=== PATIENT | male | born 1930 | race Caucasian/White ===

== ENCOUNTER 2019-05-26 21:28 | Emergency (ER) | payer MEDICARE, BC ==
[2019-05-26 21:35] VITALS: BP 161/85; PULSE 96; RESP 20; TEMP 98.6
[2019-05-26] MEDS ORDERED: ONDANSETRON 4 MG/2 ML VIAL IVP STA (21:47)
[2019-05-26] MEDS ORDERED: KETOROLAC 30 MG/ML 1 ML VIAL IVP STA (21:47)
[2019-05-26] MEDS ORDERED: SODIUM CHLORIDE 0.9% 1,000 ML IV STA (21:47)
[2019-05-26] MEDS ORDERED: HYDROmorphone 0.5 MG/0.5 ML SYRINGE IVP STA (21:47)
[2019-05-26 22:48] LABS: Basophils # (A) 0.1 k/uL (0-0.2); Basophils % (A) 1 %; Eosinophils # (A) 0.3 k/uL (0-0.7); Eosinophils % (A) 3 %; HGB 15.9 gm/dL (13.0-17.5); Lymphocytes # (A) 1.9 k/uL (1.0-4.8); Lymphocytes % (A) 21 %; MCH 31.3 pg (25.0-35.0); MCHC 33.1 g/dL (31.0-37.0); MCV 94.6 fL (80.0-100.0); Mean Platelet Volume 6.4; Monocytes # (A) 0.5 k/uL (0-1.0); Monocytes % (A) 5 %; Neutrophils # (A) 6.1 k/uL (1.3-7.7); Neutrophils % (A) 68 %; Platelet Count 236 k/uL (150-450); RBC 5.08 m/uL (4.30-5.90); RDW 13.5 % (11.5-15.5)
--- NOTE | 2019-05-26 22:57 | CT ---
EXAMINATION TYPE: CT abdomen pelvis wo con DATE OF EXAM: 05/26/2019 COMPARISON: 09/23/2013 HISTORY: left flank pain CT DLP: 533.8 mGycm Automated exposure control for dose reduction was used. TECHNIQUE: Helical acquisition of images was performed from the lung bases through the pelvis. FINDINGS: There is some mild patchy atelectasis at the posterior lung bases. Heart is moderately enlarged. There are calcified numerous splenic granulomata. There are multiple calcified small gallstones. Thes e are layering in the dependent gallbladder. Bile ducts are not dilated. Liver shows no focal defect. There is no evidence of pancreatic mass. There is fat stranding around the left kidney. There is 2 mm calculus lower pole left kidney. There i s left-sided hydronephrosis and hydroureter. There is left-sided periureteral edema. There is 4 mm ca lculus at the left ureterovesical junction. This is almost into the urinary bladder. There is minimal wall thickening of the posterior urinary bladder on the left side. Prostate is enlarged. Prostate me asures 6.2 cm. There are prostatic calcifications. There is no sign of thickened appendix. Appendix n ot seen with certainty. There is no mesenteric edema. There is no evidence of bowel obstruction. There is 4.5 cm cortical cyst lower pole right kidney. There is no evidence of renal mass. There is n o retroperitoneal adenopathy. There are spondylotic changes in the lumbar spine. 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 There is no compression fracture. There is moderate spinal dhaval nosis at L4-5. IMPRESSION: THERE IS OBSTRUCTING CALCULUS AT THE LEFT URETEROVESICAL JUNCTION THAT IS A CHANGE COMPARED TO OLD EX AM. TINY CALCULUS LOWER POLE LEFT KIDNEY. HIGH ATTENUATION IN THE DEPENDENT GALLBLADDER CONSISTENT WITH MULTIPLE CALCIFIED GALLSTONES INCREASED COMPARED TO OLD EXAM. SEVERE L4-5 SPINAL STENOSIS APPEARS WORSE THAN OLD EXAM.
[2019-05-26 22:59] LABS: Albumin 4.4 g/dL (3.5-5.0); Calcium 9.9 mg/dL (8.4-10.2); Potassium 4.9 mmol/L (3.5-5.1); Total Bilirubin 0.3 mg/dL (0.2-1.3); Total Protein 7.6 g/dL (6.3-8.2)
[2019-05-27 00:40] LABS: Appearance,Urine Cloudy (Clear); Bacteria,Urine Many /hpf; Bilirubin,Urine Negative (Negative); Blood,Urine Moderate (Negative); Color,Urine Yellow; Glucose,Urine (UA) Negative (Negative); Ketones,Urine Negative (Negative); Leukocyte Esterase,Urine Large (Negative); Mucus,Urine Rare /hpf; Nitrite,Urine Positive (Negative); PH, Urine 6.5 (5.0-8.0); Protein,Urine Trace (Negative); RBC,Urine 35 /hpf (0-5); Specific Gravity,Urine 1.015 (1.001-1.035); Urobilinogen,Urine <2.0 mg/dL (<2.0); WBC,Urine >182 /hpf (0-5)
[2019-05-27] MEDS ORDERED: ACET/COD 300 MG/30 MG STARTER PACK 6 TAB BTL PO STA (00:45)
[2019-05-27] MEDS ORDERED: IBUPROFEN 600 MG STARTER PACK 4 TAB BTL PO STA (00:45)
[2019-05-27] MEDS ORDERED: LEVOFLOXACIN 750 MG TAB PO STA (00:45)
[2019-05-27] MEDS ORDERED: TAMSULOSIN 0.4 MG CAP.ER.24H PO STA (00:45)
--- NOTE | 2019-05-27 00:50 | ED ---
Abdominal Pain HPI - General Chief Complaint: Abdominal Pain Stated Complaint: kidney pain Time Seen by Provider: 05/26/19 21:41 Source: patient Mode of arrival: ambulatory Limitations: no limitations - History of Present Illness Initial Comments: 88-year-old male patient presents to the emergency department today for evaluation of left flank pain radiating to the left lower quadrant abdomen. Patient states pain started this morning and has worsened throughout the day. Patient states that he has had decreased urine output but this is not unusual fo r him as he does have issues with his prostate. Denies any hematuria, dysuria, fever, chills, nausea, or vomiting. Denies any constipation or diarrhea. Denies any history of similar symptoms. States that he has had a hernia repair in the past. Denies any other abdominal surgeries. States he has been told has had a heart murmur but no other heart history. Patient denies any recent rash, shortness breath, chest pain, diarrhea, constipation, back pain, numbness, tingling, dizziness, weakness, headache, visual changes, or any other complaints. - Related Data Previous Rx's Medication Instructions Recorded Ibuprofen [Motrin] 600 mg PO Q8HR PRN #30 tab 05/27/19 Levofloxacin [Levaquin] 750 mg PO DAILY 3 Days #7 tab 05/27/19 Tamsulosin HCl [Flomax] 0.4 mg PO DAILY #7 cap 05/27/19 Allergies Allergy/AdvReac Type Severity Reaction Status Date / Time No Known Allergies Allergy Verified 05/26/19 22:36 Review of Systems ROS Statement: Those systems with pertinent positive or pertinent negative responses have been documented in the HPI. ROS Other: All systems not noted in ROS Statement are negative. Past Medical History Past Medical History: No Reported History History of Any Multi-Drug Resistant Organisms: None Reported Past Surgical History: Appendectomy Past Psychological History: No Psychological Hx Reported Smoking Status: Never smoker Past Alcohol Use History: None Reported Past Drug Use History: None Reported General Exam Limitations: no limitations General appearance: alert, in no apparent distress, other (This is a well- developed, well-nourished elderly male patient in no acute distress. Vital signs upon presentation are temperature 98.6F, pulse 96, respirations 20, blood pressure 161/85, pulse ox 99% on room air.) Eye exam: Present: normal appearance, PERRL, EOMI. Absent: scleral icterus, conjunctival injection, periorbital swelling ENT exam: Present: normal exam, normal oropharynx Respiratory exam: Present: normal lung sounds bilaterally. Absent: respiratory distress, wheezes, rales, rhonchi, stridor Cardiovascular Exam: Present: regular rate, normal rhythm, normal heart sounds. Absent: systolic murmur, diastolic murmur, rubs, gallop, clicks GI/Abdominal exam: Present: soft, normal bowel sounds. Absent: distended, tenderness, guarding, rebound, rigid Back exam: Present: normal inspection. Absent: CVA tenderness (R), CVA tenderness (L) Neurological exam: Present: alert, oriented X3, CN II-XII intact Psychiatric exam: Present: normal affect, normal mood Skin exam: Present: warm, dry, intact, normal color. Absent: rash Course Vital Signs 05/26/19 21:33 Temperature 98.6 F Pulse Rate 96 Respiratory 20 Rate Blood Pressure 161/85 O2 Sat by Pulse 99 Oximetry Medical Decision Making - Medical Decision Making 88 year-old male patient presented to the emergency department today for evaluation of left flank pain with radiation to the left lower quadrant. Physical examination was relatively unremarkable. There is no CVA tenderness no abdominal tenderness. Labs are reviewed and showed evidence for urinary tract infection with microscopic hematuria. CT abdomen and pelvis was obtained and showed evidence for left-sided hydronephrosis and hydroureter with a kidney stone at the left UVJ. There is also some thickening of the bladder wall. EKG showed evidence for atrial fibrillation. Patient denies any history of this. I did discuss findings and results with the patient. It is recommended that he be admitted for further evaluation by cardiology given new onset A. fib. Patient refused to stay. I did explain risks of leaving incluidng, blood clot, stroke, and . He verbalized understanding and would still like to be discharged. He will be started on Levaquin for UTI and given medication for pain control. He is instructed to follow up with urology and his primary care javi cookian for recheck as soon as possible. He verbalizes understanding. - Lab Data Result diagrams: 05/26/19 22:20 05/26/19 22:20 Lab Results 05/26/19 05/26/19 05/26/19 Range/Units 22:20 22:20 22:20 WBC 9.0 (3.8-10.6) k/uL RBC 5.08 (4.30-5.90) m/uL Hgb 15.9 (13.0-17.5) gm/dL Hct 48.0 (39.0-53.0) % MCV 94.6 (80.0-100.0) fL MCH 31.3 (25.0-35.0) pg MCHC 33.1 (31.0-37.0) g/dL RDW 13.5 (11.5-15.5) % Plt Count 236 (150-450) k/uL Neutrophils % 68 % Lymphocytes % 21 % Monocytes % 5 % Eosinophils % 3 % Basophils % 1 % Neutrophils # 6.1 (1.3-7.7) k/uL Lymphocytes # 1.9 (1.0-4.8) k/uL Monocytes # 0.5 (0-1.0) k/uL Eosinophils # 0.3 (0-0.7) k/uL Basophils # 0.1 (0-0.2) k/uL Sodium 143 (137-145) mmol/L Potassium 4.9 (3.5-5.1) mmol/L Chloride 108 H (98-107) mmol/L Carbon Dioxide 24 (22-30) mmol/L Anion Gap 11 mmol/L BUN 25 H (9-20) mg/dL Creatinine 1.14 (0.66-1.25) mg/dL Est GFR (CKD-EPI)AfAm 67 (>60 ml/min/1.73 sqM) Est GFR (CKD-EPI)NonAf 58 (>60 ml/min/1.73 sqM) Glucose 120 H (74-99) mg/dL Plasma Lactic Acid I[place] 1.9 (0.7-2.0) mmol/L Calcium 9.9 (8.4-10.2) mg/dL Total Bilirubin 0.3 (0.2-1.3) mg/dL AST 29 (17-59) U/L ALT 25 (21-72) U/L Alkaline Phosphatase 89 (38-126) U/L Total Protein 7.6 (6.3-8.2) g/dL Albumin 4.4 (3.5-5.0) g/dL Amylase 65 (30-110) U/L Lipase 70 (23-300) U/L Urine Color Urine Appearance (Clear) Urine pH (5.0-8.0) Ur Specific [place] (1.001-1.035) Urine Protein (Negative) Urine Glucose (UA) (Negative) Urine Ketones (Negative) Urine Blood (Negative) Urine Nitrite (Negative) Urine Bilirubin (Negative) Urine Urobilinogen (<2.0) mg/dL Ur Leukocyte Esterase (Negative) Urine RBC (0-5) /hpf Urine WBC (0-5) /hpf Urine WBC Clumps (None) /hpf Urine Bacteria (None) /hpf Urine Mucus (None) /hpf 05/26/19 Range/Units 23:33 WBC (3.8-10.6) k/uL RBC (4.30-5.90) m/uL Hgb (13.0-17.5) gm/dL Hct (39.0-53.0) % MCV (80.0-100.0) fL MCH (25.0-35.0) pg MCHC (31.0-37.0) g/dL RDW (11.5-15.5) % Plt Count (150-450) k/uL Neutrophils % % Lymphocytes % % Monocytes % % Eosinophils % % Basophils % % Neutrophils # (1.3-7.7) k/uL Lymphocytes # (1.0-4.8) k/uL Monocytes # (0-1.0) k/uL Eosinophils # (0-0.7) k/uL Basophils # (0-0.2) k/uL Sodium (137-145) mmol/L Potassium (3.5-5.1) mmol/L Chloride (98-107) mmol/L Carbon Dioxide (22-30) mmol/L Anion Gap mmol/L BUN (9-20) mg/dL Creatinine (0.66-1.25) mg/dL Est GFR (CKD-EPI)AfAm (>60 ml/min/1.73 sqM) Est GFR (CKD-EPI)NonAf (>60 ml/min/1.73 sqM) Glucose (74-99) mg/dL Plasma Lactic Acid [place] (0.7-2.0) mmol/L Calcium (8.4-10.2) mg/dL Total Bilirubin (0.2-1.3) mg/dL AST (17-59) U/L ALT (21-72) U/L Alkaline Phosphatase (38-126) U/L Total Protein (6.3-8.2) g/dL Albumin (3.5-5.0) g/dL Amylase (30-110) U/L Lipase (23-300) U/L Urine Color Yellow Urine Appearance Cloudy (Clear) Urine pH 6.5 (5.0-8.0) Ur Specific [place] 1.015 (1.001-1.035) Urine Protein Trace H (Negative) Urine Glucose (UA) Negative (Negative) Urine Ketones Negative (Negative) Urine Blood Moderate H (Negative) Urine Nitrite Positive (Negative) Urine Bilirubin Negative (Negative) Urine Urobilinogen <2.0 (<2.0) mg/dL Ur Leukocyte Esterase Large H (Negative) Urine RBC 35 H (0-5) /hpf Urine WBC >182 H (0-5) /hpf Urine WBC Clumps Occasional H (None) /hpf Urine Bacteria Many H (None) /hpf Urine Mucus Rare H (None) /hpf - EKG Data -: EKG Interpreted by Me EKG Comments: EKG obtained at 2230 shows atrial fibrillation with a left bundle branch block. Ventricular rate is 89, QRS duration 134, QT 402, QTc 489. No evidence of ST elevation or depression. - Radiology Data Radiology results: report reviewed, image reviewed CT abdomen and pelvis without contrast was obtained. Report was reviewed in its entirety. Impression by Dr. Wahl shows obstructing calculus at the left ureterovesical junction that is a change compared to old exam. Tiny calculus lower pole left kidney. High attenuation in the dependent gallbladder consistent with multiple calcified gallstones increased compared to old exam. Severe L4 to 5 spinal stenosis appears worse in old exam. Disposition Clinical Impression: Kidney stone on left side, Urinary tract infection, Atrial fibrillation Disposition: Left Against Medical Advice Condition: Fair Instructions (If sedation given, give patient instructions): A-fib (Atrial Fibrillation) (ED), Kidney Stones (ED), Urinary Tract Infection in Men (ED) Additional Instructions: Increase fluids. Complete medications as directed. Follow-up with urology and your primary care physician for recheck as soon as possible. Return to the emergency department for any new, worsening, or concerning symptoms. Prescriptions: Tamsulosin HCl [Flomax] 0.4 mg PO DAILY #7 cap Levofloxacin [Levaquin] 750 mg PO DAILY 3 Days #7 tab Ibuprofen [Motrin] 600 mg PO Q8HR PRN #30 tab PRN Reason: Pain Is patient prescribed a controlled substance at d/c from ED?: No Referrals: Vitaliy Hdz MD [Primary Care Provider] - 1-2 days Jah Santos MD [STAFF PHYSICIAN] - 1-2 days Time of Disposition: 00:50
== END 2019-05-27 01:09 | disposition left against medical advice (07) ==
LOC: EC 21:28
DX: N13.6 Pyonephrosis (principal); I48.91 Unspecified atrial fibrillation; Z90.49 Acquired absence of other specified parts of digestive tract; Z53.20 Procedure and treatment not carried out because of patient's decision for unspecified reasons
CPT/HCPCS: 36415; 93005; 80053; 82150; 83605; 83690; 85025; 81001; 74176; 99284; 96374; 96375 ×2; 96361; J2405; J1885; J1170

== ENCOUNTER → 2019-05-29 | Outpatient (CLI) | payer MEDICARE, BC | END | disposition home or self-care (01) | LOC: LABWHC1 10:01 | PROVIDERS: ATTEND Internal Medicine Cardiovascular Disease | DX: I48.0 Paroxysmal atrial fibrillation (principal) | CPT/HCPCS: 36415; 84443 ==

== ENCOUNTER → 2019-09-24 | Outpatient (CLI) | payer MEDICARE, BC ==
--- NOTE | 2019-09-24 12:27 | XR ---
EXAMINATION TYPE: XR lumbosacral spine min 4V DATE OF EXAM: 09/24/2019 CLINICAL HISTORY: Left lower leg pain TECHNIQUE: Frontal, lateral, and oblique images of the lumbar spine are obtained. COMPARISON: None FINDINGS: There is a dextroscoliosis of the lumbar spine, overall mild. There are 5 lumbar type vert ebral bodies identified. The lumbar spine shows satisfactory vertebral body heights. There is multil evel malalignment. There is grade 1 anterolisthesis of L4 on L5 of 5.5 mm and mild retrolisthesis of L2 on L3. Advanced multilevel degenerative disc disease are seen of the lumbar spine. Multilevel face t arthropathy, intervertebral disc space narrowing, and anterior osteophytes are seen. IMPRESSION: 1. No acute fracture or malalignment is seen in the lumbar spine. 2. Advanced multilevel degenerative disc disease. Multilevel malalignment is likely on a degenerative basis. 3. Mild dextroscoliosis of the lumbar spine.
== END | disposition home or self-care (01) ==
LOC: RADXRMAIN 09:20
PROVIDERS: ATTEND Family Medicine
DX: M51.36 Other intervertebral disc degeneration, lumbar region (principal); M41.86 Other forms of scoliosis, lumbar region
CPT/HCPCS: 72110

== ENCOUNTER 2019-10-14 16:12 | Inpatient (IN) | payer MEDICARE, BC ==
[2019-10-14] MEDS ORDERED: NITROGLYCERIN OINT 1 INCH/GM PACKET TOPICAL STA (16:49)
[2019-10-14] MEDS ORDERED: ASPIRIN 81 MG PO STA (16:49)
--- NOTE | 2019-10-14 16:52 | ED ---
General Adult HPI - General Chief complaint: Chest Pain Stated complaint: Chest pain Time Seen by Provider: 10/14/19 16:15 Source: patient, RN notes reviewed, old records reviewed Mode of arrival: wheelchair Limitations: no limitations - History of Present Illness Initial comments: This is an 89-year-old male who presents emergency department stating that he had chest pain starting at 3:30 PM. Patient states the pain radiated to both shoulders. Patient denied any difficulty breathing first breath. Patient denies any diaphoretic. Patient denies any nausea. Patient had abdominal pain patient denies any fever chills or cough. Patient states the pain is subsided to a dull ache at this point. Patient denies any headache patient denies numbness weakness. Patient denies any lightheadedness dizziness. - Related Data Previous Rx's Medication Instructions Recorded Ibuprofen [Motrin] 600 mg PO Q8HR PRN #30 tab 05/27/19 Levofloxacin [Levaquin] 750 mg PO DAILY 3 Days #7 tab 05/27/19 Tamsulosin HCl [Flomax] 0.4 mg PO DAILY #7 cap 05/27/19 Allergies Allergy/AdvReac Type Severity Reaction Status Date / Time No Known Allergies Allergy Verified 10/14/19 16:16 Review of Systems ROS Statement: Those systems with pertinent positive or pertinent negative responses have been documented in the HPI. ROS Other: All systems not noted in ROS Statement are negative. Past Medical History Past Medical History: No Reported History History of Any Multi-Drug Resistant Organisms: None Reported Past Surgical History: Appendectomy Past Psychological History: No Psychological Hx Reported Smoking Status: Never smoker Past Alcohol Use History: None Reported Past Drug Use History: None Reported General Exam - General Exam Comments Initial Comments: GENERAL: Patient is well-developed and well-nourished. Patient is nontoxic and well-hydrated and is in mild distress. ENT: Neck is soft and supple. No significant lymphadenopathy is noted. Oropharynx is clear. Moist mucous membranes. Neck has full range of motion without eliciting any pain. EYES: The sclera were anicteric and conjunctiva were pink and moist. Extraocular movements were intact and pupils were equal round and reactive to light. Eyelids were unremarkable. PULMONARY: Unlabored respirations. Good breath sounds bilaterally. No audible rales rhonchi or wheezing was noted. CARDIOVASCULAR: There is a regular rate and rhythm without any murmurs gallops or rubs. ABDOMEN: Soft and nontender with normal bowel sounds. No palpable organomegaly was noted. There is no palpable pulsatile mass. SKIN: Skin is clear with no lesions or rashes and otherwise unremarkable. NEUROLOGIC: Patient is alert and oriented x3. Cranial nerves II through XII are grossly intact. Motor and sensory are also intact. Normal speech, volume and content. Symmetrical smile. Cerebellar exam grossly intact. MUSCULOSKELETAL: Normal extremities with adequate strength and full range of motion. LYMPHATICS: No significant lymphadenopathy is noted PSYCHIATRIC: Normal psychiatric evaluation. Limitations: no limitations Course Vital Signs 10/14/19 10/14/19 10/14/19 16:13 17:25 18:12 Temperature 97.7 F Pulse Rate 76 71 69 Respiratory 20 18 18 Rate Blood Pressure 156/81 147/67 140/79 O2 Sat by Pulse 99 98 97 Oximetry Medical Decision Making - Medical Decision Making EKG shows sinus rhythm with occasional PAC at 73 bpm [place] interval is 182 QRS is 144 QT interval 448 QTC is 493. Patient's EKG shows no ST segment elevation or depression. Patient has a left bundle branch block. Chest x-ray shows no acute normalities. Patient states that the Nitropaste his pain dissipated. I spoke with Dr. Hdz he agreed to admit the patient admitted the patient wrote admitting orders. - Lab Data Result diagrams: 10/14/19 16:32 10/14/19 16:32 Lab Results 10/14/19 10/14/19 10/14/19 Range/Units 16:32 16:32 16:32 WBC 7.1 (3.8-10.6) k/uL RBC 5.14 (4.30-5.90) m/uL Hgb 16.3 (13.0-17.5) gm/dL Hct 49.4 (39.0-53.0) % MCV 96.2 (80.0-100.0) fL MCH 31.7 (25.0-35.0) pg MCHC 33.0 (31.0-37.0) g/dL RDW 13.6 (11.5-15.5) % Plt Count 215 (150-450) k/uL Neutrophils % 58 % Lymphocytes % 26 % Monocytes % 7 % Eosinophils % 4 % Basophils % 3 % Neutrophils # 4.1 (1.3-7.7) k/uL Lymphocytes # 1.9 (1.0-4.8) k/uL Monocytes # 0.5 (0-1.0) k/uL Eosinophils # 0.3 (0-0.7) k/uL Basophils # 0.2 (0-0.2) k/uL PT 17.0 H (9.0-12.0) sec INR 1.7 H (<1.2) APTT 26.2 (22.0-30.0) sec Sodium 142 (137-145) mmol/L Potassium 4.0 (3.5-5.1) mmol/L Chloride 106 (98-107) mmol/L Carbon Dioxide 27 (22-30) mmol/L Anion Gap 9 mmol/L BUN 21 H (9-20) mg/dL Creatinine 1.03 (0.66-1.25) mg/dL Est GFR (CKD-EPI)AfAm 76 (>60 ml/min/1.73 sqM) Est GFR (CKD-EPI)NonAf 65 (>60 ml/min/1.73 sqM) Glucose 138 H (74-99) mg/dL Calcium 9.2 (8.4-10.2) mg/dL Magnesium 2.2 (1.6-2.3) mg/dL Total Bilirubin 0.5 (0.2-1.3) mg/dL AST 32 (17-59) U/L ALT 19 (4-49) U/L Alkaline Phosphatase 85 (38-126) U/L Troponin I (0.000-0.034) ng/mL Total Protein 7.4 (6.3-8.2) g/dL Albumin 4.3 (3.5-5.0) g/dL 10/14/19 Range/Units 16:32 WBC (3.8-10.6) k/uL RBC (4.30-5.90) m/uL Hgb (13.0-17.5) gm/dL Hct (39.0-53.0) % MCV (80.0-100.0) fL MCH (25.0-35.0) pg MCHC (31.0-37.0) g/dL RDW (11.5-15.5) % Plt Count (150-450) k/uL Neutrophils % % Lymphocytes % % Monocytes % % Eosinophils % % Basophils % % Neutrophils # (1.3-7.7) k/uL Lymphocytes # (1.0-4.8) k/uL Monocytes # (0-1.0) k/uL Eosinophils # (0-0.7) k/uL Basophils # (0-0.2) k/uL PT (9.0-12.0) sec INR (<1.2) APTT (22.0-30.0) sec Sodium (137-145) mmol/L Potassium (3.5-5.1) mmol/L Chloride (98-107) mmol/L Carbon Dioxide (22-30) mmol/L Anion Gap mmol/L BUN (9-20) mg/dL Creatinine (0.66-1.25) mg/dL Est GFR (CKD-EPI)AfAm (>60 ml/min/1.73 sqM) Est GFR (CKD-EPI)NonAf (>60 ml/min/1.73 sqM) Glucose (74-99) mg/dL Calcium (8.4-10.2) mg/dL Magnesium (1.6-2.3) mg/dL Total Bilirubin (0.2-1.3) mg/dL AST (17-59) U/L ALT (4-49) U/L Alkaline Phosphatase (38-126) U/L Troponin I <0.012 (0.000-0.034) ng/mL Total Protein (6.3-8.2) g/dL Albumin (3.5-5.0) g/dL Disposition Clinical Impression: Unstable angina pectoris Disposition: ADMITTED IP TO THIS [facility] Referrals: Vitaliy Hdz MD [Primary Care Provider] - 1-2 days Time of Disposition: 18:21
[2019-10-14 17:18] LABS: Basophils # (A) 0.2 k/uL (0-0.2); Basophils % (A) 3 %; Eosinophils # (A) 0.3 k/uL (0-0.7); Eosinophils % (A) 4 %; HCT 49.4 % (39.0-53.0); HGB 16.3 gm/dL (13.0-17.5); Lymphocytes # (A) 1.9 k/uL (1.0-4.8); Lymphocytes % (A) 26 %; MCH 31.7 pg (25.0-35.0); MCV 96.2 fL (80.0-100.0); Mean Platelet Volume 7.3; Monocytes # (A) 0.5 k/uL (0-1.0); Monocytes % (A) 7 %; Neutrophils # (A) 4.1 k/uL (1.3-7.7); Neutrophils % (A) 58 %; Platelet Count 215 k/uL (150-450); RBC 5.14 m/uL (4.30-5.90); RDW 13.6 % (11.5-15.5); WBC 7.1 k/uL (3.8-10.6)
[2019-10-14 17:29] LABS: INR 1.7 (<1.2); Partial Thromboplastin Time 26.2 sec (22.0-30.0)
[2019-10-14 17:30] LABS: Albumin 4.3 g/dL (3.5-5.0); Calcium 9.2 mg/dL (8.4-10.2); Magnesium 2.2 mg/dL (1.6-2.3); Total Bilirubin 0.5 mg/dL (0.2-1.3); Total Protein 7.4 g/dL (6.3-8.2)
--- NOTE | 2019-10-14 17:39 | XR ---
EXAMINATION TYPE: XR chest 2V DATE OF EXAM: 10/14/2019 COMPARISON: NONE HISTORY: Chest pain TECHNIQUE: FINDINGS: Heart is normal. Lungs are clear of infiltrate. Thoracic aorta is atheromatous. Costophreni c angles are clear. There are no hilar masses. IMPRESSION: No active cardiopulmonary disease. Normal heart.
[2019-10-14] MEDS ORDERED: NITROGLYCERIN SL TABS 0.4 MG TAB SUBLINGUAL PRN (18:21)
[2019-10-14] MEDS ORDERED: ATORVASTATIN 40 MG TAB PO STA (23:55)
[2019-10-14] MEDS ORDERED: ATENOLOL 25 MG TAB PO STA (23:59)
[2019-10-15] MEDS ORDERED: HEPARIN SODIUM,PORCINE 5,000 UNIT/ML 1 ML VIAL IV ONE (00:03)
[2019-10-15] MEDS ORDERED: HEPARIN SODIUM,PORCINE 5,000 UNIT/ML 1 ML VIAL IV PRN (00:03)
[2019-10-15] MEDS: NITROGLYCERIN OINT 1 INCH/GM PACKET TOPICAL SCH ×4 (00:12→19:07)
[2019-10-15] MEDS ORDERED: HEPARIN SOD,PORK IN 0.45% NACL 25,000 UNIT in 0.45% NACL 1 250ML.BAG IV SCH (00:15)
[2019-10-15 00:51] LABS: Basophils # (A) 0.1 k/uL (0-0.2); Basophils % (A) 1 %; Eosinophils # (A) 0.2 k/uL (0-0.7); Eosinophils % (A) 3 %; HCT 45.5 % (39.0-53.0); HGB 14.8 gm/dL (13.0-17.5); Lymphocytes # (A) 1.7 k/uL (1.0-4.8); Lymphocytes % (A) 22 %; MCH 31.4 pg (25.0-35.0); MCHC 32.6 g/dL (31.0-37.0); MCV 96.3 fL (80.0-100.0); Mean Platelet Volume 6.9; Monocytes # (A) 0.5 k/uL (0-1.0); Monocytes % (A) 7 %; Neutrophils # (A) 4.8 k/uL (1.3-7.7); Neutrophils % (A) 65 %; Platelet Count 180 k/uL (150-450); RBC 4.73 m/uL (4.30-5.90); RDW 13.6 % (11.5-15.5); WBC 7.5 k/uL (3.8-10.6)
[2019-10-15 01:12] LABS: INR 2.2 (<1.2); Prothrombin Time 21.6 sec (9.0-12.0)
[2019-10-15 01:15] LABS: Partial Thromboplastin Time 152.7 sec (22.0-30.0)
[2019-10-15 07:15] LABS: Cholesterol 134 mg/dL (<200); HDL Cholesterol 45 mg/dL (40-60); LDL Cholesterol,Calculated 72 mg/dL (0-99); Triglycerides 86 mg/dL (<150)
[2019-10-15] MEDS ORDERED: ALPRAZolam 0.5 MG TAB PO PRN (07:38)
[2019-10-15] MEDS ORDERED: ASPIRIN 325 MG TAB PO STA (07:38)
[2019-10-15] MEDS ORDERED: ALPRAZolam 0.25 MG TAB PO PRN (07:38)
[2019-10-15] MEDS ORDERED: ATORVASTATIN 80 MG TAB PO STA (07:38)
[2019-10-15] MEDS ORDERED: SODIUM CHLORIDE 0.9% 1,000 ML in EMPTY BAG 1 BAG IV ONE (07:38)
[2019-10-15] MEDS ORDERED: NITROGLYCERIN SL TABS 0.4 MG TAB SUBLINGUAL PRN (07:38)
[2019-10-15] MEDS ORDERED: VERAPAMIL 2.5 MG/ML 2 ML AMP ONE (09:00)
[2019-10-15] MEDS ORDERED: ASPIRIN 325 MG TAB PO SCH (09:00)
[2019-10-15] MEDS ORDERED: LIDOCAINE 1% INJ 10MG/ML (20 ML MDV) ONE (09:00)
[2019-10-15] MEDS ORDERED: MIDAZOLAM 2 MG/2 ML VIAL IV ONE (09:18)
[2019-10-15] MEDS: LIDOCAINE 1% INJ 10MG/ML (20 ML MDV) SQ ONE ×2 (09:18→09:30)
[2019-10-15] MEDS ORDERED: HEPARIN SODIUM 1,000 UN/ML (10ML VL) ONE (09:22)
[2019-10-15] MEDS ORDERED: VERAPAMIL SYRINGE (5 MG/10 ML) INTRAARTER ONE (09:23)
[2019-10-15] MEDS ORDERED: IV FLUID CONTINUATION 700 ML IV ONE (09:23)
--- NOTE | 2019-10-15 09:42 | CONS ---
CONSULTATION Mr. Kelsey is an 89-year-old elderly gentleman with a history of hypertension, hypercholesterolemia and paroxysmal atrial fibrillation, who came into the hospital with chest pain suggestive of angina that started about 3 to 4 p.m. yesterday afternoon. When he came into the hospital, the pain was somewhat atypical. His initial troponin was unremarkable, but subsequent troponin went up to 25 and came down to 20. He still has discomfort in the chest but significantly improved compared to yesterday. It appears that he had an underlying left bundle branch block pattern with sinus mechanism and the troponin elevation suggests probable non ST elevation IN. At the time of my evaluation, he is resting comfortably with mild chest discomfort. Hemodynamically stable. PAST MEDICAL HISTORY: 1. Hypertension. 2. Hyperlipidemia. 3. Paroxysmal atrial fibrillation. ALLERGIES: None. MEDICATIONS: Medications at home include Coumadin, amlodipine, Flomax, lovastatin, Zestril, atenolol 25 mg daily, and Zyloprim. EKG revealed sinus mechanism with anterior ST-T changes raising the possibility of ischemia in the LAD distribution. Troponin levels are high at 25.5 and came down to 20. The patient has been on heparin after arrival. He is comfortable. PHYSICAL EXAMINATION: On examination, blood pressure is 124/70, pulse rate is 70 per minute. HEENT: Unremarkable. Fundus was not examined by me. Neck is supple. There is JVD of 1 cm. No carotid bruit. S1-S2 heard normally, short systolic murmur in the left lower sternal border. Lungs are clear. Abdomen is soft, nontender. Lower extremities reveal normal pulses. No edema. Central nervous system is normal. EKG revealed sinus mechanism, PACs, nonspecific ST-T changes, underlying bundle branch block. IMPRESSION: 1. Probable non ST elevation myocardial infarction. Patient is hemodynamically stable. 2. History of paroxysmal atrial fibrillation, on Coumadin. INR is 2.2. 3. Hypertension. 4. Hyperlipidemia. RECOMMENDATION: I am recommending coronary angiography. Rationale, risks, benefits and options explained. Patient understands and wishes to proceed with the procedure. I will perform from right radial approach. MMODL / IJN: [id number] /
[2019-10-15] MEDS ORDERED: IOPAMIDOL-370 100ML BTL INJ ONE (09:49)
[2019-10-15] MEDS ORDERED: RX INFO: IV CONTRAST WAS GIVEN 1 EACH MISC MISCELLANE PRN (09:49)
--- NOTE | 2019-10-15 10:30 | CC ---
CARDIAC CATHETERIZATION REPORT DATE OF SERVICE: 10/15/2019. PROCEDURE: Left heart catheterization and coronary angiography. PERFORMED BY: Dr. Williams Zhang. Moderate conscious sedation time was 30 minutes. CLINICAL INFORMATION: Mr. Kelsey is an 89-year-old gentleman came into the hospital at about 3 p.m. yesterday, had chest pain, subsequent troponin elevation up to 25 with a left bundle branch and precordial ST-T changes. He was advised cardiac catheterization after due discussion regarding the rationale, risks, benefits, and options. PROCEDURE NOTE: Under local anesthesia and strict aseptic precautions, a 6-[place] introducer was placed in the right radial artery. I tried to advance a right Valente catheter. I was able to go up to the ascending aorta, but there was extreme tortuosity both in the brachial and also in the brachiocephalic artery area. Because of extreme tortuosity, I abandoned the procedure and went from the right femoral approach. A Glidewire was used during this effort. Under local anesthesia and strict aseptic precautions, a 6-[place] introducer was placed in the right femoral artery. Using a standard Valente catheters, I performed coronary angiography. The same right catheter was used to check LV pressures. LV gram was not performed. CARDIAC CATHETERIZATION FINDINGS: The left ventricular end-diastolic pressure was 16 mmHg without any gradient across the aortic valve. CORONARY ANGIOGRAPHY FINDINGS: RIGHT CORONARY ARTERY: Small nondominant vessel. Limited amount of myocardium being supplied by it. LEFT MAIN CORONARY ARTERY: This is a short patent disease-free vessel that trifurcates into LAD, circumflex and small ramus intermedius. No significant disease in the left main. LEFT ANTERIOR DESCENDING CORONARY ARTERY: This vessel is of fair caliber, starts off with a decent caliber and in the midportion gives off what seems to be a large diagonal branch and after the diagonal branch, the caliber of the vessel is good, but the distal 1/4 of the vessel is small in caliber, diffusely diseased as it runs towards the apex. There is no focal critical stenosis but there is some haziness in the mid LAD and distal LAD is diffusely diseased which may be a chronic finding. There is no acute focal stenosis in the LAD system. Diagonal is free of significant disease. RAMUS INTERMEDIUS: This is a short vessel free of significant disease has a 40% lesion, runs laterally, small in caliber and distribution. No other significant disease. LEFT POSTERIOR CIRCUMFLEX CORONARY ARTERY: Technically a very dominant vessel, gives off 2 small obtuse marginal then a large PDA and PLV, both of which are free of significant disease. No significant disease in the very dominant circumflex system. LEFT VENTRICULOGRAM: Left ventriculogram was not performed. FINAL IMPRESSION: This patient has a left dominant system, diffusely disease distal 1/4 of the LAD, but no focal stenosis either in the LAD, diagonal or in the dominant circumflex. RCA is small and nondominant. Filling pressures are slightly elevated with no gradient across aortic valve. RECOMMENDATIONS: I believe this patient has either a myopericarditis type picture or a new entity called MINOC, which is myocardial infarction without obstructive coronary disease. An echo will be performed and we will continue further management closely. I discussed my thoughts in detail with the patient, but there was no other family members to speak to. DUANE / CHELN: [id number] /
--- NOTE | 2019-10-15 11:31 | P.HPIM ---
History of Present Illness 89-year-old male presented emergency room with complaints of chest pain denies shortness of breath diaphoresis or nausea. Patient states pain went into his shoulders. Initial troponin negative #2 25 #3 20. Patient was taken to [facility] and found to be clear does have some cardiac disease. Diagnosed with myopericarditis versus myocardial infarction without obstructive disease. Patient also has a history of paroxysmal atrial fibrillation hypertension Review of Systems Cardiovascular: Reports chest pain Past Medical History Past Medical History: Atrial Fibrillation, Hyperlipidemia, Hypertension, Prostate Disorder History of Any Multi-Drug Resistant Organisms: None Reported Past Surgical History: Appendectomy Past Psychological History: No Psychological Hx Reported Smoking Status: Former smoker Past Alcohol Use History: None Reported Past Drug Use History: None Reported Medications and Allergies Home Medications Medication Instructions Recorded Confirmed Type Allopurinol [Zyloprim] 300 mg PO DAILY 10/14/19 10/14/19 History Atenolol [Tenormin] 25 mg PO HS 10/14/19 10/14/19 History Lisinopril [Zestril] 20 mg PO BID 10/14/19 10/14/19 History Lovastatin [Altoprev] 20 mg PO DAILY 10/14/19 10/14/19 History Tamsulosin HCl [Flomax] 0.4 mg PO Q48H 10/14/19 10/14/19 History Warfarin [Coumadin] 5 mg PO DAILY 10/14/19 10/14/19 History amLODIPine [Norvasc] 5 mg PO DAILY 10/14/19 10/14/19 History Allergies Allergy/AdvReac Type Severity Reaction Status Date / Time No Known Allergies Allergy Verified 10/14/19 19:02 Physical Exam Vitals: Vital Signs Temp Pulse Pulse Pulse Resp BP BP 10/15/19 10:05 98.1 F 67 18 133/64 10/15/19 07:36 10/15/19 07:30 98.2 F 73 18 124/59 10/15/19 05:00 97.9 F 64 18 139/74 10/15/19 03:45 18 10/15/19 00:00 98.1 F 60 18 115/58 10/14/19 23:25 60 18 10/14/19 19:20 97.5 F L 69 17 144/79 10/14/19 18:12 69 18 140/79 10/14/19 17:25 71 18 147/67 10/14/19 16:13 97.7 F 76 20 156/81 Pulse Ox 10/15/19 10:05 94 L 10/15/19 07:36 92 L 10/15/19 07:30 93 L 10/15/19 05:00 96 10/15/19 03:45 10/15/19 00:00 97 10/14/19 23:25 10/14/19 19:20 96 10/14/19 18:12 97 10/14/19 17:25 98 10/14/19 16:13 99 Intake and Output 10/14/19 10/15/19 10/15/19 22:59 06:59 14:59 Intake Total 15.73 200 Balance 15.73 200 Intake: IV 200 Intake, IV Titration 15.73 Amount Heparin Sod,Pork in 0.45% 15.73 NaCl 25,000 unit In 0.45 % NaCl 1 250ml.bag @ 12 UNITS/KG/HR 9.253 mls/hr IV .Q24H [facility] Rx#: [id number] Other: # Voids 1 Weight 77.111 kg - Constitutional General appearance: mild distress - EENT Eyes: PERRLA Ears: bilateral: normal - Neck Neck: normal ROM - Respiratory Respiratory: negative: CTA - Cardiovascular Rhythm: regular - Gastrointestinal General gastrointestinal: soft - Integumentary Integumentary: normal - Musculoskeletal Musculoskeletal: gait normal - Psychiatric Psychiatric: A&O x's 3 Results CBC & Chem 7: 10/15/19 00:40 10/14/19 16:32 Labs: Abnormal Lab Results - Last 24 Hours (Table) 10/14/19 10/14/19 10/14/19 Range/Units 16:32 16:32 22:25 PT 17.0 H (9.0-12.0) sec INR 1.7 H (<1.2) APTT (22.0-30.0) sec BUN 21 H (9-20) mg/dL Glucose 138 H (74-99) mg/dL Troponin I 25.500 H* (0.000-0.034) ng/mL 10/15/19 10/15/19 10/15/19 Range/Units 00:40 01:40 05:28 PT 21.6 H (9.0-12.0) sec INR 2.2 H (<1.2) APTT 152.7 H* 84.6 H (22.0-30.0) sec BUN (9-20) mg/dL Glucose (74-99) mg/dL Troponin I 20.000 H* (0.000-0.034) ng/mL 10/15/19 Range/Units 07:47 PT (9.0-12.0) sec INR (<1.2) APTT 45.7 H (22.0-30.0) sec BUN (9-20) mg/dL Glucose (74-99) mg/dL Troponin I (0.000-0.034) ng/mL Chest x-ray: report reviewed Thrombosis Risk Factor Assmnt - Choose All That Apply Any of the Below Risk Factors Present?: No Other Risk Factors: No Other congenital or acquired thrombophilia - If yes, enter type in comment: No Thrombosis Risk Factor Assessment Level: Very Low Risk Assessment and Plan Plan: Assessment Chest pain Myopericarditis versus myocardial infarction without obstructive disease History of BPH Hypertension Gout Paroxysmal atrial fibrillation on Coumadin Post cardiac cath Plan 2-D echo Continue consultation with cardiology
--- NOTE | 2019-10-15 13:01 | ECHOF ---
Referral Reason:LV FUNCTION MEASUREMENTS -------- HEIGHT: 177.8 cm WEIGHT: 77.1 kg BP: 133/64 RVIDd: 3.4 cm (< 3.3) IVSd: 1.5 cm (0.6 - 1.1) LVIDd: 5.2 cm (3.9 - 5.3) LVPWd: 1.4 cm (0.6 - 1.1) IVSs: 1.9 cm LVIDs: 4.2 cm LVPWs: 1.9 cm LAESV Index (A-L): 32.52 ml/m Ao Diam: 3.8 cm (2.0 - 3.7) AV Cusp: 2.0 cm (1.5 - 2.6) LA Diam: 3.9 cm (2.7 - 3.8) MV EXCURSION: 18.486 mm (> 18.000) MV EF SLOPE: 110 mm/s (70 - 150) EPSS: 1.0 cm MV E Jose: 1.00 m/s MV DecT: 170 ms MV A Jose: 0.56 m/s MV E/A Ratio: 1.78 AR PHT: 612 ms RAP: 5.00 mmHg RVSP: 42.76 mmHg FINDINGS -------- Sinus rhythm with extra systolic beats. All tobias not well visulized The left ventricular size is normal. There is moderate concentric left ventricular hypertrophy. O verall left ventricular systolic function is moderately impaired with, an EF between 35 - 40 %. [facility] Doppler inflow pattern suggests diastolic filling abnormality 17.08. Apical anterior LV wall mo tion is hypokinetic. Apical lateral LV wall motion is hypokinetic. Apical inferior LV wall miguel on is hypokinetic. Apical septum is hypokinetic. ?? Takatsubo The right ventricle is mildly enlarged. LA is moderately dilated 34-39 ml/m2 The right atrial size is normal. 5.0mg of Lumason was utilized for enhancement of images There is moderate aortic valve sclerosis. There is mild aortic regurgitation. There is no evidenc e of aortic stenosis. Mild mitral annular calcification present. Moderate mitral regurgitation is present. [id number] tricuspid regurgitation present. There is mild to moderate pulmonary hypertension. The right ventricular systolic pressure, as measured by Doppler, is 42.76mmHg. There is no pulmonic regurgitation present. The aortic root size is normal. IVC Not well visulized. There is no pericardial effusion. CONCLUSIONS -------- 1. Sinus rhythm with extra systolic beats. 2. All tboias not well visulized 3. The left ventricular size is normal. 4. There is moderate concentric left ventricular hypertrophy. 5. Overall left ventricular systolic function is moderately impaired with, an EF between 35 - 40 %. 6. Mitral Doppler inflow pattern suggest diastolic filling abnormality 17.08. 7. Apical anterior LV wall motion is hypokinetic. 8. Apical lateral LV wall motion is hypokinetic. 9. Apical inferior LV wall motion is hypokinetic. 10. Apical septum LV wall motion is hypokinetic. 11. The right ventricle is mildly enlarged. 12. LA is moderately dilated 34-39 ml/m2 13. The right atrial size is normal. 14. 5.0mg of Lumason was utilized for enhancement of images 15. There is moderate aortic valve sclerosis. 16. There is mild aortic regurgitation. 17. There is no evidence of aortic stenosis. 18. Mild mitral annular calcification present. 19. Moderate mitral regurgitation is present. 20. Vmwo-jq-vuyqfbty tricuspid regurgitation present. 21. There is mild to moderate pulmonary hypertension. 22. The right ventricular systolic pressure, as measured by Doppler, is 42.76mmHg. 23. There is no pulmonic regurgitation present. 24. The aortic root size is normal. 25. IVC Not well visulized. 26. There is no pericardial effusion. RISK MGR: Mallory Johnson RDCS
[2019-10-15] MEDS: SODIUM CHLORIDE 0.9% 1,000 ML IV SCH ×2 (19:20→21:03)
[2019-10-15] MEDS ORDERED: METOPROLOL TARTRATE 12.5 MG TAB PO SCH (21:00)
[2019-10-15] MEDS: LISINOPRIL 10 MG TAB PO SCH (21:04)
[2019-10-16] MEDS: NITROGLYCERIN OINT 1 INCH/GM PACKET TOPICAL SCH ×2 (02:02→06:23)
[2019-10-16 06:42] LABS: Basophils % (A) 0 %; Eosinophils # (A) 0.1 k/uL (0-0.7); Eosinophils % (A) 1 %; HCT 49.2 % (39.0-53.0); HGB 16.1 gm/dL (13.0-17.5); Lymphocytes # (A) 1.2 k/uL (1.0-4.8); Lymphocytes % (A) 15 %; MCH 31.5 pg (25.0-35.0); MCHC 32.6 g/dL (31.0-37.0); MCV 96.4 fL (80.0-100.0); Monocytes # (A) 0.6 k/uL (0-1.0); Monocytes % (A) 8 %; Neutrophils # (A) 5.8 k/uL (1.3-7.7); Neutrophils % (A) 73 %; Platelet Count 194 k/uL (150-450); RDW 13.6 % (11.5-15.5); WBC 7.9 k/uL (3.8-10.6)
[2019-10-16 07:01] LABS: Albumin 3.7 g/dL (3.5-5.0); Calcium 8.9 mg/dL (8.4-10.2); Potassium 4.1 mmol/L (3.5-5.1); Total Bilirubin 1.1 mg/dL (0.2-1.3); Total Protein 6.6 g/dL (6.3-8.2)
[2019-10-16] MEDS: ASPIRIN 81 MG PO SCH (09:10)
[2019-10-16] MEDS: ATORVASTATIN 20 MG TAB PO SCH (09:10)
[2019-10-16] MEDS: LISINOPRIL 10 MG TAB PO SCH ×2 (09:10→21:00)
[2019-10-16] MEDS: METOPROLOL TARTRATE 25 MG TAB PO SCH ×2 (09:10→20:59)
--- NOTE | 2019-10-16 11:52 | P.PN ---
Subjective This is a pleasant 89-year-old male past medical history significant for hypertension, dyslipidemia and paroxysmal atrial fibrillation. He underwent cardiac catheterization yesterday revealing no focal stenosis with a mild 40% lesion in the ramus, hazy diffuse disease in the distal 1/4 of the LAD and small non-dominant RCA. Echocardiogram revealed impaired LV systolic function with ejection fraction 35-40%, apical anterior, apical lateral, apical inferior and apical septal wall motion hypokinesia, moderate aortic valve sclerosis, mild aortic regurgitation, moderate mitral regurgitation and mild to moderate tricuspid regurgitation with mild pulmonary hypertension with an RVSP of 42 mmHg. He is seen and examined sitting up in the chair in no acute distress. He has been up and ambulating without difficulty. He would like to go home. He denies chest pain, dizziness, shortness of breath or palpitations. Blood pressure 132/68 heart rate 92 afebrile maintaining oxygen saturation on room air. Laboratory data reviewed, CBC unremarkable, sodium 140, potassium 4.1, creatinine 0.93. Currently maintained on aspirin 81 mg daily, atorvastatin 20 mg daily, lisinopril 10 mg twice a day and Lopressor 25 mg twice a day. Telemetry tracings reveal intermittent episodes of rapid ventricular rates. GENERAL: Well-appearing, well-nourished and in no acute distress. NECK: Supple without JVD or thyromegaly. LUNGS: Breath sounds clear to auscultation bilaterally. Respiration equal and unlabored. No wheezes, rales or rhonchi. HEART: Irregular rate and rhythm with systolic ejection murmur at the left sternal border, no rubs or gallops. S1 and S2 heard. EXTREMITIES: Normal range of motion, no edema. No clubbing or cyanosis. Kaitlyn pheral pulses intact. Right radial access site clean, dry and intact with a strong distal pulse. No evidence of bleeding or hematoma. ASSESSMENT Non-ST elevated myocardial infarction, no significant obstructive disease noted on cardiac catheterization. Tach with tubal-like picture or myocarditis. Paroxysmal atrial fibrillation on long-term anticoagulation with variable ventricular rates Left bundle branch block Non-ischemic cardiomyopathy Hypertension Dyslipidemia Former nicotine dependence PLAN Increase metoprolol to 25 mg twice a day. Resume coumadin tonight. Check PT/INR in the morning. Ongoing monitoring for another 24 hours. Nurse Practitioner note has been reviewed, I agree with a documented findings and plan of care. Patient was seen and examined. Objective - Vital Signs Vital signs: Vital Signs Temp 97.2 F L 10/16/19 11:35 Pulse 92 10/16/19 11:35 Resp 18 10/16/19 11:35 BP 132/68 10/16/19 11:35 Pulse Ox 97 10/16/19 11:35 Intake & Output 10/15/19 10/16/19 10/16/19 18:59 06:59 18:59 Intake Total 800 480 Balance 800 480 Intake: IV 200 Intake, IV Titration 600 Amount Sodium Chloride 0.9% 1, 600 000 ml @ 75 mls/hr IV . [id number] [facility] Rx#:[id number] Oral 480 Other: # Voids 2 1 1 - Labs CBC & Chem 7: 10/16/19 05:59 10/16/19 05:59 Labs: Abnormal Lab Results - Last 24 Hours (Table) 10/15/19 10/16/19 10/16/19 Range/Units 17:42 05:59 05:59 Chloride 109 H (98-107) mmol/L Glucose 104 H (74-99) mg/dL Troponin I 8.640 H* 5.660 H* (0.000-0.034) ng/mL
[2019-10-16 13:03] LABS: INR 1.5 (<1.2); Prothrombin Time 15.2 sec (9.0-12.0)
--- NOTE | 2019-10-16 17:28 | P.PN ---
Subjective Progress Note Date: 10/16/19 89-year-old male past medical history significant for hypertension, dyslipidemia and paroxysmal atrial fibrillation. He underwent cardiac catheterization yesterday revealing no focal stenosis with a mild 40% lesion in the ramus, hazy diffuse disease in the distal 1/4 of the LAD and small non-lisbet nant RCA. Echocardiogram revealed impaired LV systolic function with ejection fraction 35-40%, apical anterior, apical lateral, apical inferior and apical septal wall motion hypokinesia, moderate aortic valve sclerosis, mild aortic regurgitation, moderate mitral regurgitation and mild to moderate tricuspid regurgitation with mild pulmonary hypertension with an RVSP of 42 mmHg. He is seen and examined sitting up in the chair in no acute distress. He has been up and ambulating without difficulty. He would like to go home. Patient underwent cardiac catheterization which did not show any obstructive cardiac disease; concern about possibility of myocarditis; cardiology is following and recommending to increase metoprolol 25 mg twice a day and restart patient on Coumadin therapy and monitor PT/INR closely Recommending continued monitoring for next 24 hours Objective - Vital Signs Vital signs: Vital Signs Temp 97.7 F 10/16/19 07:35 Pulse 76 10/16/19 07:35 Resp 18 10/16/19 07:35 BP 122/68 10/16/19 07:35 Pulse Ox 97 10/16/19 07:35 Intake & Output 10/15/19 10/16/19 10/16/19 18:59 06:59 18:59 Intake Total 800 480 Balance 800 480 Intake: IV 200 Intake, IV Titration 600 Amount Sodium Chloride 0.9% 1, 600 000 ml @ 75 mls/hr IV . [id number] [facility] Rx#:[id number] Oral 480 Other: # Voids 2 1 1 - Exam PHYSICAL EXAMINATION: GENERAL: The patient is alert and oriented x3, not in any acute distress. Well developed, well nourished. HEENT: Pupils are round and equally reacting to light. EOMI. No scleral icterus. No conjunctival pallor. Normocephalic, atraumatic. No pharyngeal erythema. No thyromegaly. CARDIOVASCULAR: S1 and S2 present. No murmurs, rubs, or gallops. PULMONARY: Chest is clear to auscultation, no wheezing or crackles. ABDOMEN: Soft, nontender, nondistended, normoactive bowel sounds. No palpable organomegaly. MUSCULOSKELETAL: No joint swelling or deformity. EXTREMITIES: No cyanosis, clubbing, or pedal edema. NEUROLOGICAL: Gross neurological examination did not reveal any focal deficits. SKIN: No rashes. - Labs CBC & Chem 7: 10/16/19 05:59 10/16/19 05:59 Labs: Abnormal Lab Results - Last 24 Hours (Table) 10/15/19 10/16/19 10/16/19 Range/Units 17:42 05:59 05:59 Chloride 109 H (98-107) mmol/L Glucose 104 H (74-99) mg/dL Troponin I 8.640 H* 5.660 H* (0.000-0.034) ng/mL Assessment and Plan Assessment: 1. Non-ST elevated myocardial infarction; status post cardiac catheterization, no significant obstructive disease noted 2. Paroxysmal atrial fibrillation; patient hasn't been on long-term anticoagulation with variable ventricular rates; recommended to start on Coumadin tonight and monitor PT/INR closely 3. Non-ischemic cardiomyopathy; patient is recommended to continue with aspi rin, atorvastatin, lisinopril and Lopressor 4. Hypertension; currently stable; metoprolol is increased to 25 mg twice a day 5. Dyslipidemia; atorvastatin 20 mg by mouth daily at bedtime 6. DVT prophylaxis; systemic anticoagulation with Coumadin CODE STATUS; full code
[2019-10-16] MEDS ORDERED: WARFARIN 5 MG TAB PO SCH (18:00)
[2019-10-17 07:18] LABS: Basophils % (A) 1 %; Eosinophils # (A) 0.2 k/uL (0-0.7); Eosinophils % (A) 3 %; HCT 48.2 % (39.0-53.0); HGB 15.8 gm/dL (13.0-17.5); Lymphocytes # (A) 1.4 k/uL (1.0-4.8); Lymphocytes % (A) 20 %; MCH 31.5 pg (25.0-35.0); MCHC 32.7 g/dL (31.0-37.0); MCV 96.3 fL (80.0-100.0); Mean Platelet Volume 7.3; Monocytes # (A) 0.5 k/uL (0-1.0); Monocytes % (A) 7 %; Neutrophils # (A) 4.7 k/uL (1.3-7.7); Neutrophils % (A) 66 %; Platelet Count 201 k/uL (150-450); RDW 13.5 % (11.5-15.5)
[2019-10-17 07:19] LABS: INR 1.3 (<1.2); Prothrombin Time 13.4 sec (9.0-12.0)
[2019-10-17 07:30] VITALS: BP 125/71; PULSE 89; RESP 16; TEMP 97.6
[2019-10-17] MEDS: ATORVASTATIN 20 MG TAB PO SCH (08:35)
[2019-10-17] MEDS: LISINOPRIL 10 MG TAB PO SCH (08:36)
[2019-10-17] MEDS: METOPROLOL TARTRATE 25 MG TAB PO SCH (08:36)
[2019-10-17] MEDS: ASPIRIN 81 MG PO SCH (08:36)
[2019-10-17] MEDS ORDERED: TAMSULOSIN 0.4 MG CAP.ER.24H PO SCH (09:00)
[2019-10-17] MEDS ORDERED: ALLOPURINOL 300 MG TAB PO SCH (09:00)
--- NOTE | 2019-10-17 11:07 | PN ---
PROGRESS NOTE This is an 89-year-old gentleman that is admitted to hospital with a non ST-segment elevation SD. Underwent cardiac catheterization that did not reveal significant obstructive CAD. The patient was thought to have had myopericarditis or myocardial infarction without significant obstructive CAD. An echocardiogram showed an ejection fraction of 35% to 40% with apical hypokinesis. He also has mild to moderate pulmonary hypertension. At the time of my evaluation this morning, patient appears comfortable at rest and is free of symptoms. He is anxious to go home. The patient has paroxysmal atrial fibrillation and his INR was therapeutic on his presentation, it is 1.3 today. He will resume Coumadin and continue with it. PHYSICAL EXAMINATION: On exam, comfortable at rest. Vital signs are stable. There is no jugular venous distention. Chest exam reveals good air entry bilaterally. Heart exam reveals first and second heart sounds and a systolic murmur at the apex. Abdomen is soft. Exam of the extremities did not reveal any edema. Peripheral pulses are felt. His groin is free of bleeding, bruit, hematoma. Radial artery access site is unremarkable. ASSESSMENT: 1. Acute myocardial infarction, status post catheterization without significant obstructive coronary artery disease. 2. Ischemic cardiomyopathy. PLAN: Patient will continue with optimal medical therapy including aspirin, Lipitor, Zestril, Lopressor. Resume the Coumadin and he may be discharged home today and outpatient followup with Dr. Williams Zhang. DUANE / SONNY: [id number] /
== END 2019-10-17 13:15 | disposition home or self-care (01) | DRG 281 ==
LOC: EC 16:12 → 1SOBS 18:24 → OBSVTOIN 10-15 12:00
PROVIDERS: ADMIT Family Medicine; ATTEND Family Medicine
PROC: B2111ZZ Fluoroscopy of Multiple Coronary Arteries using Low Osmolar Contrast (ICD-10-PCS; 2019-10-15)
PROC: 4A023N7 Measurement of Cardiac Sampling and Pressure, Left Heart, Percutaneous Approach (ICD-10-PCS; principal; 2019-10-15 09:45)
DX: I21.4 Non-ST elevation (NSTEMI) myocardial infarction (principal); I42.8 Other cardiomyopathies; E78.00 Pure hypercholesterolemia, unspecified; E78.5 Hyperlipidemia, unspecified; I08.3 Combined rheumatic disorders of mitral, aortic and tricuspid valves; I11.9 Hypertensive heart disease without heart failure; I25.5 Ischemic cardiomyopathy; I27.20 Pulmonary hypertension, unspecified; I44.7 Left bundle-branch block, unspecified; I48.0 Paroxysmal atrial fibrillation; M10.9 Gout, unspecified; Z79.01 Long term (current) use of anticoagulants; Z79.82 Long term (current) use of aspirin; Z79.899 Other long term (current) drug therapy; Z87.891 Personal history of nicotine dependence; N40.0 Benign prostatic hyperplasia without lower urinary tract symptoms; Z90.49 Acquired absence of other specified parts of digestive tract
CPT/HCPCS: 36415; 71046; 80053; 80061; 83735; 84484; 85025; 85347; 85610; 85730; 93005; 93306; 93458; 94760; 99285

== ENCOUNTER 2019-10-30 06:23 | Emergency (ER) | payer MEDICARE, BC ==
--- NOTE | 2019-10-30 06:52 | ED ---
General Adult HPI - General Chief complaint: Urogenital Stated complaint: Blood in urine Time Seen by Provider: 10/30/19 06:40 Source: patient, RN notes reviewed, old records reviewed Mode of arrival: ambulatory - History of Present Illness Initial comments: Patient is a pleasant 89-year-old male who presents emergency Department with chief complaint of hematuria for the past 2 days. Patient is on Coumadin due to history of atrial fibrillation and recent ID. Patient reports that he's had a history of hematuria off and on for the past 30 years. He states that he does see a urologist Dr. Mcgregor and has had previous scopes. He reports that from time to time after a scope he would get a urinary tract infection. His last cystoscopy was last spring. Patient reports that he's had no fevers or chills. He denies flank pain. Patient denies any abdominal pain. - Related Data Home Medications Medication Instructions Recorded Confirmed Allopurinol [Zyloprim] 300 mg PO DAILY 10/14/19 10/30/19 Atenolol [Tenormin] 25 mg PO HS 10/14/19 10/30/19 Lisinopril [Zestril] 20 mg PO BID 10/14/19 10/30/19 Lovastatin [Altoprev] 20 mg PO DAILY 10/14/19 10/30/19 Tamsulosin HCl [Flomax] 0.4 mg PO Q48H 10/14/19 10/30/19 Warfarin [Coumadin] 5 mg PO DAILY 10/14/19 10/30/19 amLODIPine [Norvasc] 5 mg PO DAILY 10/14/19 10/30/19 Previous Rx's Medication Instructions Recorded Cephalexin [Keflex] 500 mg PO Q8HR #21 cap 10/30/19 Allergies Allergy/AdvReac Type Severity Reaction Status Date / Time No Known Allergies Allergy Verified 10/14/19 19:02 Review of Systems ROS Statement: Those systems with pertinent positive or pertinent negative responses have been documented in the HPI. ROS Other: All systems not noted in ROS Statement are negative. Past Medical History Past Medical History: Atrial Fibrillation, Hyperlipidemia, Hypertension, Prostate Disorder History of Any Multi-Drug Resistant Organisms: None Reported Past Surgical History: Appendectomy Past Psychological History: No Psychological Hx Reported Smoking Status: Former smoker Past Alcohol Use History: Daily Past Drug Use History: None Reported General Exam - General Exam Comments Initial Comments: 89-year-old male. Alert and oriented. No significant distress. General appearance: alert, in no apparent distress Head exam: Present: atraumatic, normocephalic, normal inspection Eye exam: Present: normal appearance, PERRL, EOMI. Absent: scleral icterus, conjunctival injection, periorbital swelling ENT exam: Present: normal exam, mucous membranes moist Neck exam: Present: normal inspection. Absent: tenderness, meningismus, lymphadenopathy Respiratory exam: Present: normal lung sounds bilaterally. Absent: respiratory distress, wheezes, rales, rhonchi, stridor Cardiovascular Exam: Present: regular rate, normal rhythm, normal heart sounds. Absent: systolic murmur, diastolic murmur, rubs, gallop, clicks GI/Abdominal exam: Present: soft, normal bowel sounds. Absent: distended, tenderness, guarding, rebound, rigid Extremities exam: Present: normal inspection, full ROM, normal capillary refill. Absent: tenderness, pedal edema, joint swelling, calf tenderness Back exam: Present: normal inspection Neurological exam: Present: alert, oriented X3, CN II-XII intact Psychiatric exam: Present: normal affect, normal mood Skin exam: Present: warm, dry, intact, normal color. Absent: rash Course Vital Signs 10/30/19 10/30/19 06:32 06:49 Temperature 97.7 F Pulse Rate 112 H 89 Respiratory 18 20 Rate Blood Pressure 151/95 119/96 O2 Sat by Pulse 98 96 Oximetry Medical Decision Making - Medical Decision Making Pleasant 89-year-old male presents for chief complaint of hematuria for the past 2 days. Patient has no fevers or chills. He denies any flank or abdominal pain. At this time patient's vital signs are stable. Patient blood work was reviewed and unremarkable. His INR is 2.6. He does take Coumadin. Urinalysis is positive for hematuria and white blood cells. Urine culture be completed. Patient was given 1 g of Rocephin IV push at this time. Patient will be started on Keflex. Urine culture completed. I discussed Patient falling up with his primary care doctor. I also discussed holding Coumadin for one day. Patient is agreeable to treatment plan will comply. Return parameters were discussed. Gastric case with Dr. Horowitz recommended Keflex for abx due to INR management as well. - Lab Data Result diagrams: 10/30/19 07:05 10/30/19 07:05 Lab Results 10/30/19 10/30/19 10/30/19 Range/Units 07:05 07:05 07:05 WBC 6.9 (3.8-10.6) k/uL RBC 5.23 (4.30-5.90) m/uL Hgb 16.1 (13.0-17.5) gm/dL Hct 50.2 (39.0-53.0) % MCV 96.1 (80.0-100.0) fL MCH 30.7 (25.0-35.0) pg MCHC 32.0 (31.0-37.0) g/dL RDW 13.3 (11.5-15.5) % Plt Count 262 (150-450) k/uL Neutrophils % 76 % Lymphocytes % 15 % Monocytes % 5 % Eosinophils % 2 % Basophils % 0 % Neutrophils # 5.3 (1.3-7.7) k/uL Lymphocytes # 1.1 (1.0-4.8) k/uL Monocytes # 0.4 (0-1.0) k/uL Eosinophils # 0.1 (0-0.7) k/uL Basophils # 0.0 (0-0.2) k/uL PT 25.0 H (9.0-12.0) sec INR 2.6 H (<1.2) APTT 29.9 (22.0-30.0) sec Sodium 143 (137-145) mmol/L Potassium 4.1 (3.5-5.1) mmol/L Chloride 108 H (98-107) mmol/L Carbon Dioxide 25 (22-30) mmol/L Anion Gap 10 mmol/L BUN 23 H (9-20) mg/dL Creatinine 1.01 (0.66-1.25) mg/dL Est GFR (CKD-EPI)AfAm 77 (>60 ml/min/1.73 sqM) Est GFR (CKD-EPI)NonAf 67 (>60 ml/min/1.73 sqM) Glucose 135 H (74-99) mg/dL Calcium 9.4 (8.4-10.2) mg/dL Urine Color Urine Appearance (Clear) Urine pH (5.0-8.0) Ur Specific [place] (1.001-1.035) Urine Protein (Negative) Urine Glucose (UA) (Negative) Urine Ketones (Negative) Urine Blood (Negative) Urine Nitrite (Negative) Urine Bilirubin (Negative) Urine Urobilinogen (<2.0) mg/dL Ur Leukocyte Esterase (Negative) Urine RBC (0-5) /hpf Urine WBC (0-5) /hpf Urine WBC Clumps (None) /hpf Urine Bacteria (None) /hpf Urine Mucus (None) /hpf Urine Yeast (Budding) 10/30/19 Range/Units 07:45 WBC (3.8-10.6) k/uL RBC (4.30-5.90) m/uL Hgb (13.0-17.5) gm/dL Hct (39.0-53.0) % MCV (80.0-100.0) fL MCH (25.0-35.0) pg MCHC (31.0-37.0) g/dL RDW (11.5-15.5) % Plt Count (150-450) k/uL Neutrophils % % Lymphocytes % % Monocytes % % Eosinophils % % Basophils % % Neutrophils # (1.3-7.7) k/uL Lymphocytes # (1.0-4.8) k/uL Monocytes # (0-1.0) k/uL Eosinophils # (0-0.7) k/uL Basophils # (0-0.2) k/uL PT (9.0-12.0) sec INR (<1.2) APTT (22.0-30.0) sec Sodium (137-145) mmol/L Potassium (3.5-5.1) mmol/L Chloride (98-107) mmol/L Carbon Dioxide (22-30) mmol/L Anion Gap mmol/L BUN (9-20) mg/dL Creatinine (0.66-1.25) mg/dL Est GFR (CKD-EPI)AfAm (>60 ml/min/1.73 sqM) Est GFR (CKD-EPI)NonAf (>60 ml/min/1.73 sqM) Glucose (74-99) mg/dL Calcium (8.4-10.2) mg/dL Urine Color Light Red Urine Appearance Cloudy (Clear) Urine pH 6.0 (5.0-8.0) Ur Specific [place] 1.017 (1.001-1.035) Urine Protein 1+ H (Negative) Urine Glucose (UA) Negative (Negative) Urine Ketones Negative (Negative) Urine Blood Large H (Negative) Urine Nitrite Negative (Negative) Urine Bilirubin Negative (Negative) Urine Urobilinogen <2.0 (<2.0) mg/dL Ur Leukocyte Esterase Large H (Negative) Urine RBC >182 H (0-5) /hpf Urine WBC >182 H (0-5) /hpf Urine WBC Clumps Moderate H (None) /hpf Urine Bacteria Moderate H (None) /hpf Urine Mucus Rare H (None) /hpf Urine Yeast (Budding) [employer] Disposition Clinical Impression: UTI (urinary tract infection), Hematuria Disposition: HOME SELF-CARE Condition: Good Instructions (If sedation given, give patient instructions): Urinary Tract Infection in Men (ED) Additional Instructions: Patient advised to hold Coumadin tomorrow, then resume the following day. Take the antibiotic orally starting tomorrow. Patient should return to the ED if there is any abdominal pain, fevers or chills. Follow-up with your primary care doctor. Prescriptions: Cephalexin [Keflex] 500 mg PO Q8HR #21 cap Is patient prescribed a controlled substance at d/c from ED?: No Referrals: Heladio Mays MD [Primary Care Provider] - 1-2 days Dion Alcantar MD [STAFF PHYSICIAN] - 1-2 days Time of Disposition: 08:22
[2019-10-30 07:27] LABS: Basophils % (A) 0 %; Eosinophils # (A) 0.1 k/uL (0-0.7); Eosinophils % (A) 2 %; HCT 50.2 % (39.0-53.0); HGB 16.1 gm/dL (13.0-17.5); Lymphocytes # (A) 1.1 k/uL (1.0-4.8); Lymphocytes % (A) 15 %; MCH 30.7 pg (25.0-35.0); MCV 96.1 fL (80.0-100.0); Mean Platelet Volume 6.9; Monocytes # (A) 0.4 k/uL (0-1.0); Monocytes % (A) 5 %; Neutrophils # (A) 5.3 k/uL (1.3-7.7); Neutrophils % (A) 76 %; Platelet Count 262 k/uL (150-450); RBC 5.23 m/uL (4.30-5.90); RDW 13.3 % (11.5-15.5); WBC 6.9 k/uL (3.8-10.6)
[2019-10-30] MEDS ORDERED: SODIUM CHLORIDE 0.9% 1,000 ML IV ONE (07:30)
[2019-10-30 07:34] LABS: Calcium 9.4 mg/dL (8.4-10.2); Potassium 4.1 mmol/L (3.5-5.1)
[2019-10-30 07:51] LABS: INR 2.6 (<1.2); Partial Thromboplastin Time 29.9 sec (22.0-30.0)
[2019-10-30 07:57] LABS: Appearance,Urine Cloudy (Clear); Bacteria,Urine Moderate /hpf; Bilirubin,Urine Negative (Negative); Blood,Urine Large (Negative); Color,Urine Light Red; Glucose,Urine (UA) Negative (Negative); Ketones,Urine Negative (Negative); Leukocyte Esterase,Urine Large (Negative); Mucus,Urine Rare /hpf; Nitrite,Urine Negative (Negative); Protein,Urine 1+ (Negative); RBC,Urine >182 /hpf (0-5); Specific Gravity,Urine 1.017 (1.001-1.035); Urobilinogen,Urine <2.0 mg/dL (<2.0); WBC,Urine >182 /hpf (0-5)
[2019-10-30] MEDS ORDERED: cefTRIAXone IN SWFI 1,000 MG/10 ML SYRINGE IVP STA (08:07)
[2019-10-30 08:29] VITALS: BP 128/76; PULSE 93; RESP 17; TEMP 98.4
== END 2019-10-30 08:38 | disposition home or self-care (01) ==
LOC: EC 06:23
DX: N39.0 Urinary tract infection, site not specified (principal); I48.91 Unspecified atrial fibrillation; E78.5 Hyperlipidemia, unspecified; I10 Essential (primary) hypertension; Z79.01 Long term (current) use of anticoagulants; Z79.899 Other long term (current) drug therapy; Z87.891 Personal history of nicotine dependence
CPT/HCPCS: 36415; 80048; 85025; 85610; 85730; 81001; 87086; 87077; 87186; 99283; 96374; 96361; J0696

== ENCOUNTER 2019-11-02 13:12 | Emergency (ER) | payer MEDICARE, BC ==
[2019-11-02 13:26] VITALS: RESP 18; TEMP 97.7
[2019-11-02] MEDS ORDERED: SODIUM CHLORIDE 0.9% 1,000 ML IV STA (13:50)
[2019-11-02 14:32] LABS: Basophils % (A) 0 %; Eosinophils # (A) 0.2 k/uL (0-0.7); Eosinophils % (A) 2 %; HGB 15.3 gm/dL (13.0-17.5); Lymphocytes # (A) 1.4 k/uL (1.0-4.8); Lymphocytes % (A) 16 %; MCH 31.9 pg (25.0-35.0); MCHC 33.2 g/dL (31.0-37.0); MCV 95.9 fL (80.0-100.0); Mean Platelet Volume 6.9; Monocytes # (A) 0.5 k/uL (0-1.0); Monocytes % (A) 6 %; Neutrophils # (A) 6.4 k/uL (1.3-7.7); Neutrophils % (A) 74 %; Platelet Count 258 k/uL (150-450); RDW 13.5 % (11.5-15.5); WBC 8.6 k/uL (3.8-10.6)
[2019-11-02 14:36] LABS: Bacteria,Urine Few /hpf; Budding Yeast,Urine Many /hpf; Mucus,Urine Moderate /hpf; RBC,Urine >182 /hpf (0-5); WBC,Urine >182 /hpf (0-5)
[2019-11-02 14:37] LABS: Appearance,Urine Bloody (Clear); Color,Urine Dark Red
[2019-11-02 14:40] LABS: Albumin 4.2 g/dL (3.5-5.0); Calcium 9.2 mg/dL (8.4-10.2); Total Bilirubin 0.5 mg/dL (0.2-1.3); Total Protein 7.2 g/dL (6.3-8.2)
[2019-11-02 14:43] LABS: INR 2.2 (<1.2); Partial Thromboplastin Time 30.8 sec (22.0-30.0); Prothrombin Time 21.8 sec (9.0-12.0)
--- NOTE | 2019-11-02 14:50 | ED ---
Male Urogenital HPI - General Chief complaint: Urogenital Stated complaint: hematuria Time Seen by Provider: 11/02/19 13:34 Source: patient, RN notes reviewed, old records reviewed Mode of arrival: ambulatory Limitations: no limitations - History of Present Illness Initial comments: Nigel is a 9-year-old male presents emergency department today with persistent hematuria. Patient is on Coumadin. Patient was seen by myself emergency department approximately 5 days ago. At that time he is given IV Rocephin and discharged on Keflex. This was susceptible to his urine culture. Patient will return to today returns for persistent hematuria. Patient states that he has no significant flank pain. He just feels generally more weak over the past few days. He states he hasn't been drinking as much. He did hold his Coumadin for one day as directed. - Related Data Home Medications Medication Instructions Recorded Confirmed Allopurinol [Zyloprim] 300 mg PO DAILY 10/14/19 10/30/19 Atenolol [Tenormin] 25 mg PO HS 10/14/19 10/30/19 Lisinopril [Zestril] 20 mg PO BID 10/14/19 10/30/19 Lovastatin [Altoprev] 20 mg PO DAILY 10/14/19 10/30/19 Tamsulosin HCl [Flomax] 0.4 mg PO Q48H 10/14/19 10/30/19 Warfarin [Coumadin] 5 mg PO DAILY 10/14/19 10/30/19 amLODIPine [Norvasc] 5 mg PO DAILY 10/14/19 10/30/19 Previous Rx's Medication Instructions Recorded Cephalexin [Keflex] 500 mg PO Q8HR #21 cap 10/30/19 Ciprofloxacin HCl 500 mg PO BID #14 tab 11/02/19 Allergies Allergy/AdvReac Type Severity Reaction Status Date / Time No Known Allergies Allergy Verified 10/14/19 19:02 Review of Systems ROS Statement: Those systems with pertinent positive or pertinent negative responses have been documented in the HPI. ROS Other: All systems not noted in ROS Statement are negative. Past Medical History Past Medical History: Atrial Fibrillation, Hyperlipidemia, Hypertension, Prostate Disorder History of Any Multi-Drug Resistant Organisms: None Reported Past Surgical History: Appendectomy Past Psychological History: No Psychological Hx Reported Smoking Status: Former smoker Past Alcohol Use History: Daily Past Drug Use History: None Reported General Exam Limitations: no limitations General appearance: alert, in no apparent distress Head exam: Present: atraumatic, normocephalic, normal inspection Eye exam: Present: normal appearance, PERRL, EOMI. Absent: scleral icterus, conjunctival injection, periorbital swelling ENT exam: Present: normal exam, mucous membranes moist Neck exam: Present: normal inspection. Absent: tenderness, meningismus, lymphadenopathy Respiratory exam: Present: normal lung sounds bilaterally. Absent: respiratory distress, wheezes, rales, rhonchi, stridor Cardiovascular Exam: Present: regular rate GI/Abdominal exam: Present: soft, normal bowel sounds. Absent: distended, tenderness, guarding, rebound, rigid Extremities exam: Present: normal inspection, full ROM, normal capillary refill. Absent: tenderness, pedal edema, joint swelling, calf tenderness Back exam: Present: normal inspection Neurological exam: Present: alert, oriented X3, CN II-XII intact Course Vital Signs 11/02/19 11/02/19 11/02/19 13:21 14:44 17:07 Temperature 97.7 F Pulse Rate 80 86 87 Respiratory 18 18 18 Rate Blood Pressure 139/73 123/82 131/96 O2 Sat by Pulse 96 96 96 Oximetry 11/02/19 17:24 Temperature 97.7 F Pulse Rate 87 Respiratory 18 Rate Blood Pressure 131/96 O2 Sat by Pulse 96 Oximetry Medical Decision Making - Medical Decision Making 89 year old male with persistent hematuria, at this time patient appears in no distress. Labs are unremarkable.Previous UA grew Pseudomonas, and is sensitive to keflex that patient is on. Due to persistant hematuria CT completed.Evidence of a bladder stone, possibly recently passed. Patient at this time has renal cyst that are unchanged. Discussed multiple reasons for hematuria. Discussed switching to ciprofloxacin at this time. Discussed patient needs to follow up with urology. Patient is resistent because he has had disagreements with his urologist. Discussed this is important and to return to ED if any alarming signs or symptoms occur. - Lab Data Result diagrams: 11/02/19 14:08 11/02/19 14:08 Lab Results 11/02/19 11/02/19 11/02/19 Range/Units 14:08 14:08 14:08 WBC 8.6 (3.8-10.6) k/uL RBC 4.80 (4.30-5.90) m/uL Hgb 15.3 (13.0-17.5) gm/dL Hct 46.0 (39.0-53.0) % MCV 95.9 (80.0-100.0) fL MCH 31.9 (25.0-35.0) pg MCHC 33.2 (31.0-37.0) g/dL RDW 13.5 (11.5-15.5) % Plt Count 258 (150-450) k/uL Neutrophils % 74 % Lymphocytes % 16 % Monocytes % 6 % Eosinophils % 2 % Basophils % 0 % Neutrophils # 6.4 (1.3-7.7) k/uL Lymphocytes # 1.4 (1.0-4.8) k/uL Monocytes # 0.5 (0-1.0) k/uL Eosinophils # 0.2 (0-0.7) k/uL Basophils # 0.0 (0-0.2) k/uL PT (9.0-12.0) sec INR (<1.2) APTT (22.0-30.0) sec Sodium 140 (137-145) mmol/L Potassium 4.0 (3.5-5.1) mmol/L Chloride 107 (98-107) mmol/L Carbon Dioxide 25 (22-30) mmol/L Anion Gap 8 mmol/L BUN 23 H (9-20) mg/dL Creatinine 0.92 (0.66-1.25) mg/dL Est GFR (CKD-EPI)AfAm 86 (>60 ml/min/1.73 sqM) Est GFR (CKD-EPI)NonAf 75 (>60 ml/min/1.73 sqM) Glucose 153 H (74-99) mg/dL Plasma Lactic Acid [place] (0.7-2.0) mmol/L Calcium 9.2 (8.4-10.2) mg/dL Total Bilirubin 0.5 (0.2-1.3) mg/dL AST 28 (17-59) U/L ALT 22 (4-49) U/L Alkaline Phosphatase 68 (38-126) U/L Total Protein 7.2 (6.3-8.2) g/dL Albumin 4.2 (3.5-5.0) g/dL Urine Color Dark Red Urine Appearance Bloody (Clear) Urine RBC >182 H (0-5) /hpf Urine WBC >182 H (0-5) /hpf Urine Bacteria Few H (None) /hpf Urine Mucus Moderate H (None) /hpf Urine Yeast (Budding) Many H (None) /hpf 11/02/19 11/02/19 Range/Units 14:08 14:08 WBC (3.8-10.6) k/uL RBC (4.30-5.90) m/uL Hgb (13.0-17.5) gm/dL Hct (39.0-53.0) % MCV (80.0-100.0) fL MCH (25.0-35.0) pg MCHC (31.0-37.0) g/dL RDW (11.5-15.5) % Plt Count (150-450) k/uL Neutrophils % % Lymphocytes % % Monocytes % % Eosinophils % % Basophils % % Neutrophils # (1.3-7.7) k/uL Lymphocytes # (1.0-4.8) k/uL Monocytes # (0-1.0) k/uL Eosinophils # (0-0.7) k/uL Basophils # (0-0.2) k/uL PT 21.8 H (9.0-12.0) sec INR 2.2 H (<1.2) APTT 30.8 H (22.0-30.0) sec Sodium (137-145) mmol/L Potassium (3.5-5.1) mmol/L Chloride (98-107) mmol/L Carbon Dioxide (22-30) mmol/L Anion Gap mmol/L BUN (9-20) mg/dL Creatinine (0.66-1.25) mg/dL Est GFR (CKD-EPI)AfAm (>60 ml/min/1.73 sqM) Est GFR (CKD-EPI)NonAf (>60 ml/min/1.73 sqM) Glucose (74-99) mg/dL Plasma Lactic Acid [place] 1.7 (0.7-2.0) mmol/L Calcium (8.4-10.2) mg/dL Total Bilirubin (0.2-1.3) mg/dL AST (17-59) U/L ALT (4-49) U/L Alkaline Phosphatase (38-126) U/L Total Protein (6.3-8.2) g/dL Albumin (3.5-5.0) g/dL Urine Color Urine Appearance (Clear) Urine RBC (0-5) /hpf Urine WBC (0-5) /hpf Urine Bacteria (None) /hpf Urine Mucus (None) /hpf Urine Yeast (Budding) (None) /hpf - Radiology Data Radiology results: report reviewed Calculus identified within the dependent urinary bladder the right midline measuring 3 mm this may reflect recently passed calculus. Disposition Clinical Impression: Hematuria, Renal cyst, Bladder stone Disposition: HOME SELF-CARE Condition: Good Instructions (If sedation given, give patient instructions): Hematuria (ED) Additional Instructions: Patient advised to have prompt follow-up with urology for scope. Patient should also follow-up with a primary care doctor. Return to emergency department if any alarming signs or symptoms occur. Prescriptions: Ciprofloxacin HCl 500 mg PO BID #14 tab Is patient prescribed a controlled substance at d/c from ED?: No Referrals: Vitaliy Hdz MD [Primary Care Provider] - 1-2 days Kennedy Guaman MD [STAFF PHYSICIAN] - 1-2 days
--- NOTE | 2019-11-02 15:16 | XR ---
EXAMINATION TYPE: XR KUB DATE OF EXAM: 11/02/2019 3:01 PM CLINICAL HISTORY: Abdominal pain. TECHNIQUE: Single upright image of the abdomen is obtained. COMPARISON: 09/23/2013. FINDINGS: Dextroscoliosis of the lumbar spine with moderate degenerative change. Punctate calcificati on overlies the left renal shadow. No dilated large or small bowel. Lung bases are well aerated. No p neumoperitoneum. IMPRESSION: Left-sided nephrolithiasis. Nonobstructive bowel gas pattern.
--- NOTE | 2019-11-02 15:40 | CT ---
EXAMINATION TYPE: CT abdomen pelvis wo con DATE OF EXAM: 11/02/2019 COMPARISON: 05/26/2019 HISTORY: gross hematuria CT DLP: 594.7 mGycm Examination of the solid and hollow viscera is limited given the lack of contrast. FINDINGS: LUNG BASES: No evidence for nodule. No evidence for infiltrate. Small right-sided pleural effusion. LIVER/GB: Layering gallstones noted. No space-occupying hepatic lesion. PANCREAS: No pancreatic mass identified. No inflammatory process seen. SPLEEN: No evidence for splenomegaly. No intrasplenic lesions seen. Splenic granulomas. ADRENALS: No adrenal nodules identified. No evidence for thickening. KIDNEYS: Several nonobstructing left-sided renal calculi measuring up to 3 mm. Nonobstructing calculu s mid pole right kidney measuring 2 mm. No hydronephrosis. Calculus is identified within the dependen t urinary bladder to the right of midline measuring 3 mm and this may reflect a recently passed calcu jolly. Renal cystic changes noted. Urinary diverticula mild wall thickening. BOWEL: Appendix has a normal appearance. No evidence of bowel obstruction. No inflammatory process. Lymph nodes: No evidence for adenopathy greater than 1 cm. Abdominal aorta: Atheromatous changes seen. No evidence for aneurysm. Genital organs: No significant abnormality. Other: No significant abnormality. IMPRESSION: 1.Calculus is identified within the dependent urinary bladder to the right of midline measuring 3 mm and this may reflect a recently passed calculus.
[2019-11-02] MEDS ORDERED: cefTRIAXone IN SWFI 1,000 MG/10 ML SYRINGE IVP STA (16:25)
[2019-11-02 17:08] VITALS: BP 131/96; PULSE 87
== END 2019-11-02 17:24 | disposition home or self-care (01) ==
LOC: EC 13:12
DX: N21.0 Calculus in bladder (principal); N28.1 Cyst of kidney, acquired; I48.91 Unspecified atrial fibrillation; I10 Essential (primary) hypertension; E78.5 Hyperlipidemia, unspecified; Z79.01 Long term (current) use of anticoagulants; Z79.899 Other long term (current) drug therapy; Z87.891 Personal history of nicotine dependence
CPT/HCPCS: 36415; 80053; 83605; 85025; 85610; 85730; 81001; 87086; 74018; 74176; 99284; 96374; 96361 ×2; J0696

== ENCOUNTER → 2019-11-13 | Outpatient (CLI) | payer MEDICARE, BC ==
--- NOTE | 2019-11-13 09:51 | US ---
EXAMINATION TYPE: US duplex aorta DATE OF EXAM: 11/13/2019 COMPARISON: CT CLINICAL HISTORY: Z13.6 AAA Screening. AAA screening EXAM MEASUREMENTS: Abdominal Aorta: Proximal: 2.1 x 2.1 cm Mid: 1.8 x 2.0 cm Distal: 1.8 x 1.7 cm Bifurcation: HE: 1.3 x 1.2 cm PASHA: 1.3 x 1.1 cm No evidence of AAA IMPRESSION: No sonographic evidence of abdominal aortic aneurysm in the visualized portions of the ab dominal aorta.
== END | disposition home or self-care (01) ==
LOC: RADUSWWP 09:12
PROVIDERS: ATTEND Family Medicine
DX: Z13.6 Encounter for screening for cardiovascular disorders (principal)
CPT/HCPCS: 93979

== ENCOUNTER 2019-12-08 09:25 | Emergency (ER) | payer MEDICARE, BC ==
[2019-12-08 09:33] VITALS: RESP 18
[2019-12-08] MEDS ORDERED: SODIUM CHLORIDE 0.9% 1,000 ML IV STA (09:44)
--- NOTE | 2019-12-08 09:51 | ED ---
GI Bleed HPI <Kingsley Brewster - Last Filed: 12/08/19 12:01> - General Source: patient, RN notes reviewed, old records reviewed Mode of arrival: ambulatory Limitations: no limitations <Cathi Tejeda - Last Filed: 12/08/19 12:14> - General Chief complaint: GI Bleed Stated complaint: Blood in bowels Time Seen by Provider: 12/08/19 09:35 - History of Present Illness Initial comments: Patient is a 89-year-old male who presents emergency Department today with complaints of bright red blood per rectum after bowel movements for the past few months. Patient states that he initially thought was treating his hemorrhoids. Patient states he also said history of hematuria in the past and is on Coumadin. He reports that his hematuria has since resolved. He denies any abdominal pain. He denies any rectal pain. He reports that this is making him somewhat anxious. (Cathi Tejeda) - Related Data Home Medications Medication Instructions Recorded Confirmed Allopurinol [Zyloprim] 300 mg PO DAILY 10/14/19 10/30/19 Atenolol [Tenormin] 25 mg PO HS 10/14/19 10/30/19 Lisinopril [Zestril] 20 mg PO BID 10/14/19 10/30/19 Lovastatin [Altoprev] 20 mg PO DAILY 10/14/19 10/30/19 Tamsulosin HCl [Flomax] 0.4 mg PO Q48H 10/14/19 10/30/19 Warfarin [Coumadin] 5 mg PO DAILY 10/14/19 10/30/19 amLODIPine [Norvasc] 5 mg PO DAILY 10/14/19 10/30/19 Previous Rx's Medication Instructions Recorded Cephalexin [Keflex] 500 mg PO Q8HR #21 cap 10/30/19 Ciprofloxacin HCl 500 mg PO BID #14 tab 11/02/19 Allergies Allergy/AdvReac Type Severity Reaction Status Date / Time No Known Allergies Allergy Verified 10/14/19 19:02 Review of Systems ROS Other: All systems not noted in ROS Statement are negative. <Kingsley Brewster - Last Filed: 12/08/19 12:01> ROS Other: All systems not noted in ROS Statement are negative. <Cathi Tejeda - Last Filed: 12/08/19 12:14> ROS Statement: Those systems with pertinent positive or pertinent negative responses have been documented in the HPI. Past Medical History Past Medical History: Atrial Fibrillation, Hyperlipidemia, Hypertension, Prostate Disorder History of Any Multi-Drug Resistant Organisms: None Reported Past Surgical History: Appendectomy Past Psychological History: No Psychological Hx Reported Smoking Status: Light tobacco smoker Past Alcohol Use History: Daily Past Drug Use History: None Reported <Cathi Tejeda - Last Filed: 12/08/19 12:14> General Exam Limitations: no limitations General appearance: alert, in no apparent distress Head exam: Present: atraumatic, normocephalic, normal inspection Eye exam: Present: normal appearance, PERRL, EOMI. Absent: scleral icterus, c onjunctival injection, periorbital swelling ENT exam: Present: normal exam, mucous membranes moist Neck exam: Present: normal inspection. Absent: tenderness, meningismus, lymphadenopathy Respiratory exam: Present: normal lung sounds bilaterally. Absent: respiratory distress, wheezes, rales, rhonchi, stridor Cardiovascular Exam: Present: regular rate, normal rhythm, normal heart sounds. Absent: systolic murmur, diastolic murmur, rubs, gallop, clicks GI/Abdominal exam: Present: soft, normal bowel sounds. Absent: distended, tenderness, guarding, rebound, rigid Rectal exam: Present: normal rectal tone, hemorrhoids. Absent: normal inspection Extremities exam: Present: normal inspection, full ROM, normal capillary refill. Absent: tenderness, pedal edema, joint swelling, calf tenderness Back exam: Present: normal inspection Neurological exam: Present: alert, oriented X3, CN II-XII intact Psychiatric exam: Present: normal affect, normal mood Skin exam: Present: warm, dry, intact, normal color. Absent: rash <Cathi Tejeda - Last Filed: 12/08/19 12:14> - General Exam Comments Initial Comments: 89-year-old male. Alert and oriented 3. No distress. (Cathi Tejeda) Course <Kingsley Brewster - Last Filed: 12/08/19 12:01> Vital Signs 12/08/19 12/08/19 09:26 09:58 Temperature 97.7 F Pulse Rate 145 H 115 H Respiratory 18 18 Rate Blood Pressure 120/85 125/78 O2 Sat by Pulse 97 96 Oximetry - Reevaluation(s) Reevaluation #1: 12/08/19 12:01 ROB supervision: I proceeded [id number] evaluation the patient he did present with complaints of blood per rectum examination reveals evidence of hemorrhoids. Patient is on Coumadin levels are therapeutic. At this time no indication for admission the patient does want to go home I do agree with the assessment. (Kingsley Brewster) Medical Decision Making - Lab Data Result diagrams: 12/08/19 09:45 12/08/19 09:45 <Kingsley Brewster - Last Filed: 12/08/19 12:01> - Lab Data Result diagrams: 12/08/19 09:45 12/08/19 09:45 <Cathi Tejeda - Last Filed: 12/08/19 12:14> - Medical Decision Making Patient is an 89-year-old male emergency department today for evaluation for prior bloody stools and intermittent since September. He has a external hemorrhoids. On exam his no abdominal tenderness. He does have evidence of hemorrhoids. His occult was positive. However this is been going on for many months and his hemoglobin is stable at 17. He presented to have fluctuating heart rate with a known history of A. fib. He is maintained on Coumadin. EKG showed atrial flutter with a heart rate of 119, which will bounce to 80 beats were minute as well. Patient's urinalysis shows red blood cells is normal for Patient. No sign of infection at this time. Patient will be discharged with follow-up with primary care doctor. (Cathi Tejeda) - Lab Data Lab Results 12/08/19 12/08/19 12/08/19 Range/Units 09:45 09:45 09:45 WBC 7.3 (3.8-10.6) k/uL RBC 5.37 (4.30-5.90) m/uL Hgb 17.1 (13.0-17.5) gm/dL Hct 51.7 (39.0-53.0) % MCV 96.2 (80.0-100.0) fL MCH 31.8 (25.0-35.0) pg MCHC 33.1 (31.0-37.0) g/dL RDW 13.4 (11.5-15.5) % Plt Count 241 (150-450) k/uL Neutrophils % 71 % Lymphocytes % 18 % Monocytes % 7 % Eosinophils % 1 % Basophils % 0 % Neutrophils # 5.2 (1.3-7.7) k/uL Lymphocytes # 1.3 (1.0-4.8) k/uL Monocytes # 0.5 (0-1.0) k/uL Eosinophils # 0.1 (0-0.7) k/uL Basophils # 0.0 (0-0.2) k/uL PT 24.3 H (9.0-12.0) sec INR 2.5 H (<1.2) APTT 28.8 (22.0-30.0) sec Sodium (137-145) mmol/L Potassium (3.5-5.1) mmol/L Chloride (98-107) mmol/L Carbon Dioxide (22-30) mmol/L Anion Gap mmol/L BUN (9-20) mg/dL Creatinine (0.66-1.25) mg/dL Est GFR (CKD-EPI)AfAm (>60 ml/min/1.73 sqM) Est GFR (CKD-EPI)NonAf (>60 ml/min/1.73 sqM) Glucose (74-99) mg/dL Calcium (8.4-10.2) mg/dL Magnesium (1.6-2.3) mg/dL Total Bilirubin (0.2-1.3) mg/dL AST (17-59) U/L ALT (4-49) U/L Alkaline Phosphatase (38-126) U/L Troponin I (0.000-0.034) ng/mL Total Protein (6.3-8.2) g/dL Albumin (3.5-5.0) g/dL Urine Color Urine Appearance (Clear) Urine pH (5.0-8.0) Ur Specific [place] (1.001-1.035) Urine Protein (Negative) Urine Glucose (UA) (Negative) Urine Ketones (Negative) Urine Blood (Negative) Urine Nitrite (Negative) Urine Bilirubin (Negative) Urine Urobilinogen (<2.0) mg/dL Ur Leukocyte Esterase (Negative) Urine RBC (0-5) /hpf Urine WBC (0-5) /hpf Ur Squamous Epith Cells (0-4) /hpf Urine Bacteria (None) /hpf Hyaline Casts (0-2) /lpf Urine Mucus (None) /hpf Stool Occult Blood Positive (Negative) Blood Type Blood Type Confirm Blood Type Recheck Bld Type Recheck Status Antibody Screen Spec Expiration Date 12/08/19 12/08/19 12/08/19 Range/Units 09:45 09:45 09:45 WBC (3.8-10.6) k/uL RBC (4.30-5.90) m/uL Hgb (13.0-17.5) gm/dL Hct (39.0-53.0) % MCV (80.0-100.0) fL MCH (25.0-35.0) pg MCHC (31.0-37.0) g/dL RDW (11.5-15.5) % Plt Count (150-450) k/uL Neutrophils % % Lymphocytes % % Monocytes % % Eosinophils % % Basophils % % Neutrophils # (1.3-7.7) k/uL Lymphocytes # (1.0-4.8) k/uL Monocytes # (0-1.0) k/uL Eosinophils # (0-0.7) k/uL Basophils # (0-0.2) k/uL PT (9.0-12.0) sec INR (<1.2) APTT (22.0-30.0) sec Sodium 144 (137-145) mmol/L Potassium 3.9 (3.5-5.1) mmol/L Chloride 108 H (98-107) mmol/L Carbon Dioxide 26 (22-30) mmol/L Anion Gap 10 mmol/L BUN 25 H (9-20) mg/dL Creatinine 1.12 (0.66-1.25) mg/dL Est GFR (CKD-EPI)AfAm 68 (>60 ml/min/1.73 sqM) Est GFR (CKD-EPI)NonAf 59 (>60 ml/min/1.73 sqM) Glucose 114 H (74-99) mg/dL Calcium 9.8 (8.4-10.2) mg/dL Magnesium 2.1 (1.6-2.3) mg/dL Total Bilirubin 0.6 (0.2-1.3) mg/dL AST 28 (17-59) U/L ALT 23 (4-49) U/L Alkaline Phosphatase 66 (38-126) U/L Troponin I <0.012 (0.000-0.034) ng/mL Total Protein 7.6 (6.3-8.2) g/dL Albumin 4.4 (3.5-5.0) g/dL Urine Color Urine Appearance (Clear) Urine pH (5.0-8.0) Ur Specific [place] (1.001-1.035) Urine Protein (Negative) Urine Glucose (UA) (Negative) Urine Ketones (Negative) Urine Blood (Negative) Urine Nitrite (Negative) Urine Bilirubin (Negative) Urine Urobilinogen (<2.0) mg/dL Ur Leukocyte Esterase (Negative) Urine RBC (0-5) /hpf Urine WBC (0-5) /hpf Ur Squamous Epith Cells (0-4) /hpf Urine Bacteria (None) /hpf Hyaline Casts (0-2) /lpf Urine Mucus (None) /hpf Stool Occult Blood (Negative) Blood Type O Positive Blood Type Confirm Blood Type Recheck No Previous Record Bld Type Recheck Status CABO Indicated Antibody Screen NEGATIVE Spec Expiration Date 12/11/2019 - 234412/08/19 12/08/19 Range/Units 09:47 11:30 WBC (3.8-10.6) k/uL RBC (4.30-5.90) m/uL Hgb (13.0-17.5) gm/dL Hct (39.0-53.0) % MCV (80.0-100.0) fL MCH (25.0-35.0) pg MCHC (31.0-37.0) g/dL RDW (11.5-15.5) % Plt Count (150-450) k/uL Neutrophils % % Lymphocytes % % Monocytes % % Eosinophils % % Basophils % % Neutrophils # (1.3-7.7) k/uL Lymphocytes # (1.0-4.8) k/uL Monocytes # (0-1.0) k/uL Eosinophils # (0-0.7) k/uL Basophils # (0-0.2) k/uL PT (9.0-12.0) sec INR (<1.2) APTT (22.0-30.0) sec Sodium (137-145) mmol/L Potassium (3.5-5.1) mmol/L Chloride (98-107) mmol/L Carbon Dioxide (22-30) mmol/L Anion Gap mmol/L BUN (9-20) mg/dL Creatinine (0.66-1.25) mg/dL Est GFR (CKD-EPI)AfAm (>60 ml/min/1.73 sqM) Est GFR (CKD-EPI)NonAf (>60 ml/min/1.73 sqM) Glucose (74-99) mg/dL Calcium (8.4-10.2) mg/dL Magnesium (1.6-2.3) mg/dL Total Bilirubin (0.2-1.3) mg/dL AST (17-59) U/L ALT (4-49) U/L Alkaline Phosphatase (38-126) U/L Troponin I (0.000-0.034) ng/mL Total Protein (6.3-8.2) g/dL Albumin (3.5-5.0) g/dL Urine Color Yellow Urine Appearance Clear (Clear) Urine pH 5.5 (5.0-8.0) Ur Specific [place] 1.020 (1.001-1.035) Urine Protein 1+ H (Negative) Urine Glucose (UA) Negative (Negative) Urine Ketones Negative (Negative) Urine Blood Moderate H (Negative) Urine Nitrite Negative (Negative) Urine Bilirubin Negative (Negative) Urine Urobilinogen <2.0 (<2.0) mg/dL Ur Leukocyte Esterase Small H (Negative) Urine RBC 50 H (0-5) /hpf Urine WBC 9 H (0-5) /hpf Ur Squamous Epith Cells <1 (0-4) /hpf Urine Bacteria Rare H (None) /hpf Hyaline Casts 12 H (0-2) /lpf Urine Mucus Occasional H (None) /hpf Stool Occult Blood (Negative) Blood Type Blood Type Confirm O Positive Blood Type Recheck Bld Type Recheck Status Antibody Screen Spec Expiration Date - EKG Data EKG Comments: EKG performed shows atrial flutter, left bundle-branch. Abnormal EKG. Ventricular rate of 119 bpm. MN interval undetected. She christianity is 132. QT QTc is 370/420 ms. (Cathi Tejeda) Disposition <Kingsley Brewster - Last Filed: 12/08/19 12:01> Is patient prescribed a controlled substance at d/c from ED?: No Time of Disposition: 12:14 <Cathi Tejeda - Last Filed: 12/08/19 12:14> Clinical Impression: Hemorrhoid Disposition: HOME SELF-CARE Condition: Good Instructions (If sedation given, give patient instructions): Hemorrhoids (ED) Additional Instructions: Patient is up with her primary care doctor. Encourage fiber and increase fluid intake. Follow-up with your primary care doctor. Referrals: Vitaliy Hdz MD [Primary Care Provider] - 1-2 days
[2019-12-08 10:01] LABS: Basophils % (A) 0 %; Eosinophils # (A) 0.1 k/uL (0-0.7); Eosinophils % (A) 1 %; HCT 51.7 % (39.0-53.0); HGB 17.1 gm/dL (13.0-17.5); Lymphocytes # (A) 1.3 k/uL (1.0-4.8); Lymphocytes % (A) 18 %; MCH 31.8 pg (25.0-35.0); MCHC 33.1 g/dL (31.0-37.0); MCV 96.2 fL (80.0-100.0); Mean Platelet Volume 7.1; Monocytes # (A) 0.5 k/uL (0-1.0); Monocytes % (A) 7 %; Neutrophils # (A) 5.2 k/uL (1.3-7.7); Neutrophils % (A) 71 %; Platelet Count 241 k/uL (150-450); RBC 5.37 m/uL (4.30-5.90); RDW 13.4 % (11.5-15.5); WBC 7.3 k/uL (3.8-10.6)
[2019-12-08 10:11] LABS: Albumin 4.4 g/dL (3.5-5.0); Calcium 9.8 mg/dL (8.4-10.2); INR 2.5 (<1.2); Magnesium 2.1 mg/dL (1.6-2.3); Partial Thromboplastin Time 28.8 sec (22.0-30.0); Potassium 3.9 mmol/L (3.5-5.1); Prothrombin Time 24.3 sec (9.0-12.0); Total Bilirubin 0.6 mg/dL (0.2-1.3); Total Protein 7.6 g/dL (6.3-8.2)
[2019-12-08 12:05] LABS: Appearance,Urine Clear (Clear); Bacteria,Urine Rare /hpf; Bilirubin,Urine Negative (Negative); Blood,Urine Moderate (Negative); Color,Urine Yellow; Glucose,Urine (UA) Negative (Negative); Hyaline Casts,Urine 12 /lpf (0-2); Ketones,Urine Negative (Negative); Leukocyte Esterase,Urine Small (Negative); Mucus,Urine Occasional /hpf; Nitrite,Urine Negative (Negative); PH, Urine 5.5 (5.0-8.0); Protein,Urine 1+ (Negative); RBC,Urine 50 /hpf (0-5); Squamous Epithelial Cell,Urine <1 /hpf (0-4); Urobilinogen,Urine <2.0 mg/dL (<2.0); WBC,Urine 9 /hpf (0-5)
[2019-12-08 12:36] VITALS: BP 109/82; PULSE 101; TEMP 97.4
== END 2019-12-08 12:36 | disposition home or self-care (01) ==
LOC: EC 09:25
DX: K64.4 Residual hemorrhoidal skin tags (principal); I48.91 Unspecified atrial fibrillation; I48.92 Unspecified atrial flutter; I10 Essential (primary) hypertension; E78.5 Hyperlipidemia, unspecified; F17.200 Nicotine dependence, unspecified, uncomplicated; Z79.01 Long term (current) use of anticoagulants; Z79.899 Other long term (current) drug therapy
CPT/HCPCS: 36415; 80053; 81001; 82272; 83735; 84484; 85025; 85610; 85730; 86850; 86900; 86901; 93005; 99285

== ENCOUNTER 2020-03-25 10:03 | Emergency (ER) | payer MEDICARE, BC ==
--- NOTE | 2020-03-25 11:11 | XR ---
EXAMINATION TYPE: XR lumbar spine 2 or 3V DATE OF EXAM: 03/25/2020 COMPARISON: 09/24/2019 HISTORY: Pain TECHNIQUE: Three-view lumbar spine FINDINGS: There 5 lumbar-type vertebral bodies. Pedicles are intact. Vertebral body heights are prese rved. There is a grade 1 spondylolisthesis of L4 anterior and L5. Degenerative disc changes with loss of disc height is present L5-S1, L3-4 due to Jamie the L2-3 and L1-2. Scoliosis is present lower lumba r spine. Findings are stable over the interval. IMPRESSION: 1. Grade 1 spondylolisthesis of L4 anterior and L5. 2. Spondylosis. 3. Degenerative disc changes
--- NOTE | 2020-03-25 11:12 | XR ---
EXAMINATION TYPE: XR Hip Complete LT DATE OF EXAM: 03/25/2020 COMPARISON: None HISTORY: Pain TECHNIQUE: 2 view left hip FINDINGS: Femoral head articulates with the acetabulum. Joint space narrowing is present. No acute fr acture or dislocation is evident. IMPRESSION: 1. Mild Osteoarthritic degenerative change left hip
--- NOTE | 2020-03-25 11:20 | ED ---
Extremity Problem HPI - General Chief complaint: Extremity Problem,Nontraumatic Stated complaint: leg pain Time Seen by Provider: 03/25/20 10:16 Source: family Mode of arrival: ambulatory Limitations: no limitations - History of Present Illness Initial comments: Patient is an 89-year-old male presenting to the emergency Department with complaints of pain in the back of his left leg has been increasing over the past few days. Patient states she has a history of chronic low back pain for the past 1-2 years but states he has been doing well. He still goes outside [employer], works in his garden. Patient states the last few days he has been noticing an increase in pain from his left buttocks traveling down his left upper leg. Patient states it's worse when he stands up straight. He states he feels comfortable at rest and was sitting. He states he's been using a cane as he does not want a fall. He states he did go to his PCP yesterday but had to leave because they were taking too long at his appointment. He does have an appointment with orthopedics next week. He denies any falls or trauma. Denies any fever, chills, saddle paresthesias. He denies any numbness into his toes. He denies any bowel or bladder incontinence. He has no further complaints at this time. Upon arrival to the ER, his vitals are stable. - Related Data Home Medications Medication Instructions Recorded Confirmed Allopurinol [Zyloprim] 300 mg PO DAILY 10/14/19 03/25/20 Lisinopril [Zestril] 20 mg PO BID 10/14/19 03/25/20 Lovastatin [Altoprev] 20 mg PO HS 10/14/19 03/25/20 Tamsulosin HCl [Flomax] 0.4 mg PO Q48H 10/14/19 03/25/20 Warfarin [Coumadin] 5 mg PO DAILY 10/14/19 03/25/20 amLODIPine [Norvasc] 5 mg PO DAILY 10/14/19 03/25/20 Ascorbic Acid [Vitamin C] 500 mg PO DAILY 03/25/20 03/25/20 Atenolol [Tenormin] 12.5 mg PO HS 03/25/20 03/25/20 Cholecalciferol [Vitamin D3 (25 1,000 unit PO DAILY 03/25/20 03/25/20 Mcg = 1000 Iu)] Vit C/E/Zn/Coppr/Lutein/Zeaxan 1 cap PO DAILY 03/25/20 03/25/20 [Preservision Areds 2 Softgel] Previous Rx's Medication Instructions Recorded predniSONE 10 mg PO BID 3 Days #6 tab 03/25/20 Allergies Allergy/AdvReac Type Severity Reaction Status Date / Time No Known Allergies Allergy Verified 03/25/20 11:19 Review of Systems ROS Statement: Those systems with pertinent positive or pertinent negative responses have been documented in the HPI. ROS Other: All systems not noted in ROS Statement are negative. Past Medical History Past Medical History: Atrial Fibrillation, Hyperlipidemia, Hypertension, Prostate Disorder History of Any Multi-Drug Resistant Organisms: None Reported Past Surgical History: Appendectomy Past Psychological History: No Psychological Hx Reported Smoking Status: Current some day smoker Past Alcohol Use History: Daily Past Drug Use History: None Reported General Exam - General Exam Comments Initial Comments: GENERAL: Well-appearing, well-nourished and in no acute distress. HEAD: Atraumatic, normocephalic. EYES: Pupils equal round and reactive to light, extraocular movements intact, sclera anicteric, conjunctiva are normal. ENT: TMs normal, nares patent, oropharynx clear without exudates. Moist mucous membranes. NECK: Normal range of motion, supple without lymphadenopathy or JVD. LUNGS: Breath sounds clear to auscultation bilaterally and equal. No wheezes rales or rhonchi. HEART: Regular rate and rhythm without murmurs, rubs or gallops. ABDOMEN: Soft, nontender, normoactive bowel sounds. No guarding, no rebound. No masses appreciated. : Deferred EXTREMITIES: Normal range of motion, no pitting or edema. No clubbing or cyanosis. Patient's strength is 5 out of 5 upper and lower extremities bilaterally. His sensation is equal, bilaterally in the lower extremities. NEUROLOGICAL: Cranial nerves II through XII grossly intact. Normal speech, normal gait. PSYCH: Normal mood, normal affect. SKIN: Warm, Dry, normal turgor, no rashes or lesions noted. Limitations: no limitations Course Vital Signs 03/25/20 10:04 Temperature 97.7 F Pulse Rate 71 Respiratory 20 Rate Blood Pressure 114/71 O2 Sat by Pulse 98 Oximetry Medical Decision Making - Medical Decision Making Patient is an 89-year-old male here with symptoms consistent with left-sided sciatica. He denies any recent falls or injuries. X-rays the lumbar spine rev ealed degenerative disc changes, grade 1 spondylolisthesis of L4 and L5. X-rays of the left hip showed mild osteoarthritic changes. No other acute findings. There are no red flag symptoms and patient's exam. I discussed with patient that his exam today is consistent with left-sided sciatica. I recommended stretching, heat to the area. Do not sit on wallet. I also recommended Tylenol or short course of ibuprofen for discomfort. Patient is in agreement with this plan. He will follow up with PCP or orthopedics. Return parameters were discussed with the patient and he verbalized understanding. Case discussed with Dr. Mera. Disposition Clinical Impression: Left sided sciatica Disposition: HOME SELF-CARE Condition: Stable Instructions (If sedation given, give patient instructions): Sciatica (ED) Additional Instructions: Please return to the Emergency Department if symptoms worsen or any other concerns. Stretching of the left hip as discussed. Heat to the area. Recommend following up with PCP or orthopedics. May also try Tylenol and/or Motrin. Do not sit on wallet. Prescriptions: predniSONE 10 mg PO BID 3 Days #6 tab Is patient prescribed a controlled substance at d/c from ED?: No Referrals: Vitaliy Hdz MD [Primary Care Provider] - 1-2 days
[2020-03-25 12:15] VITALS: BP 107/97; PULSE 100; RESP 18; TEMP 97.2
== END 2020-03-25 12:11 | disposition home or self-care (01) ==
LOC: EC 10:03
DX: M43.16 Spondylolisthesis, lumbar region (principal); M16.12 Unilateral primary osteoarthritis, left hip; M51.16 Intervertebral disc disorders with radiculopathy, lumbar region; I48.91 Unspecified atrial fibrillation; E78.5 Hyperlipidemia, unspecified; I10 Essential (primary) hypertension; N42.9 Disorder of prostate, unspecified; G89.29 Other chronic pain; F17.200 Nicotine dependence, unspecified, uncomplicated; Z79.899 Other long term (current) drug therapy; Z79.01 Long term (current) use of anticoagulants
CPT/HCPCS: 72100; 73502; 99283

== ENCOUNTER 2020-05-20 18:03 | Emergency (ER) | payer MEDICARE, BC ==
[2020-05-20 18:34] VITALS: BP 98/62; PULSE 74; RESP 18; TEMP 98.4
[2020-05-20] MEDS ORDERED: traMADol 50 MG STARTER PACK 3 TAB BTL PO STA (18:57)
[2020-05-20] MEDS ORDERED: KETOROLAC 15 MG/ML 1 ML VIAL IM STA (18:57)
[2020-05-20] MEDS ORDERED: LIDOCAINE 5% PATCH TOPICAL STA (18:57)
--- NOTE | 2020-05-20 19:15 | ED ---
Back Pain HPI - General Chief Complaint: Back Pain/Injury Stated Complaint: sciatica Time Seen by Provider: 05/20/20 18:34 Source: patient Limitations: no limitations - History of Present Illness Initial Comments: A 9-year-old male presenting for low back pain. Patient states he struggled with low back pain and sciatica since he was in high school. Patient states it was after a football injury. Patient denies any new injury or trauma but states he is having one of his typical exacerbations of the pain he states he still able to ambulate and walk. This is painful. Denies any weakness or sensation deficits of the lower extremities. Patient denies any loss of bowel bladder control urinary retention. Denies hematuria, abdominal or flank pain, denies CP or SOB. He denies any fevers or history of active cancer. Patient states that he cannot get into orthopedics with Dr. Herrera who he sees for his chronic back pain until June 10 he tried to expedite the appointment what was unsuccessful he presents to emergency department today for pain control. Patient states this does not feel any different than his typical low back pain that he has struggled with majority of his life. Pain is sharp, and at times radiates down the legs b/l. Patient appears well nontoxic and in good spirits on arrival. - Related Data Home Medications Medication Instructions Recorded Confirmed Allopurinol [Zyloprim] 300 mg PO DAILY 10/14/19 03/25/20 Lovastatin [Altoprev] 20 mg PO HS 10/14/19 03/25/20 Tamsulosin HCl [Flomax] 0.4 mg PO Q48H 10/14/19 03/25/20 Warfarin [Coumadin] 5 mg PO DAILY 10/14/19 03/25/20 amLODIPine [Norvasc] 5 mg PO DAILY 10/14/19 03/25/20 lisinopriL [Zestril] 20 mg PO BID 10/14/19 03/25/20 Ascorbic Acid [Vitamin C] 500 mg PO DAILY 03/25/20 03/25/20 Cholecalciferol [Vitamin D3 (25 1,000 unit PO DAILY 03/25/20 03/25/20 Mcg = 1000 Iu)] Vit C/E/Zn/Coppr/Lutein/Zeaxan 1 cap PO DAILY 03/25/20 03/25/20 [Preservision Areds 2 Softgel] atenoloL [Tenormin] 12.5 mg PO HS 03/25/20 03/25/20 Previous Rx's Medication Instructions Recorded predniSONE 10 mg PO BID 3 Days #6 tab 03/25/20 traMADol HCL [Ultram] 50 mg PO Q6HR PRN 3 Days #12 tab 05/20/20 Allergies Allergy/AdvReac Type Severity Reaction Status Date / Time No Known Allergies Allergy Verified 05/20/20 18:35 Review of Systems ROS Statement: Those systems with pertinent positive or pertinent negative responses have been documented in the HPI. ROS Other: All systems not noted in ROS Statement are negative. Past Medical History Past Medical History: Atrial Fibrillation, Hyperlipidemia, Hypertension, Prostate Disorder History of Any Multi-Drug Resistant Organisms: None Reported Past Surgical History: Appendectomy Past Psychological History: No Psychological Hx Reported Smoking Status: Current some day smoker Past Alcohol Use History: Daily Past Drug Use History: None Reported General Exam - General Exam Comments Initial Comments: General: The patient is awake and alert, in no distress, and does not appear acutely ill. Eye: +3 mm pupils are equal, round and reactive to light, extra-ocular movements are intact. No nystagmus. There is normal conjunctiva bilaterally. No signs of icterus. Ears, nose, mouth and throat: There are moist mucous membranes and no oral lesions. Neck: The neck is supple, there is no tenderness or JVD. Cardiovascular: There is a regular rate and rhythm. No murmur, rub or gallop is appreciated. Respiratory: Lungs are clear to auscultation, respirations are non-labored, breath sounds are equal. No wheezes, stridor, rales, or rhonchi. Gastrointestinal: Soft, non-distended, non-tender abdomen without masses or organomegaly noted. There is no rebound or guarding present. Musculoskeletal: Normal inspection of the cervical thoracic and lumbar spine. There is paraspinal tenderness of the lumbar spine there is mild midline tenderness. Normal ROM, no tenderness. Strength 5/5 of the LE b/l equally no weakness appreciated, surprisingly strong without SLR. Sensation intact of the LE b/l including the saddle region-able to ambulate and stand with a cane. DP pulses equal bilaterally 2+. Neurological: A&O x 3. CN II-XII intact grossly, There are no obvious motor or sensory deficits. Coordination appears grossly intact. Speech is normal. Skin: Skin is warm and dry and no rashes or lesions are noted. Psychiatric: Cooperative, appropriate mood & affect, normal judgment. Limitations: no limitations Course Vital Signs 05/20/20 18:28 Temperature 98.4 F Pulse Rate 74 Respiratory 18 Rate Blood Pressure 98/62 O2 Sat by Pulse 98 Oximetry Medical Decision Making - Medical Decision Making Pain improved. No PE findings or history provided concerning for cauda equina. Patient states typical flare of pain unable to get into specialist for another 3 weeks. Patient presented for pain control patient was discharged with tramadol discussed the importance of appropriate use and monitoring for adverse side effects. Patient verbalized understanding. Patient discharged appearing well after discussing case with Dr. Quiroz Disposition Clinical Impression: Acute exacerbation of chronic low back pain Disposition: HOME SELF-CARE Condition: Good Instructions (If sedation given, give patient instructions): Acute Low Back Pain (ED) Additional Instructions: Please use medication as discussed. Please follow-up with family doctor in the next 2 days.. Please return to emergency room if the symptoms increase or worsen or for any other concerns. Prescriptions: traMADol HCL [Ultram] 50 mg PO Q6HR PRN 3 Days #12 tab PRN Reason: Pain Is patient prescribed a controlled substance at d/c from ED?: Yes When asked, does pt state using other controlled substances?: No If prescribed controlled substance>3 days was MAPS reviewed?: Prescribed <3 Days If opioid is for acute pain is fill amount 7 days or less?: Yes If Rx opioid, was Start Talking consent form obtained?: Yes Referrals: Vitaliy Hdz MD [Primary Care Provider] - 1-2 days Zoltan Vaca MD [STAFF PHYSICIAN] - 1-2 days Time of Disposition: 19:48
--- NOTE | 2020-05-20 19:38 | XR ---
EXAMINATION TYPE: XR lumbar spine 2 or 3V DATE OF EXAM: 05/20/2020 COMPARISON: 03/25/2020 HISTORY: Back pain TECHNIQUE: 3 views FINDINGS: There is a few millimeter anterior subluxation of L4 in relation L5. There is disc space na rrowing throughout the lumbar spine. There is no compression fracture. Sacroiliac joints are intact. IMPRESSION: Multilevel spondylotic changes. Degenerative first-degree L4-5 spondylolisthesis. No frac ture seen. No change.
== END 2020-05-20 20:05 | disposition home or self-care (01) ==
LOC: EC 18:03
DX: M54.5 Low back pain (principal); G89.29 Other chronic pain; I48.91 Unspecified atrial fibrillation; E78.5 Hyperlipidemia, unspecified; I10 Essential (primary) hypertension; N42.9 Disorder of prostate, unspecified; Z79.01 Long term (current) use of anticoagulants; F17.200 Nicotine dependence, unspecified, uncomplicated; Z79.890 Hormone replacement therapy; Z79.899 Other long term (current) drug therapy; Y93.61 Activity, american tackle football
CPT/HCPCS: 72100; 99283; 96372; J1885

== ENCOUNTER 2020-12-07 10:40 | Emergency (ER) | payer MEDICARE, BC ==
[2020-12-07 10:49] VITALS: RESP 16
--- NOTE | 2020-12-07 12:36 | CT ---
EXAMINATION TYPE: CT brain gurdeep callejas DATE OF EXAM: 12/07/2020 COMPARISON: None HISTORY: Fall, head and neck pain CT DLP: 1393.[address] of the brain was performed. The ventricles, basal cisterns and sulci overlying the cerebral convexities demonstrate mild enlargem ent. There is no evidence for intracranial hemorrhage or sulcal effacement. There is decreased attenuatio n about the periventricular white matter and deep white matter of both cerebral hemispheres, compatib le with chronic small vessel ischemia. No mass effects are seen. If symptoms persist consider MRI. Osseous calvarium is intact. IMPRESSION: 1. Age related atrophic and chronic small vessel ischemic change without acute intracranial process seen at this time. CT Cervical Spine: Unenhanced CT of the cervical spine was performed with bone and soft tissue window settings submitted . Coronal and sagittal reconstruction is obtained. There is normal alignment and prevertebral soft tissues. No evidence for acute cervical fracture . Scattered degenerative disc disease and spondylosis. Biapical scarring. IMPRESSION: 1. No evidence for acute fracture or subluxation of the cervical spine.
--- NOTE | 2020-12-07 12:42 | ED ---
Fall HPI - General Chief Complaint: Fall Stated Complaint: Fall/head injury/blood thinners Time Seen by Provider: 12/07/20 11:17 Source: patient Mode of arrival: wheelchair - History of Present Illness Initial Comments: Patient is an 89-year-old male with history of A. fib, hypertension, presenting to the emergency department after he had a fall from standing yesterday. Patipatricia t states he has been dealing with some chronic low back pain, he is feeling better yesterday so he decided to go walk around his neighborhood. He does usually walk with a cane or walking stick. He was almost home and he went through a neighbor's yard and lost his footing and fell forward hitting the left side of his forehead. Patient denies loss of consciousness. He states his daughter was able to help him up and he was able to inflate home without any trouble. He states when he woke up this morning he was having some neck pain and his daughter urged him to go to the ER for evaluation. He is on Coumadin. He denies having a headache, he is having some mild neck pain. He denies any history of neck surgeries. He denies any chest pain or shortness of breath. He denies any other injuries from his fall. He has no further complaints at this time. Upon arrival to the ER his vitals are stable. - Related Data Home Medications Medication Instructions Recorded Confirmed Allopurinol [Zyloprim] 300 mg PO DAILY 10/14/19 12/07/20 Lovastatin [Altoprev] 20 mg PO AC-SUPPER 10/14/19 12/07/20 Warfarin [Coumadin] 2.5 mg PO MOFR@1800 10/14/19 12/07/20 amLODIPine [Norvasc] 5 mg PO DAILY 10/14/19 12/07/20 lisinopriL [Zestril] 20 mg PO BID 10/14/19 12/07/20 Ascorbic Acid [Vitamin C] 500 mg PO DAILY 03/25/20 12/07/20 Cholecalciferol [Vitamin D3 (25 25 mcg PO DAILY 03/25/20 12/07/20 Mcg = 1000 Iu)] Vit C/E/Zn/Coppr/Lutein/Zeaxan 1 cap PO DAILY 03/25/20 12/07/20 [Preservision Areds 2 Softgel] atenoloL [Tenormin] 12.5 mg PO AC-SUPPER 03/25/20 12/07/20 Warfarin [Coumadin] 5 mg PO SUTUWETHSA@1800 12/07/20 12/07/20 Allergies Allergy/AdvReac Type Severity Reaction Status Date / Time No Known Allergies Allergy Verified 12/07/20 10:46 Review of Systems ROS Statement: Those systems with pertinent positive or pertinent negative responses have been documented in the HPI. ROS Other: All systems not noted in ROS Statement are negative. Past Medical History Past Medical History: Atrial Fibrillation, Hyperlipidemia, Hypertension, Prostate Disorder History of Any Multi-Drug Resistant Organisms: None Reported Past Surgical History: Appendectomy Past Psychological History: No Psychological Hx Reported Smoking Status: Current some day smoker Past Alcohol Use History: Daily Past Drug Use History: None Reported General Exam - General Exam Comments Initial Comments: GENERAL: Patient is well-developed and well-nourished. Patient is nontoxic and in no acute distress. HEAD: Atraumatic, normocephalic. There are no hematomas, no signs of basal skull fracture. EYES: Pupils equal round and reactive to light, extraocular movements intact, sclera anicteric, conjunctiva are normal. Eyelids were unremarkable. ENT: TMs normal, nares patent, oropharynx clear without exudates. Moist mucous membranes. NECK: C-collar placed in triage, upon clearance from CT, patient has full range of motion with some soreness at end range. Supple without lymphadenopathy or JVD. Some mild tenderness along the cervical paraspinals. LUNGS: Unlabored respirations. Breath sounds clear to auscultation bilaterally and equal. No wheezes rales or rhonchi. HEART: Regular rate and rhythm without murmurs, rubs or gallops. ABDOMEN: Soft, nontender, normoactive bowel sounds. No guarding, no rebound. No masses appreciated. : Deferred MUSCULOSKELETAL: Normal extremities with adequate strength and normal range of motion, no pitting or edema. No clubbing or cyanosis. NEUROLOGICAL: Patient is alert and oriented x 3. Motor and sensory are also intact. Cranial nerves II through XII grossly intact. Symmetrical smile. Normal speech, normal gait. PSYCH: Normal mood, normal affect. SKIN: Warm, Dry, normal turgor, no rashes or lesions noted. Limitations: no limitations Course Vital Signs 12/07/20 10:46 Temperature 97.9 F Pulse Rate 98 Respiratory 16 Rate Blood Pressure 109/69 O2 Sat by Pulse 99 Oximetry Medical Decision Making - Medical Decision Making Patient is an 89-year-old male here after he fell while walking in some grass yesterday. He is on Coumadin. His exam reveals no hematomas, he was having some neck pain, otherwise his exam is unremarkable. CT of his brain and C-spine revealed no acute fractures or no acute bleeding, there are some chronic changes. Patient is stable for discharge. Patient is in agreement with this plan of care. Return parameters were discussed with the patient and they verbalized understanding. Case discussed with Dr. Mera. Disposition Clinical Impression: Fall, Neck muscle strain Disposition: HOME SELF-CARE Condition: Stable Instructions (If sedation given, give patient instructions): Fall Prevention for Older Adults (ED) Additional Instructions: Please return to the Emergency Department if symptoms worsen or any other concerns. Recommend Tylenol for your neck pain, may also apply heat to the area or ice. Follow-up with your PCP. Is patient prescribed a controlled substance at d/c from ED?: No Referrals: Vitaliy Hdz MD [Primary Care Provider] - 1-2 days Time of Disposition: 12:51
[2020-12-07 13:11] VITALS: BP 158/78; PULSE 78; TEMP 98.2
== END 2020-12-07 13:10 | disposition home or self-care (01) ==
LOC: EC 10:40
DX: S16.1XXA Strain of muscle, fascia and tendon at neck level, initial encounter (principal); I48.91 Unspecified atrial fibrillation; E78.5 Hyperlipidemia, unspecified; I10 Essential (primary) hypertension; W19.XXXA Unspecified fall, initial encounter; F17.200 Nicotine dependence, unspecified, uncomplicated
CPT/HCPCS: 70450; 72125; 99283

== ENCOUNTER → 2021-05-31 | Outpatient (CLI) | payer MEDICARE, BC ==
--- NOTE | 2021-05-31 16:03 | US ---
EXAMINATION TYPE: US kidneys/renal and bladder DATE OF EXAM: 05/31/2021 COMPARISON: NONE CLINICAL HISTORY: 89-year-old male R31.0 Gross hematuria, C67.9 staging bladder ca. TECHNIQUE: Multiple sonographic images of the kidneys and bladder are obtained. FINDINGS: EXAM MEASUREMENTS: Right Kidney: 9.4 x 4.3 x 5.0 cm Left Kidney: 9.2 x 4.21 x 4.8 cm Right Kidney: lower pole cystic lesion - 3.8 x 3.6 x 4.8 cm Left Kidney: lower pole echogenic focus= 0.6 cm No hydronephrosis on either side. Bladder: Markedly irregular bladder wall especially along the fundus. Bilateral Jets not seen IMPRESSION: 1. No hydronephrosis. 2. A right lower pole renal cyst measuring 4.8 cm and a nonobstructive left lower pole renal calculus measuring 6 mm. 3. Markedly irregular fundal bladder wall. Underlying urothelial lesion/bladder cancer not excluded a t this time. Correlate with urine cytology and direct visualization.
== END | disposition home or self-care (01) ==
LOC: RADUSWWP 12:19
PROVIDERS: ATTEND Urology
DX: C67.9 Malignant neoplasm of bladder, unspecified (principal); N28.1 Cyst of kidney, acquired; N20.0 Calculus of kidney
CPT/HCPCS: 76770

== ENCOUNTER 2021-06-23 08:57 | Emergency (ER) | payer MEDICARE, BC ==
[2021-06-23] MEDS ORDERED: SODIUM CHLORIDE 0.9% 1,000 ML IV ONE (10:00)
[2021-06-23] MEDS ORDERED: KETOROLAC 15 MG/ML 1 ML VIAL IVP STA (10:00)
--- NOTE | 2021-06-23 10:02 | ED ---
General Adult HPI - General Chief complaint: Urogenital Stated complaint: urinary problems Time Seen by Provider: 06/23/21 09:35 Source: patient, RN notes reviewed, old records reviewed Mode of arrival: ambulatory Limitations: no limitations - History of Present Illness Initial comments: This is an 89-year-old male who presents emergency Department complaining of urinary frequency and some dysuria. Patient states this all began after he had a cystoscopy by Dr. Mcgregor. Patient states she was told he has a bladder tumor. Patient states initially after the procedure he had some penile burning with urination but that is subsided but he has urinary frequency and some dysuria. Patient states he also is urinary urgency he tries to go over half an hour but seldom has any urine. Patient denies any abdominal pain. Patient states overall he feels weaker than normal and that is when the results she came in. Patient denies any fever chills. Patient denies any vomiting or diarrhea. - Related Data Home Medications Medication Instructions Recorded Confirmed Allopurinol [Zyloprim] 300 mg PO DAILY 10/14/19 06/23/21 Lovastatin [Altoprev] 20 mg PO AC-SUPPER 10/14/19 06/23/21 Warfarin [Coumadin] 2.5 mg PO MOFR@1800 10/14/19 06/23/21 amLODIPine [Norvasc] 5 mg PO DAILY 10/14/19 06/23/21 lisinopriL [Zestril] 20 mg PO BID 10/14/19 06/23/21 atenoloL [Tenormin] 12.5 mg PO AC-SUPPER 03/25/20 06/23/21 Warfarin [Coumadin] 5 mg PO SUTUWETHSA@1800 12/07/20 06/23/21 Tamsulosin HCl [Flomax] 0.4 mg PO Q48H 06/23/21 06/23/21 Previous Rx's Medication Instructions Recorded Sulfamethox-Tmp 800-160Mg [Bactrim 1 each PO Q12HR #20 tab 06/23/21 DS 800-160 mg] Allergies Allergy/AdvReac Type Severity Reaction Status Date / Time No Known Allergies Allergy Verified 06/23/21 12:51 Review of Systems ROS Statement: Those systems with pertinent positive or pertinent negative responses have been documented in the HPI. ROS Other: All systems not noted in ROS Statement are negative. Past Medical History Past Medical History: Atrial Fibrillation, Hyperlipidemia, Hypertension, Prostate Disorder History of Any Multi-Drug Resistant Organisms: None Reported Past Surgical History: Appendectomy Past Psychological History: No Psychological Hx Reported Smoking Status: Current some day smoker Past Alcohol Use History: Daily Past Drug Use History: None Reported General Exam - General Exam Comments Initial Comments: GENERAL: Patient is well-developed and well-nourished. Patient is nontoxic and well- hydrated and is in mild distress. ENT: Neck is soft and supple. No significant lymphadenopathy is noted. Oropharynx is clear. Moist mucous membranes. EYES: The sclera were anicteric and conjunctiva were pink and moist. Extraocular movements were intact and pupils were equal round and reactive to light. Ey elids were unremarkable. PULMONARY: Unlabored respirations. Good breath sounds bilaterally. No audible rales rhonchi or wheezing was noted. CARDIOVASCULAR: There is a regular rate and rhythm without any murmurs gallops or rubs. ABDOMEN: Soft and nontender with normal bowel sounds. SKIN: Skin is clear with no lesions or rashes and otherwise unremarkable. NEUROLOGIC: Patient is alert and oriented x3. Cranial nerves II through XII are grossly intact. Motor and sensory are also intact. Normal speech, volume and content. Symmetrical smile. MUSCULOSKELETAL: Normal extremities with adequate strength and full range of motion. LYMPHATICS: No significant lymphadenopathy is noted PSYCHIATRIC: Normal psychiatric evaluation. Limitations: no limitations Course Vital Signs 06/23/21 06/23/21 09:34 11:12 Temperature 98.8 F Pulse Rate 73 57 L Respiratory 18 16 Rate Blood Pressure 122/61 110/76 O2 Sat by Pulse 98 98 Oximetry Medical Decision Making - Medical Decision Making Urinalysis showed a urinary tract infection patient was given 2 g Rocephin IV in the emergency department. - Lab Data Result diagrams: 06/23/21 10:21 06/23/21 10:21 Lab Results 06/23/21 06/23/21 06/23/21 Range/Units 10:21 10:21 10:21 WBC 10.0 (3.8-10.6) k/uL RBC 5.13 (4.30-5.90) m/uL Hgb 16.9 (13.0-17.5) gm/dL Hct 51.1 (39.0-53.0) % MCV 99.7 (80.0-100.0) fL MCH 33.0 (25.0-35.0) pg MCHC 33.1 (31.0-37.0) g/dL RDW 13.2 (11.5-15.5) % Plt Count 269 (150-450) k/uL MPV 6.8 Neutrophils % 78 % Lymphocytes % 15 % Monocytes % 5 % Eosinophils % 1 % Basophils % 0 % Neutrophils # 7.7 (1.3-7.7) k/uL Lymphocytes # 1.4 (1.0-4.8) k/uL Monocytes # 0.5 (0-1.0) k/uL Eosinophils # 0.1 (0-0.7) k/uL Basophils # 0.0 (0-0.2) k/uL Sodium 143 (137-145) mmol/L Potassium 4.2 (3.5-5.1) mmol/L Chloride 112 H (98-107) mmol/L Carbon Dioxide 23 (22-30) mmol/L Anion Gap 8 mmol/L BUN 20 (9-20) mg/dL Creatinine 0.99 (0.66-1.25) mg/dL Est GFR (CKD-EPI)AfAm 78 (>60 ml/min/1.73 sqM) Est GFR (CKD-EPI)NonAf 68 (>60 ml/min/1.73 sqM) Glucose 121 H (74-99) mg/dL Calcium 9.7 (8.4-10.2) mg/dL Total Bilirubin 0.7 (0.2-1.3) mg/dL AST 28 (17-59) U/L ALT 17 (4-49) U/L Alkaline Phosphatase 64 (38-126) U/L Total Protein 7.1 (6.3-8.2) g/dL Albumin 4.0 (3.5-5.0) g/dL Urine Color Yellow Urine Appearance Turbid (Clear) Urine pH 5.5 (5.0-8.0) Ur Specific [place] 1.017 (1.001-1.035) Urine Protein 2+ H (Negative) Urine Glucose (UA) Negative (Negative) Urine Ketones Negative (Negative) Urine Blood Large H (Negative) Urine Nitrite Negative (Negative) Urine Bilirubin Negative (Negative) Urine Urobilinogen <2.0 (<2.0) mg/dL Ur Leukocyte Esterase Large H (Negative) Urine RBC >182 H (0-5) /hpf Urine WBC >182 H (0-5) /hpf Urine WBC Clumps Many H (None) /hpf Ur Squamous Epith Cells 1 (0-4) /hpf Urine Bacteria Many H (None) /hpf Hyaline Casts 10 H (0-2) /lpf Urine Mucus Rare H (None) /hpf Disposition Clinical Impression: Urinary tract infection Disposition: HOME SELF-CARE Condition: Poor Instructions (If sedation given, give patient instructions): Urinary Tract Infection in Men (ED) Prescriptions: Sulfamethox-Tmp 800-160Mg [Bactrim DS 800-160 mg] 1 each PO Q12HR #20 tab Is patient prescribed a controlled substance at d/c from ED?: No Referrals: Vitaliy Hdz MD [Primary Care Provider] - 1-2 days Time of Disposition: 13:04
[2021-06-23 10:40] LABS: Basophils % (A) 0 %; Eosinophils # (A) 0.1 k/uL (0-0.7); Eosinophils % (A) 1 %; HCT 51.1 % (39.0-53.0); HGB 16.9 gm/dL (13.0-17.5); Lymphocytes # (A) 1.4 k/uL (1.0-4.8); Lymphocytes % (A) 15 %; MCHC 33.1 g/dL (31.0-37.0); MCV 99.7 fL (80.0-100.0); Mean Platelet Volume 6.8; Monocytes # (A) 0.5 k/uL (0-1.0); Monocytes % (A) 5 %; Neutrophils # (A) 7.7 k/uL (1.3-7.7); Neutrophils % (A) 78 %; Platelet Count 269 k/uL (150-450); RBC 5.13 m/uL (4.30-5.90); RDW 13.2 % (11.5-15.5)
[2021-06-23 11:00] LABS: Calcium 9.7 mg/dL (8.4-10.2); Potassium 4.2 mmol/L (3.5-5.1); Total Bilirubin 0.7 mg/dL (0.2-1.3); Total Protein 7.1 g/dL (6.3-8.2)
[2021-06-23 11:13] VITALS: RESP 16
[2021-06-23 12:51] LABS: Appearance,Urine Turbid (Clear); Bacteria,Urine Many /hpf; Bilirubin,Urine Negative (Negative); Blood,Urine Large (Negative); Color,Urine Yellow; Glucose,Urine (UA) Negative (Negative); Hyaline Casts,Urine 10 /lpf (0-2); Ketones,Urine Negative (Negative); Leukocyte Esterase,Urine Large (Negative); Mucus,Urine Rare /hpf; Nitrite,Urine Negative (Negative); PH, Urine 5.5 (5.0-8.0); Protein,Urine 2+ (Negative); RBC,Urine >182 /hpf (0-5); Specific Gravity,Urine 1.017 (1.001-1.035); Squamous Epithelial Cell,Urine 1 /hpf (0-4); Urobilinogen,Urine <2.0 mg/dL (<2.0); WBC,Urine >182 /hpf (0-5)
[2021-06-23] MEDS ORDERED: cefTRIAXone IN SWFI 1,000 MG/10 ML SYRINGE IVP STA (13:03)
[2021-06-23] MEDS: cefTRIAXone IN SWFI 1,000 MG/10 ML SYRINGE IVP SCH (13:12)
[2021-06-23 13:19] VITALS: BP 113/78; PULSE 61; TEMP 98.9
== END 2021-06-23 13:19 | disposition home or self-care (01) ==
LOC: EC 08:57
DX: N39.0 Urinary tract infection, site not specified (principal); I10 Essential (primary) hypertension; E78.5 Hyperlipidemia, unspecified; I48.91 Unspecified atrial fibrillation; F17.200 Nicotine dependence, unspecified, uncomplicated; Z79.01 Long term (current) use of anticoagulants; Z90.49 Acquired absence of other specified parts of digestive tract
CPT/HCPCS: 99283; 96374; 96375; 96361; 36415; 80053; 85025; 81001; 87086; J0696; J1885; 87077; 87186

== ENCOUNTER → 2021-06-28 | Outpatient (CLI) | payer MEDICARE, BC ==
[2021-06-28 10:23] LABS: Basophils % (A) 0 %; Eosinophils # (A) 0.1 k/uL (0-0.7); Eosinophils % (A) 1 %; HCT 52.2 % (39.0-53.0); HGB 16.6 gm/dL (13.0-17.5); Lymphocytes # (A) 1.5 k/uL (1.0-4.8); Lymphocytes % (A) 23 %; MCH 32.5 pg (25.0-35.0); MCHC 31.8 g/dL (31.0-37.0); MCV 102.1 fL (80.0-100.0); Macrocytosis Slight; Mean Platelet Volume 7.1; Monocytes # (A) 0.4 k/uL (0-1.0); Monocytes % (A) 6 %; Neutrophils # (A) 4.2 k/uL (1.3-7.7); Neutrophils % (A) 67 %; Platelet Count 255 k/uL (150-450); RBC 5.11 m/uL (4.30-5.90); RDW 13.3 % (11.5-15.5); WBC 6.3 k/uL (3.8-10.6)
[2021-06-28 10:49] LABS: Calcium 9.6 mg/dL (8.4-10.2); Potassium 4.2 mmol/L (3.5-5.1)
== END | disposition home or self-care (01) ==
LOC: LABPAT 09:24
PROVIDERS: ATTEND Urology
DX: Z01.812 Encounter for preprocedural laboratory examination (principal); D49.4 Neoplasm of unspecified behavior of bladder; R31.29 Other microscopic hematuria
CPT/HCPCS: 36415; 80048; 85025; 87086

== ENCOUNTER 2021-07-06 06:21 | Day surgery (SDC) | payer MEDICARE, BC ==
--- NOTE | 2021-07-03 23:12 | P.GSHP ---
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 He has had no recurrences. However, he recently presented back with gross hematuria. He has been treated for Klebsiella UTIs this year. Renal ultrasound showed a left renal calculus and a right renal cyst. Cystoscopy shows flat tumor involving the left lateral bladder wall. He now comes for bladder tumor resection. He has been cleared by cardiology. - Cardiovascular Cardiovascular: Reports high blood pressure - Genitourinary (Male) Genitourinary: Denies dysuria Past Medical History Past Medical History: Atrial Fibrillation, Hyperlipidemia, Hypertension, Prostate Disorder History of Any Multi-Drug Resistant Organisms: None Reported Past Surgical History: Appendectomy Past Psychological History: No Psychological Hx Reported Smoking Status: Current some day smoker Past Alcohol Use History: Daily Past Drug Use History: None Reported Medications and Allergies Home Medications Medication Instructions Recorded Confirmed Type Allopurinol [Zyloprim] 300 mg PO DAILY 10/14/19 06/23/21 History Lovastatin [Altoprev] 20 mg PO AC-SUPPER 10/14/19 06/23/21 History Warfarin [Coumadin] 2.5 mg PO MOFR@1800 10/14/19 06/23/21 History amLODIPine [Norvasc] 5 mg PO DAILY 10/14/19 06/23/21 History lisinopriL [Zestril] 20 mg PO BID 10/14/19 06/23/21 History atenoloL [Tenormin] 12.5 mg PO AC-SUPPER 03/25/20 06/23/21 History Warfarin [Coumadin] 5 mg PO SUTUWETHSA@1800 12/07/20 06/23/21 History Sulfamethox-Tmp 800-160Mg [Bactrim 1 each PO Q12HR #20 tab 06/23/21 Rx DS 800-160 mg] Tamsulosin HCl [Flomax] 0.4 mg PO Q48H 06/23/21 06/23/21 History Allergies Allergy/AdvReac Type Severity Reaction Status Date / Time No Known Allergies Allergy Verified 06/23/21 12:51 Surgical - Exam - General well developed, well nourished, no distress - Respiratory normal respiratory effort - Abdomen Abdomen: soft, non tender, no guarding, no rigid, no rebound - Genitourinary normal penis with no external lesions, testicles non-tender - Psychiatric oriented to time, oriented to person, oriented to place, speech is normal, memory intact Assessment and Plan (1) Malignant neoplasm of bladder, unspecified Status: Acute Code(s): C67.9 - MALIGNANT NEOPLASM OF BLADDER, UNSPECIFIED SNOMED Code(s): 621073169 Plan: Cystoscopy, transurethral resection of bladder tumor. The procedure has been reviewed in detail with the patient. He has been advised of potential risks, which include anesthesia, bleeding, infection, and bladder perforation.
[2021-07-04 14:44] VITALS: BMI 22.9
[~2021-07-06 06:21] MED LIST: DEXAMETHASONE SOD PHOSPHATE 4 MG/ML 1 ML VIAL IV ONE; LACTATED RINGERS 1,000 ML IV SCH; LIDOCAINE 1% (10MG/ML) FOR IV START INTRADERMA PRN; MIDAZOLAM 2 MG/2 ML VIAL IV PRN; ONDANSETRON 4 MG/2 ML VIAL IVP ONE
[2021-07-06] MEDS ORDERED: HYDROmorphone 0.5 MG/0.5 ML SYRINGE IVP PRN (07:00)
[2021-07-06 07:18] LABS: Glucose,Whole Blood 105 mg/dL (75-99)
[2021-07-06] MEDS ORDERED: MIDAZOLAM 2 MG/2 ML VIAL ONE (07:39)
[2021-07-06] MEDS ORDERED: FUROSEMIDE 10 MG/ML 2 ML VIAL ONE (07:39)
[2021-07-06] MEDS ORDERED: LIDOCAINE 1% INJ 10MG/ML (20 ML MDV) ONE (07:39)
[2021-07-06] MEDS ORDERED: NEOSTIGMINE 1 MG/ML 10 ML VIAL ONE (07:39)
[2021-07-06] MEDS ORDERED: ePHEDrine 50 MG/ML 1 ML AMP ONE (07:39)
[2021-07-06] MEDS ORDERED: GLYCOPYRROLATE 0.2 MG/ML 2 ML VIAL ONE (07:39)
[2021-07-06] MEDS ORDERED: fentaNYL (PF) 50 MCG/ML 2 ML AMP ONE (07:39)
[2021-07-06] MEDS ORDERED: ROCURONIUM 10 MG/ML (5 ML VIAL) IV ONE (07:39)
[2021-07-06] MEDS ORDERED: PROPOFOL 10 MG/ML 20 ML VIAL IV ONE (07:39)
[2021-07-06 07:41] LABS: INR 1.1 (<1.2); Partial Thromboplastin Time 22.5 sec (22.0-30.0); Prothrombin Time 11.6 sec (9.0-12.0)
[2021-07-06] MEDS ORDERED: LACTATED RINGERS 1,000 ML IV ONE (08:53)
[2021-07-06 09:21] VITALS: TEMP 97.2
[2021-07-06 09:59] VITALS: RESP 18
[2021-07-06 10:12] VITALS: BP 114/63; PULSE 74
--- NOTE | 2021-07-11 12:45 | P.OP ---
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 He has had no recurrences. However, he recently presented back with gross hematuria. He has been treated for Klebsiella UTIs this year. Renal ultrasound showed a left renal calculus and a right renal cyst. Cystoscopy shows flat tumor involving the left lateral bladder wall. He now comes for bladder tumor resection. He has been cleared by cardiology. Operative Findings: Diffuse, superficial mucosal lesions involving the entire left lateral bladder w all, suggestive of CIS. Description of Procedure: The patient was taken in the operating room and placed in the dorsal lithotomy position, with his legs supported in Lenard stirrups. The external genitalia was prepped and draped sterilely. The 25-[place] ACMI resectoscope sheath was introduced into the bladder. The bladder was inspected. Diffuse, superficial mucosal lesions involving the entire left lateral bladder wall, suggestive of CIS. Both ureteral orifices were of normal anatomic location and configuration, and clear urine effluxed from both. Using the bipolar cutting loop, the tumor was resected down to the muscle. Excellent hemostasis was attained. The resected tissue was saved and sent for pathologic examination. A Lazaro catheter was inserted. The return was clear. The patient tolerated the procedure well. He was taken to the recovery room in stable condition.
== END 2021-07-06 10:34 | disposition home or self-care (01) ==
LOC: OR 06:21
PROVIDERS: ATTEND Urology
DX: C67.2 Malignant neoplasm of lateral wall of bladder (principal); C49.9 Malignant neoplasm of connective and soft tissue, unspecified; N20.0 Calculus of kidney; N28.1 Cyst of kidney, acquired; I10 Essential (primary) hypertension; Z20.822 Contact with and (suspected) exposure to COVID-19; I48.19 Other persistent atrial fibrillation; I25.10 Atherosclerotic heart disease of native coronary artery without angina pectoris; I08.0 Rheumatic disorders of both mitral and aortic valves; I25.5 Ischemic cardiomyopathy; M19.90 Unspecified osteoarthritis, unspecified site; F17.290 Nicotine dependence, other tobacco product, uncomplicated; K21.9 Gastro-esophageal reflux disease without esophagitis; E78.2 Mixed hyperlipidemia; Z87.440 Personal history of urinary (tract) infections; Z98.890 Other specified postprocedural states; Z79.01 Long term (current) use of anticoagulants; Z79.899 Other long term (current) drug therapy
CPT/HCPCS: 85610; 85730; 88307; 87635; 52240; J2250; J1100; J1940; J2710; J0690; J2405; J2001; J3010; J2704

== ENCOUNTER 2021-07-10 14:16 | Inpatient (IN) | payer MEDICARE, BC ==
[2021-07-10] MEDS ORDERED: SODIUM CHLORIDE 0.9% 500 ML 500 ML IV STA (15:05)
[2021-07-10 15:32] LABS: Basophils % (A) 0 %; Eosinophils # (A) 0.2 k/uL (0-0.7); Eosinophils % (A) 3 %; HCT 47.3 % (39.0-53.0); HGB 15.4 gm/dL (13.0-17.5); Lymphocytes # (A) 1.5 k/uL (1.0-4.8); Lymphocytes % (A) 17 %; MCH 32.5 pg (25.0-35.0); MCHC 32.5 g/dL (31.0-37.0); MCV 100.1 fL (80.0-100.0); Mean Platelet Volume 7.1; Monocytes # (A) 0.6 k/uL (0-1.0); Monocytes % (A) 7 %; Neutrophils # (A) 6.2 k/uL (1.3-7.7); Neutrophils % (A) 72 %; Platelet Count 184 k/uL (150-450); RBC 4.72 m/uL (4.30-5.90); RDW 12.9 % (11.5-15.5); WBC 8.6 k/uL (3.8-10.6)
[2021-07-10 15:41] LABS: Albumin 3.5 g/dL (3.5-5.0); Calcium 9.2 mg/dL (8.4-10.2); Total Bilirubin 0.5 mg/dL (0.2-1.3); Total Protein 6.4 g/dL (6.3-8.2)
[2021-07-10 15:52] LABS: INR 1.1 (<1.2); Prothrombin Time 11.4 sec (9.0-12.0)
--- NOTE | 2021-07-10 15:58 | CT ---
EXAMINATION TYPE: CT brain wo con DATE OF EXAM: 07/10/2021 COMPARISON: 12/07/2020 HISTORY: Weakness. CT DLP: 1173.4 mGycm Automated exposure control for dose reduction was used. FINDINGS: There is moderate generalized degenerative change. Low-attenuation the white matter is nonspecific. A bnormal attenuation the basal ganglia suggestive of remote ischemia the external capsule. There is no midline shift or mass effect. Calvarium intact. Orbits are symmetric. IMPRESSION: DEGENERATIVE AND NONSPECIFIC WHITE MATTER CHANGES MOST TYPICAL REMOTE ISCHEMIC CHANGE. NO ACUTE HEMOR RHAGE. CORRELATE WITH MRI SATURATION FOR ACUTE ISCHEMIA CLINICALLY WARRANTED
--- NOTE | 2021-07-10 15:58 | XR ---
EXAMINATION TYPE: XR chest 2V DATE OF EXAM: 07/10/2021 COMPARISON: Chest x-ray 10/14/2019 HISTORY: Altered mental status TECHNIQUE: Frontal and lateral views of the chest are obtained. FINDINGS: There is no focal air space opacity, pleural effusion, or pneumothorax seen. The cardiac silhouette size is within normal limits. The aorta is dense. The osseous structures are intact. IMPRESSION: No acute cardiopulmonary process.
[2021-07-10 16:06] LABS: Partial Thromboplastin Time 21.4 sec (22.0-30.0)
--- NOTE | 2021-07-10 16:27 | ED ---
General Adult HPI - General Chief complaint: Neuro Symptoms/Deficit Stated complaint: rt arm numbness Time Seen by Provider: 07/10/21 14:35 Source: patient, EMS, RN notes reviewed, old records reviewed Mode of arrival: EMS - History of Present Illness Initial comments: This is an 89-year-old male who presents emergency Department with the complaint that he had right-sided weakness prior to arrival he was unable to move his leg it without his family member assisting. He also is having difficulty coordinating movement of his right arm. Patient states it lasted about 30 kermit michael and now is completely resolved. Patient denies any headache patient denies numbness weakness. Patient denies any previous history of stroke. Patient denies any speech problems. Patient denies any visual disturbance. Family did not note any facial drooping. Patient denies any chest pain or palpitations. Patient denies any abdominal pain patient denies nausea vomiting diarrhea. - Related Data Home Medications Medication Instructions Recorded Confirmed Allopurinol [Zyloprim] 300 mg PO DAILY 10/14/19 07/06/21 Lovastatin [Altoprev] 20 mg PO DAILY 10/14/19 07/06/21 Warfarin [Coumadin] 2.5 mg PO MOFR 10/14/19 07/06/21 amLODIPine [Norvasc] 5 mg PO DAILY 10/14/19 07/06/21 lisinopriL [Zestril] 20 mg PO BID 10/14/19 07/06/21 atenoloL [Tenormin] 12.5 mg PO HS 03/25/20 07/06/21 Warfarin [Coumadin] 5 mg PO SUTUWETHSA 12/07/20 07/06/21 Tamsulosin HCl [Flomax] 0.4 mg PO Q48H 06/23/21 07/06/21 traMADol HCL [Ultram] 50 mg PO BID PRN 07/04/21 07/06/21 Allergies Allergy/AdvReac Type Severity Reaction Status Date / Time No Known Allergies Allergy Verified 07/06/21 06:39 Review of Systems ROS Statement: Those systems with pertinent positive or pertinent negative responses have been documented in the HPI. ROS Other: All systems not noted in ROS Statement are negative. Past Medical History Past Medical History: Atrial Fibrillation, Cancer, Hyperlipidemia, Hypertension, Prostate Disorder Additional Past Medical History / Comment(s): HX GOUT, SCIATICA, TIRES EASILY, B PH, STATES DIFFICULTY WITH BOWEL MOVEMENTS., USES CANE , BLADDER TUMOR. History of Any Multi-Drug Resistant Organisms: None Reported Past Surgical History: Appendectomy, Heart Catheterization, Orthopedic Surgery Additional Past Surgical History / Comment(s): RIGHT SHOULDER TENDON REPAIR Past Anesthesia/Blood Transfusion Reactions: No Reported Reaction Past Psychological History: Anxiety Smoking Status: Former smoker Past Alcohol Use History: Daily Past Drug Use History: None Reported - Past Family History Mother Family Medical History: No Reported History General Exam - General Exam Comments Initial Comments: GENERAL: Patient is well-developed and well-nourished. Patient is nontoxic and well- hydrated and is in mild distress. ENT: Neck is soft and supple. No significant lymphadenopathy is noted. Oropharynx is clear. Moist mucous membranes. Neck has full range of motion without eliciting any pain. EYES: The sclera were anicteric and conjunctiva were pink and moist. Extraocular movements were intact and pupils were equal round and reactive to light. Eye lids were unremarkable. PULMONARY: Unlabored respirations. Good breath sounds bilaterally. No audible rales rhonchi or wheezing was noted. CARDIOVASCULAR: There is a regular rate and rhythm without any murmurs gallops or rubs. ABDOMEN: Soft and nontender with normal bowel sounds. SKIN: Skin is clear with no lesions or rashes and otherwise unremarkable. NEUROLOGIC: Patient is alert and oriented x3. Cranial nerves II through XII are grossly intact. Motor and sensory are also intact. Normal speech, volume and content. Symmetrical smile. Cerebellar testing finger to nose bilaterally was normal. There was no appreciable defect sensory or motor couldn't fine. Patient's current NIH is 0 MUSCULOSKELETAL: Normal extremities with adequate strength and full range of motion. LYMPHATICS: No significant lymphadenopathy is noted PSYCHIATRIC: Normal psychiatric evaluation. Course Vital Signs 07/10/21 14:31 Temperature 98.4 F Pulse Rate 74 Respiratory 16 Rate Blood Pressure 133/69 O2 Sat by Pulse 98 Oximetry Medical Decision Making - Medical Decision Making EKG shows normal sinus rhythm at 72 bpm CO interval 272 QRS is under 40 QT interval is 426 QTC is 466. Patient's EKG shows a left bundle branch block. Patient's symptoms did not return throughout his ED stay. Computed tomography scan of the brain shows no acute abnormality. Chest x-ray shows no acute abnormalities. I spoke with Dr. Nerusu he agreed to admit the patient and the patient wrote admitting orders. - Lab Data Result diagrams: 07/10/21 15:28 07/10/21 15:27 Lab Results 07/10/21 07/10/21 07/10/21 Range/Units 15:27 15:27 15:27 WBC (3.8-10.6) k/uL RBC (4.30-5.90) m/uL Hgb (13.0-17.5) gm/dL Hct (39.0-53.0) % MCV (80.0-100.0) fL MCH (25.0-35.0) pg MCHC (31.0-37.0) g/dL RDW (11.5-15.5) % Plt Count (150-450) k/uL MPV Neutrophils % % Lymphocytes % % Monocytes % % Eosinophils % % Basophils % % Neutrophils # (1.3-7.7) k/uL Lymphocytes # (1.0-4.8) k/uL Monocytes # (0-1.0) k/uL Eosinophils # (0-0.7) k/uL Basophils # (0-0.2) k/uL PT 11.4 (9.0-12.0) sec INR 1.1 (<1.2) APTT 21.4 L (22.0-30.0) sec Sodium 141 (137-145) mmol/L Potassium 4.0 (3.5-5.1) mmol/L Chloride 109 H (98-107) mmol/L Carbon Dioxide 24 (22-30) mmol/L Anion Gap 8 mmol/L BUN 26 H (9-20) mg/dL Creatinine 0.88 (0.66-1.25) mg/dL Est GFR (CKD-EPI)AfAm 89 (>60 ml/min/1.73 sqM) Est GFR (CKD-EPI)NonAf 77 (>60 ml/min/1.73 sqM) Glucose 118 H (74-99) mg/dL Calcium 9.2 (8.4-10.2) mg/dL Total Bilirubin 0.5 (0.2-1.3) mg/dL AST 38 (17-59) U/L ALT 19 (4-49) U/L Alkaline Phosphatase 80 (38-126) U/L Troponin I <0.012 (0.000-0.034) ng/mL Total Protein 6.4 (6.3-8.2) g/dL Albumin 3.5 (3.5-5.0) g/dL 07/10/21 Range/Units 15:28 WBC 8.6 (3.8-10.6) k/uL RBC 4.72 (4.30-5.90) m/uL Hgb 15.4 (13.0-17.5) gm/dL Hct 47.3 (39.0-53.0) % MCV 100.1 H (80.0-100.0) fL MCH 32.5 (25.0-35.0) pg MCHC 32.5 (31.0-37.0) g/dL RDW 12.9 (11.5-15.5) % Plt Count 184 (150-450) k/uL MPV 7.1 Neutrophils % 72 % Lymphocytes % 17 % Monocytes % 7 % Eosinophils % 3 % Basophils % 0 % Neutrophils # 6.2 (1.3-7.7) k/uL Lymphocytes # 1.5 (1.0-4.8) k/uL Monocytes # 0.6 (0-1.0) k/uL Eosinophils # 0.2 (0-0.7) k/uL Basophils # 0.0 (0-0.2) k/uL PT (9.0-12.0) sec INR (<1.2) APTT (22.0-30.0) sec Sodium (137-145) mmol/L Potassium (3.5-5.1) mmol/L Chloride (98-107) mmol/L Carbon Dioxide (22-30) mmol/L Anion Gap mmol/L BUN (9-20) mg/dL Creatinine (0.66-1.25) mg/dL Est GFR (CKD-EPI)AfAm (>60 ml/min/1.73 sqM) Est GFR (CKD-EPI)NonAf (>60 ml/min/1.73 sqM) Glucose (74-99) mg/dL Calcium (8.4-10.2) mg/dL Total Bilirubin (0.2-1.3) mg/dL AST (17-59) U/L ALT (4-49) U/L Alkaline Phosphatase (38-126) U/L Troponin I (0.000-0.034) ng/mL Total Protein (6.3-8.2) g/dL Albumin (3.5-5.0) g/dL Disposition Clinical Impression: Transient cerebral ischemia Disposition: ADMITTED IP TO THIS HOSP Referrals: Vitaliy Hdz MD [Primary Care Provider] - 1-2 days Time of Disposition: 17:46
[2021-07-10] MEDS ORDERED: ASPIRIN 325 MG TAB PO STA (17:47)
--- NOTE | 2021-07-10 20:59 | CT ---
EXAM: CT brain wo con CLINICAL HISTORY: Neuro changes. COMPARISON: Same-day TECHNIQUE: Contiguous axial noncontrast images of the brain were obtained. Coronal and sagittal refor mats were generated and reviewed. Automated dose control was used for this exam. FINDINGS: There is no evidence for intracranial hemorrhage, mass effect or midline shift. There is mild white m atter disease and parenchymal volume loss. Ventricular size and configuration is within normal limits for degree of parenchymal volume. The paranasal sinuses are clear. The mastoid air cells are clear. No evidence for calvarial fracture. IMPRESSION: No acute intracranial abnormality.
[2021-07-10 22:39] LABS: Appearance,Urine Cloudy (Clear); Bacteria,Urine Rare /hpf; Bilirubin,Urine Negative (Negative); Blood,Urine Large (Negative); Color,Urine Yellow; Glucose,Urine (UA) Negative (Negative); Ketones,Urine Negative (Negative); Leukocyte Esterase,Urine Small (Negative); Mucus,Urine Rare /hpf; Nitrite,Urine Negative (Negative); Protein,Urine 2+ (Negative); RBC,Urine >182 /hpf (0-5); Specific Gravity,Urine 1.021 (1.001-1.035); Squamous Epithelial Cell,Urine <1 /hpf (0-4); Urobilinogen,Urine <2.0 mg/dL (<2.0); WBC,Urine 36 /hpf (0-5)
[2021-07-11] MEDS: SODIUM CHLORIDE 0.9% 1,000 ML IV SCH ×2 (01:20→15:26)
--- NOTE | 2021-07-11 07:36 | P.PN ---
Subjective Progress Note Date: 07/11/21 Principal diagnosis: TIA/CVA Acute on chronic hematuria 89-year-old male with significant past medical history of atrial fibrillation on anticoagulation therapy, hypertension, hyperlipidemia, newly diagnosed with bladder CA, prostate disorder, gout, coronary artery disease with heart catheterizations in the past, orthopedic surgeries and several comorbidities is admitted to the hospital for transient ischemic attack rule out cerebrovascular accident. Patient had extensive diagnostic workup in emergency department for TIA/CVA; CT of the head without contrast initially showed degenerative and nonspecific white matter changes mostly typical remote ischemia change; dictation from radiologist no acute hemorrhage correlate with MRI saturation for acute ischemic as clinically warranted. Review of emergency room notes patient presented to the emergency department with right-sided weakness, with difficulty moving right leg, and possible ataxia right-sided. Upon review of emergency physician notes NIH was 0 patient was moving all extremities. Apparently at 1740, patient's clinical symptoms of a TIA/CVA progressed with NIH of 3, CT of the brain without contrast was ordered, dictation from radiologist no acute intercranial abnormalities. Review of diagnostic labs, CBC unremarkable, INR subtherapeutic at 1.1, CMP unremarkable other than a mildly elevated glucose of 118. Troponin negative. Urinalysis consistent with past urinalysis of hematuria, and bladder CA. Covid test negative 07/11/2021 Patient seen and examined at bedside. Patient resting comfortably in bed in no acute signs of distress. Difficulty obtaining subjective data, patient pleasantly confused only the able to answer questions to person and follows simple commands. Patient's normal neurological baseline is alert and oriented 4 with no difficulty following commands, no ataxia noted or weakness noted. See above for diagnostic review of imaging and diagnostic labs. Objective - Vital Signs Vital signs: Vital Signs Temp 98.0 F 07/11/21 01:49 Pulse 61 07/11/21 01:49 Resp 16 07/11/21 01:49 BP 135/69 07/11/21 01:49 Pulse Ox 94 L 07/11/21 01:49 Intake & Output 07/10/21 07/11/21 07/11/21 18:59 06:59 18:59 Intake Total 0 Output Total 1200 Balance -1200 Weight 73.482 kg Intake: Oral 0 Output: Urine 1200 Other: Voiding Method Indwelling Catheter - Constitutional General appearance: Present: disheveled - EENT Eyes: Present: EOMI, PERRLA ENT: Present: hard of hearing Ears: bilateral: normal - Neck Neck: Present: normal ROM Thyroid: bilateral: normal size - Respiratory Respiratory: bilateral: CTA (Anterior and posterior lung skinner) - Cardiovascular Details: Normal sinus rhythm Heart rate: 74 Rhythm: regular Heart sounds: normal: S1, S2 - Peripheral pulses radial pulse Peripheral Pulses: bilateral: Normal dorsalis pedis Peripheral Pulses: bilateral: Normal - Gastrointestinal General gastrointestinal: Present: normal bowel sounds, soft - Integumentary Integumentary: Present: normal turgor - Neurologic Neurologic: Present: focal deficits - Musculoskeletal Musculoskeletal: Present: right sided weakness - Psychiatric Psychiatric Comment(s): Alert to person - Allied health notes Allied health notes reviewed: nursing - Labs CBC & Chem 7: 07/10/21 15:28 07/10/21 15:27 Labs: Abnormal Lab Results - Last 24 Hours (Table) 07/10/21 07/10/21 07/10/21 Range/Units 15:27 15:27 15:28 MCV 100.1 H (80.0-100.0) fL APTT 21.4 L (22.0-30.0) sec Chloride 109 H (98-107) mmol/L BUN 26 H (9-20) mg/dL Glucose 118 H (74-99) mg/dL Urine Protein (Negative) Urine Blood (Negative) Ur Leukocyte Esterase (Negative) Urine RBC (0-5) /hpf Urine WBC (0-5) /hpf Urine Bacteria (None) /hpf Urine Mucus (None) /hpf 07/10/21 Range/Units 22:29 MCV (80.0-100.0) fL APTT (22.0-30.0) sec Chloride (98-107) mmol/L BUN (9-20) mg/dL Glucose (74-99) mg/dL Urine Protein 2+ H (Negative) Urine Blood Large H (Negative) Ur Leukocyte Esterase Small H (Negative) Urine RBC >182 H (0-5) /hpf Urine WBC 36 H (0-5) /hpf Urine Bacteria Rare H (None) /hpf Urine Mucus Rare H (None) /hpf Microbiology - Last 24 Hours (Table) 07/10/21 22:29 Urine Culture - Preliminary Urine,Voided - Imaging and Cardiology Chest x-ray: report reviewed MRI - head: report reviewed Assessment and Plan Assessment: TIA/CVA Paroxysmal atrial fibrillation on anticoagulation therapy Bladder CA Hyperlipidemia Hypertension Gout Coronary artery disease with heart catheterizations in the past Orthopedic surgeries Former nicotine dependence DO NOT RESUSCITATE Plan: TIA/CVA, continue neurological assessments every hour, additional diagnostics ordered, consultation with neurology for recommendations Hematuria, possibly secondary to bladder CA Subtherapeutic INR Continue to monitor vital signs and diagnostic testing Continue nothing by mouth until cleared by speech therapy and neurology Continue medical management Further recommendations to come based on patient's clinical condition Time with Patient: Greater than 30
[2021-07-11] MEDS: ASPIRIN 325 MG TAB PO SCH (09:26)
[2021-07-11 09:28] LABS: Basophils % (A) 0 %; Eosinophils # (A) 0.1 k/uL (0-0.7); Eosinophils % (A) 2 %; HCT 45.6 % (39.0-53.0); HGB 14.6 gm/dL (13.0-17.5); Lymphocytes # (A) 0.9 k/uL (1.0-4.8); Lymphocytes % (A) 14 %; MCH 32.4 pg (25.0-35.0); MCHC 32.1 g/dL (31.0-37.0); MCV 100.9 fL (80.0-100.0); Monocytes # (A) 0.4 k/uL (0-1.0); Monocytes % (A) 5 %; Neutrophils # (A) 5.5 k/uL (1.3-7.7); Neutrophils % (A) 79 %; Platelet Count 174 k/uL (150-450); RBC 4.51 m/uL (4.30-5.90); RDW 12.8 % (11.5-15.5)
[2021-07-11 10:21] LABS: Chol/HDL Ratio 3.06 Ratio; HDL Cholesterol 40.5 mg/dL (40.00-60.00); LDL Cholesterol,Calculated 67.2 mg/dL (0.0-131.0); Triglycerides 81.5 mg/dL (0.00-149.00); VLDL Calculation 16.3 mg/dL (5.00-40.00)
[2021-07-11 10:34] LABS: ALT 17 U/L (4-49); AST 33 U/L (17-59); African American GFR (CKD) >90 (>60 ml/min/1.73 sqM); Albumin 3.2 g/dL (3.5-5.0); Albumin/Globulin Ratio 1.1; Alkaline Phosphatase 56 U/L (38-126); Anion Gap 7 mmol/L; Blood Urea Nitrogen 18 mg/dL (9-20); Calcium 8.8 mg/dL (8.4-10.2); Carbon Dioxide 24 mmol/L (22-30); Chloride 107 mmol/L (98-107); Globulin 2.8 g/dL; Glucose 157 mg/dL (74-99); Magnesium 1.9 mg/dL (1.6-2.3); Non-African American GFR(CKD) 80 (>60 ml/min/1.73 sqM); Potassium 4.1 mmol/L (3.5-5.1); Sodium 138 mmol/L (137-145); Total Bilirubin 0.7 mg/dL (0.2-1.3)
[2021-07-11 10:48] LABS: T4, Free (Free Thyroxine) 1.17 ng/dL (0.78-2.19)
--- NOTE | 2021-07-11 11:05 | P.CNNES ---
History of Present Illness Consult date: 07/11/21 Requesting physician: Anastacio Mera Reason for Consult: TIA History of Present Illness: The patient is a 89-year-old male came to the hospital by ambulance yesterday at 2:16 PM According to EMS flow sheet, patient was complaining of right arm numbness. No obvious facial droop was noted. 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 Patient at baseline is alert and oriented 4, was laying on his couch talking normally. Patient was able to stand on his own but states his right arm "does not feel like it's his". Patient had no other complaints. He had no stroke history. He has history of bladder cancer for which he underwent scraping surgery last , on 07/06/2021. Patient has stopped warfarin 5 days prior on 07/01/2021. Patient was recommended by the surgeon to resume his warfarin this Saturday, on 07/12/2021. Patient's blood pressure at the scene was 147/87, pulse rate 84, respiration 18, saturation 97% and blood sugar was 176. Patient's vital signs on arrival blood pressure 133/69, pulse is 74 temperature 98.4. Computed tomography scan of head showed degenerative and nonspecific white matter changes, most typical of remote ischemic change. No acute hemorrhage. Chest x-ray showed no acute cardiopulmonary disease. EKG shows normal sinus rhythm, left bundle branch block. Patient was given aspirin 325 mg in the ER. Patient home medication does list about taking warfarin 7.5 mg daily for atrial fibrillation. Patient's INR was 1.1, Coumadin probably held because of bladder procedure. Blood test shows normal CBC with elevated MCV 100.1. PTT is 21.4. Electrolytes normal, BUN 26, creatinine 0.88. Hepatic panel is normal troponin negative. Urine shows large amount of blood, small amount of leukocyte Estrace, and > 182 RBC and 36 WBC. Coronavirus PCR negative. Patient's symptoms in the ER was reported to last for 30 minutes and apparently had completely resolved in the ER. Patient was started on aspirin 325 mg. Apparently at 7:40 PM yesterday, patient started having some speech difficulty. He was noted to answer incorrectly obeys 1 command, and with an NIH stroke scale of 3. Patient continues to have some speech difficulty. At present patient denies headache although patient's daughter states that he did have some headache yesterday. Review of Systems As above. Denies any chest pain shortness of breath. No double vision. No loss of vision. No fever or chills. No abdominal pain, nausea vomiting diarrhea. Past Medical History Past Medical History: Atrial Fibrillation, Cancer, Hyperlipidemia, Hypertension, Prostate Disorder Additional Past Medical History / Comment(s): HX GOUT, SCIATICA, TIRES EASILY, BPH, STATES DIFFICULTY WITH BOWEL MOVEMENTS., USES CANE , BLADDER TUMOR. History of Any Multi-Drug Resistant Organisms: None Reported Past Surgical History: Appendectomy, Heart Catheterization, Orthopedic Surgery Additional Past Surgical History / Comment(s): RIGHT SHOULDER TENDON REPAIR Past Anesthesia/Blood Transfusion Reactions: No Reported Reaction Past Psychological History: Anxiety Additional Psychological History / Comment(s): RECENT ANXIETY Smoking Status: Former smoker Past Alcohol Use History: Daily Additional Past Alcohol Use History / Comment(s): QUIT SMOKING AT 24 YEARS OLD, STARTED AGE 18. DRINKS (1) "SMALL MARTINI" DAILY Past Drug Use History: None Reported - Past Family History Mother Family Medical History: No Reported History Medications and Allergies Home Medications Medication Instructions Recorded Confirmed Type Allopurinol [Zyloprim] 300 mg PO DAILY 10/14/19 07/10/21 History Lovastatin [Altoprev] 20 mg PO DAILY 10/14/19 07/10/21 History Warfarin [Coumadin] 2.5 mg PO DIRECTED 10/14/19 07/10/21 History amLODIPine [Norvasc] 5 mg PO DAILY 10/14/19 07/10/21 History lisinopriL [Zestril] 20 mg PO BID 10/14/19 07/10/21 History atenoloL [Tenormin] 12.5 mg PO HS 03/25/20 07/10/21 History Warfarin [Coumadin] 5 mg PO DIRECTED 12/07/20 07/10/21 History Tamsulosin HCl [Flomax] 0.4 mg PO DAILY 06/23/21 07/10/21 History traMADol HCL [Ultram] 50 mg PO BID PRN 07/04/21 07/10/21 History Allergies Allergy/AdvReac Type Severity Reaction Status Date / Time No Known Allergies Allergy Verified 07/06/21 06:39 Physical Examination - Vital Signs Vital Signs: Vital Signs Temp Pulse Pulse Resp BP BP BP 07/11/21 07:00 98.9 F 86 18 149/73 07/11/21 01:49 98.0 F 61 16 135/69 07/11/21 01:30 64 18 07/10/21 23:05 98.3 F 64 18 153/90 07/10/21 22:40 72 20 124/84 07/10/21 22:00 67 20 120/86 07/10/21 20:10 73 20 121/70 07/10/21 19:55 20 07/10/21 18:36 99.1 F 73 16 128/72 07/10/21 14:31 98.4 F 74 16 133/69 Pulse Ox 07/11/21 07:00 98 07/11/21 01:49 94 L 07/11/21 01:30 07/10/21 23:05 97 07/10/21 22:40 96 07/10/21 22:00 96 07/10/21 20:10 95 07/10/21 19:55 07/10/21 18:36 92 L 07/10/21 14:31 98 Intake and Output 07/10/21 07/11/21 07/11/21 22:59 06:59 14:59 Intake Total 0 Output Total 1200 Balance 0 -1200 Intake: Oral 0 Output: Urine 1200 Other: Voiding Method Indwelling Catheter Weight 73.482 kg Patient is an elderly male, in no acute distress. Patient states that he feels "not good". Patient is alert awake. Patient is having some expressive aphasia. Patient able to speak spontaneous phrases well like "I don't care to talk about it". "This is stupid". Patient could not name 3/3 objects presented (pen, eyeglasses, button). Patient was able to tell name of his daughter Bessie correctly. He can repeat very well. Patient was able to point to the window and to the ceiling, but when I asked to point to the door, he again pointed to the window. Speech is clear with no dysarthria. He has some expressive and slight receptive aphasia. Attention, concentration and fund of knowledge is limited. On cranial examination, pupils are equal, round and reacting to light, visual skinner are full on confrontation, with no neglect on double simultaneous stimulation. His extraocular muscles are intact with no nystagmus. Face is symmetric, tongue protrudes to the midline. Palatal elevation and sensation normal, hearing is slightly decreased and shoulder shrug normal, facial sensation normal with no neglect. On muscle strength testing, there is no pronator drift and the strength is normal in arms and legs distally and proximally, except left shoulder which is weak likely from previous rotator cuff surgery. Deep tendon reflexes are 1+ to 2+ and plantars downgoing. Sensory to touch is equal on both sides. Patient only neglects the right arm on double simultaneous stimulation. He has no neglect in the lower extremities. Cerebellar function showed no ataxia for [id number] testing. Patient was having difficulty understanding the task to touch his nose after he had test the examiner's finger. Tone and bulk of muscles normal. Gait normal. On general examination, there is no carotid bruit or murmur, S1-S2 audible. Abdomen is soft nontender. Chest is clear. Peripheral pulses are present. No edema. Results - Laboratory Findings CBC and BMP: 07/11/21 09:11 07/11/21 09:11 Abnormal Lab Findings: Abnormal Labs 07/10/21 07/10/21 07/10/21 15:27 15:27 15:28 MCV 100.1 H Lymphocytes # APTT 21.4 L Chloride 109 H BUN 26 H Glucose 118 H Urine Protein Urine Blood Ur Leukocyte Esterase Urine RBC Urine WBC Urine Bacteria Urine Mucus 07/10/21 07/11/21 22:29 09:11 MCV 100.9 H Lymphocytes # 0.9 L APTT Chloride BUN Glucose Urine Protein 2+ H Urine Blood Large H Ur Leukocyte Esterase Small H Urine RBC >182 H Urine WBC 36 H Urine Bacteria Rare H Urine Mucus Rare H Assessment and Plan Assessment: * 89-year-old male presented with TIA yesterday with right arm weakness and numbness. The symptoms resolved in about 30 minutes. He has subsequently developed mild expressive aphasia with slight difficulty with comprehension at times. Current NIH stroke scale is 4 (not able to answer the month or the age 2, mild to moderate aphasia 1 and mild neglect on the right upper limb 1). Events are likely embolic from previous history of atrial fibrillation. Patient has been on Coumadin, which has been held since 07/01/2021 for his u pcoming bladder tumor scrape surgery that was performed on 07/06/2021. * Paroxysmal Atrial fibrillation on long-term antiplatelet ablation with Coumadin. * Hypertension * Hyperlipidemia * History of bladder cancer. * Hematuria. Plan: * Patient has received aspirin 325 mg yesterday in the ER and also this morning. * With history of atrial fibrillation, patient would need anticoagulation to prevent recurrent strokes. We will consult urology to get clearance for anticoagulation from bladder cancer and hematuria standpoint. * We will check CTA of head and neck to rule out any large vessel occlusion, which appears unlikely based upon current examination. * Stat MRI of the brain to evaluate for an acute stroke, rule out hemorrhagic conversion. * If no signs of hemorrhagic conversion, we will consider resuming anticoagulation as early as possible. * Stat 2-D echo rule out cardiac thrombus or other embolic source. * Lipid panel showed cholesterol 124, LDL 67, HDL 40 and triglycerides 81. Patient at home on lovastatin 20 mg daily. Continue atorvastatin 20 mg daily. * Telemetry monitoring * Hemoglobin A1c * Discussed with patient's daughter in detail. Also with the primary team.
--- NOTE | 2021-07-11 12:10 | CT ---
"EXAMINATION TYPE: CT angio head neck DATE OF EXAM: 07/11/2021 HISTORY: acute stroke COMPARISON: CT brain from yesterday CT DLP: 1598 mGycm. Automated Exposure Control for Dose Reduction was Utilized. TECHNIQUE: CTA scan of the head and neck are performed with IV Contrast, patient injected with 65 mL of Isovue 370, axial images are obtained, coronal and sagittal reformatted images are reviewed. 3D r econstructed images are created on an independent workstation and reviewed. FINDINGS: Exam is suboptimal as only 8 mm MIP axial images sent to PACS despite several requests for thinner true axial sequences. In addition there is patient motion particularly near carotid bulb leve l making evaluation suboptimal. Carotid/Vascular Structures: Three-vessel origin from aortic arch with tortuous course but no signifi cant plaque or stenosis. No obvious significant plaque or stenosis at the carotid bulb level bilatera lly. Patent external carotid arteries bilaterally without significant plaque or stenosis. Calcified p laque distally in the distal internal carotid arteries without significant stenosis There is patent a nterior communicating artery. There is no significant focal stenosis or aneurysm in the anterior circ ulation. Dominant right vertebral artery filling basilar artery. Patent small caliber left vertebral artery. T ortuous course. No significant plaque or stenosis. Patent posterior communicating arteries bilaterall y. No aneurysm is evident. Other: Repeat noncontrast CT shows new triangular or wedge-shaped area of low density with mcqueen-white matter blurring in the left frontal lobe anterior watershed region consistent with evolving acute in farct axial images 19 through 28. Background diffuse cerebral atrophy and chronic small vessel ischem ic change redemonstrated. Underlying scoliotic curvature positioning centered upper thoracic spine. Moderate to severe spurring and disc space narrowing C5-C6 and C6-C7 levels. IMPRESSION: 1. Suboptimal study without significant stenosis in common or internal carotid arteries bilaterally. No significant stenosis or aneurysm at level of the [place]. 2. 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 NASCET criteria was used in interpretation of this exam? A [place] level critical message alert has been initiated for Vitaliy Hdz MD via the [employer] 36 0 | Critical Results System on 07/11/2021 12:04 PM. This message alert has been sent to Vitaliy Hdz MD via the preferences provided by the clinician for the receipt of Radiology Critical Findings. [facility] – [place] [id number]."
--- NOTE | 2021-07-11 13:44 | P.CRDCN ---
History of Present Illness History of present illness: HISTORY OF PRESENTING ILLNESS This is a pleasant 89 -year-old female past medical history significant for mild nonobstructive coronary artery disease, hypertension, dyslipidemia, mitral aorti c regurgitation, paroxysmal atrial fibrillation (on coumadin), non-ischemic cardiomyopathy, bladder cancer. Recent bladder tumor resection with Urology on 07/06/21. His coumadin was held for 5 days prior to surgery. He was told to hold his coumadin for additional 5 days after surgery per Urology. He follows in the office with Dr. Barber. We have been asked to see in consultation for abnormal echocardiogram and recurrent strokes. Patient presents to the emergency department on 07/10/21 with acute onset right arm numbness and right sided leg weakness. Per patient's , he was sitting down and suddenly was looking at his right hand stating he couldn't recognize it that "does not feel like it's his". She states his right leg slid forward and he could not move his right leg. She called EMS and patient was brought to the emergency department. Patient at baseline is alert and oriented x 4. He denied any chest pain, shortness of breath, lightheadedness, dizziness. Patient's symptoms in the ER was reported to last for 30 minutes and apparently had completely resolved in the ER. Around at 7:40 PM yesterday, patient started having some speech difficulty, he was not following commands, and had speech difficult. CT angio revealed evolving acute infarct left frontal lobe anterior watershed region. DIAGNOSTICS EKG reveals sinus rhythm, heart rate 72, left bundle branch block Chest xray no acute cardiopulmonary process. Laboratory reviewed, INR 1.1, WBC 7.0, hemoglobin 14, platelets 174, sodium 138, potassium 4.1, BUN 18, serum creatinine 0.7, and magnesium 1.9, triglycerides 81, cholesterol 124, LDL 67, HDL 40 TSH within normal limits. Cardiac catheterization 10/2019 revealed left dominant system, diffusely disease distal 1/4 of LAD, but no focal stenosis either in the LAD, diagonal or in the dominant circumflex. RCA is small and nondominant. Possible myopericarditits type vs Takotsubo Echocardiogram 10/2019- EF 30-35%, apical anterior, apical lateral, apical inferior and apical septal wall motion hypokinesia, moderate aortic valve sclerosis, mild aortic regurgitation, moderate mitral regurgitation and mild to moderate tricuspid regurgitation with mild pulmonary hypertension with an RVSP of 42 mmHg. Current cardiac medications include warfarin 5 mg, enalapril, lisinopril 20 mg twice a day, atenolol 12.5 mg nightly, amlodipine 5 mg daily, lovastatin 20 mg daily REVIEW OF SYSTEMS At the time of my exam: CONSTITUTIONAL: Denies fever or chills. CARDIOVASCULAR: Denies chest pain, shortness of breath, orthopnea, PND or palpitations. RESPIRATORY: Denies cough. GASTROINTESTINAL: Denies abdominal pain, diarrhea, constipation, nausea or vomiting. MUSCULOSKELETAL: Denies myalgias. NEUROLOGIC: +numbness, +weakness Denies tingling, headache ENDOCRINE: Denies fatigue, weight change, polydipsia or polyurina. GENITOURINARY: Denies burning, hematuria or urgency with micturation. HEMATOLOGIC: Denies history of anemia or bleeding. PHYSICAL EXAMINATION Blood pressure 149/73 HR 86, afebrile 98% on room air CONSTITUTIONAL: No apparent distress. HEENT: Head is normocephalic. Sclerae anicteric. Mucous membranes of the mouth are moist. No JVD. No carotid bruit. CHEST EXAMINATION: Lungs are clear to auscultation. No chest wall tenderness is noted on palpation or with deep breathing. HEART EXAMINATION: Regular rate and rhythm. S1, S2 heard. Systolic ejection murmur at apex ABDOMEN: Soft, nontender. Positive bowel sounds. EXTREMITIES: 2+ peripheral pulses, no lower extremity edema and no calf tenderness. NEUROLOGIC EXAMINATION: Patient is awake, alert and oriented x 1-2 ASSESSMENT Apical thrombus Evolving acute infarct left frontal lobe anterior watershed region reported on CT angio Mild nonobstructive coronary artery disease Non-ischemic cardiomyopathy EF 30-35% Hypertension Dyslipidemia Paroxysmal atrial fibrillation on coumadin outpatient Subtherapeutic INR History of bladder cancer Recent bladder tumor resection with Urology on 07/06/21 PLAN -Recommend anticoagulation, however, per neurology recommend holding off on anticoagulation at this time due to risk of hemorrhagic conversion -Started on aspirin and statin -Neurology holding antihypertensives, recommend re-starting per neurology recommendations -Plan for MRI brain -Continue cardiac telemetry -Further recommendations based on clinical course Nurse Practitioner note has been reviewed, I agree with a documented findings and plan of care. Patient was seen and examined. Past Medical History Past Medical History: Atrial Fibrillation, Cancer, Hyperlipidemia, Hypertension, Prostate Disorder Additional Past Medical History / Comment(s): HX GOUT, SCIATICA, TIRES EASILY, BPH, STATES DIFFICULTY WITH BOWEL MOVEMENTS., USES CANE , BLADDER TUMOR. History of Any Multi-Drug Resistant Organisms: None Reported Past Surgical History: Appendectomy, Heart Catheterization, Orthopedic Surgery Additional Past Surgical History / Comment(s): RIGHT SHOULDER TENDON REPAIR Past Anesthesia/Blood Transfusion Reactions: No Reported Reaction Past Psychological History: Anxiety Additional Psychological History / Comment(s): RECENT ANXIETY Smoking Status: Former smoker Past Alcohol Use History: Daily Additional Past Alcohol Use History / Comment(s): QUIT SMOKING AT 24 YEARS OLD, STARTED AGE 18. DRINKS (1) "SMALL MARTINI" DAILY Past Drug Use History: None Reported - Past Family History Mother Family Medical History: No Reported History Medications and Allergies Home Medications Medication Instructions Recorded Confirmed Type Allopurinol [Zyloprim] 300 mg PO DAILY 10/14/19 07/10/21 History Lovastatin [Altoprev] 20 mg PO DAILY 10/14/19 07/10/21 History Warfarin [Coumadin] 2.5 mg PO DIRECTED 10/14/19 07/10/21 History amLODIPine [Norvasc] 5 mg PO DAILY 10/14/19 07/10/21 History lisinopriL [Zestril] 20 mg PO BID 10/14/19 07/10/21 History atenoloL [Tenormin] 12.5 mg PO HS 03/25/20 07/10/21 History Warfarin [Coumadin] 5 mg PO DIRECTED 12/07/20 07/10/21 History Tamsulosin HCl [Flomax] 0.4 mg PO DAILY 06/23/21 07/10/21 History traMADol HCL [Ultram] 50 mg PO BID PRN 07/04/21 07/10/21 History Allergies Allergy/AdvReac Type Severity Reaction Status Date / Time No Known Allergies Allergy Verified 07/06/21 06:39 Physical Exam Vitals: Vital Signs Temp Pulse Pulse Resp BP BP BP 07/11/21 07:00 98.9 F 86 18 149/73 07/11/21 01:49 98.0 F 61 16 135/69 07/11/21 01:30 64 18 07/10/21 23:05 98.3 F 64 18 153/90 07/10/21 22:40 72 20 124/84 07/10/21 22:00 67 20 120/86 07/10/21 20:10 73 20 121/70 07/10/21 19:55 20 07/10/21 18:36 99.1 F 73 16 128/72 07/10/21 14:31 98.4 F 74 16 133/69 Pulse Ox 07/11/21 07:00 98 07/11/21 01:49 94 L 07/11/21 01:30 07/10/21 23:05 97 07/10/21 22:40 96 07/10/21 22:00 96 07/10/21 20:10 95 07/10/21 19:55 07/10/21 18:36 92 L 07/10/21 14:31 98 Intake and Output 07/10/21 07/11/21 07/11/21 22:59 06:59 14:59 Intake Total 0 Output Total 1200 Balance 0 -1200 Intake: Oral 0 Output: Urine 1200 Other: Voiding Method Indwelling Catheter Indwelling Catheter Weight 73.482 kg Results 07/11/21 09:11 07/11/21 09:11 Cardiac Enzymes 07/10/21 07/10/21 07/11/21 Range/Units 15:27 15:27 09:11 AST 38 33 (17-59) U/L Troponin I <0.012 (0.000-0.034) ng/mL Coagulation 07/10/21 Range/Units 15:27 PT 11.4 (9.0-12.0) sec APTT 21.4 L (22.0-30.0) sec Lipids 07/11/21 Range/Units 04:41 Triglycerides 81.50 (0.00-149.00) mg/dL Cholesterol 124.00 (0.00-200.00) mg/dL HDL Cholesterol 40.50 (40.00-60.00) mg/dL Cholesterol/HDL Ratio 3.06 Ratio CBC 07/10/21 07/11/21 Range/Units 15:28 09:11 WBC 8.6 7.0 (3.8-10.6) k/uL RBC 4.72 4.51 (4.30-5.90) m/uL Hgb 15.4 14.6 (13.0-17.5) gm/dL Hct 47.3 45.6 (39.0-53.0) % Plt Count 184 174 (150-450) k/uL Comprehensive Metabolic Panel 07/10/21 07/11/21 Range/Units 15:27 09:11 Sodium 141 138 (137-145) mmol/L Potassium 4.0 4.1 (3.5-5.1) mmol/L Chloride 109 H 107 (98-107) mmol/L Carbon Dioxide 24 24 (22-30) mmol/L BUN 26 H 18 (9-20) mg/dL Creatinine 0.88 0.79 (0.66-1.25) mg/dL Glucose 118 H 157 H (74-99) mg/dL Calcium 9.2 8.8 (8.4-10.2) mg/dL AST 38 33 (17-59) U/L ALT 19 17 (4-49) U/L Alkaline Phosphatase 80 56 (38-126) U/L Total Protein 6.4 6.0 L (6.3-8.2) g/dL Albumin 3.5 3.2 L (3.5-5.0) g/dL Current Medications Generic Name Dose Route Start Last Admin Trade Name Freq PRN Reason Stop Dose Admin Aspirin 325 mg 07/11/21 09:00 07/11/21 09:26 Aspirin 325 Mg Tab PO 325 mg DAILY ROSALIA Administration Atorvastatin Calcium 20 mg 07/11/21 21:00 Atorvastatin 20 Mg Tab PO HS ROSALIA Sodium Chloride 1,000 mls @ 75 mls/hr 07/10/21 22:15 07/11/21 01:20 Saline 0.9% IV 75 mls/hr .[id number] ROSALIA Administration Intake and Output 07/10/21 07/11/21 07/11/21 22:59 06:59 14:59 Intake Total 0 Output Total 1200 Balance 0 -1200 Intake: Oral 0 Output: Urine 1200 Other: Voiding Method Indwelling Catheter Indwelling Catheter Weight 73.482 kg 07/11/21 09:11 07/11/21 09:11
--- NOTE | 2021-07-11 14:35 | MR ---
EXAMINATION TYPE: MR brain wo con DATE OF EXAM: 07/11/2021 COMPARISON: CT brain from earlier today and older CTs HISTORY: Acute CVA TECHNIQUE: Multiplanar, multisequence imaging of the brain and brainstem is performed without IV cont rast. FINDINGS: Diffusion weighted images demonstrate or confirm acute stroke left frontal lobe anterior watershed re gion with increased signal on diffusion-weighted images and diminished signal on ADC mapping showing sulcal effacement and increased T2 signal measuring 5.3 x 3.6 cm axial image 240. Craniocaudal dimens ion roughly 4.6 cm coronal image 14. There is mild to moderate ventricular and sulcal prominence. Focal and confluent areas of T2 hyperint ensity throughout the white matter bilaterally are present. Midline structures demonstrate normal morphology. The craniocervical junction appears within normal limits. Normal vascular flow voids are present. The visualized sinuses are clear and the globes are i ntact. IMPRESSION: Acute infarct left frontal lobe and anterior watershed region correlates with most recent CT. Background of mild to moderate diffuse cerebral atrophy and moderate to advanced chronic small v essel ischemic change is noted.
[2021-07-11] MEDS ORDERED: HEPARIN SODIUM 1,000 UN/ML (10ML VL) IV PRN (14:44)
[2021-07-11] MEDS: HEPARIN SOD,PORK IN 0.45% NACL 25,000 UNIT in 0.45% NACL 1 250ML.BAG IV SCH (15:20)
[2021-07-11 15:30] LABS: INR 1.1 (<1.2); Partial Thromboplastin Time 23.8 sec (22.0-30.0); Prothrombin Time 11.9 sec (9.0-12.0)
--- NOTE | 2021-07-11 17:12 | P.GSCN ---
History of Present Illness Consult date: 07/11/21 Reason for Consult: Bladder cancer History of present illness: 89 yo male with hx of bladder cancer S/P TURBT on 07/[address] Alcantar, pathology was HG T1 bladder cancer. He presented to the hospital with right sided numbness, symptoms subsequently resolved. Today he developed expressive aphasia, difficulty understanding, He underwent an MRI of brain, and CTA which showed evidence of an acute infarct of the left frontal lobe, he also underwent an echo that demonstrated evidence of apical thrombus. He has hx of A fib on Coumadin. Patient has stopped warfarin 5 days prior on Saturday, and post surgery. Urology is consulted for his bladder tumor and to obtain clearance for resuming his anticogulation. He is currently on a heparin drip, urine is clear Review of Systems - Constitutional Denies fever, Denies weight loss - EENT Ears, nose, mouth and throat: Denies dysphagia - Cardiovascular Denies chest pain, Denies shortness of breath - Gastrointestinal Reports as per HPI - Genitourinary Reports hematuria, Denies dysuria - Neurological Reports confusion, Denies headaches, Denies syncope Past Medical History Past Medical History: Atrial Fibrillation, Cancer, Hyperlipidemia, Hypertension, Prostate Disorder Additional Past Medical History / Comment(s): HX GOUT, SCIATICA, TIRES EASILY, BPH, STATES DIFFICULTY WITH BOWEL MOVEMENTS., USES CANE , BLADDER TUMOR. History of Any Multi-Drug Resistant Organisms: None Reported Past Surgical History: Appendectomy, Heart Catheterization, Orthopedic Surgery Additional Past Surgical History / Comment(s): RIGHT SHOULDER TENDON REPAIR Past Anesthesia/Blood Transfusion Reactions: No Reported Reaction Past Psychological History: Anxiety Additional Psychological History / Comment(s): RECENT ANXIETY Smoking Status: Former smoker Past Alcohol Use History: Daily Additional Past Alcohol Use History / Comment(s): QUIT SMOKING AT 24 YEARS OLD, STARTED AGE 18. DRINKS (1) "SMALL MARTINI" DAILY Past Drug Use History: None Reported - Past Family History Mother Family Medical History: No Reported History Medications and Allergies Home Medications Medication Instructions Recorded Confirmed Type Allopurinol [Zyloprim] 300 mg PO DAILY 10/14/19 07/10/21 History Lovastatin [Altoprev] 20 mg PO DAILY 10/14/19 07/10/21 History Warfarin [Coumadin] 2.5 mg PO DIRECTED 10/14/19 07/10/21 History amLODIPine [Norvasc] 5 mg PO DAILY 10/14/19 07/10/21 History lisinopriL [Zestril] 20 mg PO BID 10/14/19 07/10/21 History atenoloL [Tenormin] 12.5 mg PO HS 03/25/20 07/10/21 History Warfarin [Coumadin] 5 mg PO DIRECTED 12/07/20 07/10/21 History Tamsulosin HCl [Flomax] 0.4 mg PO DAILY 06/23/21 07/10/21 History traMADol HCL [Ultram] 50 mg PO BID PRN 07/04/21 07/10/21 History Allergies Allergy/AdvReac Type Severity Reaction Status Date / Time No Known Allergies Allergy Verified 07/06/21 06:39 Surgical - Exam Vital Signs Temp Pulse Resp BP Pulse Ox 98.4 F 74 16 133/69 98 07/10/21 14:31 07/10/21 14:31 07/10/21 14:31 07/10/21 14:31 07/10/21 14:31 - General no distress, no pain - Eyes PERRL, normal ocular movement - ENT normal nares, normal mucosa, no hearing loss - Respiratory normal expansion, normal respiratory effort - Abdomen Abdomen: soft, non tender - Genitourinary urine is clear - Psychiatric AOX0 Results - Labs 07/11/21 09:11 07/11/21 09:11 Abnormal Lab Results - Last 24 Hours (Table) 07/10/21 07/10/21 07/10/21 Range/Units 15:27 15:27 15:28 MCV 100.1 H (80.0-100.0) fL Lymphocytes # (1.0-4.8) k/uL APTT 21.4 L (22.0-30.0) sec Chloride 109 H (98-107) mmol/L BUN 26 H (9-20) mg/dL Glucose 118 H (74-99) mg/dL Total Protein (6.3-8.2) g/dL Albumin (3.5-5.0) g/dL Urine Protein (Negative) Urine Blood (Negative) Ur Leukocyte Esterase (Negative) Urine RBC (0-5) /hpf Urine WBC (0-5) /hpf Urine Bacteria (None) /hpf Urine Mucus (None) /hpf 07/10/21 07/11/21 07/11/21 Range/Units 22:29 09:11 09:11 MCV 100.9 H (80.0-100.0) fL Lymphocytes # 0.9 L (1.0-4.8) k/uL APTT (22.0-30.0) sec Chloride (98-107) mmol/L BUN (9-20) mg/dL Glucose 157 H (74-99) mg/dL Total Protein 6.0 L (6.3-8.2) g/dL Albumin 3.2 L (3.5-5.0) g/dL Urine Protein 2+ H (Negative) Urine Blood Large H (Negative) Ur Leukocyte Esterase Small H (Negative) Urine RBC >182 H (0-5) /hpf Urine WBC 36 H (0-5) /hpf Urine Bacteria Rare H (None) /hpf Urine Mucus Rare H (None) /hpf Microbiology - Last 24 Hours (Table) 07/10/21 22:29 Urine Culture - Preliminary Urine,Voided Diabetes panel 07/10/21 07/11/21 07/11/21 Range/Units 15:27 04:41 09:11 Sodium 141 138 (137-145) mmol/L Potassium 4.0 4.1 (3.5-5.1) mmol/L Chloride 109 H 107 (98-107) mmol/L Carbon Dioxide 24 24 (22-30) mmol/L BUN 26 H 18 (9-20) mg/dL Creatinine 0.88 0.79 (0.66-1.25) mg/dL Glucose 118 H 157 H (74-99) mg/dL Calcium 9.2 8.8 (8.4-10.2) mg/dL AST 38 33 (17-59) U/L ALT 19 17 (4-49) U/L Alkaline Phosphatase 80 56 (38-126) U/L Total Protein 6.4 6.0 L (6.3-8.2) g/dL Albumin 3.5 3.2 L (3.5-5.0) g/dL Triglycerides 81.50 (0.00-149.00) mg/dL HDL Cholesterol 40.50 (40.00-60.00) mg/dL Thyroid panel 07/11/21 Range/Units 09:11 TSH 0.816 (0.465-4.680) mIU/L Calcium panel 07/10/21 07/11/21 Range/Units 15:27 09:11 Calcium 9.2 8.8 (8.4-10.2) mg/dL Albumin 3.5 3.2 L (3.5-5.0) g/dL Pituitary panel 07/10/21 07/11/21 Range/Units 15:27 09:11 Sodium 141 138 (137-145) mmol/L Potassium 4.0 4.1 (3.5-5.1) mmol/L Chloride 109 H 107 (98-107) mmol/L Carbon Dioxide 24 24 (22-30) mmol/L BUN 26 H 18 (9-20) mg/dL Creatinine 0.88 0.79 (0.66-1.25) mg/dL Glucose 118 H 157 H (74-99) mg/dL Calcium 9.2 8.8 (8.4-10.2) mg/dL TSH 0.816 (0.465-4.680) mIU/L Adrenal panel 07/10/21 07/11/21 Range/Units 15:27 09:11 Sodium 141 138 (137-145) mmol/L Potassium 4.0 4.1 (3.5-5.1) mmol/L Chloride 109 H 107 (98-107) mmol/L Carbon Dioxide 24 24 (22-30) mmol/L BUN 26 H 18 (9-20) mg/dL Creatinine 0.88 0.79 (0.66-1.25) mg/dL Glucose 118 H 157 H (74-99) mg/dL Calcium 9.2 8.8 (8.4-10.2) mg/dL Total Bilirubin 0.5 0.7 (0.2-1.3) mg/dL AST 38 33 (17-59) U/L ALT 19 17 (4-49) U/L Alkaline Phosphatase 80 56 (38-126) U/L Total Protein 6.4 6.0 L (6.3-8.2) g/dL Albumin 3.5 3.2 L (3.5-5.0) g/dL Assessment and Plan Assessment: 89 yo male S/P TURBT for HG T1 bladder cancer on 07/[address] Alcantar. Admitted to the hospital with TIA, he subsquently developed a stroke. CTA and MRI of the brain showed left frontal lobe stroke, ECHO showed an apical thrombus. hx of A fib on Coumadin, Coumadin on hold post surgery. Currently on a heparin drip, urine is clear -Okay to continue heparin drip -We'll reassess tomorrow, if urine remains clear then we can discontinue catheter tomorrow.
--- NOTE | 2021-07-11 18:33 | P.HPIM ---
History of Present Illness H&P Date: 07/11/21 Chief Complaint: TIA/CVA 89-year-old male with significant past medical history of atrial fibrillation on anticoagulation therapy, hypertension, hyperlipidemia, newly diagnosed with bladder CA, prostate disorder, gout, coronary artery disease with heart catheterizations in the past, orthopedic surgeries and several comorbidities is admitted to the hospital for transient ischemic attack rule out cerebrovascular accident. Patient had extensive diagnostic workup in emergency department for TIA/CVA; CT of the head without contrast initially showed degenerative and nonspecific white matter changes mostly typical remote ischemia change; dictation from radiologist no acute hemorrhage correlate with MRI saturation for acute ischemic as clinically warranted. Review of emergency room notes patient presented to the emergency department with right-sided weakness, with difficulty moving right leg, and possible ataxia right-sided. Upon review of emergency physician notes NIH was 0 patient was moving all extremities. Apparently at 1740, patient's clinical symptoms of a TIA/CVA progressed with NIH of 3, CT of the brain without contrast was ordered, dictation from radiologist no acute intercranial abnormalities. Review of diagnostic labs, CBC unremarkable, INR subtherapeutic at 1.1, CMP unremarkable other than a mildly elevated glucose of 118. Troponin negative. Urinalysis consistent with past urinalysis of hematuria, and bladder CA. Covid test negative. Patient was admitted under [facility] services, transition of care to our services was not initiated until Saturday07/11/2021 Patient seen and examined at bedside. Patient resting comfortably in bed in no acute signs of distress. Difficulty obtaining subjective data, patient pleasa ntly confused only the able to answer questions to person and follows simple commands. Patient's normal neurological baseline is alert and oriented 4 with no difficulty following commands, no ataxia noted or weakness noted. See above for diagnostic review of imaging and diagnostic labs. Review of Systems ROS unobtainable: due to mental status Past Medical History Past Medical History: Atrial Fibrillation, Cancer, Hyperlipidemia, Hypertension, Prostate Disorder Additional Past Medical History / Comment(s): HX GOUT, SCIATICA, TIRES EASILY, BPH, STATES DIFFICULTY WITH BOWEL MOVEMENTS., USES CANE , BLADDER TUMOR. History of Any Multi-Drug Resistant Organisms: None Reported Past Surgical History: Appendectomy, Heart Catheterization, Orthopedic Surgery Additional Past Surgical History / Comment(s): RIGHT SHOULDER TENDON REPAIR Past Anesthesia/Blood Transfusion Reactions: No Reported Reaction Past Psychological History: Anxiety Additional Psychological History / Comment(s): RECENT ANXIETY Smoking Status: Former smoker Past Alcohol Use History: Daily Additional Past Alcohol Use History / Comment(s): QUIT SMOKING AT 24 YEARS OLD, STARTED AGE 18. DRINKS (1) "SMALL MARTINI" DAILY Past Drug Use History: None Reported - Past Family History Mother Family Medical History: No Reported History Medications and Allergies Home Medications and Allergies Comment(s): Medications and ALLERGIES reviewed Home Medications Medication Instructions Recorded Confirmed Type Allopurinol [Zyloprim] 300 mg PO DAILY 10/14/19 07/10/21 History Lovastatin [Altoprev] 20 mg PO DAILY 10/14/19 07/10/21 History Warfarin [Coumadin] 2.5 mg PO DIRECTED 10/14/19 07/10/21 History amLODIPine [Norvasc] 5 mg PO DAILY 10/14/19 07/10/21 History lisinopriL [Zestril] 20 mg PO BID 10/14/19 07/10/21 History atenoloL [Tenormin] 12.5 mg PO HS 03/25/20 07/10/21 History Warfarin [Coumadin] 5 mg PO DIRECTED 12/07/20 07/10/21 History Tamsulosin HCl [Flomax] 0.4 mg PO DAILY 06/23/21 07/10/21 History traMADol HCL [Ultram] 50 mg PO BID PRN 07/04/21 07/10/21 History Allergies Allergy/AdvReac Type Severity Reaction Status Date / Time No Known Allergies Allergy Verified 07/06/21 06:39 Physical Exam Vitals: Vital Signs Temp Pulse Pulse Resp BP BP BP 07/11/21 17:23 98.2 F 68 16 144/71 07/11/21 15:00 98.3 F 67 19 139/74 07/11/21 14:00 97.5 F L 73 19 130/66 07/11/21 07:00 98.9 F 86 18 149/73 07/11/21 01:49 98.0 F 61 16 135/69 07/11/21 01:30 64 18 07/10/21 23:05 98.3 F 64 18 153/90 07/10/21 22:40 72 20 124/84 07/10/21 22:00 67 20 120/86 07/10/21 20:10 73 20 121/70 07/10/21 19:55 20 07/10/21 18:36 99.1 F 73 16 128/72 Pulse Ox 07/11/21 17:23 98 07/11/21 15:00 97 07/11/21 14:00 95 07/11/21 07:00 98 07/11/21 01:49 94 L 07/11/21 01:30 07/10/21 23:05 97 07/10/21 22:40 96 07/10/21 22:00 96 07/10/21 20:10 95 07/10/21 19:55 07/10/21 18:36 92 L Intake and Output 07/11/21 07/11/21 07/11/21 06:59 14:59 22:59 Intake Total 1040 Output Total 1200 500 Balance -1200 1040 -500 Intake: Intake, IV Titration 640 Amount Sodium Chloride 0.9% 1, 640 000 ml @ 75 mls/hr IV . [id number] [facility] Rx#:[id number] Oral 400 Output: Urine 1200 500 Other: Voiding Method Indwelling Catheter Indwelling Catheter - Constitutional General appearance: disheveled - EENT Eyes: EOMI, PERRLA ENT: hard of hearing - Neck Neck: normal ROM Thyroid: bilateral: normal size - Respiratory Respiratory: bilateral: CTA (Anterior and posterior lung skinner) - Cardiovascular Normal sinus rhythm Heart rate: 87 Rhythm: regular Heart sounds: normal: S1, S2 radial pulse Peripheral Pulses: bilateral: Normal dorsalis pedis Peripheral Pulses: bilateral: Normal - Gastrointestinal General gastrointestinal: normal bowel sounds, soft - Integumentary Integumentary: pale - Neurologic Neurologic: focal deficits - Musculoskeletal Musculoskeletal: right sided weakness - Psychiatric Alert to person Results CBC & Chem 7: 07/11/21 09:11 07/11/21 09:11 Labs: Abnormal Lab Results - Last 24 Hours (Table) 07/10/21 07/11/21 07/11/21 Range/Units 22:29 09:11 09:11 MCV 100.9 H (80.0-100.0) fL Lymphocytes # 0.9 L (1.0-4.8) k/uL Glucose 157 H (74-99) mg/dL Total Protein 6.0 L (6.3-8.2) g/dL Albumin 3.2 L (3.5-5.0) g/dL Urine Protein 2+ H (Negative) Urine Blood Large H (Negative) Ur Leukocyte Esterase Small H (Negative) Urine RBC >182 H (0-5) /hpf Urine WBC 36 H (0-5) /hpf Urine Bacteria Rare H (None) /hpf Urine Mucus Rare H (None) /hpf Microbiology - Last 24 Hours (Table) 07/10/21 22:29 Urine Culture - Preliminary Urine,Voided Chest x-ray: report reviewed CT scan - chest: report reviewed Thrombosis Risk Factor Assmnt - Choose All That Apply Any of the Below Risk Factors Present?: No Other Risk Factors: Yes Each Risk Factor Represents 3 Points: Age 75 years or older Other congenital or acquired thrombophilia - If yes, enter type in comment: No Thrombosis Risk Factor Assessment Total Risk Factor Score: 3 Thrombosis Risk Factor Assessment Level: Moderate Risk Assessment and Plan Assessment: TIA/CVA Paroxysmal atrial fibrillation on anticoagulation therapy Bladder CA Hyperlipidemia Hypertension Gout Coronary artery disease with heart catheterizations in the past Orthopedic surgeries Former nicotine dependence DO NOT RESUSCITATE Plan: TIA/CVA, continue neurological assessments every hour, additional diagnostics ordered, consultation with neurology for recommendations Hematuria, possibly secondary to bladder CA Subtherapeutic INR Continue to monitor vital signs and diagnostic testing Continue nothing by mouth until cleared by speech therapy and neurology Continue medical management Further recommendations to come based on patient's clinical condition Time with Patient: Greater than 30
[2021-07-11] MEDS ORDERED: LORazepam 2 MG/ML INJ IV STA (19:56)
[2021-07-11] MEDS: ATORVASTATIN 20 MG TAB PO SCH (22:03)
[2021-07-12] MEDS: SODIUM CHLORIDE 0.9% 1,000 ML IV SCH ×2 (02:09→05:04)
[2021-07-12 05:17] LABS: Basophils % (A) 0 %; Eosinophils # (A) 0.2 k/uL (0-0.7); Eosinophils % (A) 2 %; HCT 44.5 % (39.0-53.0); HGB 14.8 gm/dL (13.0-17.5); Lymphocytes # (A) 1.5 k/uL (1.0-4.8); Lymphocytes % (A) 20 %; MCH 32.9 pg (25.0-35.0); MCHC 33.3 g/dL (31.0-37.0); MCV 98.7 fL (80.0-100.0); Mean Platelet Volume 7.1; Monocytes # (A) 0.6 k/uL (0-1.0); Monocytes % (A) 8 %; Neutrophils # (A) 5.2 k/uL (1.3-7.7); Neutrophils % (A) 68 %; Platelet Count 183 k/uL (150-450); RDW 12.9 % (11.5-15.5); WBC 7.7 k/uL (3.8-10.6)
[2021-07-12 05:30] LABS: ALT 16 U/L (4-49); AST 26 U/L (17-59); African American GFR (CKD) >90 (>60 ml/min/1.73 sqM); Albumin 3.3 g/dL (3.5-5.0); Alkaline Phosphatase 58 U/L (38-126); Anion Gap 7 mmol/L; Blood Urea Nitrogen 15 mg/dL (9-20); Calcium 8.8 mg/dL (8.4-10.2); Carbon Dioxide 21 mmol/L (22-30); Chloride 108 mmol/L (98-107); Glucose 94 mg/dL (74-99); Non-African American GFR(CKD) 79 (>60 ml/min/1.73 sqM); Potassium 4.5 mmol/L (3.5-5.1); Sodium 136 mmol/L (137-145); Total Bilirubin 0.7 mg/dL (0.2-1.3)
[2021-07-12 05:33] LABS: INR 1.2 (<1.2); Partial Thromboplastin Time 44.8 sec (22.0-30.0); Prothrombin Time 12.2 sec (9.0-12.0)
--- NOTE | 2021-07-12 07:41 | P.PN ---
Subjective Progress Note Date: 07/12/21 Principal diagnosis: TIA/CVA Cardiac thrombus 89-year-old male with significant past medical history of atrial fibrillation on anticoagulation therapy, hypertension, hyperlipidemia, newly diagnosed with bladder CA, prostate disorder, gout, coronary artery disease with heart cath eterizations in the past, orthopedic surgeries and several comorbidities is admitted to the hospital for transient ischemic attack rule out cerebrovascular accident. Patient had extensive diagnostic workup in emergency department for TIA/CVA; CT of the head without contrast initially showed degenerative and nonspecific white matter changes mostly typical remote ischemia change; dictation from radiologist no acute hemorrhage correlate with MRI saturation for acute ischemic as clinically warranted. Review of emergency room notes patient presented to the emergency department with right-sided weakness, with difficulty moving right leg, and possible ataxia right-sided. Upon review of emergency physician notes NIH was 0 patient was moving all extremities. Apparently at 1740, patient's clinical symptoms of a TIA/CVA progressed with NIH of 3, CT of the brain without contrast was ordered, dictation from radiologist no acute intercranial abnormalities. Review of diagnostic labs, CBC unremarkable, INR subtherapeutic at 1.1, CMP unremarkable other than a mildly elevated glucose of 118. Troponin negative. Urinalysis consistent with past urinalysis of hematuria, and bladder CA. Covid test negative 07/11/2021 Patient seen and examined at bedside. Patient resting comfortably in bed in no acute signs of distress. Difficulty obtaining subjective data, patient pleasantly confused only the able to answer questions to person and follows simple commands. Patient's normal neurological baseline is alert and oriented 4 with no difficulty following commands, no ataxia noted or weakness noted. See above for diagnostic review of imaging and diagnostic labs. 07/12/2021 Patient seen and examined at bedside. Contacted by [facility] staff last night, patient became agitated and combative, ordered medication for anxiety and agitation. Daughter was notified and was encouraged to return to hospital to assist with anxiety. This morning, the patient is resting in bed, oriented to s elf, pleasantly confused. Unable to collect subjective data due to patient's confusion. Objective - Vital Signs Vital signs: Vital Signs Temp 98.4 F 07/12/21 04:00 Pulse 84 07/12/21 04:00 Resp 18 07/12/21 04:00 BP 118/60 07/12/21 04:00 Pulse Ox 93 L 07/12/21 04:00 Intake & Output 07/11/21 07/12/21 07/12/21 18:59 06:59 18:59 Intake Total 1040 434.962 Output Total 500 1000 Balance 540 -565.038 Weight 78 kg Intake: Intake, IV Titration 640 434.962 Amount Heparin Sod,Pork in 0.45% 59.962 NaCl 25,000 unit In 0.45 % NaCl 1 250ml.bag @ 12 UNITS/KG/HR 8.818 mls/hr IV .Q24H [facility] Rx#: [id number] Sodium Chloride 0.9% 1, 640 375 000 ml @ 75 mls/hr IV . [id number] [facility] Rx#:[id number] Oral 400 Output: Urine 500 1000 Other: Voiding Method Indwelling Catheter Indwelling Catheter - Constitutional General appearance: Present: disheveled - EENT Eyes: Present: EOMI, PERRLA Ears: bilateral: normal - Neck Neck: Present: normal ROM Carotids: bilateral: upstroke normal Thyroid: bilateral: normal size - Respiratory Respiratory: bilateral: CTA (anterior and posterior lung skinner) - Cardiovascular Details: atrial fib Heart rate: 80 Rhythm: irregularly irregular Heart sounds: normal: S1, S2 - Peripheral pulses dorsalis pedis Peripheral Pulses: bilateral: Normal radial pulse Peripheral Pulses: bilateral: Normal - Gastrointestinal General gastrointestinal: Present: normal bowel sounds, soft - Integumentary Integumentary: Present: normal - Neurologic Neurologic Comment(s): Right side facial droop expressive aphasia slurred speech Neurologic: Present: focal deficits - Musculoskeletal Musculoskeletal: Present: right sided weakness - Psychiatric Psychiatric Comment(s): Alert, oriented to self disoriented to time, place and situation - Allied health notes Allied health notes reviewed: nursing - Labs CBC & Chem 7: 07/12/21 04:28 07/12/21 04:28 Labs: Abnormal Lab Results - Last 24 Hours (Table) 07/11/21 07/11/21 07/11/21 Range/Units 09:11 09:11 21:15 MCV 100.9 H (80.0-100.0) fL Lymphocytes # 0.9 L (1.0-4.8) k/uL PT (9.0-12.0) sec INR (<1.2) APTT 33.3 H (22.0-30.0) sec Sodium (137-145) mmol/L Chloride (98-107) mmol/L Carbon Dioxide (22-30) mmol/L Glucose 157 H (74-99) mg/dL Total Protein 6.0 L (6.3-8.2) g/dL Albumin 3.2 L (3.5-5.0) g/dL 07/12/21 07/12/21 Range/Units 04:28 04:28 MCV (80.0-100.0) fL Lymphocytes # (1.0-4.8) k/uL PT 12.2 H (9.0-12.0) sec INR 1.2 H (<1.2) APTT 44.8 H (22.0-30.0) sec Sodium 136 L (137-145) mmol/L Chloride 108 H (98-107) mmol/L Carbon Dioxide 21 L (22-30) mmol/L Glucose (74-99) mg/dL Total Protein 6.0 L (6.3-8.2) g/dL Albumin 3.3 L (3.5-5.0) g/dL - Imaging and Cardiology CT Scan - head: report reviewed MRI - head: report reviewed Contacted cardiology, Dr. Mata, regarding preliminary ECHO reports of thrombus Assessment and Plan Assessment: TIA/CVA Paroxysmal atrial fibrillation on anticoagulation therapy cardiac thrombus Bladder CA Hyperlipidemia Hypertension Gout Coronary artery disease with heart catheterizations in the past Orthopedic surgeries Former nicotine dependence DO NOT RESUSCITATE (1) CVA (cerebral vascular accident) Current Visit: Yes Status: Acute Priority: High Code(s): I63.9 - CEREBRAL INFARCTION, UNSPECIFIED SNOMED Code(s): 272527900 Plan: CVA, acute left frontal lobe and anterior watershed region on MRI, continue neurological assessments every hour, consultation with neurology for recommend ations cardiac thrombus, started on heparin therapy, cardiology consult Afib, controlled rate, heparin therapy Recent bladder tumor resection Subtherapeutic INR, started on heparin therapy Continue to monitor vital signs and diagnostic testing Continue nothing by mouth until cleared by speech therapy and neurology Continue medical management Further recommendations to come based on patient's clinical condition Time with Patient: Greater than 30
[2021-07-12] MEDS: ASPIRIN 325 MG TAB PO SCH (08:51)
--- NOTE | 2021-07-12 10:00 | ECHOF ---
Referral Reason:TIA/CVA MEASUREMENTS -------- HEIGHT: 180.3 cm WEIGHT: 73.5 kg BP: IVSd: 0.9 cm (0.6 - 1.1) LVIDd: 5.4 cm (3.9 - 5.3) LVPWd: 0.9 cm (0.6 - 1.1) IVSs: 1.1 cm LVIDs: 2.6 cm LVPWs: 1.1 cm LAESV Index (A-L): 20.22 ml/m Ao Diam: 3.7 cm (2.0 - 3.7) AV Cusp: 2.3 cm (1.5 - 2.6) LA Diam: 3.4 cm (2.7 - 3.8) MV EXCURSION: 11.714 mm (> 18.000) MV EF SLOPE: 54 mm/s (70 - 150) EPSS: 1.1 cm MV E Jose: 0.70 m/s MV DecT: 223 ms MV A Jose: 0.78 m/s MV E/A Ratio: 0.90 AR PHT: 311 ms RAP: 5.00 mmHg RVSP: 16.53 mmHg FINDINGS -------- This was a technically difficult study with suboptimal views. The left ventricular size is normal. There is mild concentric left ventricular hypertrophy. Overa ll left ventricular systolic function is moderate-severely impaired with, an EF between 30 - 35 %. Normal LAP Grade 1 Diastolic Dysfunction. Apical septum LV wall motion is hypokinetic. The right ventricle is normal in size. The left atrial size is normal. Normal LA size by volume 22+/-6 ml/m2. The right atrial size is normal. Lumason used The aortic valve is trileaflet and appears structurally normal. There is mild aortic regurgitation. The mitral valve is normal. Mild mitral regurgitation is present. The tricuspid valve appears structurally normal. Mild tricuspid regurgitation present. Right vent ricular systolic pressure is normal at < 35 mmHg. There is no pulmonic regurgitation present. Possible Thrombus in LV [place] The aortic root size is normal. IVC Not well visulized. There is no pericardial effusion. CONCLUSIONS -------- 1. The left ventricular size is normal. 2. There is mild concentric left ventricular hypertrophy. 3. Overall left ventricular systolic function is moderate-severely impaired with, an EF between 30 - 35 %. 4. Normal LAP Grade 1 Diastolic Dysfunction. 5. Apical septum LV wall motion is hypokinetic. 6. There is mild aortic regurgitation. 7. Mild mitral regurgitation is present. 8. Mild tricuspid regurgitation present. 9. Possible Thrombus in LV [place] 10. There is no pericardial effusion. PARTS CLEANER: Jenny Kahn RDCS
--- NOTE | 2021-07-12 12:57 | P.PN ---
Subjective Progress Note Date: 07/12/21 NO acute overnight event, urine is clear, denies any abdominal pain Objective - Vital Signs Vital signs: Vital Signs Temp 97.9 F 07/12/21 08:00 Pulse 88 07/12/21 08:00 Resp 18 07/12/21 08:00 BP 127/75 07/12/21 08:00 Pulse Ox 96 07/12/21 08:00 Intake & Output 07/11/21 07/12/21 07/12/21 18:59 06:59 18:59 Intake Total 1040 434.962 100 Output Total 500 1000 450 Balance 540 -565.038 -350 Weight 78 kg Intake: Intake, IV Titration 640 434.962 Amount Heparin Sod,Pork in 0.45% 59.962 NaCl 25,000 unit In 0.45 % NaCl 1 250ml.bag @ 12 UNITS/KG/HR 8.818 mls/hr IV .Q24H [facility] Rx#: [id number] Sodium Chloride 0.9% 1, 640 375 000 ml @ 75 mls/hr IV . [id number] [facility] Rx#:[id number] Oral 400 100 Output: Urine 500 1000 450 Other: Voiding Method Indwelling Catheter Indwelling Catheter Indwelling Catheter - Constitutional General appearance: Present: no acute distress - Gastrointestinal General gastrointestinal: Present: soft. Absent: distended - Labs CBC & Chem 7: 07/12/21 04:28 07/12/21 04:28 Labs: Abnormal Lab Results - Last 24 Hours (Table) 07/11/21 07/12/21 07/12/21 Range/Units 21:15 04:28 04:28 PT 12.2 H (9.0-12.0) sec INR 1.2 H (<1.2) APTT 33.3 H 44.8 H (22.0-30.0) sec Sodium 136 L (137-145) mmol/L Chloride 108 H (98-107) mmol/L Carbon Dioxide 21 L (22-30) mmol/L Total Protein 6.0 L (6.3-8.2) g/dL Albumin 3.3 L (3.5-5.0) g/dL Microbiology - Last 24 Hours (Table) 07/10/21 22:29 Urine Culture - Final Urine,Voided Assessment and Plan Assessment: 89 yo male S/P TURBT for HG T1 bladder cancer on 07/[address] Alcantar. Admitted to the hospital with TIA, he subsquently developed a stroke. CTA and MRI of the brain showed left frontal lobe stroke, ECHO showed an apical thrombus. hx of A fib on Coumadin, Coumadin on hold post surgery. Currently on a heparin drip, urine is clear -Okay to continue anticogulation from urology standpoint -Given patient limited mobility and confusion recommend keeping catheter in place
--- NOTE | 2021-07-12 14:01 | P.PN ---
Subjective Progress Note Date: 07/12/21 Patient was seen for a follow-up. Patient's daughter was also present today. Patient has been slightly more agitated lately. He was trying to get out of bed all night. Patient's daughter believes that he is very confused. He was asking the physical therapist if her mother was coming to the hospital. No new focal symptoms. Denies headache. Per patient's daughter, he used to drive, lived on his own to this CVA. He does have a cane but does not use it as often. Patient had worked with PT and OT, and required assist of 2 people to help him get from bed to the recliner. Objective - Vital Signs Vital signs: Vital Signs Temp 97.9 F 07/12/21 08:00 Pulse 88 07/12/21 08:00 Resp 18 07/12/21 08:00 BP 127/75 07/12/21 08:00 Pulse Ox 96 07/12/21 08:00 Intake & Output 07/11/21 07/12/21 07/12/21 18:59 06:59 18:59 Intake Total 1040 434.962 100 Output Total 500 1000 450 Balance 540 -565.038 -350 Weight 78 kg Intake: Intake, IV Titration 640 434.962 Amount Heparin Sod,Pork in 0.45% 59.962 NaCl 25,000 unit In 0.45 % NaCl 1 250ml.bag @ 12 UNITS/KG/HR 8.818 mls/hr IV .Q24H [facility] Rx#: [id number] Sodium Chloride 0.9% 1, 640 375 000 ml @ 75 mls/hr IV . [id number] [facility] Rx#:[id number] Oral 400 100 Output: Urine 500 1000 450 Other: Voiding Method Indwelling Catheter Indwelling Catheter Indwelling Catheter - Exam Patient's mental status appears normal, stable as compared to yesterday. Still with slow mentation. Speech and language functions appears better. Patient will express. On cranial examination pupils are round and reacting, visual skinner are full with no neglect. Extraocular muscles are intact. Face is symmetric and tongue protrudes the midline. On muscle strength testing there is no pronator drift and the strength is normal in arms and legs. No ataxia. Sensory touch is equal in the legs with no neglect. - Labs CBC & Chem 7: 07/12/21 04:28 07/12/21 04:28 Labs: Abnormal Lab Results - Last 24 Hours (Table) 07/11/21 07/12/21 07/12/21 Range/Units 21:15 04:28 04:28 PT 12.2 H (9.0-12.0) sec INR 1.2 H (<1.2) APTT 33.3 H 44.8 H (22.0-30.0) sec Sodium 136 L (137-145) mmol/L Chloride 108 H (98-107) mmol/L Carbon Dioxide 21 L (22-30) mmol/L Total Protein 6.0 L (6.3-8.2) g/dL Albumin 3.3 L (3.5-5.0) g/dL Microbiology - Last 24 Hours (Table) 07/10/21 22:29 Urine Culture - Final Urine,Voided Assessment and Plan Assessment: * 89-year-old male presented with TIA, subsequently had an acute CVA involving left frontal region, likely embolic from cardiac source. Patient's examination is stable as compared to yesterday. CVA is likely embolic from previous history of atrial fibrillation. Patient has been on Coumadin, which has been held since 07/01/2021 for his bladder tumor scrape surgery that was performed on 07/06/2021. * Paroxysmal Atrial fibrillation on long-term anticoagulation with Coumadin. * Hypertension * Hyperlipidemia * History of bladder cancer. * Vitamin B12 deficiency. * Hematuria. Plan: * Patient is stable clinically, with no new deficits. Examination is stable. Patient denies headache. Continue aspirin. Patient also on heparin, with most recent PTT 44.8. * Hematuria seems to have completely resolved. Urine is clear. * CTA of the head and neck was suboptimal study without significant stenosis in the internal carotid arteries bilaterally. No significant stenosis or an eurysm at the level of [place]. 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 * MRI of the brain confirmed acute infarct left frontal lobe and anterior watershed region correlates with most recent CT. No hemorrhage (Reviewed with Dr Mccoy). * 2-D echo revealed normal left-ventricular size. Mild concentric LVH. Left ventricle systolic function is moderate to severely impaired with an EF between 30-35%. Apical septum LV wall motion is hypokinetic. Possible thromb us in the left ventricular apex. * Suggest checking computed tomography scan of head for any neuro changes. * Lipid panel showed cholesterol 124, LDL 67, HDL 40 and triglycerides 81. Patient at home on lovastatin 20 mg daily. Continue atorvastatin 20 mg daily while in hospital. * Hemoglobin A1c pending * B12 is low 236, we will start on vitamin B12 injections 1000 g IM 3 days. Folic acid normal 12.5. TFTs normal. * Discussed with patient's daughter in detail.
--- NOTE | 2021-07-12 14:34 | P.PN ---
Subjective Progress Note Date: 07/12/21 HISTORY OF PRESENT ILLNESS: This is a pleasant 89 -year-old female past medical history significant for mild nonobstructive coronary artery disease, hypertension, dyslipidemia, mitral aortic regurgitation, paroxysmal atrial fibrillation (on coumadin), non-ischemic cardiomyopathy, bladder cancer. Recent bladder tumor resection with Urology on 07/06/21. His coumadin was held for 5 days prior to surgery. He was told to hold his coumadin for additional 5 days after surgery per Urology. He follows in the office with Dr. Barber. We have been asked to see in consultation for abnormal echocardiogram and recurrent strokes. Patient presents to the emergency department on 07/10/21 with acute onset right arm numbness and right sided leg weakness. Per patient's , he was sitting down and suddenly was looking at his right hand stating he couldn't recognize it that "does not feel like it's his". She states his right leg slid forward and he could not move his right leg. She called EMS and patient was brought to the emergency department. Patient at baseline is alert and oriented x 4. He denied any chest pain, shortness of breath, lightheadedness, dizziness. Patient's symptoms in the ER was reported to last for 30 minutes and apparently had completely resolved in the ER. Around at 7:40 PM yesterday, patient started having some speech difficulty, he was not following commands, and had speech difficult. CT angio revealed evolving acute infarct left frontal lobe anterior watershed region. DIAGNOSTICS EKG reveals sinus rhythm, heart rate 72, left bundle branch block Chest xray no acute cardiopulmonary process. Laboratory reviewed, INR 1.1, WBC 7.0, hemoglobin 14, platelets 174, sodium 138, potassium 4.1, BUN 18, serum creatinine 0.7, and magnesium 1.9, triglycerides 81, cholesterol 124, LDL 67, HDL 40 TSH within normal limits. Cardiac catheterization 10/2019 revealed left dominant system, diffusely disease distal 1/4 of LAD, but no focal stenosis either in the LAD, diagonal or in the dominant circumflex. RCA is small and nondominant. Possible myopericarditits type vs Takotsubo Echocardiogram 10/2019- EF 30-35%, apical anterior, apical lateral, apical inferior and apical septal wall motion hypokinesia, moderate aortic valve sclerosis, mild aortic regurgitation, moderate mitral regurgitation and mild to moderate tricuspid regurgitation with mild pulmonary hypertension with an RVSP of 42 mmHg. Current cardiac medications include warfarin 5 mg, enalapril, lisinopril 20 mg twice a day, atenolol 12.5 mg nightly, amlodipine 5 mg daily, lovastatin 20 mg daily 07/12/2021 Patient examined this morning at the bedside. Patients family present. Patient remains confused. He underwent MRI revealed an acute infarct left frontal lobe and anterior watershed region correlating with most recent CT. Blood pressure 128/75. He is on room air with oxygen saturations greater than 92%. PHYSICAL EXAM: VITAL SIGNS: Reviewed. GENERAL: Well-developed in no acute distress. NECK: Supple. No JVD or thyromegaly LUNGS: Respirations even and unlabored. Lungs essentially clear to auscultation bilaterally. HEART: Irregular rate and rhythm. S1 and S2 heard. Systolic. EXTREMITIES: Normal range of motion. No clubbing or cyanosis. Peripheral pulses intact. No lower extremity edema ASSESSMENT: Apical thrombus TIA Acute CVA involving left frontal region Mild nonobstructive coronary artery disease Non-ischemic cardiomyopathy EF 30-35% Hypertension Dyslipidemia Paroxysmal atrial fibrillation on coumadin outpatient Subtherapeutic INR History of bladder cancer Recent bladder tumor resection with Urology on 07/06/21 PLAN: Continue current cardiac medications Continue IV heparin Case discussed with Dr. Allen. Recommends holding Coumadin for another 24 hours and may begin tomorrow evening if patient remains stable Further recommendations pending patient course Nurse practitioner note has been reviewed by physician. Signing provider agrees with the documented findings, assessment, and plan of care. Objective - Vital Signs Vital signs: Vital Signs Temp 97.9 F 07/12/21 08:00 Pulse 88 07/12/21 08:00 Resp 18 07/12/21 08:00 BP 127/75 07/12/21 08:00 Pulse Ox 96 07/12/21 08:00 Intake & Output 07/11/21 07/12/21 07/12/21 18:59 06:59 18:59 Intake Total 1040 434.962 100 Output Total 500 1000 450 Balance 540 -565.038 -350 Weight 78 kg Intake: Intake, IV Titration 640 434.962 Amount Heparin Sod,Pork in 0.45% 59.962 NaCl 25,000 unit In 0.45 % NaCl 1 250ml.bag @ 12 UNITS/KG/HR 8.818 mls/hr IV .Q24H [facility] Rx#: [id number] Sodium Chloride 0.9% 1, 640 375 000 ml @ 75 mls/hr IV . [id number] [facility] Rx#:[id number] Oral 400 100 Output: Urine 500 1000 450 Other: Voiding Method Indwelling Catheter Indwelling Catheter Indwelling Catheter - Labs CBC & Chem 7: 07/12/21 04:28 07/12/21 04:28 Labs: Abnormal Lab Results - Last 24 Hours (Table) 07/11/21 07/12/21 07/12/21 Range/Units 21:15 04:28 04:28 PT 12.2 H (9.0-12.0) sec INR 1.2 H (<1.2) APTT 33.3 H 44.8 H (22.0-30.0) sec Sodium 136 L (137-145) mmol/L Chloride 108 H (98-107) mmol/L Carbon Dioxide 21 L (22-30) mmol/L Total Protein 6.0 L (6.3-8.2) g/dL Albumin 3.3 L (3.5-5.0) g/dL Microbiology - Last 24 Hours (Table) 07/10/21 22:29 Urine Culture - Final Urine,Voided
[2021-07-12] MEDS: CYANOCOBALAMIN 1,000 MCG/ML 1 ML VIAL IM SCH (15:39)
[2021-07-12] MEDS: HEPARIN SOD,PORK IN 0.45% NACL 25,000 UNIT in 0.45% NACL 1 250ML.BAG IV SCH (16:05)
[2021-07-12] MEDS: SODIUM CHLORIDE 0.9% 500 ML 500 ML IV SCH (18:15)
[2021-07-12] MEDS: ATORVASTATIN 20 MG TAB PO SCH (20:38)
[2021-07-12] MEDS ORDERED: LORazepam 2 MG/ML INJ IV STA (20:43)
[2021-07-12] MEDS ORDERED: LORazepam 2 MG/ML INJ IV PRN (20:43)
[2021-07-13] MEDS: SODIUM CHLORIDE 0.9% 500 ML 500 ML IV SCH (06:38)
[2021-07-13 08:07] LABS: INR 1.1 (<1.2); Prothrombin Time 11.9 sec (9.0-12.0)
[2021-07-13 08:19] LABS: ALT 15 U/L (4-49); AST 26 U/L (17-59); African American GFR (CKD) >90 (>60 ml/min/1.73 sqM); Albumin 3.2 g/dL (3.5-5.0); Alkaline Phosphatase 57 U/L (38-126); Anion Gap 6 mmol/L; Blood Urea Nitrogen 15 mg/dL (9-20); Calcium 8.8 mg/dL (8.4-10.2); Carbon Dioxide 23 mmol/L (22-30); Chloride 107 mmol/L (98-107); Glucose 94 mg/dL (74-99); Non-African American GFR(CKD) 78 (>60 ml/min/1.73 sqM); Potassium 4.1 mmol/L (3.5-5.1); Sodium 136 mmol/L (137-145); Total Bilirubin 0.7 mg/dL (0.2-1.3); Total Protein 5.8 g/dL (6.3-8.2)
[2021-07-13 08:39] LABS: Basophils % (A) 0 %; Eosinophils # (A) 0.2 k/uL (0-0.7); Eosinophils % (A) 3 %; HCT 46.2 % (39.0-53.0); HGB 15.7 gm/dL (13.0-17.5); Lymphocytes # (A) 1.4 k/uL (1.0-4.8); Lymphocytes % (A) 21 %; MCH 32.9 pg (25.0-35.0); MCV 96.8 fL (80.0-100.0); Mean Platelet Volume 7.1; Monocytes # (A) 0.6 k/uL (0-1.0); Monocytes % (A) 9 %; Neutrophils # (A) 4.2 k/uL (1.3-7.7); Neutrophils % (A) 64 %; Platelet Count 195 k/uL (150-450); RBC 4.77 m/uL (4.30-5.90); RDW 13.5 % (11.5-15.5); WBC 6.6 k/uL (3.8-10.6)
[2021-07-13] MEDS: CYANOCOBALAMIN 1,000 MCG/ML 1 ML VIAL IM SCH (09:18)
[2021-07-13] MEDS: ASPIRIN 325 MG TAB PO SCH (09:18)
--- NOTE | 2021-07-13 11:37 | P.PN ---
Subjective NO acute overnight event, urine is light red, no clots, denies any abdominal pain Objective - Vital Signs Vital signs: Vital Signs Temp 97.7 F 07/13/21 08:00 Pulse 77 07/13/21 08:00 Resp 17 07/13/21 08:00 BP 125/77 07/13/21 08:00 Pulse Ox 96 07/13/21 08:00 Intake & Output 07/12/21 07/13/21 07/13/21 18:59 06:59 18:59 Intake Total 406.66 324.044 240 Output Total 850 625 500 Balance -443.34 -300.956 -260 Weight 77 kg Intake: Intake, IV Titration 188.66 284.044 Amount Heparin Sod,Pork in 0.45% 188.66 164.044 NaCl 25,000 unit In 0.45 % NaCl 1 250ml.bag @ 12 UNITS/KG/HR 8.818 mls/hr IV .Q24H [facility] Rx#: [id number] Sodium Chloride 0.9% 500 120 ml 500 ml @ 20 mls/hr IV .Q24H [facility] Rx#:[id number] Oral 218 40 240 Output: Urine 850 625 500 Other: Voiding Method Indwelling Catheter Indwelling Catheter Indwelling Catheter - Constitutional General appearance: Present: no acute distress - Gastrointestinal General gastrointestinal: Present: soft. Absent: distended - Genitourinary Genitourinary Comment(s): sesay draining light red urine - Psychiatric Psychiatric: Present: A&O x's 3 - Labs CBC & Chem 7: 07/13/21 07:28 07/13/21 07:28 Labs: Abnormal Lab Results - Last 24 Hours (Table) 07/13/21 07/13/21 Range/Units 07:28 07:28 APTT 45.0 H (22.0-30.0) sec Sodium 136 L (137-145) mmol/L Total Protein 5.8 L (6.3-8.2) g/dL Albumin 3.2 L (3.5-5.0) g/dL Microbiology - Last 24 Hours (Table) 07/10/21 22:29 Urine Culture - Final Urine,Voided Assessment and Plan Assessment: 89 yo male S/P TURBT for HG T1 bladder cancer on 07/[address] Alcantar. Admitted to the hospital with TIA, he subsquently developed a stroke. CTA and MRI of the brain showed left frontal lobe stroke, ECHO showed thrombus. hx of A fib on Coumadin, Coumadin on hold post surgery. Currently on a heparin drip, urine is light red, hgb stab;e -Okay to continue anticogulation from urology standpoint -Keep sesay in place -irrigate sesay PRN
--- NOTE | 2021-07-13 11:41 | CT ---
EXAMINATION TYPE: CT brain wo con DATE OF EXAM: 07/13/2021 HISTORY: follow up CVA. on heparin, rule out bleed CT DLP: 1099.4 mGycm. Automated Exposure Control for Dose Reduction was Utilized. TECHNIQUE: CT scan of the head is performed without contrast. COMPARISON: CT and MRI brain 2 days ago and older studies. FINDINGS: There is no acute intracranial hemorrhage or midline shift identified. There is backgroun d mild to moderate diffuse ventricular and sulcal prominence consistent with diffuse age-related cere bral atrophy redemonstrated. There is moderate to severe low-attenuation in the periventricular whit e matter consistent with chronic small vessel ischemic change redemonstrated. Evolving acute/subacut e infarct left frontal lobe anterior watershed region again seen axial images 13 through 31. The glob es are intact and the visualized sinuses are clear. IMPRESSION: No new acute intracranial hemorrhage or midline shift. There is mild to moderate diffus e age-related cerebral atrophy and moderate to severe chronic small vessel ischemic change along with evolving acute infarct left frontal lobe anterior watershed region all redemonstrated.
--- NOTE | 2021-07-13 13:13 | P.PN ---
Subjective Progress Note Date: 07/13/21 Principal diagnosis: TIA/CVA Cardiac thrombus hematuria 89-year-old male with significant past medical history of atrial fibrillation on anticoagulation therapy, hypertension, hyperlipidemia, newly diagnosed with bladder CA, prostate disorder, gout, coronary artery disease with heart catheterizations in the past, orthopedic surgeries and several comorbidities is admitted to the hospital for transient ischemic attack rule out cerebrovascular accident. Patient had extensive diagnostic workup in emergency department for TIA/CVA; CT of the head without contrast initially showed degenerative and nonspecific white matter changes mostly typical remote ischemia change; dictation from radiologist no acute hemorrhage correlate with MRI saturation for acute ischemic as clinically warranted. Review of emergency room notes patient presented to the emergency department with right-sided weakness, with difficulty moving right leg, and possible ataxia right-sided. Upon review of emergency physician notes NIH was 0 patient was moving all extremities. Apparently at 1740, patient's clinical symptoms of a TIA/CVA progressed with NIH of 3, CT of the brain without contrast was ordered, dictation from radiologist no acute intercranial abnormalities. Review of diagnostic labs, CBC unremarkable, INR subtherapeutic at 1.1, CMP unremarkable other than a mildly elevated glucose of 118. Troponin negative. Urinalysis consistent with past urinalysis of hematuria, and bladder CA. Covid test negative 07/11/2021 Patient seen and examined at bedside. Patient resting comfortably in bed in no acute signs of distress. Difficulty obtaining subjective data, patient pleasantly confused only the able to answer questions to person and follows simple commands. Patient's normal neurological baseline is alert and oriented 4 with no difficulty following commands, no ataxia noted or weakness noted. See above for diagnostic review of imaging and diagnostic labs. 07/12/2021 Patient seen and examined at bedside. Contacted by retirement staff last night, patient became agitated and combative, ordered medication for anxiety and agitation. Daughter was notified and was encouraged to return to hospital to assist with anxiety. This morning, the patient is resting in bed, oriented to self, pleasantly confused. Unable to collect subjective data due to patient's confusion. 07/13/2021 Patient seen and examined at bedside. Heparin drip was paused due to increased hematuria overnight. Patient is anxious and confused. Daughter is at bedside, reviewed plan of care with her. Unable to collect subjective data due to patient's confusion and agitation. Objective - Vital Signs Vital signs: Vital Signs Temp 97.7 F 07/13/21 08:00 Pulse 77 07/13/21 08:00 Resp 17 07/13/21 08:00 BP 125/77 07/13/21 08:00 Pulse Ox 96 07/13/21 08:00 Intake & Output 07/12/21 07/13/21 07/13/21 18:59 06:59 18:59 Intake Total 406.66 324.044 240 Output Total 850 625 500 Balance -443.34 -300.956 -260 Weight 77 kg Intake: Intake, IV Titration 188.66 284.044 Amount Heparin Sod,Pork in 0.45% 188.66 164.044 NaCl 25,000 unit In 0.45 % NaCl 1 250ml.bag @ 12 UNITS/KG/HR 8.818 mls/hr IV .Q24H [facility] Rx#: [id number] Sodium Chloride 0.9% 500 120 ml 500 ml @ 20 mls/hr IV .Q24H [facility] Rx#:[id number] Oral 218 40 240 Output: Urine 850 625 500 Other: Voiding Method Indwelling Catheter Indwelling Catheter Indwelling Catheter - Constitutional General appearance: Present: disheveled - EENT Eyes: Present: PERRLA Ears: bilateral: normal - Neck Neck: Present: normal ROM - Respiratory Respiratory: bilateral: diminished - Cardiovascular Heart rate: 84 Rhythm: irregularly irregular Heart sounds: normal: S1, S2 Abnormal Heart Sounds: Present: systolic murmur - Peripheral pulses dorsalis pedis Peripheral Pulses: bilateral: Normal radial pulse Peripheral Pulses: bilateral: Normal - Gastrointestinal General gastrointestinal: Present: normal bowel sounds, soft - Genitourinary Genitourinary Comment(s): Hematuria - Integumentary Integumentary: Present: normal - Neurologic Neurologic Comment(s): Right sided weakness Right sided facial droop slurred speech Neurologic: Present: focal deficits - Musculoskeletal Musculoskeletal: Present: right sided weakness - Psychiatric Psychiatric Comment(s): Alert and oriented to person - Labs CBC & Chem 7: 07/13/21 07:28 07/13/21 07:28 Labs: Abnormal Lab Results - Last 24 Hours (Table) 07/13/21 07/13/21 Range/Units 07:28 07:28 APTT 45.0 H (22.0-30.0) sec Sodium 136 L (137-145) mmol/L Total Protein 5.8 L (6.3-8.2) g/dL Albumin 3.2 L (3.5-5.0) g/dL Microbiology - Last 24 Hours (Table) 07/10/21 22:29 Urine Culture - Final Urine,Voided - Imaging and Cardiology CT Scan - head: report reviewed Assessment and Plan Assessment: TIA/CVA Paroxysmal atrial fibrillation on anticoagulation therapy cardiac thrombus Bladder CA with hematuria Hyperlipidemia Hypertension Gout Coronary artery disease with heart catheterizations in the past Orthopedic surgeries Former nicotine dependence DO NOT RESUSCITATE (1) CVA (cerebral vascular accident) Current Visit: Yes Status: Acute Priority: High Code(s): I63.9 - CEREBRAL INFARCTION, UNSPECIFIED SNOMED Code(s): 597795648 Plan: CVA, acute left frontal lobe and anterior watershed region on MRI, continue neurological assessments every hour, no change to brain CT cardiac thrombus, continue heparin therapy, okayed by consults Afib, controlled rate, heparin therapy, monitor platelet count Recent bladder tumor resection Subtherapeutic INR, started on heparin therapy Continue to monitor vital signs and diagnostic testing Continue nothing by mouth until cleared by speech therapy and neurology Continue medical management Further recommendations to come based on patient's clinical condition Time with Patient: Greater than 30
--- NOTE | 2021-07-13 13:29 | P.PN ---
Subjective Progress Note Date: 07/13/21 Patient was seen for a follow-up. Family members were not present. Patient is laying comfortably in the bed. Denies headache. Patient states that the physical therapist took him for a walk. Objective - Vital Signs Vital signs: Vital Signs Temp 97.7 F 07/13/21 08:00 Pulse 77 07/13/21 08:00 Resp 17 07/13/21 08:00 BP 125/77 07/13/21 08:00 Pulse Ox 96 07/13/21 08:00 Intake & Output 07/12/21 07/13/21 07/13/21 18:59 06:59 18:59 Intake Total 406.66 324.044 240 Output Total 850 625 500 Balance -443.34 -300.956 -260 Weight 77 kg Intake: Intake, IV Titration 188.66 284.044 Amount Heparin Sod,Pork in 0.45% 188.66 164.044 NaCl 25,000 unit In 0.45 % NaCl 1 250ml.bag @ 12 UNITS/KG/HR 8.818 mls/hr IV .Q24H [facility] Rx#: [id number] Sodium Chloride 0.9% 500 120 ml 500 ml @ 20 mls/hr IV .Q24H [facility] Rx#:[id number] Oral 218 40 240 Output: Urine 850 625 500 Other: Voiding Method Indwelling Catheter Indwelling Catheter Indwelling Catheter - Exam Patient's mental status appears normal. Still with slightly slow mentation. Speech and language functions appears better. Patient was able to name objects like eyeglasses, fingers and pen, but was not able to name knuckles, or the earlobe. When I asked about his name, states "pen", started perseverating from the last question asked. When I asked him if his name was to ask, patient said yes and was able to tell his last name by himself. Patient then would tell his first name as his last name. Patient can repeat. On cranial examination pupils are round and reacting, visual skinner are full with no neglect. Extraocular muscles are intact. Face is symmetric and tongue protrudes the midline. On muscle strength testing there is no pronator drift and the strength is normal in arms and legs. No ataxia. Sensory touch is equal in the legs with no neglect. - Labs CBC & Chem 7: 07/13/21 07:28 07/13/21 07:28 Labs: Abnormal Lab Results - Last 24 Hours (Table) 07/13/21 07/13/21 Range/Units 07:28 07:28 APTT 45.0 H (22.0-30.0) sec Sodium 136 L (137-145) mmol/L Total Protein 5.8 L (6.3-8.2) g/dL Albumin 3.2 L (3.5-5.0) g/dL Microbiology - Last 24 Hours (Table) 07/10/21 22:29 Urine Culture - Final Urine,Voided Assessment and Plan Assessment: * 89-year-old male presented with TIA, subsequently had an acute CVA involving left frontal region, likely embolic from cardiac source. Patient's examination is stable as compared to yesterday. CVA is likely embolic from previous history of atrial fibrillation. Patient has been on Coumadin, which has been held since 07/01/2021 for his bladder tumor scrape surgery that was performed on 07/06/2021. * Paroxysmal Atrial fibrillation on long-term anticoagulation with Coumadin. * Hypertension * Hyperlipidemia * History of bladder cancer. * Vitamin B12 deficiency. * Hematuria. Plan: * Patient underwent repeat computed tomography scan of the head to rule out any intracranial bleed. It shows no acute intracranial hemorrhage. Mild to moderate diffuse age-related cerebral atrophy and moderate to severe chronic small vessel ischemic change, along with evolving acute infarct left frontal lobe anterior watershed region, already demonstrated. * Patient is stable clinically, with no new deficits. Examination is stable. Patient denies headache. Continue aspirin. Patient also on heparin, with most recent PTT 45.0. May start Coumadin today. * Hematuria seems to have completely resolved. Urine is clear. * CTA of the head and neck was suboptimal study without significant stenosis in the internal carotid arteries bilaterally. No significant stenosis or aneurysm at the level of [place]. Evolving acute infarct left fron jonathon lobe anterior watershed region. * MRI of the brain confirmed acute infarct left frontal lobe and anterior watershed region correlates with most recent CT. No hemorrhage (Reviewed with Dr Mccoy). * 2-D echo revealed normal left-ventricular size. Mild concentric LVH. Left ventricle systolic function is moderate to severely impaired with an EF between 30-35%. Apical septum LV wall motion is hypokinetic. Possible thrombus in the left ventricular apex. * Lipid panel showed cholesterol 124, LDL 67, HDL 40 and triglycerides 81. Patient at home on lovastatin 20 mg daily. Continue atorvastatin 20 mg daily while in hospital. * Hemoglobin A1c pending * B12 is low 236, we will start on vitamin B12 injections 1000 g IM 3 days. Folic acid normal 12.5. TFTs normal.
--- NOTE | 2021-07-13 14:21 | P.PN ---
Subjective Progress Note Date: 07/13/21 HISTORY OF PRESENT ILLNESS: This is a pleasant 89 -year-old female past medical history significant for mild nonobstructive coronary artery disease, hypertension, dyslipidemia, mitral aortic regurgitation, paroxysmal atrial fibrillation (on coumadin), non-ischemic cardiomyopathy, bladder cancer. Recent bladder tumor resection with Urology on 07/06/21. His coumadin was held for 5 days prior to surgery. He was told to hold his coumadin for additional 5 days after surgery per Urology. He follows in the office with Dr. Barber. We have been asked to see in consultation for abnormal echocardiogram and recurrent strokes. Patient presents to the emergency department on 07/10/21 with acute onset right arm numbness and right sided leg weakness. Per patient's , he was sitting down and suddenly was looking at his right hand stating he couldn't recognize it that "does not feel like it's his". She states his right leg slid forward and he could not move his right leg. She called EMS and patient was brought to the emergency department. Patient at baseline is alert and oriented x 4. He denied any chest pain, shortness of breath, lightheadedness, dizziness. Patient's symptoms in the ER was reported to last for 30 minutes and apparently had completely resolved in the ER. Around at 7:40 PM yesterday, patient started having some speech difficulty, he was not following commands, and had speech difficult. CT angio revealed evolving acute infarct left frontal lobe anterior watershed region. DIAGNOSTICS EKG reveals sinus rhythm, heart rate 72, left bundle branch block Chest xray no acute cardiopulmonary process. Laboratory reviewed, INR 1.1, WBC 7.0, hemoglobin 14, platelets 174, sodium 138, potassium 4.1, BUN 18, serum creatinine 0.7, and magnesium 1.9, triglycerides 81, cholesterol 124, LDL 67, HDL 40 TSH within normal limits. Cardiac catheterization 10/2019 revealed left dominant system, diffusely disease distal 1/4 of LAD, but no focal stenosis either in the LAD, diagonal or in the dominant circumflex. RCA is small and nondominant. Possible myopericarditits type vs Takotsubo Echocardiogram 10/2019- EF 30-35%, apical anterior, apical lateral, apical inferior and apical septal wall motion hypokinesia, moderate aortic valve sclerosis, mild aortic regurgitation, moderate mitral regurgitation and mild to moderate tricuspid regurgitation with mild pulmonary hypertension with an RVSP of 42 mmHg. Current cardiac medications include warfarin 5 mg, enalapril, lisinopril 20 mg twice a day, atenolol 12.5 mg nightly, amlodipine 5 mg daily, lovastatin 20 mg daily 07/12/2021 Patient examined this morning at the bedside. Patients family present. Patient remains confused. He underwent MRI revealed an acute infarct left frontal lobe and anterior watershed region correlating with most recent CT. Blood pressure 128/75. He is on room air with oxygen saturations greater than 92%. 07/13/2021 Patient examined on the cardiac stepdown unit. Patient underwent CT brain today revealing no acute intercranial hemorrhage or midline shift. Patient denies chest pain or pressure. Denies SOB. Remains on IV heparin. PHYSICAL EXAM: VITAL SIGNS: Reviewed. GENERAL: Well-developed in no acute distress. NECK: Supple. No JVD or thyromegaly LUNGS: Respirations even and unlabored. Lungs essentially clear to auscultation bilaterally. HEART: Irregular rate and rhythm. S1 and S2 heard. Systolic murmur noted. EXTREMITIES: Normal range of motion. No clubbing or cyanosis. Peripheral pul ses intact. No lower extremity edema ASSESSMENT: Apical thrombus TIA Acute CVA involving left frontal region Mild nonobstructive coronary artery disease Non-ischemic cardiomyopathy EF 30-35% Hypertension Dyslipidemia Paroxysmal atrial fibrillation on coumadin outpatient Subtherapeutic INR History of bladder cancer Recent bladder tumor resection with Urology on 07/06/21 PLAN: Continue current cardiac medications Continue IV heparin Resume Coumadin today Further recommendations pending patient course Nurse practitioner note has been reviewed by physician. Signing provider agrees with the documented findings, assessment, and plan of care. Objective - Vital Signs Vital signs: Vital Signs Temp 98.2 F 07/13/21 12:00 Pulse 95 07/13/21 12:00 Resp 18 07/13/21 12:00 BP 111/67 07/13/21 12:00 Pulse Ox 96 07/13/21 12:00 Intake & Output 07/12/21 07/13/21 07/13/21 18:59 06:59 18:59 Intake Total 406.66 324.044 240 Output Total 850 625 500 Balance -443.34 -300.956 -260 Weight 77 kg Intake: Intake, IV Titration 188.66 284.044 Amount Heparin Sod,Pork in 0.45% 188.66 164.044 NaCl 25,000 unit In 0.45 % NaCl 1 250ml.bag @ 12 UNITS/KG/HR 8.818 mls/hr IV .Q24H [facility] Rx#: [id number] Sodium Chloride 0.9% 500 120 ml 500 ml @ 20 mls/hr IV .Q24H [facility] Rx#:[id number] Oral 218 40 240 Output: Urine 850 625 500 Other: Voiding Method Indwelling Catheter Indwelling Catheter Indwelling Catheter - Labs CBC & Chem 7: 07/13/21 07:28 07/13/21 07:28 Labs: Abnormal Lab Results - Last 24 Hours (Table) 07/13/21 07/13/21 Range/Units 07:28 07:28 APTT 45.0 H (22.0-30.0) sec Sodium 136 L (137-145) mmol/L Total Protein 5.8 L (6.3-8.2) g/dL Albumin 3.2 L (3.5-5.0) g/dL Microbiology - Last 24 Hours (Table) 07/10/21 22:29 Urine Culture - Final Urine,Voided
[2021-07-13] MEDS ORDERED: WARFARIN 5 MG TAB PO ONE (18:00)
[2021-07-13] MEDS: HEPARIN SOD,PORK IN 0.45% NACL 25,000 UNIT in 0.45% NACL 1 250ML.BAG IV SCH (18:10)
[2021-07-13 18:20] LABS: HCT 43.9 % (39.0-53.0); HGB 14.5 gm/dL (13.0-17.5); MCH 32.3 pg (25.0-35.0); MCV 97.9 fL (80.0-100.0); Mean Platelet Volume 7.2; Platelet Count 174 k/uL (150-450); RBC 4.49 m/uL (4.30-5.90); RDW 12.8 % (11.5-15.5); WBC 6.8 k/uL (3.8-10.6)
[2021-07-13] MEDS: ATORVASTATIN 20 MG TAB PO SCH (21:24)
[2021-07-14 08:03] LABS: Basophils % (A) 1 %; Eosinophils # (A) 0.3 k/uL (0-0.7); Eosinophils % (A) 4 %; HCT 44.4 % (39.0-53.0); HGB 14.7 gm/dL (13.0-17.5); Lymphocytes # (A) 1.5 k/uL (1.0-4.8); Lymphocytes % (A) 23 %; MCH 32.7 pg (25.0-35.0); MCHC 33.2 g/dL (31.0-37.0); MCV 98.7 fL (80.0-100.0); Mean Platelet Volume 6.9; Monocytes # (A) 0.5 k/uL (0-1.0); Monocytes % (A) 8 %; Neutrophils % (A) 62 %; Platelet Count 185 k/uL (150-450); RDW 12.9 % (11.5-15.5); WBC 6.4 k/uL (3.8-10.6)
[2021-07-14 08:15] LABS: INR 1.2 (<1.2); Prothrombin Time 12.1 sec (9.0-12.0)
[2021-07-14 09:11] LABS: Albumin 3.1 g/dL (3.5-5.0); Calcium 8.8 mg/dL (8.4-10.2); Potassium 4.1 mmol/L (3.5-5.1); Total Bilirubin 0.5 mg/dL (0.2-1.3); Total Protein 5.9 g/dL (6.3-8.2)
[2021-07-14] MEDS: CYANOCOBALAMIN 1,000 MCG/ML 1 ML VIAL IM SCH (09:25)
[2021-07-14] MEDS: ASPIRIN 325 MG TAB PO SCH (09:25)
[2021-07-14] MEDS: SODIUM CHLORIDE 0.9% 500 ML 500 ML IV SCH (09:26)
--- NOTE | 2021-07-14 13:39 | P.PN ---
Subjective Progress Note Date: 07/14/21 HISTORY OF PRESENT ILLNESS: This is a pleasant 89 -year-old female past medical history significant for mild nonobstructive coronary artery disease, hypertension, dyslipidemia, mitral aortic regurgitation, paroxysmal atrial fibrillation (on coumadin), non-ischemic cardiomyopathy, bladder cancer. Recent bladder tumor resection with Urology on 07/06/21. His coumadin was held for 5 days prior to surgery. He was told to hold his coumadin for additional 5 days after surgery per Urology. He follows in the office with Dr. Barber. We have been asked to see in consultation for abnormal echocardiogram and recurrent strokes. Patient presents to the emergency department on 07/10/21 with acute onset right arm numbness and right sided leg weakness. Per patient's , he was sitting down and suddenly was looking at his right hand stating he couldn't recognize it that "does not feel like it's his". She states his right leg slid forward and he could not move his right leg. She called EMS and patient was brought to the emergency department. Patient at baseline is alert and oriented x 4. He denied any chest pain, shortness of breath, lightheadedness, dizziness. Patient's symptoms in the ER was reported to last for 30 minutes and apparently had completely resolved in the ER. Around at 7:40 PM yesterday, patient started having some speech difficulty, he was not following commands, and had speech difficult. CT angio revealed evolving acute infarct left frontal lobe anterior watershed region. DIAGNOSTICS EKG reveals sinus rhythm, heart rate 72, left bundle branch block Chest xray no acute cardiopulmonary process. Laboratory reviewed, INR 1.1, WBC 7.0, hemoglobin 14, platelets 174, sodium 138, potassium 4.1, BUN 18, serum creatinine 0.7, and magnesium 1.9, triglycerides 81, cholesterol 124, LDL 67, HDL 40 TSH within normal limits. Cardiac catheterization 10/2019 revealed left dominant system, diffusely disease distal 1/4 of LAD, but no focal stenosis either in the LAD, diagonal or in the dominant circumflex. RCA is small and nondominant. Possible myopericarditits type vs Takotsubo Echocardiogram 10/2019- EF 30-35%, apical anterior, apical lateral, apical inferior and apical septal wall motion hypokinesia, moderate aortic valve sclerosis, mild aortic regurgitation, moderate mitral regurgitation and mild to moderate tricuspid regurgitation with mild pulmonary hypertension with an RVSP of 42 mmHg. Current cardiac medications include warfarin 5 mg, enalapril, lisinopril 20 mg twice a day, atenolol 12.5 mg nightly, amlodipine 5 mg daily, lovastatin 20 mg daily 07/12/2021 Patient examined this morning at the bedside. Patients family present. Patient remains confused. He underwent MRI revealed an acute infarct left frontal lobe and anterior watershed region correlating with most recent CT. Blood pressure 128/75. He is on room air with oxygen saturations greater than 92%. 07/13/2021 Patient examined on the cardiac stepdown unit. Patient underwent CT brain today revealing no acute intercranial hemorrhage or midline shift. Patient denies chest pain or pressure. Denies SOB. Remains on IV heparin. 07/14/2021 Patient examined on the cardiac stepdown unit. No complaints of chest pain or pressure. No shortness of breath. Patient remains on IV heparin. His Coumadin was resumed yesterday. INR today 1.2. PHYSICAL EXAM: VITAL SIGNS: Reviewed. GENERAL: Well-developed in no acute distress. NECK: Supple. No JVD or thyromegaly LUNGS: Respirations even and unlabored. Lungs essentially clear to auscultation bilaterally. HEART: Irregular rate and rhythm. S1 and S2 heard. Systolic murmur noted. EXTREMITIES: Normal range of motion. No clubbing or cyanosis. Peripheral pulses intact. No lower extremity edema ASSESSMENT: Apical thrombus TIA Acute CVA involving left frontal region Mild nonobstructive coronary artery disease Non-ischemic cardiomyopathy EF 30-35% Hypertension Dyslipidemia Paroxysmal atrial fibrillation on coumadin outpatient Subtherapeutic INR History of bladder cancer Recent bladder tumor resection with Urology on 07/06/21 PLAN: Continue current cardiac medications Continue Coumadin Continue IV heparin until INR is therapeutic We will sign off. Please reconsult if needed. Nurse practitioner note has been reviewed by physician. Signing provider agrees with the documented findings, assessment, and plan of care. Objective - Vital Signs Vital signs: Vital Signs Temp 97.2 F L 07/14/21 12:10 Pulse 62 07/14/21 12:10 Resp 16 07/14/21 12:10 BP 138/66 07/14/21 12:10 Pulse Ox 94 L 07/14/21 12:10 Intake & Output 07/13/21 07/14/2121 18:59 06:59 18:59 Intake Total 467.969 120 Output Total 500 Balance -32.031 120 Weight 76 kg Intake: Intake, IV Titration 227.969 Amount Heparin Sod,Pork in 0.45% 67.969 NaCl 25,000 unit In 0.45 % NaCl 1 250ml.bag @ 12 UNITS/KG/HR 8.818 mls/hr IV .Q24H [facility] Rx#: [id number] Sodium Chloride 0.9% 500 160 ml 500 ml @ 20 mls/hr IV .Q24H [facility] Rx#:[id number] Oral 240 120 Output: Urine 500 Other: Voiding Method Indwelling Catheter Indwelling Catheter Indwelling Catheter # Bowel Movements 0 - Labs CBC & Chem 7: 07/14/21 07:09 07/14/21 07:09 Labs: Abnormal Lab Results - Last 24 Hours (Table) 07/13/21 07/14/21 07/14/21 Range/Units 18:09 07:09 07:09 PT 12.1 H (9.0-12.0) sec INR 1.2 H (<1.2) APTT 44.5 H (22.0-30.0) sec Chloride 109 H (98-107) mmol/L Total Protein 5.9 L (6.3-8.2) g/dL Albumin 3.1 L (3.5-5.0) g/dL
--- NOTE | 2021-07-14 15:00 | P.PN ---
Subjective NO acute overnight event, urine is hematuric , no clots, denies any abdominal pain, hemoglobin stable Objective - Vital Signs Vital signs: Vital Signs Temp 97.2 F L 07/14/21 12:10 Pulse 62 07/14/21 12:10 Resp 16 07/14/21 12:10 BP 138/66 07/14/21 12:10 Pulse Ox 94 L 07/14/21 12:10 Intake & Output 07/13/21 07/14/21 07/14/21 18:59 06:59 18:59 Intake Total 467.969 240 Output Total 500 Balance -32.031 240 Weight 76 kg Intake: Intake, IV Titration 227.969 Amount Heparin Sod,Pork in 0.45% 67.969 NaCl 25,000 unit In 0.45 % NaCl 1 250ml.bag @ 12 UNITS/KG/HR 8.818 mls/hr IV .Q24H [facility] Rx#: [id number] Sodium Chloride 0.9% 500 160 ml 500 ml @ 20 mls/hr IV .Q24H [facility] Rx#:[id number] Oral 240 240 Output: Urine 500 Other: Voiding Method Indwelling Catheter Indwelling Catheter Indwelling Catheter # Bowel Movements 0 - Constitutional General appearance: Present: no acute distress - Gastrointestinal General gastrointestinal: Present: soft. Absent: distended, tenderness - Genitourinary Genitourinary Comment(s): Sesay with hematuric urine, no clots - Labs CBC & Chem 7: 07/14/21 07:09 07/14/21 07:09 Labs: Abnormal Lab Results - Last 24 Hours (Table) 07/13/21 07/14/21 07/14/21 Range/Units 18:09 07:09 07:09 PT 12.1 H (9.0-12.0) sec INR 1.2 H (<1.2) APTT 44.5 H (22.0-30.0) sec Chloride 109 H (98-107) mmol/L Total Protein 5.9 L (6.3-8.2) g/dL Albumin 3.1 L (3.5-5.0) g/dL Assessment and Plan Assessment: 89 yo male S/P TURBT for HG T1 bladder cancer on 07/[address] Alcantar. Admitted to the hospital with TIA, he subsquently developed a stroke. CTA and MRI of the brain showed left frontal lobe stroke, ECHO showed thrombus. hx of A fib on Coumadin, Coumadin on hold post surgery. Currently on a heparin drip, urine is hematuric, no clots. Hgb stable -Okay to continue anticogulation from urology standpoint -Keep sesay in place -irrigate sesay q 4 PRN
[2021-07-14] MEDS: HEPARIN SOD,PORK IN 0.45% NACL 25,000 UNIT in 0.45% NACL 1 250ML.BAG IV SCH (15:54)
--- NOTE | 2021-07-14 15:55 | P.PN ---
Subjective Progress Note Date: 07/14/21 89-year-old male with significant past medical history of atrial fibrillation on anticoagulation therapy, hypertension, hyperlipidemia, newly diagnosed with bladder CA, prostate disorder, gout, coronary artery disease with heart catheterizations in the past, orthopedic surgeries and several comorbidities is admitted to the hospital for transient ischemic attack rule out cerebrovascular accident. Patient had extensive diagnostic workup in emergency department for TIA/CVA; CT of the head without contrast initially showed degenerative and nonspecific white matter changes mostly typical remote ischemia change; dictation from radiologist no acute hemorrhage correlate with MRI saturation for acute ischemic as clinically warranted. Review of emergency room notes patient presented to the emergency department with right-sided weakness, with difficulty moving right leg, and possible ataxia right-sided. Upon review of emergency physician notes NIH was 0 patient was moving all extremities. Apparently at 1740, patient's clinical symptoms of a TIA/CVA progressed with NIH of 3, CT of the brain without contrast was ordered, dictation from radiologist no acute intercranial abnormalities. Review of diagnostic labs, CBC unremarkable, INR subtherapeutic at 1.1, CMP unremarkable other than a mildly elevated glucose of 118. Troponin negative. Urinalysis consistent with past urinalysis of hematuria, and bladder CA. Covid test negative 07/11/2021 Patient seen and examined at bedside. Patient resting comfortably in bed in no acute signs of distress. Difficulty obtaining subjective data, patient pleasantly confused only the able to answer questions to person and follows simple commands. Patient's normal neurological baseline is alert and oriented 4 with no difficulty following commands, no ataxia noted or weakness noted. See above for diagnostic review of imaging and diagnostic labs. 07/12/2021 Patient seen and examined at bedside. Contacted by care home staff last night, patient became agitated and combative, ordered medication for anxiety and agitation. Daughter was notified and was encouraged to return to hospital to assist with anxiety. This morning, the patient is resting in bed, oriented to self, pleasantly confused. Unable to collect subjective data due to patient's confusion. 07/13/2021 Patient seen and examined at bedside. Heparin drip was paused due to increased hematuria overnight. Patient is anxious and confused. Daughter is at bedside, reviewed plan of care with her. Unable to collect subjective data due to patient's confusion and agitation. 07/14/21 Patient still has an indwelling catheter with gross hematuria present. Patient has a history of recently diagnosed bladder cancer with a resection 1 week ago. Keep Lazaro in place per urology and irrigate every 4 hours. He is on IV heparin bridge, Coumadin was resumed his INR today was 1.2, repeat tomorrow. Labs are otherwise unremarkable. Patient is alert and oriented times one at the time examination. He does not know where he is, and he was agitated. He does note that he had a stroke. Case management there was some concern that patient may be a daily drinker or have a history of chronic alcohol abuse. Apparently staff at [facility] knows patient well as his used to reside there. We will monitor for any signs of acute ETOH withdrawal and give seroquel at bedtime. A repeat b rain CT without contrast was ordered on July 13 which showed [id number] diffuse age-related cerebral atrophy and moderate to severe chronic small vessel ischemic change along with an evolving acute infarct left frontal lobe anterior watershed region. There is no acute bleed. Cardiology has cleared patient. Afebrile, heart rate 62, blood pressure 138/66 and 94% room air. ROS Constitutional: Denied any fatigue denied any fever. Cardio vascular: denied any chest pain, palpitations Gastrointestinal denied any nausea vomiting Pulmonary: Denied any shortness of breath cough Neurologic denied any new focal deficits All inpatient medications were reviewed and appropriate changes in these medications as dictated in the interval history and assessment and plan. Objective - Vital Signs Vital signs: Vital Signs Temp 97.2 F L 07/14/21 12:10 Pulse 62 07/14/21 12:10 Resp 16 07/14/21 12:10 BP 138/66 07/14/21 12:10 Pulse Ox 94 L 07/14/21 12:10 Intake & Output 07/13/21 07/14/21 07/14/21 18:59 06:59 18:59 Intake Total 467.969 120 Output Total 500 Balance -32.031 120 Weight 76 kg Intake: Intake, IV Titration 227.969 Amount Heparin Sod,Pork in 0.45% 67.969 NaCl 25,000 unit In 0.45 % NaCl 1 250ml.bag @ 12 UNITS/KG/HR 8.818 mls/hr IV .Q24H [facility] Rx#: [id number] Sodium Chloride 0.9% 500 160 ml 500 ml @ 20 mls/hr IV .Q24H [facility] Rx#:[id number] Oral 240 120 Output: Urine 500 Other: Voiding Method Indwelling Catheter Indwelling Catheter Indwelling Catheter # Bowel Movements 0 - Exam PHYSICAL EXAMINATION: GENERAL: The patient is alert and oriented x1, not in any acute distress. Well developed, well nourished. HEENT: Pupils are round and equally reacting to light. EOMI. No scleral icterus. No conjunctival pallor. Normocephalic, atraumatic. No pharyngeal erythema. No thyromegaly. CARDIOVASCULAR: S1 and S2 present. No murmurs, rubs, or gallops. PULMONARY: Chest is clear to auscultation, no wheezing or crackles. ABDOMEN: Soft, nontender, nondistended, normoactive bowel sounds. No palpable organomegaly. There is gross hematuria with an indwelling catheter. MUSCULOSKELETAL: No joint swelling or deformity. EXTREMITIES: No cyanosis, clubbing, or pedal edema. NEUROLOGICAL: Gross neurological examination did not reveal any focal deficits. SKIN: No rashes. - Labs CBC & Chem 7: 07/14/21 07:09 07/14/21 07:09 Labs: Abnormal Lab Results - Last 24 Hours (Table) 07/13/21 07/14/21 07/14/21 Range/Units 18:09 07:09 07:09 PT 12.1 H (9.0-12.0) sec INR 1.2 H (<1.2) APTT 44.5 H (22.0-30.0) sec Chloride 109 H (98-107) mmol/L Total Protein 5.9 L (6.3-8.2) g/dL Albumin 3.1 L (3.5-5.0) g/dL Assessment and Plan Assessment: TIA/CVA Paroxysmal atrial fibrillation on anticoagulation therapy, INR 1.2 cardiac thrombus Bladder CA with hematuria Hyperlipidemia Hypertension Gout Coronary artery disease with heart catheterizations in the past Orthopedic surgeries Former nicotine dependence DO NOT RESUSCITATE Plan: CVA, acute left frontal lobe and anterior watershed region on MRI, continue neurological assessments per protocol cardiac thrombus, continue heparin therapy, okayed by consults Afib, controlled rate, heparin therapy, monitor platelet count Recent bladder tumor resection Subtherapeutic INR, started on heparin therapy Continue to monitor vital signs and diagnostic testing Diet advanced Continue medical management Seroquel at [facility] protcol Continue with IV heparin bridge, INR 1.[facility] medically [facility] Time with Patient: Greater than 30
[2021-07-14] MEDS ORDERED: WARFARIN 5 MG TAB PO ONE (18:00)
--- NOTE | 2021-07-14 19:09 | P.PN ---
Subjective Progress Note Date: 07/14/21 Patient was seen for a follow-up. Patient's daughter and granddaughters were present. Patient is laying comfortably in the bed. Denies headache. Objective - Vital Signs Vital signs: Vital Signs Temp 97.6 F 07/14/21 16:07 Pulse 70 07/14/21 16:07 Resp 17 07/14/21 16:07 BP 146/69 07/14/21 16:07 Pulse Ox 96 07/14/21 16:07 Intake & Output 07/14/21 07/14/21 07/15/21 06:59 18:59 06:59 Intake Total 520 Output Total 700 Balance -180 Weight 76 kg Intake: Intake, IV Titration 160 Amount Sodium Chloride 0.9% 500 160 ml 500 ml @ 20 mls/hr IV .Q24H [facility] Rx#:[id number] Oral 360 Output: Urine 700 Other: Voiding Method Indwelling Catheter Indwelling Catheter # Bowel Movements 0 - Exam Patient's mental status appears normal. Speech and language functions appears much better. Patient able to tell me his first and last name. Also able to name knuckles, ear, but not below. When asked about his daughter's name, he states his last name Low and perseverates. Patient's daughter name is Jane. Patient can repeat. On cranial examination pupils are round and reacting, visual skinner are full with no neglect. Extraocular muscles are intact. Face is symmetric and tongue protrudes the midline. On muscle strength testing there is no pronator drift and the strength is normal in arms and legs. No ataxia. Sensory touch is equal in the legs with no neglect. - Labs CBC & Chem 7: 07/14/21 07:09 07/14/21 07:09 Labs: Abnormal Lab Results - Last 24 Hours (Table) 07/14/21 07/14/21 07/14/21 Range/Units 07:09 07:09 14:45 PT 12.1 H (9.0-12.0) sec INR 1.2 H (<1.2) APTT 54.9 H (22.0-30.0) sec Chloride 109 H (98-107) mmol/L Total Protein 5.9 L (6.3-8.2) g/dL Albumin 3.1 L (3.5-5.0) g/dL Assessment and Plan Assessment: * 89-year-old male presented with TIA, subsequently had an acute CVA involving left frontal region, likely embolic from cardiac source. Patient's examination is stable as compared to yesterday. CVA is likely embolic from previous history of atrial fibrillation. Patient has been on Coumadin, which has been held since 07/01/2021 for his bladder tumor scrape surgery that was performed on 07/06/2021. * Paroxysmal Atrial fibrillation on long-term anticoagulation with Coumadin. * Hypertension * Hyperlipidemia * History of bladder cancer. * Vitamin B12 deficiency. * Hematuria. Plan: * Repeat computed tomography scan of the head 07/13/2021 shows no acute intracranial hemorrhage. Mild to moderate diffuse age-related cerebral atrophy and moderate to severe chronic small vessel ischemic change, along with evolving acute infarct left frontal lobe anterior watershed region, already demonstrated. * Patient is stable clinically, with no new deficits. Examination is stable. Patient denies headache. Continue aspirin. Patient also on heparin, with most recent PTT 54.9. Patient started on Coumadin from yesterday. INR today is 1.2. Target INR 2-3. * Hematuria seems to have completely resolved. Urine is clear. * CTA of the head and neck was suboptimal study without significant stenosis in the internal carotid arteries bilaterally. No significant stenosis or aneurysm at the level of [place] of [place]. 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 * MRI of the brain confirmed acute infarct left frontal lobe and anterior watershed region correlates with most recent CT. No hemorrhage (Reviewed with Dr Mccoy). * 2-D echo revealed normal left-ventricular size. Mild concentric LVH. Left ventricle systolic function is moderate to severely impaired with an EF between 30-35%. Apical septum LV wall motion is hypokinetic. Possible thrombus in the left ventricular apex. * Lipid panel showed cholesterol 124, LDL 67, HDL 40 and triglycerides 81. Patient at home on lovastatin 20 mg daily. Continue atorvastatin 20 mg daily while in hospital. * Hemoglobin A1c 5.5 * B12 is low 236, we will start on vitamin B12 injections 1000 g IM 3 days. Thereafter may start vitamin B12 1000 g orally daily. Folic acid normal 12.5. TFTs normal. * Dr. Oreilly will be covering neurology service in the morning. Please call neurology if any concerns.
[2021-07-14] MEDS: ATORVASTATIN 20 MG TAB PO SCH (20:12)
[2021-07-14] MEDS: QUEtiapine 25 MG TAB PO PRN (20:12)
[2021-07-15] MEDS: CYANOCOBALAMIN 1,000 MCG/ML 1 ML VIAL IM SCH (09:54)
[2021-07-15] MEDS: ASPIRIN 325 MG TAB PO SCH (09:54)
[2021-07-15 10:56] LABS: INR 1.2 (<1.2); Partial Thromboplastin Time 49.7 sec (22.0-30.0); Prothrombin Time 12.2 sec (9.0-12.0)
[2021-07-15] MEDS: HEPARIN SOD,PORK IN 0.45% NACL 25,000 UNIT in 0.45% NACL 1 250ML.BAG IV SCH (17:38)
[2021-07-15] MEDS ORDERED: WARFARIN 3 MG TAB PO ONE (18:00)
--- NOTE | 2021-07-15 19:39 | P.PN ---
Subjective Progress Note Date: 07/15/21 The patient is an 89-year-old male who is seen in neurologic follow-up on July 15, 2021, via telemedicine. The patient reports that he is feeling better today. He denies headache. The patient's daughter is at the bedside. She also believes he is doing better. Chart is reviewed Objective - Vital Signs Vital signs: Vital Signs Temp 97.2 F L 07/15/21 09:54 Pulse 110 H 07/15/21 09:54 Resp 18 07/15/21 09:54 BP 108/76 07/15/21 09:54 Pulse Ox 94 L 07/15/21 09:54 Intake & Output 07/14/21 07/15/21 07/15/21 18:59 06:59 18:59 Intake Total 520 200 0 Output Total 700 800 725 Balance -180 -600 -725 Weight 71 kg Intake: Intake, IV Titration 160 80 Amount Sodium Chloride 0.9% 500 160 80 ml 500 ml @ 20 mls/hr IV .Q24H [facility] Rx#:[id number] Oral 360 120 0 Output: Urine 700 800 725 Other: Voiding Method Indwelling Catheter Indwelling Catheter Indwelling Catheter - Exam Gen.: The patient is seated in the bedside chair. He is well-nourished, well- developed and in no acute distress. HEENT: Head is atraumatic, normocephalic. Fundus not visualized. There is no scleral icterus. Neurological examination Mental status: The patient is awake and alert. His speech is clear. There is no dysarthria. Cranial nerves: Pupils are equal, round and reactive to light. There is no obvious facial asymmetry. Tongue protrudes midline. Shoulder shrug is symmetric. Motor: Upper extremity strength is 4/5. Coordination: Finger to nose testing is intact bilaterally. - Labs CBC & Chem 7: 07/14/21 07:09 07/14/21 07:09 Labs: Abnormal Lab Results - Last 24 Hours (Table) 07/14/21 07/15/21 Range/Units 14:45 09:59 PT 12.2 H (9.0-12.0) sec INR 1.2 H (<1.2) APTT 54.9 H 49.7 H (22.0-30.0) sec Assessment and Plan Assessment: 1. Left frontal, acute embolic infarct 2. History of atrial fibrillation off anticoagulation for procedure 3. Bladder cancer Plan: 1. Stroke workup is complete, test results are reviewed. 2. The patient will continue on anticoagulation, in the setting of atrial fibrillation, for stroke prevention 3. Physical and occupational therapy as needed 4. Continue high-dose statin 5. No further neurological intervention is needed at this time. Please call if necessary Time with Patient: Less than 30 (spent 20 minutes with patient via telemedicine)
[2021-07-15] MEDS: ATORVASTATIN 20 MG TAB PO SCH (20:42)
--- NOTE | 2021-07-15 22:43 | P.PN ---
Subjective Progress Note Date: 07/15/21 Principal diagnosis: Stroke/TIA Mr. Kelsey is an 89-year-old male with a past medical history of atrial fibrillation on anticoagulation, hypertension, hyperlipidemia, newly diagnosed bladder cancer, prostate cancer, coronary artery disease status post heart cath, multiple comorbidities admitted to the hospital for cerebrovascular accident. Patient had extensive work-up done with CT of the head, MRI, echocardiogram, CT angio of the head and neck. On 07/15/2021 -patient is seen and examined at the bedside. Patient's daughter at the bedside. She mentions that since the patient had the procedure done for diagnosis of bladder cancer patient's condition had deteriorated. As per discussion with daughter his cognition has been affected as he is confused. She mentions prior to this episode patient was living all by himself and taking care of his ADLs. Patient is comfortably lying in bed appears to be no acute distress. He states no active complaints. No chest pain or palpitations. No cough or difficulty breathing. No fever chills or rigors. Patient has a Lazaro's catheter in place. On reviewing the vitals temperature of 97.2, heart rate 110, respiratory rate 18, blood pressure 108 x 76 saturating at 98% on room air. Patient's labs have been reviewed PT of 12.2 INR of 1.2. Currently the patient is on heparin drip and being bridged with Coumadin. Objective - Vital Signs Vital signs: Vital Signs Temp 97.2 F L 07/15/21 09:54 Pulse 110 H 07/15/21 09:54 Resp 18 07/15/21 09:54 BP 108/76 07/15/21 09:54 Pulse Ox 94 L 07/15/21 09:54 Intake & Output 07/14/21 07/15/21 07/15/21 18:59 06:59 18:59 Intake Total 770 200 236 Output Total 670 675 7974 Balance 70 600 -839 Weight 71 kg Intake: Intake, IV Titration 410 80 Amount Heparin Sod,Pork in 0.45% 250 NaCl 25,000 unit In 0.45 % NaCl 1 250ml.bag @ 12 UNITS/KG/HR 8.818 mls/hr IV .Q24H [facility] Rx#: [id number] Sodium Chloride 0.9% 500 160 80 ml 500 ml @ 20 mls/hr IV .Q24H [facility] Rx#:[id number] Oral 360 120 236 Output: Urine 611 109 6939 Other: Voiding Method Indwelling Catheter Indwelling Catheter Indwelling Catheter - Exam PHYSICAL EXAMINATION: GENERAL: The patient is alert and oriented x1-2 , not in any acute distress. Well developed, well nourished. HEENT: Pupils are round and equally reacting to light. EOMI. No scleral icterus. No conjunctival pallor. Normocephalic, atraumatic. No pharyngeal erythema. No thyromegaly. CARDIOVASCULAR: S1 and S2 present. No murmurs, rubs, or gallops. PULMONARY: Chest is clear to auscultation, no wheezing or crackles. ABDOMEN: Soft, nontender, nondistended, normoactive bowel sounds. No palpable organomegaly. There is gross hematuria with an indwelling catheter. MUSCULOSKELETAL: No joint swelling or deformity. EXTREMITIES: No cyanosis, clubbing, or pedal edema. NEUROLOGICAL: Gross neurological examination did not reveal any focal deficits. SKIN: No rashes - Labs CBC & Chem 7: 07/14/21 07:09 07/14/21 07:09 Labs: Abnormal Lab Results - Last 24 Hours (Table) 07/15/21 Range/Units 09:59 PT 12.2 H (9.0-12.0) sec INR 1.2 H (<1.2) APTT 49.7 H (22.0-30.0) sec Assessment and Plan Assessment: ASSESSMENT TIA/CVA Paroxysmal atrial fibrillation on anticoagulation therapy, INR 1.2 cardiac thrombus Bladder CA with hematuria Hyperlipidemia Hypertension Gout Coronary artery disease with heart catheterizations in the past Orthopedic surgeries Former nicotine dependence DO NOT RESUSCITATE Plan: CVA, acute left frontal lobe and anterior watershed region on MRI, continue neurological assessments per protocol cardiac thrombus, continue heparin therapy being bridged with Coumadin Afib, controlled rate, heparin therapy, monitor platelet count Recent bladder tumor resection Continue to monitor vital signs and diagnostic testing Seroquel at [facility] Continue with IV heparin bridge, INR 1.2 Discharge to [facility] once medically stable
[2021-07-16] MEDS: ASPIRIN 325 MG TAB PO SCH (10:13)
[2021-07-16 11:06] LABS: INR 1.3 (<1.2); Prothrombin Time 13.6 sec (9.0-12.0)
--- NOTE | 2021-07-16 11:44 | P.PN ---
Subjective NO acute overnight event, urine is still hematuric , no clots, denies any abdominal pain Objective - Vital Signs Vital signs: Vital Signs Temp 98.1 F 07/16/21 10:17 Pulse 114 H 07/16/21 10:17 Resp 18 07/16/21 10:17 BP 125/77 07/16/21 10:17 Pulse Ox 97 07/16/21 10:17 Intake & Output 07/15/21 07/16/21 07/16/21 19:59 06:59 18:59 Intake Total 118 Output Total Balance 118 Intake: Oral 118 Output: Urine Other: Voiding Method Indwelling Catheter - Constitutional General appearance: Present: no acute distress - Psychiatric Psychiatric: Present: A&O x's 3 - Labs CBC & Chem 7: 07/14/21 07:09 07/14/21 07:09 Labs: Abnormal Lab Results - Last 24 Hours (Table) 07/16/21 Range/Units 09:42 PT 13.6 H (9.0-12.0) sec INR 1.3 H (<1.2) Assessment and Plan Assessment: 89 yo male S/P TURBT for HG T1 bladder cancer on 07/[address] Alcantar. Admitted to the hospital with TIA, he subsquently developed a stroke. CTA and MRI of the brain showed left frontal lobe stroke, ECHO showed thrombus. hx of A fib on Coumadin, Coumadin on hold post surgery. Currently on a heparin drip, urine is hematuric, no clots. -Keep sesay in place -irrigate sesay q 4 PRN -At this point Okay to continue anticogulation from urology standpoint, given his CVA and TIA off anticogulation . recheck CBC, if hemoglobin trends downs or develop clot retention then will need to hold anticogulation.
[2021-07-16 12:06] LABS: Basophils % (A) 0 %; Eosinophils # (A) 0.2 k/uL (0-0.7); Eosinophils % (A) 3 %; HCT 46.4 % (39.0-53.0); Lymphocytes # (A) 1.6 k/uL (1.0-4.8); Lymphocytes % (A) 20 %; MCH 32.4 pg (25.0-35.0); MCHC 32.4 g/dL (31.0-37.0); MCV 100.2 fL (80.0-100.0); Mean Platelet Volume 7.3; Monocytes # (A) 0.4 k/uL (0-1.0); Monocytes % (A) 6 %; Neutrophils # (A) 5.5 k/uL (1.3-7.7); Neutrophils % (A) 69 %; Platelet Count 236 k/uL (150-450); RBC 4.63 m/uL (4.30-5.90); RDW 13.1 % (11.5-15.5)
[2021-07-16] MEDS ORDERED: WARFARIN 7.5 MG TAB PO ONE (18:00)
[2021-07-16] MEDS: SODIUM CHLORIDE 0.9% 500 ML 500 ML IV SCH ×2 (18:21→18:26)
[2021-07-16] MEDS: HEPARIN SOD,PORK IN 0.45% NACL 25,000 UNIT in 0.45% NACL 1 250ML.BAG IV SCH (18:24)
[2021-07-16] MEDS: ATORVASTATIN 20 MG TAB PO SCH (21:41)
--- NOTE | 2021-07-16 23:41 | P.PN ---
Subjective Progress Note Date: 07/16/21 Principal diagnosis: Stroke/TIA Mr. Kelsey is an 89-year-old male with a past medical history of atrial fibrillation on anticoagulation, hypertension, hyperlipidemia, newly diagnosed bladder cancer, prostate cancer, coronary artery disease status post heart cath, multiple comorbidities admitted to the hospital for cerebrovascular accident. Patient had extensive work-up done with CT of the head, MRI, echocardiogram, CT angio of the head and neck. On 07/15/2021 -patient is seen and examined at the bedside. Patient's daughter at the bedside. She mentions that since the patient had the procedure done for diagnosis of bladder cancer patient's condition had deteriorated. As per discussion with daughter his cognition has been affected as he is confused. She mentions prior to this episode patient was living all by himself and taking care of his ADLs. Patient is comfortably lying in bed appears to be no acute distress. He states no active complaints. No chest pain or palpitations. No cough or difficulty breathing. No fever chills or rigors. Patient has a Lazaro's catheter in place. On reviewing the vitals temperature of 97.2, heart rate 110, respiratory rate 18, blood pressure 108 x 76 saturating at 98% on room air. Patient's labs have been reviewed PT of 12.2 INR of 1.2. Currently the patient is on heparin drip and being bridged with Coumadin. On 07/16/2021 patient is seen and examined at the bedside. As per discussion with nursing staff, patient started to have] colored urine in his Lazaro's bag. No clots there reported. As per discussion with his daughter, she mentions that his mentation is better compared to yesterday. But when I had a conversation with the patient, he still does not know where he is at. On reviewing the patient's vital signs temperature of 98.1, heart rate between 80s to 100s, respiratory rate 18, blood pressure 125/77 saturating at 97% on room air. On reviewing patient's labs white count of 8, hemoglobin 15, platelets 236. Patient's PT/INR 13.6/40.3 from this morning Patient's medications have been reviewed Active Medications Allopurinol (Allopurinol 300 Mg Tab) 300 mg PO DAILY [facility] Amlodipine Besylate (Amlodipine 5 Mg Tab) 5 mg PO DAILY [facility] Aspirin (Aspirin 325 Mg Tab) 325 mg PO DAILY [facility] Last Admin: 07/16/21 10:13 Dose: 325 mg Documented by: Atenolol (Atenolol 12.5 Mg Tab) 12.5 mg PO [facility] Last Admin: 07/16/21 21:41 Dose: 12.5 mg Documented by: Atorvastatin Calcium (Atorvastatin 20 Mg Tab) 20 mg PO HS [facility] Last Admin: 07/16/21 21:41 Dose: 20 mg Documented by: Heparin Sodium (Porcine) (Heparin Sodium 1,000 Un/Ml (10ml Vl)) 0 unit IV PER PROTOCOL PRN; Protocol PRN Reason: Low PTT Heparin Sodium/Sodium Chloride (25,000 unit/ Sodium Chloride) 250 mls @ 8.818 mls/hr IV .Q24H [facility]; Protocol Last Admin: 07/16/21 18:24 Dose: 15 units/kg/hr, 11.022 mls/hr Documented by: Sodium Chloride (Saline 0.9%) 500 mls @ 20 mls/hr IV .Q24H [facility] Last Admin: 07/16/21 18:26 Dose: 20 mls/hr Documented by: Miscellaneous Information (Warfarin Per Pharmacy) 1 each MISCELLANE DIRECTED PRN; Protocol PRN Reason: Per Protocol Quetiapine Fumarate (Quetiapine 25 Mg Tab) 25 mg PO HS PRN PRN Reason: Agitation Last Admin: 07/14/21 20:12 Dose: 25 mg Documented by: Tamsulosin HCl (Tamsulosin 0.4 Mg Cap.Er.24h) 0.4 mg PO DAILY [facility] Objective - Vital Signs Vital signs: Vital Signs Temp 98.1 F 07/16/21 10:17 Pulse 114 H 07/16/21 10:17 Resp 18 07/16/21 10:17 BP 125/77 07/16/21 10:17 Pulse Ox 97 07/16/21 10:17 Intake & Output 07/15/21 07/16/21 07/16/21 19:59 06:59 18:59 Intake Total 118 Output Total Balance 118 Intake: Oral 118 Output: Urine Other: Voiding Method Indwelling Catheter - Exam PHYSICAL EXAMINATION: GENERAL: The patient is alert and oriented x1-2 , not in any acute distress. Well developed, well nourished. HEENT: Pupils are round and equally reacting to light. EOMI. No scleral icterus. No conjunctival pallor. Normocephalic, atraumatic. No pharyngeal erythema. No thyromegaly. CARDIOVASCULAR: S1 and S2 present. No murmurs, rubs, or gallops. PULMONARY: Chest is clear to auscultation, no wheezing or crackles. ABDOMEN: Soft, nontender, nondistended, normoactive bowel sounds. No palpable organomegaly. There is gross hematuria with an indwelling catheter, no clots in the bag. MUSCULOSKELETAL: No joint swelling or deformity. EXTREMITIES: No cyanosis, clubbing, or pedal edema. NEUROLOGICAL: Gross neurological examination did not reveal any focal deficits. SKIN: No rashes - Labs CBC & Chem 7: 07/16/21 09:47 07/14/21 07:09 Labs: Abnormal Lab Results - Last 24 Hours (Table) 07/16/21 Range/Units 09:42 PT 13.6 H (9.0-12.0) sec INR 1.3 H (<1.2) Assessment and Plan Assessment: ASSESSMENT TIA/CVA Paroxysmal atrial fibrillation on anticoagulation therapy, INR 1.2 cardiac thrombus Bladder CA with hematuria Hyperlipidemia Hypertension Gout Coronary artery disease with heart catheterizations in the past Orthopedic surgeries Former nicotine dependence DO NOT RESUSCITATE Plan: CVA, acute left frontal lobe and anterior watershed region on MRI, continue neurological assessments per protocol cardiac thrombus, continue heparin therapy being bridged with Coumadin Afib, controlled rate, heparin therapy, monitor platelet count Recent bladder tumor resection Continue to monitor vital signs and diagnostic testing Seroquel at [facility] protcol Continue with IV heparin bridge, INR 1.2 - Had a very lengthy discussion with his daughter who is at the bedside, regarding his treatment plan. Patient is at risk of having stroke, when he has been off of his anticoagulation. But with anticoagulation he has been having gross hematuria, especially in the setting of newly diagnosed bladder cancer. So it is a very tough situation whether the patient needs anticoagulation or not. But for now as he does not have gross hematuria, urology was okay continuing him on anticoagulation for now. Will monitor CBC closely. Overall p rognosis remains guarded. Further recommendations depending on the progress of the patient. Discharge to [facility] once medically stable
[2021-07-17] MEDS: amLODIPine 5 MG TAB PO SCH ×2 (07:36→11:25)
[2021-07-17] MEDS: ASPIRIN 325 MG TAB PO SCH (08:30)
[2021-07-17] MEDS: SODIUM CHLORIDE 0.9% 500 ML 500 ML IV SCH (08:30)
[2021-07-17] MEDS: TAMSULOSIN 0.4 MG CAP.ER.24H PO SCH (08:30)
[2021-07-17] MEDS: allopurinoL 300 MG TAB PO SCH (08:30)
[2021-07-17 08:59] LABS: Basophils % (A) 1 %; Eosinophils # (A) 0.2 k/uL (0-0.7); Eosinophils % (A) 3 %; HCT 47.3 % (39.0-53.0); HGB 15.4 gm/dL (13.0-17.5); Lymphocytes # (A) 1.5 k/uL (1.0-4.8); Lymphocytes % (A) 18 %; MCH 32.6 pg (25.0-35.0); MCHC 32.6 g/dL (31.0-37.0); MCV 100.2 fL (80.0-100.0); Mean Platelet Volume 7.1; Monocytes # (A) 0.4 k/uL (0-1.0); Monocytes % (A) 4 %; Neutrophils # (A) 6.3 k/uL (1.3-7.7); Neutrophils % (A) 74 %; Platelet Count 268 k/uL (150-450); RBC 4.72 m/uL (4.30-5.90); RDW 13.1 % (11.5-15.5); WBC 8.6 k/uL (3.8-10.6)
[2021-07-17] MEDS ORDERED: LOVASTATIN 20 MG PO SCH (09:00)
[2021-07-17 09:11] LABS: INR 1.6 (<1.2); Prothrombin Time 16.3 sec (9.0-12.0)
--- NOTE | 2021-07-17 10:06 | P.PN ---
Subjective NO acute overnight event, urine is still hematuric , no clots, denies any abdominal pain, hemoglobin remained stable Objective - Vital Signs Vital signs: Vital Signs Temp 96.4 F L 07/17/21 00:00 Pulse 91 07/17/21 00:00 Resp 18 07/17/21 00:00 BP 117/67 07/17/21 00:00 Pulse Ox 96 07/16/21 20:00 Intake & Output 07/16/21 07/17/21 07/17/21 18:59 06:59 18:59 Intake Total 726 480 Output Total 300 700 Balance 426 -220 Intake: Intake, IV Titration 250 480 Amount Heparin Sod,Pork in 0.45% 250 NaCl 25,000 unit In 0.45 % NaCl 1 250ml.bag @ 12 UNITS/KG/HR 8.818 mls/hr IV .Q24H [facility] Rx#: [id number] Sodium Chloride 0.9% 500 480 ml 500 ml @ 20 mls/hr IV .Q24H [facility] Rx#:[id number] Oral 476 Output: Urine 300 700 Other: Voiding Method Indwelling Catheter Indwelling Catheter # Bowel Movements 0 - Constitutional General appearance: Present: no acute distress - Labs CBC & Chem 7: 07/17/21 08:39 07/14/21 07:09 Labs: Abnormal Lab Results - Last 24 Hours (Table) 07/16/21 07/16/21 07/17/21 Range/Units 09:42 09:47 08:39 MCV 100.2 H (80.0-100.0) fL PT 13.6 H 16.3 H (9.0-12.0) sec INR 1.3 H 1.6 H (<1.2) 07/17/21 Range/Units 08:39 MCV 100.2 H (80.0-100.0) fL PT (9.0-12.0) sec INR (<1.2) Assessment and Plan Assessment: 89 yo male S/P TURBT for HG T1 bladder cancer on 07/[address] Alcantar. Admitted to the hospital with TIA, he subsquently developed a stroke. CTA and MRI of the brain showed left frontal lobe stroke, ECHO showed thrombus. hx of A fib on Coumadin, Coumadin on hold post surgery. Currently on a heparin drip and coumadin , urine is hematuric, no clots. hgb remains stable -Keep sesay in place -irrigate sesay q 4 PRN -At this point Okay to continue anticogulation from urology standpoint, given lack of clots, and hemoglobin continues to remain stable. He is at high risk of thrombotic event, given his CVA and TIA off anticogulation. I again discussed with him, and this was also discussed with his family yesterday that if he does develop clots or hemoglobin starts trending down and we'll have to hold anticoagulation. But at this time given the lack of clots and hemoglobin remaining stable will continue with anticoagulation, given his high risk.
[2021-07-17 10:46] LABS: Calcium 9.4 mg/dL (8.4-10.2); Potassium 4.2 mmol/L (3.5-5.1)
[2021-07-17] MEDS: HEPARIN SOD,PORK IN 0.45% NACL 25,000 UNIT in 0.45% NACL 1 250ML.BAG IV SCH (14:12)
[2021-07-17] MEDS ORDERED: WARFARIN 7.5 MG TAB PO ONE (18:00)
[2021-07-17] MEDS: ATORVASTATIN 20 MG TAB PO SCH (20:15)
[2021-07-17] MEDS: QUEtiapine 25 MG TAB PO PRN (20:15)
--- NOTE | 2021-07-17 23:16 | P.PN ---
Subjective Progress Note Date: 07/17/21 Principal diagnosis: Stroke/TIA Mr. Kelsey is an 89-year-old male with a past medical history of atrial fibrillation on anticoagulation, hypertension, hyperlipidemia, newly diagnosed bladder cancer, prostate cancer, coronary artery disease status post heart cath, multiple comorbidities admitted to the hospital for cerebrovascular accident. Patient had extensive work-up done with CT of the head, MRI, echocardiogram, CT angio of the head and neck. On 07/15/2021 -patient is seen and examined at the bedside. Patient's daughter at the bedside. She mentions that since the patient had the procedure done for diagnosis of bladder cancer patient's condition had deteriorated. As per discussion with daughter his cognition has been affected as he is confused. She mentions prior to this episode patient was living all by himself and taking care of his ADLs. Patient is comfortably lying in bed appears to be no acute distress. He states no active complaints. No chest pain or palpitations. No cough or difficulty breathing. No fever chills or rigors. Patient has a Lazaro's catheter in place. On reviewing the vitals temperature of 97.2, heart rate 110, respiratory rate 18, blood pressure 108 x 76 saturating at 98% on room air. Patient's labs have been reviewed PT of 12.2 INR of 1.2. Currently the patient is on heparin drip and being bridged with Coumadin. On 07/16/2021 patient is seen and examined at the bedside. As per discussion with nursing staff, patient started to have] colored urine in his Lazaro's bag. No clots there reported. As per discussion with his daughter, she mentions that his mentation is better compared to yesterday. But when I had a conversation with the patient, he still does not know where he is at. On reviewing the patient's vital signs temperature of 98.1, heart rate between 80s to 100s, respiratory rate 18, blood pressure 125/77 saturating at 97% on room air. On reviewing patient's labs white count of 8, hemoglobin 15, platelets 236. Patient's PT/INR 13.6/40.3 from this morning On 07/17/2021 patient is seen and examined at the bedside. He is comfortably sitting up in a chair by the bedside. Patient still has dark-colored urine in his Lazaro's catheter but no clots. Patient is pleasantly confused. He denied having any chest pain or palpitations. No cough or difficulty in breathing. No abdominal pain nausea vomiting or diarrhea. On reviewing the patient's vitals temperature of 98.3, heart rate around 100s, respiratory rate 18, blood pressure 133/80, saturating at 95% on room air. Reviewing the labs from this morning him white count of 8.6 hemoglobin 15.4 platelets 268. INR of 1.6. Sodium 142, potassium 4.2, chloride 109, bicarb 24, BUN 23, creatinine 1.1. Patient's medications have been reviewed. Active Medications Allopurinol (Allopurinol 300 Mg Tab) 300 mg PO DAILY [facility] Last Admin: 07/17/21 08:30 Dose: 300 mg Documented by: Aspirin (Aspirin 325 Mg Tab) 325 mg PO DAILY [facility] Last Admin: 07/17/21 08:30 Dose: 325 mg Documented by: Atenolol (Atenolol 12.5 Mg Tab) 12.5 mg PO HS [facility] Last Admin: 07/17/21 20:15 Dose: 12.5 mg Documented by: Atorvastatin Calcium (Atorvastatin 20 Mg Tab) 20 mg PO HS [facility] Last Admin: 07/17/21 20:15 Dose: 20 mg Documented by: Heparin Sodium (Porcine) (Heparin Sodium 1,000 Un/Ml (10ml Vl)) 0 unit IV PER PROTOCOL PRN; Protocol PRN Reason: Low PTT Heparin Sodium/Sodium Chloride (25,000 unit/ Sodium Chloride) 250 mls @ 8.818 mls/hr IV .Q24H [facility]; Protocol Last Admin: 07/17/21 14:12 Dose: 15 units/kg/hr, 11.022 mls/hr Documented by: Sodium Chloride (Saline 0.9%) 500 mls @ 20 mls/hr IV .Q24H [facility] Last Admin: 07/17/21 08:30 Dose: 20 mls/hr Documented by: Miscellaneous Information (Warfarin Per Pharmacy) 1 each [facility]CE[facility] DIRECTED PRN; Protocol PRN Reason: Per Protocol Quetiapine Fumarate (Quetiapine 25 Mg Tab) 25 mg PO HS PRN PRN Reason: Agitation Last Admin: 07/17/21 20:15 Dose: 25 mg Documented by: Tamsulosin HCl (Tamsulosin 0.4 Mg Cap.Er.24h) 0.4 mg PO DAILY [facility] Last Admin: 07/17/21 08:30 Dose: 0.4 mg Documented by: Objective - Vital Signs Vital signs: Vital Signs Temp 97.2 F L 07/17/21 10:45 Pulse 73 07/17/21 10:45 Resp 18 07/17/21 10:45 BP 112/71 07/17/21 10:45 Pulse Ox 97 07/17/21 10:45 Intake & Output 07/16/21 07/17/21 07/17/21 18:59 06:59 18:59 Intake Total 726 480 185.17 Output Total 300 700 Balance 426 -220 185.17 Intake: Intake, IV Titration 250 480 185.17 Amount Heparin Sod,Pork in 0.45% 250 185.17 NaCl 25,000 unit In 0.45 % NaCl 1 250ml.bag @ 12 UNITS/KG/HR 8.818 mls/hr IV .Q24H [facility] Rx#: [id number] Sodium Chloride 0.9% 500 480 ml 500 ml @ 20 mls/hr IV .Q24H [facility] Rx#:[id number] Oral 476 Output: Urine 300 700 Other: Voiding Method Indwelling Catheter Indwelling Catheter Indwelling Catheter # Bowel Movements 0 - Exam PHYSICAL EXAMINATION: GENERAL: The patient is alert and oriented x1-2 , not in any acute distress. HEENT: Pupils are round and equally reacting to light. EOMI. No scleral icterus. No conjunctival pallor. CARDIOVASCULAR: S1 and S2 present. No murmurs, rubs, or gallops. PULMONARY: Chest is clear to auscultation, no wheezing or crackles. ABDOMEN: Soft, nontender, nondistended, normoactive bowel sounds. No palpable organomegaly. There is gross hematuria with an indwelling catheter, no clots in the bag. MUSCULOSKELETAL: No joint swelling or deformity. EXTREMITIES: No cyanosis, clubbing, or pedal edema. NEUROLOGICAL: no focal deficits SKIN: No rashes - Labs CBC & Chem 7: 07/17/21 08:39 07/17/21 08:39 Labs: Abnormal Lab Results - Last 24 Hours (Table) 07/16/21 07/17/21 07/17/21 Range/Units 09:47 08:39 08:39 MCV 100.2 H 100.2 H (80.0-100.0) fL PT 16.3 H (9.0-12.0) sec INR 1.6 H (<1.2) APTT (22.0-30.0) sec Chloride (98-107) mmol/L BUN (9-20) mg/dL Glucose (74-99) mg/dL 07/17/21 07/17/21 Range/Units 08:39 08:39 MCV (80.0-100.0) fL PT (9.0-12.0) sec INR (<1.2) APTT 52.1 H (22.0-30.0) sec Chloride 109 H (98-107) mmol/L BUN 23 H (9-20) mg/dL Glucose 152 H (74-99) mg/dL Assessment and Plan Assessment: ASSESSMENT TIA/CVA Paroxysmal atrial fibrillation on anticoagulation therapy, INR 1.2 cardiac thrombus Bladder CA with hematuria Hyperlipidemia Hypertension Gout Coronary artery disease with heart catheterizations in the past Orthopedic surgeries Former nicotine dependence DO NOT RESUSCITATE Plan: CVA, acute left frontal lobe and anterior watershed region on MRI, continue neurological assessments per protocol cardiac thrombus, Continue with IV heparin bridge with Coumadin , INR 1.6 today Afib, controlled rate, heparin therapy, monitor platelet count Recent bladder tumor surgery Continue to monitor vital signs and diagnostic testing Seroquel at [facility] protcol - Had a very lengthy discussion with his daughter yesterday regarding his treatment plan. Patient is at risk of having stroke, when he has been off of his anticoagulation. But with anticoagulation he has been having gross hematuria, especially in the setting of newly diagnosed bladder cancer. So it is a very tough situation whether the patient needs anticoagulation or not. But for now as he does not have clots in the Lazaro's catheter , urology is okay continuing him on anticoagulation for now. Will monitor CBC closely. Overall p rognosis remains guarded. Further recommendations depending on the progress of the patient.
[2021-07-18 06:56] LABS: Basophils % (A) 0 %; Eosinophils # (A) 0.3 k/uL (0-0.7); Eosinophils % (A) 4 %; HCT 39.4 % (39.0-53.0); HGB 12.8 gm/dL (13.0-17.5); Lymphocytes # (A) 1.8 k/uL (1.0-4.8); Lymphocytes % (A) 24 %; MCH 32.3 pg (25.0-35.0); MCHC 32.4 g/dL (31.0-37.0); MCV 99.6 fL (80.0-100.0); Mean Platelet Volume 7.3; Monocytes # (A) 0.4 k/uL (0-1.0); Monocytes % (A) 5 %; Neutrophils % (A) 65 %; Platelet Count 201 k/uL (150-450); RBC 3.96 m/uL (4.30-5.90); RDW 13.2 % (11.5-15.5); WBC 7.7 k/uL (3.8-10.6)
[2021-07-18 07:07] LABS: INR 2.1 (<1.2); Partial Thromboplastin Time 80.9 sec (22.0-30.0); Prothrombin Time 20.9 sec (9.0-12.0)
[2021-07-18] MEDS: allopurinoL 300 MG TAB PO SCH (08:07)
[2021-07-18] MEDS: TAMSULOSIN 0.4 MG CAP.ER.24H PO SCH (08:08)
[2021-07-18] MEDS: ASPIRIN 325 MG TAB PO SCH (08:10)
--- NOTE | 2021-07-18 08:18 | XR ---
EXAMINATION TYPE: XR chest 1V portable DATE OF EXAM: 07/18/2021 CLINICAL HISTORY: Difficulty breathing progress study. TECHNIQUE: Single AP portable upright view of the chest is obtained. COMPARISON: Chest x-ray from 8 days earlier FINDINGS: Cardiomegaly with atherosclerotic and ectatic thoracic aorta causing slight right-sided tr acheal deviation. Mild chronic parenchymal changes without suspicious focal airspace opacity, pleural effusion, or pneumothorax seen bilaterally. Osseous structures are demineralized. IMPRESSION: Cardiomegaly without acute pulmonary process. No significant change from recent prior.
[2021-07-18] MEDS: SODIUM CHLORIDE 0.9% 500 ML 500 ML IV SCH (08:20)
[2021-07-18] MEDS ORDERED: LORazepam 2 MG/ML INJ IV PRN (11:01)
[2021-07-18 11:51] LABS: African American GFR (CKD) 86 (>60 ml/min/1.73 sqM); Anion Gap 5 mmol/L; Blood Urea Nitrogen 21 mg/dL (9-20); Calcium 8.7 mg/dL (8.4-10.2); Carbon Dioxide 24 mmol/L (22-30); Chloride 113 mmol/L (98-107); Glucose 106 mg/dL (74-99); Non-African American GFR(CKD) 74 (>60 ml/min/1.73 sqM); Potassium 3.7 mmol/L (3.5-5.1); Sodium 142 mmol/L (137-145)
[2021-07-18 14:16] VITALS: BMI 22.4
[2021-07-18] MEDS: HEPARIN SOD,PORK IN 0.45% NACL 25,000 UNIT in 0.45% NACL 1 250ML.BAG IV SCH (14:50)
[2021-07-18 16:43] LABS: HCT 42.7 % (39.0-53.0); HGB 13.7 gm/dL (13.0-17.5); MCH 32.3 pg (25.0-35.0); MCHC 32.2 g/dL (31.0-37.0); MCV 100.3 fL (80.0-100.0); Platelet Count 234 k/uL (150-450); RBC 4.25 m/uL (4.30-5.90); RDW 13.1 % (11.5-15.5); WBC 9.2 k/uL (3.8-10.6)
[2021-07-18] MEDS ORDERED: WARFARIN 5 MG TAB PO ONE (18:00)
--- NOTE | 2021-07-18 20:21 | P.PN ---
Subjective Progress Note Date: 07/18/21 Principal diagnosis: TIA/CVA Cardiac thrombus hematuria 89-year-old male with significant past medical history of atrial fibrillation on anticoagulation therapy, hypertension, hyperlipidemia, newly diagnosed with bladder CA, prostate disorder, gout, coronary artery disease with heart catheterizations in the past, orthopedic surgeries and several comorbidities is admitted to the hospital for transient ischemic attack rule out cerebrovascular accident. Patient had extensive diagnostic workup in emergency department for TIA/CVA; CT of the head without contrast initially showed degenerative and nonspecific white matter changes mostly typical remote ischemia change; dictation from radiologist no acute hemorrhage correlate with MRI saturation for acute ischemic as clinically warranted. Review of emergency room notes patient presented to the emergency department with right-sided weakness, with difficulty moving right leg, and possible ataxia right-sided. Upon review of emergency physician notes NIH was 0 patient was moving all extremities. Apparently at 1740, patient's clinical symptoms of a TIA/CVA progressed with NIH of 3, CT of the brain without contrast was ordered, dictation from radiologist no acute intercranial abnormalities. Review of diagnostic labs, CBC unremarkable, INR subtherapeutic at 1.1, CMP unremarkable other than a mildly elevated glucose of 118. Troponin negative. Urinalysis consistent with past urinalysis of hematuria, and bladder CA. Covid test negative 07/11/2021 Patient seen and examined at bedside. Patient resting comfortably in bed in no acute signs of distress. Difficulty obtaining subjective data, patient pleasantly confused only the able to answer questions to person and follows simple commands. Patient's normal neurological baseline is alert and oriented 4 with no difficulty following commands, no ataxia noted or weakness noted. See above for diagnostic review of imaging and diagnostic labs. 07/12/2021 Patient seen and examined at bedside. Contacted by jail staff last night, patient became agitated and combative, ordered medication for anxiety and agitation. Daughter was notified and was encouraged to return to hospital to assist with anxiety. This morning, the patient is resting in bed, oriented to self, pleasantly confused. Unable to collect subjective data due to patient's confusion. 07/13/2021 Patient seen and examined at bedside. Heparin drip was paused due to increased hematuria overnight. Patient is anxious and confused. Daughter is at bedside, reviewed plan of care with her. Unable to collect subjective data due to patient's confusion and agitation. 07/14/2021 to 07/17/2021 see [facility] 07/18/2021 Patient seen and examined at bedside. Patient pleasantly confused, unable to recall events place and situation, able to answer questions to person. Unable to obtain subjective data, due to recent CVA. Currently patient has indwelling catheter with mild to moderate hematuria will monitor hemoglobin and hematocrit. Continue heparin drip until bridging with Coumadin for therapeutic INR. Objective - Vital Signs Vital signs: Vital Signs Temp 98.3 F 07/18/21 15:16 Pulse 94 07/18/21 15:16 Resp 18 07/18/21 15:16 BP 105/57 07/18/21 15:16 Pulse Ox 93 L 07/18/21 15:16 Intake & Output 07/18/21 07/18/21 07/19/21 06:59 18:59 06:59 Intake Total 250.000 Output Total 900 Balance -650.000 Weight 71 kg Intake: Intake, IV Titration 250.000 Amount Heparin Sod,Pork in 0.45% 250.000 NaCl 25,000 unit In 0.45 % NaCl 1 250ml.bag @ 12 UNITS/KG/HR 8.818 mls/hr IV .Q24H [facility] Rx#: [id number] Output: Urine 900 Other: Voiding Method Indwelling Catheter - Constitutional General appearance: Present: disheveled, no acute distress - EENT Eyes: Present: EOMI, PERRLA, normal appearance ENT: Present: hard of hearing Ears: bilateral: normal - Neck Neck: Present: normal ROM Carotids: bilateral: upstroke normal Thyroid: bilateral: normal size - Respiratory Respiratory: bilateral: diminished (Anterior and posterior lung skinenr) - Cardiovascular Heart rate: 74 Heart sounds: normal: S1, S2 - Peripheral pulses radial pulse Peripheral Pulses: bilateral: Normal dorsalis pedis Peripheral Pulses: bilateral: Normal - Gastrointestinal General gastrointestinal: Present: normal bowel sounds, soft - Neurologic Neurologic: Present: focal deficits - Musculoskeletal Musculoskeletal: Present: generalized weakness - Psychiatric Psychiatric Comment(s): Alert to person Disorientation to place, time and situation - Allied health notes Allied health notes reviewed: nursing - Labs CBC & Chem 7: 07/18/21 15:53 07/18/21 06:25 Labs: Abnormal Lab Results - Last 24 Hours (Table) 07/18/21 07/18/21 07/18/21 Range/Units 06:25 06:25 06:25 RBC 3.96 L (4.30-5.90) m/uL Hgb 12.8 L (13.0-17.5) gm/dL MCV (80.0-100.0) fL PT 20.9 H (9.0-12.0) sec INR 2.1 H (<1.2) APTT 80.9 H (22.0-30.0) sec Chloride 113 H (98-107) mmol/L BUN 21 H (9-20) mg/dL Glucose 106 H (74-99) mg/dL 07/18/21 07/18/21 Range/Units 15:53 15:53 RBC 4.25 L (4.30-5.90) m/uL Hgb (13.0-17.5) gm/dL MCV 100.3 H (80.0-100.0) fL PT (9.0-12.0) sec INR (<1.2) APTT 57.0 H (22.0-30.0) sec Chloride (98-107) mmol/L BUN (9-20) mg/dL Glucose (74-99) mg/dL Assessment and Plan Assessment: TIA/CVA Paroxysmal atrial fibrillation on anticoagulation therapy cardiac thrombus Bladder CA with hematuria Hyperlipidemia Hypertension Gout Coronary artery disease with heart catheterizations in the past Orthopedic surgeries Former nicotine dependence DO NOT RESUSCITATE (1) CVA (cerebral vascular accident) Current Visit: Yes Status: Acute Priority: High Code(s): I63.9 - CEREBRAL INFARCTION, UNSPECIFIED SNOMED Code(s): 599063564 Plan: CVA, acute left frontal lobe and anterior watershed region on MRI, continue neurological assessments cardiac thrombus, continue heparin therapy Afib, controlled rate, heparin therapy, monitor platelet count Recent bladder tumor resection Subtherapeutic INR, bridging Coumadin therapy to have therapeutic INR Continue to monitor vital signs and diagnostic testing Continue nothing by mouth until cleared by speech therapy and neurology Continue medical management Further recommendations to come based on patient's clinical condition Hopeful discharge to jail facility in 24-48 hours Time with Patient: Greater than 30
[2021-07-18] MEDS: ATORVASTATIN 20 MG TAB PO SCH (20:28)
[2021-07-18] MEDS: QUEtiapine 25 MG TAB PO PRN (20:28)
[2021-07-19 07:40] LABS: INR 2.5 (<1.2); Partial Thromboplastin Time 67.7 sec (22.0-30.0); Prothrombin Time 24.6 sec (9.0-12.0)
[2021-07-19] MEDS: allopurinoL 300 MG TAB PO SCH (07:43)
[2021-07-19] MEDS: ASPIRIN 325 MG TAB PO SCH (07:43)
[2021-07-19] MEDS: TAMSULOSIN 0.4 MG CAP.ER.24H PO SCH (07:43)
--- NOTE | 2021-07-19 07:49 | XR ---
EXAMINATION TYPE: XR chest 1V portable DATE OF EXAM: 07/19/2021 Comparison: 07/18/2021 Clinical History: 89-year-old male COUGH Findings: Heart borderline to mildly enlarged. Subtle hazy density in the periphery of the mid and lower lungs. Tortuous/ectatic thoracic aorta. Bony vasculature within normal limits. No pleural effusion. Impression: 1. Borderline to mild cardiomegaly. 2. Possible early developing peripheral mid to lower lung interstitial infiltrates. Follow-up can be performed.
[2021-07-19 08:11] VITALS: RESP 16
[2021-07-19 09:35] LABS: HGB 12.3 g/dL (13.0-17.0); MCHC 32.4 g/dL (32.0-37.0); Platelet Count 230 X 10*3/uL (140-440); RBC 3.84 X 10*6/uL (4.40-5.60); RDW 13.6 % (11.5-14.5); WBC 8.84 X 10*3/uL (4.50-10.00)
[2021-07-19] MEDS: SODIUM CHLORIDE 0.9% 500 ML 500 ML IV SCH (09:50)
[2021-07-19 12:34] LABS: Basophils # (A) 0.03 X 10*3/uL (0.00-0.10); Basophils % (A) 0.3 %; Eosinophils # (A) 0.26 X 10*3/uL (0.04-0.35); Eosinophils % (A) 2.9 %; Lymphocytes # (A) 1.78 X 10*3/uL (0.90-5.00); Lymphocytes % (A) 20.1 %; Monocytes # (A) 0.51 X 10*3/uL (0.20-1.00); Monocytes % (A) 5.8 %; Neutrophils # (A) 6.22 X 10*3/uL (1.80-7.70); Neutrophils % (A) 70.4 %
[2021-07-19 12:53] LABS: ALT 32 U/L (10-49); AST 25 U/L (14-35); African American GFR (CKD) 77.5 (60.0-200.0); Albumin 3.3 g/dL (3.8-4.9); Albumin/Globulin Ratio 1.57 (1.60-3.17); Alkaline Phosphatase 56 U/L (41-126); Blood Urea Nitrogen 16.6 mg/dL (9.0-27.0); Calcium 8.6 mg/dL (8.7-10.3); Chloride 109 mmol/L (96-109); Globulin 2.1 g/dL (1.6-3.3); Glucose 100 mg/dL (70-110); Magnesium 2.2 mg/dL (1.5-2.4); Non-African American GFR(CKD) 66.9 (60.0-200.0); Sodium 141 mmol/L (135-145); Total Bilirubin <0.20 mg/dL (0.30-1.20); Total Protein 5.4 g/dL (6.2-8.2)
--- NOTE | 2021-07-19 13:23 | P.PN ---
Subjective Progress Note Date: 07/19/21 Seeing the patient for the first time for her neurological management. He was found to have the left frontal acute ischemic stroke in this hospital stay in the setting of atrial fibrillation. He is referred to Dr. Oreilly and Dr. Allen's note for further details. The patient's nurse she stated that the patient has been the more confused to the family members today and was more agitated towards the the primary team. Patient's daughter and granddaughter are bedside and they stated that the patient the during the hospital stay he had the Broca aphasia but the today and he brought to the utensils and he was put her head in his mouth to his nose and was not responding appropriately. And they stated that he was not more aggressive today. Objective - Vital Signs Vital signs: Vital Signs Temp 98 F 07/19/21 08:00 Pulse 88 07/19/21 08:00 Resp 16 07/19/21 08:00 BP 128/76 07/19/21 08:00 Pulse Ox 95 07/19/21 08:00 Intake & Output 07/18/21 07/19/21 07/19/21 18:59 06:59 18:59 Intake Total 250.000 Output Total 900 575 Balance -650.000 -575 Weight 71 kg Intake: Intake, IV Titration 250.000 Amount Heparin Sod,Pork in 0.45% 250.000 NaCl 25,000 unit In 0.45 % NaCl 1 250ml.bag @ 12 UNITS/KG/HR 8.818 mls/hr IV .Q24H [facility] Rx#: [id number] Output: Urine 900 575 Other: Voiding Method Indwelling Catheter Indwelling Catheter Indwelling Catheter - Exam GENERAL: The patient is lying in bed and is not in acute distress. NEUROLOGICAL: Somewhat limited because of his cooperation. Higher mental function: The patient is awake, alert, oriented to self only (per daughter baseline not oriented to time). Patient is following simple commands (thumbs up, sticking out his tongue). Has broca aphasia and has paraphrasic errors. Cranial nerves: The pupils are round, equal and reactive to light. Visual skinner could not assess (attempted twice). No facial weakness. aTongue is midline and moved [id number] without any difficulty. No dysarthria is noted. Shoulder shrug is normal bilaterally. Motor: Gait is deferred. The strength is 5 over 5 throughout. Normal tone and bulk. Cerebellum: Normal finger to nose bilaterally. Sensation: Sensation is normal to touch throughout. WORK-UP: * CTA of the head and neck was suboptimal study without significant stenosis in the internal carotid arteries bilaterally. No significant stenosis or aneurysm at the level of [place]. 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 * MRI of the brain confirmed acute infarct left frontal lobe and anterior watershed region correlates with most recent CT. No hemorrhage (Reviewed with Dr Mccoy). * 2-D echo revealed normal left-ventricular size. Mild concentric LVH. Left ventricle systolic function is moderate to severely impaired with an EF between 30-35%. Apical septum LV wall motion is hypokinetic. Possible thrombus in the left ventricular apex. * Lipid panel showed cholesterol 124, LDL 67, HDL 40 and triglycerides 81. Patient at home on lovastatin 20 mg daily. Continue atorvastatin 20 mg daily while in hospital. * Hemoglobin A1c 5.5 * B12 is low 236 - Labs CBC & Chem 7: 07/19/21 06:11 07/19/21 06:11 Labs: Abnormal Lab Results - Last 24 Hours (Table) 07/18/21 07/18/21 07/19/21 Range/Units 15:53 15:53 06:11 RBC 4.25 L (4.30-5.90) m/uL Hgb (13.0-17.0) g/dL Hct (39.6-50.0) % MCV 100.3 H (80.0-100.0) fL PT 24.6 H (9.0-12.0) sec INR 2.5 H (<1.2) APTT 57.0 H 67.7 H (22.0-30.0) sec Carbon Dioxide (21.6-31.8) mmol/L Calcium (8.7-10.3) mg/dL Total Bilirubin (0.30-1.20) mg/dL Total Protein (6.2-8.2) g/dL Albumin (3.8-4.9) g/dL Albumin/Globulin Ratio (1.60-3.17) g/dL 07/19/21 07/19/21 Range/Units 06:11 06:11 RBC 3.84 L (4.30-5.90) m/uL Hgb 12.3 L (13.0-17.0) g/dL Hct 38.0 L (39.6-50.0) % MCV 99.0 H (80.0-100.0) fL PT (9.0-12.0) sec INR (<1.2) APTT (22.0-30.0) sec Carbon Dioxide 21.0 L (21.6-31.8) mmol/L Calcium 8.6 L (8.7-10.3) mg/dL Total Bilirubin <0.20 L (0.30-1.20) mg/dL Total Protein 5.4 L (6.2-8.2) g/dL Albumin 3.3 L (3.8-4.9) g/dL Albumin/Globulin Ratio 1.57 L (1.60-3.17) g/dL Assessment and Plan Assessment: * Altered mental status. Unknown cause of encephalopathy. Possibly due to his left frontal stroke causing behavioral issues with AMS. Rule out new stroke vs seizure from his stroke. * Acute Left frontal ischemic stroke (on exam has broca aphasia). Likely embolic especially with history of atrial fibrillation. * Paroxysmal Atrial fibrillation on long-term anticoagulation with Coumadin. * Hypertension * Hyperlipidemia * History of bladder cancer. * Low Vitamin B12. * Hematuria. Plan: Ordered repeat CT head to rule out any new stroke. Ordered routine EEG. I will not start the patient on anti-epileptic drug unless there is epileptiform discharges or seizure on the EEG. Currently patient is on ASA 325mg daily and Coumadin. From neurological perspective can decrease to ASA 81mg daily but will defer that to cardiology and primary team. INR goal is 2-3 (currently is therapeutic on INR 2.5). Continue Lipitor 20mg qhs for secondary stroke prophylaxis. Continue vitamin B12 1000 g orally daily. Continue neuro-checks. PT, OT and TRANSPORTATION LEAD are consulted. Will defer the rest of medical management to the primary team. Upon discharge the patient to follow-up with a neurologist within 1-2 weeks as outpatient. The plan is discussed with the patient daughter, grand-daughter who are bedside and discussed with his nurse. Tani Centeno MD Neuro-Hospitalist Time with Patient: Less than 30
--- NOTE | 2021-07-19 13:51 | CT ---
EXAMINATION TYPE: CT brain wo con DATE OF EXAM: 07/19/2021 COMPARISON: CT brain 07/13/2021 HISTORY: ams, recent cva CT DLP: 1202.4 mGycm Automated exposure control for dose reduction was used. FINDINGS: There is no significant interval change. Low-attenuation again noted along the distribution of the pr evious infarcts, periventricular white matter low-attenuation is again seen. Cortical atrophy is note d. No evident hemorrhage or hydrocephalus. Calvarium is intact. Paranasal sinuses and mastoid air yovany ls are well aerated. IMPRESSION: FINDINGS CONSISTENT WITH PATIENT'S LEFT FRONTAL AND PARIETAL INFARCTS.
[2021-07-19] MEDS ORDERED: WARFARIN 2.5 MG TAB PO ONE (18:00)
--- NOTE | 2021-07-19 19:36 | P.PN ---
Subjective Progress Note Date: 07/19/21 Principal diagnosis: TIA/CVA Cardiac thrombus hematuria 89-year-old male with significant past medical history of atrial fibrillation on anticoagulation therapy, hypertension, hyperlipidemia, newly diagnosed with bladder CA, prostate disorder, gout, coronary artery disease with heart catheterizations in the past, orthopedic surgeries and several comorbidities is admitted to the hospital for transient ischemic attack rule out cerebrovascular accident. Patient had extensive diagnostic workup in emergency department for TIA/CVA; CT of the head without contrast initially showed degenerative and nonspecific white matter changes mostly typical remote ischemia change; dictation from radiologist no acute hemorrhage correlate with MRI saturation for acute ischemic as clinically warranted. Review of emergency room notes patient presented to the emergency department with right-sided weakness, with difficulty moving right leg, and possible ataxia right-sided. Upon review of emergency physician notes NIH was 0 patient was moving all extremities. Apparently at 1740, patient's clinical symptoms of a TIA/CVA progressed with NIH of 3, CT of the brain without contrast was ordered, dictation from radiologist no acute intercranial abnormalities. Review of diagnostic labs, CBC unremarkable, INR subtherapeutic at 1.1, CMP unremarkable other than a mildly elevated glucose of 118. Troponin negative. Urinalysis consistent with past urinalysis of hematuria, and bladder CA. Covid test negative 07/11/2021 Patient seen and examined at bedside. Patient resting comfortably in bed in no acute signs of distress. Difficulty obtaining subjective data, patient pleasantly confused only the able to answer questions to person and follows simple commands. Patient's normal neurological baseline is alert and oriented 4 with no difficulty following commands, no ataxia noted or weakness noted. See above for diagnostic review of imaging and diagnostic labs. 07/12/2021 Patient seen and examined at bedside. Contacted by jail staff last night, patient became agitated and combative, ordered medication for anxiety and agitation. Daughter was notified and was encouraged to return to hospital to assist with anxiety. This morning, the patient is resting in bed, oriented to self, pleasantly confused. Unable to collect subjective data due to patient's confusion. 07/13/2021 Patient seen and examined at bedside. Heparin drip was paused due to increased hematuria overnight. Patient is anxious and confused. Daughter is at bedside, reviewed plan of care with her. Unable to collect subjective data due to patient's confusion and agitation. 07/14/2021 to 07/17/2021 see [facility] hospitalist 07/18/2021 Patient seen and examined at bedside. Patient pleasantly confused, unable to recall events place and situation, able to answer questions to person. Unable to obtain subjective data, due to recent CVA. Currently patient has indwelling catheter with mild to moderate hematuria will monitor hemoglobin and hematocrit. Continue heparin drip until bridging with Coumadin for therapeutic INR. 07/19/2021 Patient seen and examined at bedside. Patient confused, mildly agitated, frustration with obtaining his subjective data. Patient states I am tired of this while you keep asking me the same questions. Review diagnostic labs; hemoglobin and hematocrit stable, INR therapeutic 2.5, CMP, sodium 141, potassium 4.0 chloride 109, injury bicarb 21 renal function unremarkable, calcium 8.6. x borderline mild cardiomegaly, per Dr. Weathers radiologist possible early developing peripheral mild to lower lung interstitial infiltrates. He continues to have hematuria and Lazaro catheter. We'll continue anticoagulation therapy for atrial fibrillation. Objective - Vital Signs Vital signs: Vital Signs Temp 97.8 F 07/19/21 14:00 Pulse 88 07/19/21 14:00 Resp 16 07/19/21 14:00 BP 112/64 07/19/21 14:00 Pulse Ox 96 07/19/21 14:00 Intake & Output 07/19/21 07/19/21 07/20/21 06:59 18:59 06:59 Output Total 575 300 Balance -575 -300 Output: Urine 575 300 Other: Voiding Method Indwelling Catheter Indwelling Catheter - Constitutional General appearance: Present: disheveled - EENT Eyes: Present: normal appearance ENT: Present: normal oropharynx Ears: bilateral: normal - Neck Neck: Present: normal ROM Carotids: bilateral: upstroke normal Thyroid: bilateral: normal size - Respiratory Respiratory: bilateral: diminished (Anterior and posterior lung skinner) - Cardiovascular Details: Atrial fibrillation Heart rate: 89 Rhythm: irregularly irregular Heart sounds: normal: S1, S2 - Peripheral pulses radial pulse Peripheral Pulses: bilateral: Normal dorsalis pedis Peripheral Pulses: bilateral: Normal - Gastrointestinal General gastrointestinal: Present: normal bowel sounds, soft - Integumentary Integumentary: Present: decreased turgor - Neurologic Neurologic: Present: focal deficits - Musculoskeletal Musculoskeletal: Present: right sided weakness - Psychiatric Psychiatric Comment(s): Disorientation to person, place, time, situation Confused and agitated - Allied health notes Allied health notes reviewed: nursing - Labs CBC & Chem 7: 07/19/21 06:11 07/19/21 06:11 Labs: Abnormal Lab Results - Last 24 Hours (Table) 07/19/21 07/19/21 07/19/21 Range/Units 06:11 06:11 06:11 RBC 3.84 L (4.40-5.60) X 10*6/uL Hgb 12.3 L (13.0-17.0) g/dL Hct 38.0 L (39.6-50.0) % MCV 99.0 H (80.0-97.0) fL PT 24.6 H (9.0-12.0) sec INR 2.5 H (<1.2) APTT 67.7 H (22.0-30.0) sec Carbon Dioxide 21.0 L (21.6-31.8) mmol/L Calcium 8.6 L (8.7-10.3) mg/dL Total Bilirubin <0.20 L (0.30-1.20) mg/dL Total Protein 5.4 L (6.2-8.2) g/dL Albumin 3.3 L (3.8-4.9) g/dL Albumin/Globulin Ratio 1.57 L (1.60-3.17) g/dL - Imaging and Cardiology Chest x-ray: report reviewed CT scan - chest: report reviewed Assessment and Plan Assessment: TIA/CVA Paroxysmal atrial fibrillation on anticoagulation therapy cardiac thrombus Bladder CA with hematuria Hyperlipidemia Hypertension Gout Coronary artery disease with heart catheterizations in the past Orthopedic surgeries Former nicotine dependence DO NOT RESUSCITATE (1) CVA (cerebral vascular accident) Current Visit: Yes Status: Acute Priority: High Code(s): I63.9 - CEREBRAL INFARCTION, UNSPECIFIED SNOMED Code(s): 079205745 Plan: CVA, acute left frontal lobe and anterior watershed region on MRI, continue neurological assessments cardiac thrombus, continue Coumadin therapy the dose by pharmacy Afib, controlled rate, , continue Coumadin therapy due to dose by pharmacy Chest x-ray possible interstitial infiltrates, will obtain ESR, CRP and pro calcitonin Recent bladder tumor resection Continue to monitor vital signs and diagnostic testing Continue medical management Further recommendations to come based on patient's clinical condition Hopeful discharge to jail facility in 24-48 hours Time with Patient: Greater than 30
[2021-07-19] MEDS: ATORVASTATIN 20 MG TAB PO SCH (20:21)
[2021-07-19] MEDS: QUEtiapine 25 MG TAB PO PRN (20:46)
[2021-07-20] MEDS: allopurinoL 300 MG TAB PO SCH (08:06)
[2021-07-20] MEDS: TAMSULOSIN 0.4 MG CAP.ER.24H PO SCH (08:06)
[2021-07-20 08:23] LABS: INR 2.2 (<1.2); Prothrombin Time 21.1 sec (9.0-12.0)
[2021-07-20] MEDS ORDERED: ASPIRIN 81 MG PO SCH (09:00)
[2021-07-20] MEDS ORDERED: CYANOCOBALAMIN 500 MCG TAB PO SCH (09:00)
[2021-07-20 09:26] LABS: Basophils % (A) 0 %; Eosinophils # (A) 0.3 k/uL (0-0.7); Eosinophils % (A) 4 %; HCT 42.4 % (39.0-53.0); Lymphocytes # (A) 1.4 k/uL (1.0-4.8); Lymphocytes % (A) 18 %; MCH 33.3 pg (25.0-35.0); MCHC 33.1 g/dL (31.0-37.0); MCV 100.7 fL (80.0-100.0); Mean Platelet Volume 8.2; Monocytes # (A) 0.4 k/uL (0-1.0); Monocytes % (A) 4 %; Neutrophils # (A) 5.7 k/uL (1.3-7.7); Neutrophils % (A) 71 %; Platelet Count 226 k/uL (150-450); RBC 4.22 m/uL (4.30-5.90); RDW 13.1 % (11.5-15.5)
[2021-07-20] MEDS: SODIUM CHLORIDE 0.9% 500 ML 500 ML IV SCH (09:26)
--- NOTE | 2021-07-20 12:03 | P.PN ---
Subjective Progress Note Date: 07/20/21 I am seeing the patient at bedside and he is accompanied by his pleasant daughter and grand-daughter and they stated he seems to be doing better today compared to yesterday. Patient continues to have word finding difficulties. Otherwise no new neurological problems. Per the daughter, the patient was off his Coumadin for bladder scraping for his history of bladder cancer and during that time he developed a stroke. Otherwise while he was on Coumadin he did not have a stroke. Objective - Vital Signs Vital signs: Vital Signs Temp 97.7 F 07/20/21 08:00 Pulse 79 07/20/21 08:00 Resp 16 07/20/21 08:00 BP 152/80 07/20/21 08:00 Pulse Ox 96 07/20/21 08:00 Intake & Output 07/19/21 07/20/21 07/20/21 18:59 06:59 18:59 Intake Total 236 Output Total 300 400 Balance -300 -400 236 Intake: Oral 236 Output: Urine 300 400 Other: Voiding Method Indwelling Catheter Indwelling Catheter Indwelling Catheter - Exam GENERAL: The patient is lying in bed and is not in acute distress. NEUROLOGICAL: Somewhat limited because of his cooperation. Higher mental function: The patient is awake, alert, oriented to self only (per daughter baseline not oriented to time). Patient is following simple commands (thumbs up, sticking out his tongue). Has broca aphasia (Has paraphrasic errors and preservation of words). Cranial nerves: The pupils are round, equal and reactive to light. Visual skinner are full to confrontation. No facial weakness. Tongue is midline and moved [id number] without any difficulty. No dysarthria is noted. Shoulder shrug is normal bilaterally. Motor: Gait is deferred. The strength is 5 over 5 throughout. Normal tone and bulk. Cerebellum: Normal finger to nose bilaterally. Sensation: Sensation is normal to touch throughout. WORK-UP: * CTA of the head and neck was suboptimal study without significant stenosis in the internal carotid arteries bilaterally. No significant stenosis or aneu rysm at the level of [place]. 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 * MRI of the brain confirmed acute infarct left frontal lobe and anterior watershed region correlates with most recent CT. No hemorrhage (Reviewed with Dr Mccoy). * CT Head on 07/19/2021: Is reported as finding consistent with patient's left frontal and parietal infarcts. I personally reviewed it and it does not seem any acute ischemic or subacute or intraparechymal hemorrhage. * 2-D echo revealed normal left-ventricular size. Mild concentric LVH. Left ventricle systolic function is moderate to severely impaired with an EF between 30-35%. Apical septum LV wall motion is hypokinetic. Possible thrombus in the left ventricular apex. * Lipid panel showed cholesterol 124, LDL 67, HDL 40 and triglycerides 81. Patient at home on lovastatin 20 mg daily. Continue atorvastatin 20 mg daily while in hospital. * Hemoglobin A1c 5.5 * B12 is low 236 - Labs CBC & Chem 7: 07/20/21 07:41 07/19/21 06:11 Labs: Abnormal Lab Results - Last 24 Hours (Table) 07/19/21 07/19/21 07/19/21 Range/Units 06:11 20:04 20:04 RBC (4.30-5.90) m/uL MCV (80.0-100.0) fL ESR 16 H (0-15) mm/hr PT (9.0-12.0) sec INR (<1.2) Carbon Dioxide 21.0 L (21.6-31.8) mmol/L Calcium 8.6 L (8.7-10.3) mg/dL Total Bilirubin <0.20 L (0.30-1.20) mg/dL C-Reactive Protein 1.7 H (<1.0) mg/dL Total Protein 5.4 L (6.2-8.2) g/dL Albumin 3.3 L (3.8-4.9) g/dL Albumin/Globulin Ratio 1.57 L (1.60-3.17) g/dL 07/20/21 07/20/21 Range/Units 07:41 07:41 RBC 4.22 L (4.30-5.90) m/uL MCV 100.7 H (80.0-100.0) fL ESR (0-15) mm/hr PT 21.1 H (9.0-12.0) sec INR 2.2 H (<1.2) Carbon Dioxide (21.6-31.8) mmol/L Calcium (8.7-10.3) mg/dL Total Bilirubin (0.30-1.20) mg/dL C-Reactive Protein (<1.0) mg/dL Total Protein (6.2-8.2) g/dL Albumin (3.8-4.9) g/dL Albumin/Globulin Ratio (1.60-3.17) g/dL Assessment and Plan Assessment: * Altered mental status. Unknown cause of encephalopathy. Possibly due to his left frontal stroke causing behavioral issues with AMS. ---resolved * Acute Left frontal ischemic stroke (on exam has broca aphasia). Likely emboli c (Atrial fibrillation and his coumadin was held for a procedure) * Paroxysmal Atrial fibrillation on long-term anticoagulation with Coumadin. * Hypertension * Hyperlipidemia * History of bladder cancer. * Low Vitamin B12. * Hematuria. Plan: Continue his home medication of Coumadin (with INR goal of 2-3). During hospital stay he was started on ASA 325mg then was decreased to 81mg daily. The patient did not fail Coumadin and therefore, I recommend to stop ASA from neurological perspective to avoid risk of bleeding. Continue Lipitor 20mg qhs for secondary stroke prophylaxis. Routine EEG: Preliminary report. It is abnormal. He has focal slowing over left frontal consistent with patient history of stroke. Otherwise the background is normal and there is no epileptiform discharges or seizure on the EEG. Continue vitamin B12 1000 g orally daily. Continue neuro-checks. PT, OT and HOSPITAL UNIT COORDINATOR are consulted. Will defer the rest of medical management to the primary team. Upon discharge the patient to follow-up with a neurologist within 1-2 weeks as outpatient. The plan is discussed with the patient daughter, grand-daughter who are bedside and plan is discussed with his nurse. Tani Centeno MD Neuro-Hospitalist Time with Patient: Less than 30
--- NOTE | 2021-07-20 12:16 | EEG ---
ELECTROENCEPHALOGRAM REPORT DATE OF SERVICE: 07/20/2021 Relevant medication: The patient is not on any antiepileptic drugs. EEG TYPE: A routine 21-channel EEG is performed with video using the 10/20 electrode placement system. DESCRIPTION: Awake and drowsy states are obtained. During awake state, the background consists of 8 hertz activity that is well modulated and well sustained. There is no physiological stage II sleep architecture. There is mild to moderate delta focal slowing over the left frontal region. Interictal and ictal is none. ACTIVATION PROCEDURE: Photic stimulation did evoke a posterior driving response at multiple flash frequencies. There is no abnormality during the photic stimulation. Interictal and ictal is none. CLINICAL INTERPRETATION: This is an abnormal routine EEG. There is focal slowing over the left frontal which is consistent with the patient's recent history of left frontal stroke. Otherwise, the background is normal and there are no epileptiform discharges or seizure on the EEG. Clinical correlation is recommended. DUANE / SONNY: [id number] /
[2021-07-20 13:08] LABS: African American GFR (CKD) 88.1 (60.0-200.0); BUN/Creat Ratio 17.89 Ratio (12.00-20.00); Blood Urea Nitrogen 16.1 mg/dL (9.0-27.0); Calcium 9.1 mg/dL (8.7-10.3); Magnesium 2.2 mg/dL (1.5-2.4); Potassium 4.2 mmol/L (3.5-5.5)
--- NOTE | 2021-07-20 13:09 | P.DS ---
Providers Date of admission: 07/12/21 08:15 Expected date of discharge: 07/20/21 Attending physician: Vitaliy Hdz Consults: 07/10/21 17:49 Consult Physician Routine Consulting Provider: Skye Allen Consult Reason/Comments: TIA Do you want consulting provider notified?: Yes 07/11/21 11:50 Consult Physician Routine Consulting Provider: Dion Alcantar Consult Reason/Comments: existing patient. Need blood thinner clearance Do you want consulting provider notified?: Yes Primary care physician: Vitaliy Hdz - Discharge Diagnosis(es) (1) CVA (cerebral vascular accident) Current Visit: Yes Status: Acute Priority: High Onset Date: ~07/12/21 Hospital Course: 89-year-old male with significant past medical history of atrial fibrillation on anticoagulation therapy, hypertension, hyperlipidemia, newly diagnosed with bladder CA, prostate disorder, gout, coronary artery disease with heart catheterizations in the past, orthopedic surgeries and several comorbidities is admitted to the hospital for transient ischemic attack rule out cerebrovascular accident. Patient had extensive diagnostic workup in emergency department for TIA/CVA; CT of the head without contrast initially showed degenerative and nonspecific white matter changes mostly typical remote ischemia change; dictation from radiologist no acute hemorrhage correlate with MRI saturation for acute ischemic as clinically warranted. Review of emergency room notes patient presented to the emergency department with right-sided weakness, with difficulty moving right leg, and possible ataxia right-sided. Upon review of emergency physician notes NIH was 0 patient was moving all extremities. Apparently at 1740, patient's clinical symptoms of a TIA/CVA progressed with NIH of 3, CT of the brain without contrast was ordered, dictation from radiologist no acute intercranial abnormalities. Neurology was consulted to evaluate CVA symptoms, recommends continuing with warfarin regimen with INR goal of 2-3. Will discontinue aspirin on discharge based on neurology consult. Cardiology was consulted for evaluation of cardiac thrombus found on echocardiogram, recommended warfarin treatment as well. Urology seen the patient, had underwent TURP with tumor resection, persistent hematuria, agreed with warfarin treatment. Patient will be discharged to [facility] for strength conditioning. Assessment: TIA/CVA Paroxysmal atrial fibrillation on anticoagulation therapy cardiac thrombus Bladder CA with hematuria Hyperlipidemia Hypertension Gout Coronary artery disease with heart catheterizations in the past Orthopedic surgeries Former nicotine dependence DO NOT RESUSCITATE Health Concerns: multiple comorbidities Pertinent Studies: serial Brain CTs, most recent showing left frontal and parietal infarcts serial chest xray, most recent showing borderline/mild cardiomegaly and possible peripheral and interstitial infiltrates Brain MRI showed acute infarct left frontal lobe and anterior watershed regions, and mild to moderate diffuse cerebral atrophy and chronic small vessel ischemic changes Echocardiogram, showed EF of 30-35%, see rad notes Procedures: none Patient Condition at Discharge: Fair Plan - Discharge Summary Discharge Rx Participant: Yes New Discharge Prescriptions: New Cyanocobalamin [Vitamin B-12] 1,000 mcg PO DAILY #30 tab QUEtiapine [SEROquel] 25 mg PO HS PRN #10 tab PRN Reason: Agitation Continue Warfarin [Coumadin] 2.5 mg PO DIRECTED Lovastatin [Altoprev] 20 mg PO DAILY lisinopriL [Zestril] 20 mg PO BID amLODIPine [Norvasc] 5 mg PO DAILY Allopurinol [Zyloprim] 300 mg PO DAILY atenoloL [Tenormin] 12.5 mg PO HS Warfarin [Coumadin] 5 mg PO DIRECTED Tamsulosin HCl [Flomax] 0.4 mg PO DAILY traMADol HCL [Ultram] 50 mg PO BID PRN #6 tab PRN Reason: Pain Discharge Medication List Allopurinol [Zyloprim] 300 mg PO DAILY 10/14/19 [History] Lovastatin [Altoprev] 20 mg PO DAILY 10/14/19 [History] Warfarin [Coumadin] 2.5 mg PO DIRECTED 10/14/19 [History] amLODIPine [Norvasc] 5 mg PO DAILY 10/14/19 [History] lisinopriL [Zestril] 20 mg PO BID 10/14/19 [History] atenoloL [Tenormin] 12.5 mg PO HS 03/25/20 [History] Warfarin [Coumadin] 5 mg PO DIRECTED 12/07/20 [History] Tamsulosin HCl [Flomax] 0.4 mg PO DAILY 06/23/21 [History] Cyanocobalamin [Vitamin B-12] 1,000 mcg PO DAILY #30 tab 07/20/21 [Rx] QUEtiapine [SEROquel] 25 mg PO HS PRN #10 tab 07/20/21 [Rx] traMADol HCL [Ultram] 50 mg PO BID PRN #6 tab 07/20/21 [Rx] Follow up Appointment(s)/Referral(s): Vitaliy Hdz MD [Primary Care Provider] - 1-2 days ([facility]) Ambulatory/Diagnostic Orders: Complete Blood Count w/diff [LAB.AMB] Location: None Selected Comprehensive Metabolic Panel [LAB.AMB] Location: None Selected Magnesium [LAB.AMB] Location: None Selected Prothrombin Time INR [LAB.AMB] Location: None Selected Patient Instructions/Handouts: A-fib (Atrial Fibrillation) (DC), Ischemic Str tiffanie (DC), Hematuria (GEN), Self Care Measures After a Stroke (DC) Activity/Diet/Wound Care/Special Instructions: Neurological checks every shift Strict I&O;'s Monitor for gross hematuria Indwelling sesay catheter continued until discontinued by urology cardiac diet with aspiration precautions Physical therapy as ordered Discharge Disposition: TRANSFER TO SNF/ECF
[2021-07-20 15:06] VITALS: BP 148/76; PULSE 76; TEMP 98
[2021-07-20] MEDS ORDERED: WARFARIN 3 MG TAB PO ONE (18:00)
== END 2021-07-20 15:45 | DRG 65 ==
LOC: EC 14:16 → 6NMEDSUR 17:47 → 3SCARD 07-11 17:14 → OBSVTOIN 07-12 08:15 → 4SSUR 07-17 18:33
PROVIDERS: ADMIT Family Medicine; ATTEND Family Medicine
DX: I63.40 Cerebral infarction due to embolism of unspecified cerebral artery (principal); G93.40 Encephalopathy, unspecified; I42.8 Other cardiomyopathies; R20.0 Anesthesia of skin; I48.0 Paroxysmal atrial fibrillation; E78.5 Hyperlipidemia, unspecified; I10 Essential (primary) hypertension; M10.9 Gout, unspecified; M54.30 Sciatica, unspecified side; N40.0 Benign prostatic hyperplasia without lower urinary tract symptoms; C67.9 Malignant neoplasm of bladder, unspecified; I25.10 Atherosclerotic heart disease of native coronary artery without angina pectoris; I51.3 Intracardiac thrombosis, not elsewhere classified; R29.703 NIHSS score 3; H91.90 Unspecified hearing loss, unspecified ear; R47.01 Aphasia; Z66 Do not resuscitate; R79.1 Abnormal coagulation profile; Z20.822 Contact with and (suspected) exposure to COVID-19; E53.8 Deficiency of other specified B group vitamins; F41.9 Anxiety disorder, unspecified; Z79.01 Long term (current) use of anticoagulants; Z79.899 Other long term (current) drug therapy; Z87.891 Personal history of nicotine dependence; Z79.82 Long term (current) use of aspirin; Z85.46 Personal history of malignant neoplasm of prostate
CPT/HCPCS: 36415; 70450; 70496; 70498; 70551; 71045; 71046; 80048; 80053; 80061; 81001; 82607; 82746; 83036; 83735; 84145; 84439; 84443; 84481; 84484; 85025; 85027; 85610; 85652; 85730; 86140; 87086; 87635; 93005; 93306; 95816; 99285

== ENCOUNTER 2021-09-07 11:12 | Inpatient (IN) | payer MEDICARE, BC ==
[2021-09-07] MEDS ORDERED: SODIUM CHLORIDE 0.9% 1,000 ML IV ONE (12:10)
[2021-09-07 12:21] LABS: Appearance,Urine Cloudy (Clear); Bacteria,Urine Rare /hpf; Bilirubin,Urine Negative (Negative); Blood,Urine Moderate (Negative); Color,Urine Yellow; Glucose,Urine (UA) Negative (Negative); Hyaline Casts,Urine 4 /lpf (0-2); Ketones,Urine Negative (Negative); Leukocyte Esterase,Urine Large (Negative); Mucus,Urine Rare /hpf; Nitrite,Urine Negative (Negative); PH, Urine 5.5 (5.0-8.0); Protein,Urine 1+ (Negative); RBC,Urine 8 /hpf (0-5); Specific Gravity,Urine 1.016 (1.001-1.035); Squamous Epithelial Cell,Urine 1 /hpf (0-4); Urobilinogen,Urine <2.0 mg/dL (<2.0); WBC,Urine 149 /hpf (0-5)
--- NOTE | 2021-09-07 12:27 | ED ---
General Adult HPI - General Chief complaint: Urogenital Stated complaint: Urogenital Time Seen by Provider: 09/07/21 12:01 Source: patient, family, RN notes reviewed, old records reviewed Mode of arrival: wheelchair - History of Present Illness Initial comments: 89-year-old male who presents for evaluation of suspected blood in the urine. Patient is accompanied by his son who noted blood in the patient's diaper today. Patient had bladder surgery 2 months ago and is currently being treated for bladder cancer. He's had no abdominal pain. No fever. He's had generalized we akness and fatigue over the past 2 months during treatment. Patient himself denied dysuria or urinary frequency or urgency. - Related Data Home Medications Medication Instructions Recorded Confirmed Allopurinol [Zyloprim] 300 mg PO DAILY 10/14/19 07/10/21 Lovastatin [Altoprev] 20 mg PO DAILY 10/14/19 07/10/21 Warfarin [Coumadin] 2.5 mg PO DIRECTED 10/14/19 07/10/21 amLODIPine [Norvasc] 5 mg PO DAILY 10/14/19 07/10/21 lisinopriL [Zestril] 20 mg PO BID 10/14/19 07/10/21 atenoloL [Tenormin] 12.5 mg PO HS 03/25/20 07/10/21 Warfarin [Coumadin] 5 mg PO DIRECTED 12/07/20 07/10/21 Tamsulosin HCl [Flomax] 0.4 mg PO DAILY 06/23/21 07/10/21 Previous Rx's Medication Instructions Recorded Cyanocobalamin [Vitamin B-12] 1,000 mcg PO DAILY #30 tab 07/20/21 QUEtiapine [SEROquel] 25 mg PO HS PRN #10 tab 07/20/21 traMADol HCL [Ultram] 50 mg PO BID PRN #6 tab 07/20/21 Allergies Allergy/AdvReac Type Severity Reaction Status Date / Time No Known Allergies Allergy Verified 09/07/21 11:33 Review of Systems ROS Statement: Those systems with pertinent positive or pertinent negative responses have been documented in the HPI. ROS Other: All systems not noted in ROS Statement are negative. Past Medical History Past Medical History: Atrial Fibrillation, Cancer, Hyperlipidemia, Hypertension, Prostate Disorder Additional Past Medical History / Comment(s): HX GOUT, SCIATICA, TIRES EASILY, BPH, STATES DIFFICULTY WITH BOWEL MOVEMENTS., USES CANE , BLADDER TUMOR. History of Any Multi-Drug Resistant Organisms: None Reported Past Surgical History: Appendectomy, Heart Catheterization, Orthopedic Surgery Additional Past Surgical History / Comment(s): RIGHT SHOULDER TENDON REPAIR Past Anesthesia/Blood Transfusion Reactions: No Reported Reaction Past Psychological History: Anxiety Smoking Status: Former smoker Past Alcohol Use History: Daily Past Drug Use History: None Reported - Past Family History Mother Family Medical History: No Reported History General Exam General appearance: alert, in no apparent distress Head exam: Present: atraumatic, normocephalic Eye exam: Present: normal appearance, PERRL Neck exam: Present: normal inspection. Absent: tenderness, meningismus Respiratory exam: Present: normal lung sounds bilaterally. Absent: respiratory distress Cardiovascular Exam: Present: regular rate, normal rhythm exam: Present: other (Excoriation on the bilateral groin consistent with fungal infection with minimal bleeding.). Absent: scrotal swelling, circumcision Extremities exam: Present: normal inspection, normal capillary refill. Absent: pedal edema Course Vital Signs 09/07/21 09/07/21 09/07/21 11:28 12:32 12:35 Temperature 98.0 F Pulse Rate 59 L 106 H 99 Respiratory 18 16 Rate Blood Pressure 78/37 85/65 O2 Sat by Pulse 96 97 Oximetry 09/07/21 13:39 Temperature Pulse Rate 100 Respiratory 20 Rate Blood Pressure 100/66 O2 Sat by Pulse 98 Oximetry Medical Decision Making - Medical Decision Making 89-year-old male presented for evaluation of suspected hematuria. This is not hematuria, he has an excoriation in [place] infection of the groin. I did initiate workup as this patient's blood pressure was initially low. He has leukopenia with a white blood cell count of 3.7 likely secondary from chemotherapy. His hemoglobin is stable. He has a supratherapeutic INR this is treated with oral vitamin K and his warfarin will be held. Additionally has some acute kidney injury with a creatinine 1.67. He has evidence of a current UTI with urine cultures pending. Given IV fluid and IV antibiotics. He will be admitted to Dr. Kinney. He is a DO NOT RESUSCITATE. - Lab Data Result diagrams: 09/07/21 12:22 09/07/21 12:22 Lab Results 1209/07/21 09/07/21 Range/Units 11:54 12:15 12:22 WBC 3.7 L (3.8-10.6) k/uL RBC 3.95 L (4.30-5.90) m/uL Hgb 13.0 (13.0-17.5) gm/dL Hct 39.5 (39.0-53.0) % MCV 100.1 H (80.0-100.0) fL MCH 33.0 (25.0-35.0) pg MCHC 32.9 (31.0-37.0) g/dL RDW 13.7 (11.5-15.5) % Plt Count 173 (150-450) k/uL MPV 6.9 Neutrophils % 80 % Lymphocytes % 18 % Monocytes % 0 % Eosinophils % 1 % Basophils % 0 % Neutrophils # 3.0 (1.3-7.7) k/uL Lymphocytes # 0.7 L (1.0-4.8) k/uL Monocytes # 0.0 (0-1.0) k/uL Eosinophils # 0.0 (0-0.7) k/uL Basophils # 0.0 (0-0.2) k/uL PT (9.0-12.0) sec INR (<1.2) APTT (22.0-30.0) sec Sodium (137-145) mmol/L Potassium (3.5-5.1) mmol/L Chloride (98-107) mmol/L Carbon Dioxide (22-30) mmol/L Anion Gap mmol/L BUN (9-20) mg/dL Creatinine (0.66-1.25) mg/dL Est GFR (CKD-EPI)AfAm (>60 ml/min/1.73 sqM) Est GFR (CKD-EPI)NonAf (>60 ml/min/1.73 sqM) Glucose (74-99) mg/dL Plasma Lactic Acid [place] (0.7-2.0) mmol/L Calcium (8.4-10.2) mg/dL Magnesium (1.6-2.3) mg/dL Total Bilirubin (0.2-1.3) mg/dL AST (17-59) U/L ALT (4-49) U/L Alkaline Phosphatase (38-126) U/L Total Protein (6.3-8.2) g/dL Albumin (3.5-5.0) g/dL Urine Color Yellow Urine Appearance Cloudy (Clear) Urine pH 5.5 (5.0-8.0) Ur Specific [place] 1.016 (1.001-1.035) Urine Protein 1+ H (Negative) Urine Glucose (UA) Negative (Negative) Urine Ketones Negative (Negative) Urine Blood Moderate H (Negative) Urine Nitrite Negative (Negative) Urine Bilirubin Negative (Negative) Urine Urobilinogen <2.0 (<2.0) mg/dL Ur Leukocyte Esterase Large H (Negative) Urine RBC 8 H (0-5) /hpf Urine WBC 149 H (0-5) /hpf Urine WBC Clumps Rare H (None) /hpf Ur Squamous Epith Cells 1 (0-4) /hpf Urine Bacteria Rare H (None) /hpf Hyaline Casts 4 H (0-2) /lpf Urine Mucus Rare H (None) /hpf Blood Type O Positive Blood Type Recheck O Pos Bld Type Recheck Status No Antibody Screen NEGATIVE Spec Expiration Date 09/10/2021231409/07/21 09/07/21 09/07/21 Range/Units 12:22 12:22 12:22 WBC (3.8-10.6) k/uL RBC (4.30-5.90) m/uL Hgb (13.0-17.5) gm/dL Hct (39.0-53.0) % MCV (80.0-100.0) fL MCH (25.0-35.0) pg MCHC (31.0-37.0) g/dL RDW (11.5-15.5) % Plt Count (150-450) k/uL MPV Neutrophils % % Lymphocytes % % Monocytes % % Eosinophils % % Basophils % % Neutrophils # (1.3-7.7) k/uL Lymphocytes # (1.0-4.8) k/uL Monocytes # (0-1.0) k/uL Eosinophils # (0-0.7) k/uL Basophils # (0-0.2) k/uL PT >130.0 H (9.0-12.0) sec INR >10.0 H* (<1.2) APTT 82.3 H (22.0-30.0) sec Sodium 142 (137-145) mmol/L Potassium 4.8 (3.5-5.1) mmol/L Chloride 112 H (98-107) mmol/L Carbon Dioxide 20 L (22-30) mmol/L Anion Gap 10 mmol/L BUN 77 H (9-20) mg/dL Creatinine 1.67 H (0.66-1.25) mg/dL Est GFR (CKD-EPI)AfAm 42 (>60 ml/min/1.73 sqM) Est GFR (CKD-EPI)NonAf 36 (>60 ml/min/1.73 sqM) Glucose 121 H (74-99) mg/dL Plasma Lactic Acid [place] 1.1 (0.7-2.0) mmol/L Calcium 8.8 (8.4-10.2) mg/dL Magnesium 2.5 H (1.6-2.3) mg/dL Total Bilirubin 0.8 (0.2-1.3) mg/dL AST 21 (17-59) U/L ALT 14 (4-49) U/L Alkaline Phosphatase 59 (38-126) U/L Total Protein 6.2 L (6.3-8.2) g/dL Albumin 3.0 L (3.5-5.0) g/dL Urine Color Urine Appearance (Clear) Urine pH (5.0-8.0) Ur Specific [place] (1.001-1.035) Urine Protein (Negative) Urine Glucose (UA) (Negative) Urine Ketones (Negative) Urine Blood (Negative) Urine Nitrite (Negative) Urine Bilirubin (Negative) Urine Urobilinogen (<2.0) mg/dL Ur Leukocyte Esterase (Negative) Urine RBC (0-5) /hpf Urine WBC (0-5) /hpf Urine WBC Clumps (None) /hpf Ur Squamous Epith Cells (0-4) /hpf Urine Bacteria (None) /hpf Hyaline Casts (0-2) /lpf Urine Mucus (None) /hpf Blood Type Blood Type Recheck Bld Type Recheck Status Antibody Screen Spec Expiration Date Disposition Clinical Impression: UTI (urinary tract infection), JORDI (acute kidney injury) Disposition: ADMITTED IP TO THIS HOSP Condition: Stable Is patient prescribed a controlled substance at d/c from ED?: No Referrals: Vitaliy Hdz MD [Primary Care Provider] - 1-2 days Time of Disposition: 14:53 Decision to Admit Reason: Admit from EC Decision Date: 09/07/21 Decision Time: 14:53
[2021-09-07 13:17] LABS: Basophils % (A) 0 %; Eosinophils % (A) 1 %; HCT 39.5 % (39.0-53.0); Lymphocytes # (A) 0.7 k/uL (1.0-4.8); Lymphocytes % (A) 18 %; MCHC 32.9 g/dL (31.0-37.0); MCV 100.1 fL (80.0-100.0); Mean Platelet Volume 6.9; Monocytes % (A) 0 %; Neutrophils % (A) 80 %; Platelet Count 173 k/uL (150-450); RBC 3.95 m/uL (4.30-5.90); RDW 13.7 % (11.5-15.5); WBC 3.7 k/uL (3.8-10.6)
[2021-09-07 13:34] LABS: Calcium 8.8 mg/dL (8.4-10.2); Magnesium 2.5 mg/dL (1.6-2.3); Potassium 4.8 mmol/L (3.5-5.1); Total Bilirubin 0.8 mg/dL (0.2-1.3); Total Protein 6.2 g/dL (6.3-8.2)
[2021-09-07 13:51] LABS: Partial Thromboplastin Time 82.3 sec (22.0-30.0)
[2021-09-07 13:52] LABS: Prothrombin Time >130.0 sec (9.0-12.0)
[2021-09-07 13:53] LABS: INR >10.0 (<1.2)
[2021-09-07] MEDS ORDERED: cefTRIAXone IN SWFI 1,000 MG/10 ML SYRINGE IVP STA (13:54)
[2021-09-07] MEDS: SODIUM CHLORIDE 0.9% 1,000 ML IV SCH (14:41)
[2021-09-07] MEDS ORDERED: NALOXONE 0.4 MG/ML 1 ML VIAL IV PRN (14:42)
[2021-09-07] MEDS ORDERED: PHYTONADIONE ORAL 5 MG/5 ML ORAL.SYRG PO STA (14:42)
[2021-09-07] MEDS ORDERED: ACETAMINOPHEN TAB 325 MG TAB PO PRN (14:51)
[2021-09-07] MEDS ORDERED: traMADol 50 MG TAB PO PRN (18:50)
--- NOTE | 2021-09-07 20:26 | HP ---
HISTORY AND PHYSICAL DATE OF SERVICE: 09/07/2021 CHIEF COMPLAINTS: Weakness as well as inguinal lesions. HISTORY OF PRESENT ILLNESS: This 89-year-old gentleman with a past medical history of multiple medical problems, including atrial fibrillation, history of hypertension, hyperlipidemia, possible history of gout, sciatica, being followed by Dr. Vitaliy Hdz in the outpatient setting, was brought by the family with complaints of suspected blood in the urine, but apparently patient had excoriation of both inguinal areas with some discharge. The patient is wearing some diaper. The patient was also found to be hypotensive. Sepsis was suspected and patient was started on broad-spectrum IV antibiotics. The patient was admitted for further evaluation and treatment. The labs showed leukopenia as well as some Coumadin coagulopathy. Creatinine was 1.67, indicating acute renal failure. Patient was admitted for further evaluation and treatment. UA showed some UTI also. There is no history of any fever, rigors or chills. The patient is mildly confused, unable to give a coherent history. Most of the history is taken from my discussion with the ER physician and discussion with staff and review of the chart. PAST MEDICAL HISTORY: History of atrial fibrillation, history of hypertension, hyperlipidemia, prostate disorder, history of gout. HOME MEDICATIONS: Ultram, Zestril, Tenormin, Norvasc, Coumadin, Flomax, lovastatin. Doses and other medications are reviewed. ALLERGIES: NONE. FAMILY HISTORY: No history of heart disease or strokes in the family. SOCIAL HISTORY: Remote history of smoking. No history of alcohol intake. REVIEW OF SYSTEMS: ENT: Diminished hearing. Diminished vision. CARDIOVASCULAR SYSTEM: No angina, palpitations. RESPIRATORY SYSTEM: As mentioned earlier. GI: As mentioned earlier. : As mentioned earlier. NERVOUS SYSTEM: As mentioned earlier. ALLERGY/IMMUNOLOGY: No asthma or hay fever. MUSCULOSKELETAL: As mentioned earlier. HEMATOLOGY/ONCOLOGY: No history of anemia. ENDOCRINE: No history of diabetes or hypothyroidism. CONSTITUTIONAL: As mentioned earlier. DERMATOLOGY: Negative. RHEUMATOLOGY: Negative. PSYCHIATRY: As mentioned earlier. PHYSICAL EXAMINATION: Patient alert and oriented x3. Pulse is 110, blood pressure 91/59. On presentation it was 78/37. Respiration 18. Temperature 98 degrees, pulse ox 96% on room air. HEENT: Conjunctivae normal. Oral mucosa is dry. NECK: No jugular venous distention. No carotid bruit. No lymph node enlargement. CARDIOVASCULAR: S1, S2 muffled. No S3. No S4. RESPIRATION: Breath sounds diminished at the bases. A few scattered rhonchi. ABDOMEN: Soft, nontender. No mass palpable. LEGS: No edema. No swelling. NERVOUS SYSTEM: Higher functions as mentioned earlier. Moves all 4 limbs. No focal motor or sensory deficit. LYMPHATICS: No lymph node palpable in neck, axillae or groin. SKIN: No ulcer, rash, bleeding. JOINTS: No active deforming arthropathy. EXAMINATION OF BOTH GROINS: Significant intertrigo lesions with skin excoriation present. LABS: WBC 8.6, hemoglobin 13, sodium 142, potassium 4.8. ASSESSMENT: 1. Acute urinary tract infection with severe sepsis and septic shock and hypotension. 2. Leukopenia. 3. Change in mental status, acute metabolic encephalopathy, multifactorial. 4. Coumadin coagulopathy. 5. Increased creatinine with acute tubular necrosis and acute renal failure. 6. Hypermagnesemia. 7. Hypoalbuminemia with mild protein-calorie malnutrition. 8. History of atrial fibrillation, chronic. 9. Hypertension. 10.Hyperlipidemia. 11.History of prostate disorder. 12.History of gout. 13.Sciatica. 14.History of benign prostatic hypertrophy. 15.History of cardiac catheterization. 16.History of anxiety. 17.Remote history of nicotine dependence. 18.NO CODE, NO CPR, NO VENT. 19.Gait dysfunction. RECOMMENDATIONS AND DISCUSSION: In this 89-year-old gentleman who presented with multiple complex medical issues, we will monitor the patient closely. Will initiate broad-spectrum IV antibiotics. Cultures. Resume the home medications. Hold the blood pressure medications. PT/OT evaluation. Construction Project Manager to evaluate the home situation. Otherwise, prognosis is guarded because of multiple complex medical issues. Further recommendations to follow. A copy of this dictation is being forwarded to Dr. Hdz, who is the primary physician. MMODL / IJN: [id number] /
[2021-09-08] MEDS: SODIUM CHLORIDE 0.9% 1,000 ML IV SCH ×2 (04:59→20:41)
[2021-09-08] MEDS ORDERED: NON FORMULARY DRUG (Cyanocobalamin/Cobamamide [Vitamin B-12 5,000 Mcg Tab Sl] 1 EACH Tab) SL SCH (09:00)
[2021-09-08] MEDS: ATORVASTATIN 10 MG TAB PO SCH (09:26)
[2021-09-08 09:48] LABS: Basophils % (A) 0 %; Eosinophils % (A) 0 %; HCT 39.2 % (39.0-53.0); HGB 12.3 gm/dL (13.0-17.5); Lymphocytes # (A) 0.8 k/uL (1.0-4.8); Lymphocytes % (A) 22 %; MCH 31.9 pg (25.0-35.0); MCHC 31.4 g/dL (31.0-37.0); MCV 101.8 fL (80.0-100.0); Macrocytosis Slight; Mean Platelet Volume 7.1; Monocytes % (A) 1 %; Neutrophils # (A) 2.9 k/uL (1.3-7.7); Neutrophils % (A) 77 %; Platelet Count 167 k/uL (150-450); RBC 3.85 m/uL (4.30-5.90); RDW 13.5 % (11.5-15.5); WBC 3.8 k/uL (3.8-10.6)
[2021-09-08 10:11] LABS: African American GFR (CKD) 64 (>60 ml/min/1.73 sqM); Anion Gap 10 mmol/L; Blood Urea Nitrogen 52 mg/dL (9-20); Calcium 8.4 mg/dL (8.4-10.2); Carbon Dioxide 18 mmol/L (22-30); Chloride 116 mmol/L (98-107); Glucose 111 mg/dL (74-99); Non-African American GFR(CKD) 55 (>60 ml/min/1.73 sqM); Potassium 4.4 mmol/L (3.5-5.1); Sodium 144 mmol/L (137-145)
[2021-09-08 16:12] LABS: Appearance,Urine Cloudy (Clear); Bilirubin,Urine Negative (Negative); Blood,Urine Large (Negative); Color,Urine Yellow; Glucose,Urine (UA) Negative (Negative); Ketones,Urine Trace (Negative); Leukocyte Esterase,Urine Large (Negative); Nitrite,Urine Negative (Negative); Protein,Urine 1+ (Negative); RBC,Urine >182 /hpf (0-5); Specific Gravity,Urine 1.015 (1.001-1.035); Squamous Epithelial Cell,Urine 1 /hpf (0-4); Urobilinogen,Urine <2.0 mg/dL (<2.0); WBC,Urine 113 /hpf (0-5)
--- NOTE | 2021-09-08 16:21 | PN ---
PROGRESS NOTE DATE OF SERVICE: This 89-year-old gentleman admitted with weakness and groin ulcers also had some hematuria. Hemoglobin is 12.3 today. UA showed significant WBC. The patient was given antibiotics also. Creatinine improved to 1.17. The patient had Coumadin coagulopathy yesterday. Vitamin K was given today. The PT/INR is not available. PAST MEDICAL HISTORY: Reviewed. REVIEW OF SYSTEMS: Cardiovascular system: No angina. Respiratory: As mentioned earlier. GI: As mentioned earlier. CURRENT MEDICATIONS: Reviewed and include Zyloprim, Lipitor, Rocephin Narcan doses are reviewed. PHYSICAL EXAMINATION: Alert oriented x3. Pulse is 119, blood pressure 105/60, respirations 16, temperature 97.2, pulse ox 98% on room air. HEENT: Conjunctivae normal. NECK: Supple. LUNGS: Breath sounds diminished at the bases. Few scattered rhonchi. ABDOMEN: Soft nontender. LEGS: No edema. No swelling. LABS: WBC 3.8, hemoglobin 12.3, sodium 140, potassium 4.6 creatinine is 1.17. Other labs are noted. Cultures are pending at this time. ASSESSMENT: 1. Acute urinary tract infection with severe sepsis and septic shock and hypotension, present on admission. 2. Leukopenia currently slightly improved. 3. Change in mental status. Acute metabolic encephalopathy multifactorial. 4. Coumadin coagulopathy. 5. Hematuria. 6. Increased creatinine with acute tubular necrosis and acute renal failure. 7. Hypomagnesemia. 8. Hypoalbuminemia with mild protein-calorie malnutrition. 9. History of atrial fibrillation, chronic. 10.Hypertension. 11.History of prostate disorder. 12.History of gout. 13.Sciatica. 14.History of BPH. 15.History of cardiac cath. 16.History of anxiety. 17.Remote history of nicotine dependence. 18.Gait dysfunction. 19.CPR, NO VENT. DISCUSSION AND RECOMMENDATIONS: Continue current medications, symptomatic treatment. Otherwise at this time I would recommend continue with broad-spectrum IV antibiotics. Repeat labs in the morning and monitor PT/INR closely. Vitamin K is given as mentioned earlier. Prognosis guarded because of multiple complex medical. Infectious disease evaluation also will be sought. Guarded prognosis. See orders for details. MMODL / IJN: [id number] /
[2021-09-08 16:49] LABS: Prothrombin Time 53.2 sec (9.0-12.0)
[2021-09-08 17:05] LABS: INR 5.5 (<1.2)
[2021-09-08] MEDS: TAMSULOSIN 0.4 MG CAP.ER.24H PO SCH (19:22)
[2021-09-08] MEDS: allopurinoL 300 MG TAB PO SCH (19:22)
[2021-09-09] MEDS: atenoloL 25 MG TAB PO SCH ×2 (00:59→21:25)
[2021-09-09] MEDS: SODIUM CHLORIDE 0.9% 1,000 ML IV SCH ×2 (06:35→21:19)
[2021-09-09 08:10] LABS: Basophils % (A) 0 %; Eosinophils % (A) 0 %; HCT 38.7 % (39.0-53.0); HGB 12.3 gm/dL (13.0-17.5); Hypochromasia Slight; Lymphocytes # (A) 0.8 k/uL (1.0-4.8); Lymphocytes % (A) 30 %; MCH 32.4 pg (25.0-35.0); MCHC 31.8 g/dL (31.0-37.0); MCV 101.9 fL (80.0-100.0); Macrocytosis Slight; Mean Platelet Volume 6.9; Monocytes # (A) 0.1 k/uL (0-1.0); Monocytes % (A) 2 %; Neutrophils # (A) 1.8 k/uL (1.3-7.7); Neutrophils % (A) 67 %; Platelet Count 132 k/uL (150-450); RDW 13.4 % (11.5-15.5); WBC 2.7 k/uL (3.8-10.6)
[2021-09-09 08:28] LABS: Calcium 8.2 mg/dL (8.4-10.2); Potassium 4.2 mmol/L (3.5-5.1)
[2021-09-09] MEDS: ATORVASTATIN 10 MG TAB PO SCH (09:44)
--- NOTE | 2021-09-09 09:51 | P.CONS ---
History of Present Illness - Reason for Consult Consult date: 09/08/21 uti Requesting physician: Sunil Kinney - Chief Complaint blood in urine x 1 day - History of Present Illness History of present illness : Patient is 89-year-old male presenting to the ER for evaluation of blood in the urine, patient was accompanied by his son who noticed some blood in his the patient diaper definitely patient did have bladder surgery done 2 months ago and is being treated for bladder cancer patient denies having any abdominal pain no fever has been complaining of generalized weakness and fatigue they seem to be getting worse for the last 2 m onths but denies any burning or frequency of urine and no difficulty urination did have some incontinence of urine while the patient is diabetes patient on presentation the hospital was afebrile patient did have a normal white count BUN was mildly elevated he did have a positive UA with large leukocyte Estrace, blood culture has been obtained which is currently pending patient was started on Rocephin has been admitted to hospital infectious disease was consulted for further management Review of system: CONSTITUTIONAL: Positive for weakness denies fever. EYES: No complaint. ENT: No complaint. RESPIRATORY: No complaint. CARDIOVASCULAR: No complaint. GENITOURINARY: As per history of present illness. GASTROINTESTINAL: No complaint. MUSCULOSKELETAL: No complaint. INTEGUMENTARY: No complaint. PSYCHOLOGIC: No complaint. ENDOCRINE: No complaint. NEUROLOGIC: No complaint. Past medical history : Reviewed, documented below Past surgical history : Reviewed, documented below Social history: Reviewed, documented below Medications: Reviewed, as documented below EXAMINATION: Vital sigans= Reviewed and documented below GENERAL DESCRIPTION: Elderly male lying in bed, no distress. No tachypnea or accessory muscle of respiration use. HEENT: Shows Pallor , no scleral icterus. Oral mucous membrane is dry. NECK: Trachea central, no thyromegaly. LUNGS: Unlabored breathing. Clear to auscultation anteriorly. No wheeze or crackle. HEART: S1, S2, regular rate and rhythm. ABDOMEN: Soft, no tenderness , guarding or rigidity EXTREMITIES: No edema of feet. SKIN: No rash, no masses palpable. NEUROLOGICAL: The patient is awake, alert, oriented x3, mood and affect normal. LABS AND RADIOLOGY: Reviewed results see below Assessment : Patient presented to hospital with hematuria in this patient who did have a history of bladder cancer and apparently did have surgery done for it recently patient denies significant burning of urine and did not have elevated white count or fever questionable hematuria is related to his underlying bladder cancer and may benefit from evaluation by urology underlying UTI less likely but not entirely excluded Plan: 1-patient to continue with Rocephin while waiting for urine culture to finalize 2-urology evaluation 3-gentle IV fluid We will follow on clinical condition and cultures to further adjust medication if needed Thank you for this consultation we will follow the patient along with you Past Medical History Past Medical History: Atrial Fibrillation, Cancer, Hyperlipidemia, Hypertension, Prostate Disorder Additional Past Medical History / Comment(s): HX GOUT, SCIATICA, TIRES EASILY, BPH, STATES DIFFICULTY WITH BOWEL MOVEMENTS., USES CANE , BLADDER TUMOR. History of Any Multi-Drug Resistant Organisms: None Reported Past Surgical History: Appendectomy, Heart Catheterization, Orthopedic Surgery Additional Past Surgical History / Comment(s): RIGHT SHOULDER TENDON REPAIR Past Anesthesia/Blood Transfusion Reactions: No Reported Reaction Past Psychological History: Anxiety Smoking Status: Former smoker Past Alcohol Use History: Daily Past Drug Use History: None Reported - Past Family History Mother Family Medical History: No Reported History Medications and Allergies Home Medications Medication Instructions Recorded Confirmed Type Allopurinol [Zyloprim] 300 mg PO HS@1800 10/14/19 09/07/21 History Lovastatin [Altoprev] 20 mg PO DAILY 10/14/19 09/07/21 History Warfarin [Coumadin] 2.5 mg PO MOWEFR@1800 10/14/19 09/07/21 History amLODIPine [Norvasc] 5 mg PO DAILY 10/14/19 09/07/21 History lisinopriL [Zestril] 20 mg PO BID 10/14/19 09/07/21 History atenoloL [Tenormin] 12.5 mg PO HS@1800 03/25/20 09/07/21 History Warfarin [Coumadin] 5 mg PO SUTUTHSA@1800 12/07/20 09/07/21 History Tamsulosin HCl [Flomax] 0.4 mg PO HS@1800 06/23/21 09/07/21 History Acetaminophen Tab [Tylenol Tab] 500 mg PO TID PRN 09/07/21 09/07/21 History Cyanocobalamin/Cobamamide [Vitamin 1 tab SL DAILY 09/07/21 09/07/21 History B-12 5,000 Mcg Tab Sl] traMADol HCL [Ultram] 50 mg PO BID PRN 09/07/21 09/07/21 History Allergies Allergy/AdvReac Type Severity Reaction Status Date / Time No Known Allergies Allergy Verified 09/07/21 15:13 Physical Exam Vitals: Vital Signs Temp Pulse Pulse Resp BP BP Pulse Ox 09/08/21 14:00 97.6 F 119 H 16 105/69 96 09/08/21 08:00 98.1 F 107 H 16 103/70 94 L 09/08/21 04:52 98.1 F 67 17 85/67 97 09/07/21 19:00 98.7 F 105 H 19 90/60 98 09/07/21 18:00 102 H 18 91/59 96 09/07/21 17:10 110 H 16 91/59 97 09/07/21 17:00 100 16 87/58 97 Intake and Output 09/08/21 09/08/21 09/08/21 06:59 14:59 22:59 Intake Total 600 Output Total 500 Balance 100 Intake: Intake, IV Titration 600 Amount cefTRIAXone 1 gm In 600 Sodium Chloride 0.9% 50 ml @ 100 mls/hr IVPB Q24HR [facility] Rx#:[id number] Output: Urine 500 Other: Voiding Method Urinal Urinal Diaper Results CBC & Chem 7: 09/09/21 07:57 09/09/21 07:57 Labs: Abnormal Lab Results - Last 24 Hours (Table) 09/08/21 09/08/21 Range/Units 09:24 09:24 RBC 3.85 L (4.30-5.90) m/uL Hgb 12.3 L (13.0-17.5) gm/dL MCV 101.8 H (80.0-100.0) fL Lymphocytes # 0.8 L (1.0-4.8) k/uL Chloride 116 H (98-107) mmol/L Carbon Dioxide 18 L (22-30) mmol/L BUN 52 H (9-20) mg/dL Glucose 111 H (74-99) mg/dL Microbiology - Last 24 Hours (Table) 09/07/21 11:54 Urine Culture - Preliminary Urine,Voided
[2021-09-09] MEDS ORDERED: METOPROLOL TARTRATE 25 MG TAB PO STA (10:09)
[2021-09-09] MEDS: IOPAMIDOL CONTRAST (ORAL USE) VIAL PO PRN ×2 (13:01→14:00)
--- NOTE | 2021-09-09 15:25 | CT ---
EXAMINATION TYPE: CT abdomen pelvis wo con DATE OF EXAM: 09/09/2021 COMPARISON: 11/02/2019 HISTORY: Abdominal pain, tenderness. CT DLP: 496.4 mGycm Automated exposure control for dose reduction was used. Images obtained from the diaphragm to the floor the pelvis without IV contrast. There is oral contras t. There is some mild subsegmental atelectasis at the lung bases. Heart is enlarged. There is no pericar dial effusion. There is no pleural effusion. There is increased density in the dependent gallbladder that could be multiple gallstones. There are calcified splenic granulomata. Liver and spleen show no focal defect. There is no evidence of pancrea tic mass. There is no adrenal mass. Kidneys show normal size. There is no hydronephrosis. There is 2 mm calculu s lower pole left kidney. There is also a tiny calculus upper pole left kidney. There is a 5 cm corti bernardino cyst lower pole right kidney. There is no retroperitoneal adenopathy. Ureters are not dilated. Th ere is Lazaro catheter in the urinary bladder. There is prostate calcification. There is no inguinal h ernia. Bladder is almost empty. There is no mesenteric edema. There is no ascites or free air. There is no sign of a bowel obstructio n. Appendix not seen. 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 There is multilevel degenerative disc ch anges in the lumbar spine. There is no compression fracture. Bony pelvis is intact. IMPRESSION: Mild subsegmental atelectasis or scarring at the lung bases is improved compared to old exam. There i s clearing of small right pleural effusion compared to old exam. Fluid level in the gallbladder probably due to tiny calcified gallstones without change. No acute abnormality within the abdomen and pelvis. Nonobstructing left renal calculi..
[2021-09-09] MEDS: allopurinoL 300 MG TAB PO SCH (18:53)
[2021-09-09] MEDS: TAMSULOSIN 0.4 MG CAP.ER.24H PO SCH (18:53)
--- NOTE | 2021-09-09 19:25 | PN ---
PROGRESS NOTE DATE OF SERVICE: 09/09/2021 This 89-year-old gentleman who was admitted with acute UTI with possible sepsis is being closely monitored. The patient also complaints of abdominal pain. I ordered abdomen and pelvis CT scan which showed mild subsegmental atelectasis. Otherwise, tiny calcified gallstones. No other acute abnormalities noted. Nonobstructing left renal calculus also noted. No chest pain. No palpitations. Cultures are negative so far. EXAM: Alert oriented x3. Pulse 66, blood pressure 105/50, respiration 16, temperature 98.2, pulse ox 98% on room air. HEENT: Conjunctivae normal. Oral mucosa moist. NECK: No jugular venous distention. No lymph node enlargement. CARDIOVASCULAR: S1, S2, muffled. No S3, no S4, RESPIRATORY: Diminished breath sounds at the bases. No rhonchi, no crackles. ABDOMEN: Soft, nontender. LEGS: No edema, no swelling. NERVOUS SYSTEM: No focal deficits. LAB STUDIES: WBC 2.2, hemoglobin 12.8. INR is 5.7. UA noted. ASSESSMENT: 1. Acute urinary tract infection with severe sepsis and septic shock and hypotension, present on admission. 2. Leukopenia, currently improved. 3. Coumadin coagulopathy. 4. Change in mental status, acute metabolic encephalopathy, multifactorial. 5. Hematuria. 6. Increased creatinine with acute tubular necrosis and acute renal failure. 7. Hypomagnesemia. 8. Hypoalbuminemia with mild protein-calorie malnutrition. 9. History of atrial fibrillation, chronic. 10.Hypertension. 11.History of prostate disorder. 12.History of gout. 13.Sciatica. 14.History of BPH. 15.History of cardiac catheterization. 16.History of anxiety. 17.Remote history of nicotine dependence. 18.Gait dysfunction. 19.NO CODE, NO CPR, NO VENT. RECOMMENDATIONS AND DISCUSSION: Continue current medications, continue to monitor, symptomatic treatment. Otherwise, the INR is improving at this time. The patient still has persistent hematuria. I recommend to continue to monitor. Guarded prognosis. Further recommendations to follow. MMODL / IJN: [id number] /
[2021-09-09 19:34] LABS: INR 2.3 (<1.2)
--- NOTE | 2021-09-09 20:39 | PN ---
PROGRESS NOTE DATE OF SERVICE: 09/09/2021 REASON FOR FOLLOWUP: UTI. INTERVAL HISTORY: Patient is afebrile. The patient is breathing comfortably. The patient denies having any chest pain, shortness of breath or cough, some abdominal discomfort. No vomiting or diarrhea. PHYSICAL EXAMINATION: Blood pressure 105/58 with a pulse of 65, temperature 98.1. He is 96% on room air. General description is an elderly male lying in bed in no distress. Respiratory system: Unlabored breathing, clear to auscultation anteriorly. Heart S1, S2. Regular rate and rhythm. Abdomen soft, no tenderness. Extremities: No edema of the feet. LABS: Hemoglobin is 12.8, white count 2.7, creatinine 1.03. DIAGNOSTIC IMPRESSION AND PLAN: Patient admitted to the hospital with hematuria in this patient who did have a history of bladder cancer, possibly related to it. Urine culture has been negative so far. Patient is empirically covered with Rocephin that will be continued while monitoring clinical course closely. Continue supportive care. MMODL / IJN: [id number] /
[2021-09-10] MEDS: SODIUM CHLORIDE 0.9% 1,000 ML IV SCH ×2 (08:53→21:26)
[2021-09-10] MEDS: ATORVASTATIN 10 MG TAB PO SCH (08:57)
[2021-09-10 09:50] LABS: HCT 40.4 % (39.0-53.0); HGB 12.4 gm/dL (13.0-17.5); Hypochromasia Marked; MCHC 30.8 g/dL (31.0-37.0); Macrocytosis Slight; Mean Platelet Volume 7.5; Platelet Count 131 k/uL (150-450); RBC 3.88 m/uL (4.30-5.90); RDW 13.3 % (11.5-15.5); WBC 3.5 k/uL (3.8-10.6)
[2021-09-10 10:07] LABS: African American GFR (CKD) >90 (>60 ml/min/1.73 sqM); Anion Gap 6 mmol/L; Blood Urea Nitrogen 22 mg/dL (9-20); Carbon Dioxide 17 mmol/L (22-30); Chloride 118 mmol/L (98-107); Glucose 108 mg/dL (74-99); Non-African American GFR(CKD) 80 (>60 ml/min/1.73 sqM); Sodium 141 mmol/L (137-145)
[2021-09-10 10:31] LABS: Potassium 4.4 mmol/L (3.5-5.1)
[2021-09-10 13:11] LABS: Eosinophils # (M) 0.07 k/uL (0-0.7); Lymphocytes # (M) 1.33 k/uL (1.0-4.8); Monocytes # (M) 0.18 k/uL (0-1.0); Neutrophils # (M) 1.96 k/uL (1.3-7.7); Neutrophils % (M) 56 %; Nucleated Red Blood Cells 0 /100 WBC (0-0); Total Cells Counted 200
[2021-09-10] MEDS: TAMSULOSIN 0.4 MG CAP.ER.24H PO SCH (16:00)
[2021-09-10] MEDS: allopurinoL 300 MG TAB PO SCH (16:00)
--- NOTE | 2021-09-10 19:14 | PN ---
PROGRESS NOTE DATE OF SERVICE: 09/10/2021 This 89-year-old gentleman who was admitted with acute UTI with severe sepsis and septic shock syndrome also had hypotension. No chest pain. No palpitations. No fever. PHYSICAL EXAMINATION: Alert and oriented x3. Pulse is 74, blood pressure 104/60, respiration 18, temperature 97.8, pulse ox 97% on room air. HEENT: Conjunctivae normal. NECK: No jugular venous distention. CARDIOVASCULAR: S1, S2 muffled. RESPIRATION: Breath sounds diminished at the bases. A few rhonchi. No crackles. ABDOMEN: Soft, nontender. LEGS: No edema. NERVOUS SYSTEM: No focal deficit. LABS: WBC 3.5, 12.4, INR 2.3 and cultures are negative. ASSESSMENT: 1. Acute urinary tract infection with severe sepsis, septic shock and hypotension, present on admission. 2. Leukopenia, currently improved. 3. Coumadin coagulopathy. 4. Change in mental status, acute metabolic encephalopathy, multifactorial. 5. Hematuria., h/o bladder ca 6. Increased creatinine with acute tubular necrosis and acute renal failure. 7. Hypomagnesemia. 8. Hypoalbuminemia with mild protein-calorie malnutrition. 9. History of atrial fibrillation, chronic. 10.Hypertension. 11.History of prostate disorder. 12.History of gout. 13.Sciatica. 14.History of benign prostatic hypertrophy. 15.History of cardiac catheterization. 16.History of anxiety. 17.Remote history of nicotine dependence. 18.Gait dysfunction. 19.NO CODE, NO CPR, NO VENT. RECOMMENDATIONS AND DISCUSSION: I recommend to continue current medications, continue with the monitoring, symptomatic treatment. Continue with empiric antibiotics. The cultures are noted. Otherwise, repeat labs. Infectious disease evaluation has been sought. Prognosis guarded. Further recommendations to follow. MMODL / IJN: [id number] / [id number]
[2021-09-10] MEDS: atenoloL 25 MG TAB PO SCH (21:28)
--- NOTE | 2021-09-10 22:29 | PN ---
PROGRESS NOTE DATE OF SERVICE: 09/10/2021 REASON FOR FOLLOWUP: UTI. INTERVAL HISTORY: The patient is afebrile. The patient is breathing comfortably. The patient denies having any chest pain or shortness of breath or cough. No nausea, no vomiting. No abdominal pain or diarrhea. PHYSICAL EXAMINATION: Blood pressure 104/68 with a pulse of 74, temperature 97.9. He is 97% on room air. General description is an elderly male lying in bed in no distress. Respiratory system: Unlabored breathing, clear to auscultation anteriorly. Heart S1, S2. Regular rate and rhythm. Abdomen soft, no tenderness. Extremities with no edema of the feet. LABS: Creatinine 0.79, white count 3.5. Blood culture negative. Urine so far negative. DIAGNOSTIC IMPRESSION AND PLAN: Patient admitted to hospital with hematuria with concern for possible urinary tract infection in this patient who did have bladder cancer with recent surgery; questionably related to underlying malignancy. UTI not entirely excluded, with the initial culture negative. Will repeat his UA. Continue with antibiotic Rocephin and monitor clinical course closely. MMODL / IJN: [id number] /
[2021-09-10 23:45] LABS: Appearance,Urine Clear (Clear); Bilirubin,Urine Negative (Negative); Blood,Urine Moderate (Negative); Color,Urine Yellow; Glucose,Urine (UA) Negative (Negative); Ketones,Urine Negative (Negative); Leukocyte Esterase,Urine Large (Negative); Mucus,Urine Rare /hpf; Nitrite,Urine Negative (Negative); PH, Urine 5.5 (5.0-8.0); Protein,Urine Trace (Negative); RBC,Urine 5 /hpf (0-5); Specific Gravity,Urine 1.015 (1.001-1.035); Urobilinogen,Urine <2.0 mg/dL (<2.0); WBC,Urine 82 /hpf (0-5)
[2021-09-11] MEDS: ATORVASTATIN 10 MG TAB PO SCH (09:53)
[2021-09-11 10:13] LABS: INR 1.8 (<1.2); Prothrombin Time 18.1 sec (9.0-12.0)
[2021-09-11 10:23] LABS: African American GFR (CKD) >90 (>60 ml/min/1.73 sqM); Anion Gap 2 mmol/L; Basophils % (A) 0 %; Blood Urea Nitrogen 15 mg/dL (9-20); Calcium 7.7 mg/dL (8.4-10.2); Carbon Dioxide 23 mmol/L (22-30); Chloride 117 mmol/L (98-107); Eosinophils % (A) 1 %; Glucose 109 mg/dL (74-99); HCT 35.9 % (39.0-53.0); HGB 11.6 gm/dL (13.0-17.5); Lymphocytes # (A) 1.2 k/uL (1.0-4.8); Lymphocytes % (A) 35 %; MCH 32.3 pg (25.0-35.0); MCHC 32.3 g/dL (31.0-37.0); Mean Platelet Volume 7.4; Monocytes # (A) 0.1 k/uL (0-1.0); Monocytes % (A) 3 %; Neutrophils # (A) 1.9 k/uL (1.3-7.7); Neutrophils % (A) 58 %; Non-African American GFR(CKD) 78 (>60 ml/min/1.73 sqM); Platelet Count 163 k/uL (150-450); Potassium 3.8 mmol/L (3.5-5.1); RBC 3.59 m/uL (4.30-5.90); RDW 13.5 % (11.5-15.5); Sodium 142 mmol/L (137-145); WBC 3.3 k/uL (3.8-10.6)
[2021-09-11] MEDS ORDERED: CEFDINIR 300 MG CAP PO SCH (11:30)
[2021-09-11 12:48] VITALS: BP 98/56; PULSE 90; RESP 18; TEMP 98.9
--- NOTE | 2021-09-11 14:23 | P.DS ---
Providers Date of admission: 09/07/21 15:40 Expected date of discharge: 09/11/21 Attending physician: Sunil Kinney Consults: 09/08/21 15:08 Consult Physician Routine Consulting Provider: Toan [place] Consult Reason/Comments: seppsis Do you want consulting provider notified?: Yes Primary care physician: Vitaliy Hdz Hospital Course: Final Diagnosis Acute urinary tract infection with severe sepsis, septic shock and hypotension, present on admission leukopenia, currently improved coumadin coagulopathy change in mental status, acute metabolic encephalopathy, multifactorial hematuria, h/o bladder ca increased creatinine with acute tubular necrosis and acute renal failure hypomagnesemia hypoalbuminemia with mild protein calorie malnutrition history of atrial fibrillation, chronic hypertension history of prostate disorder history of gout history of benign prosthetic hypertrophy history of anxiety gait dysfunction remote history of nicotine dependence no code, no cpr, no vent Discharge disposition Patient is being discharged in a stable condition with guarded prognosis to [facility]. Patient will follow-up with Dr. Caldwell in the outpatient setting upon discharge. Patient is to continue with oral cefdinir twice daily for 7 days on discharge. Total time taken is greater than 35 minutes. Hospital course This is a 89-year-old male who was admitted for acute UTI and being closely monitored. Patient also with severe sepsis and ID following. Patient will continue on oral cefdinir for 7 days on discharge. Patient to hold bp meds and continue atenolol for now until blood pressure improves. Recommend close monitoring of vitals q shift or as needed for hypotension. Patient on coumadin and recommend close monitoring of INR and hold if bleeding continues and monitor closely. Currently no reports of chest pain, worsening shortness of breath, or palpitations. Patient is afebrile. No reports of nausea or vomiting and patient is tolerating diet. Patient will be discharged to [facility] today. Guarded prognosis. On exam vital signs are stable. Cardio S1, S2 are muffled. Respiratory system shows diminished breath sounds at the bases with no wheezing or rhonchi noted. Abdomen is soft and obese, and nontender. Nervous system shows diffuse weakness. Please refer to medication reconciliation sheet for a list of medications. Patient Condition at Discharge: Stable Plan - Discharge Summary Discharge Rx Participant: No New Discharge Prescriptions: New Cefdinir [Omnicef] 300 mg PO BID 7 Days #14 cap Warfarin [Coumadin] 2.5 mg PO DAILY #1 tab Continue Lovastatin [Altoprev] 20 mg PO DAILY Allopurinol [Zyloprim] 300 mg PO HS@1800 atenoloL [Tenormin] 12.5 mg PO HS@1800 Tamsulosin HCl [Flomax] 0.4 mg PO HS@1800 Cyanocobalamin/Cobamamide [Vitamin B-12 5,000 Mcg Tab Sl] 1 tab SL DAILY Acetaminophen Tab [Tylenol] 500 mg PO TID PRN PRN Reason: Fever And/ Or Pain traMADol HCL [Ultram] 50 mg PO BID PRN #4 tab PRN Reason: Severe Pain Discontinued Warfarin [Coumadin] 2.5 mg PO MOWEFR@1800 lisinopriL [Zestril] 20 mg PO BID amLODIPine [Norvasc] 5 mg PO DAILY Warfarin [Coumadin] 5 mg PO SUTUTHSA@1800 Discharge Medication List Allopurinol [Zyloprim] 300 mg PO HS@1800 10/14/19 [History] Lovastatin [Altoprev] 20 mg PO DAILY 10/14/19 [History] atenoloL [Tenormin] 12.5 mg PO HS@1800 03/25/20 [History] Tamsulosin HCl [Flomax] 0.4 mg PO HS@1800 06/23/21 [History] Acetaminophen Tab [Tylenol] 500 mg PO TID PRN 09/07/21 [History] Cyanocobalamin/Cobamamide [Vitamin B-12 5,000 Mcg Tab Sl] 1 tab SL DAILY 09/07/21 [History] Cefdinir [Omnicef] 300 mg PO BID 7 Days #14 cap 09/11/21 [Rx] Warfarin [Coumadin] 2.5 mg PO DAILY #1 tab 09/11/21 [Rx] traMADol HCL [Ultram] 50 mg PO BID PRN #4 tab 09/11/21 [Rx] Follow up Appointment(s)/Referral(s): Vitaliy Hdz MD [Primary Care Provider] - 1-2 days Ambulatory/Diagnostic Orders: Complete Blood Count w/diff [LAB.AMB] Time Frame: 2 Days, Location: None Selected Activity/Diet/Wound Care/Special Instructions: [facility] follow up labs in 1-2 days of PTINR, cbc, bmp continue antibiotics until finished follow up pcp outpatient continue current diet hold blood pressure meds for now and monitor vital signs q shift Discharge Disposition: TRANSFER TO SNF/ECF
== END 2021-09-11 18:17 | DRG 871 ==
LOC: EC 11:12 → 5NMEDONC 15:40 → 4SSUR 20:10 → 3SCARD 09-08 01:44
PROVIDERS: ADMIT Hospitalist; ATTEND Hospitalist
DX: A41.9 Sepsis, unspecified organism (principal); R65.21 Severe sepsis with septic shock; G93.41 Metabolic encephalopathy; N17.0 Acute kidney failure with tubular necrosis; N39.0 Urinary tract infection, site not specified; E44.1 Mild protein-calorie malnutrition; I48.20 Chronic atrial fibrillation, unspecified; S30.811A Abrasion of abdominal wall, initial encounter; I48.91 Unspecified atrial fibrillation; E78.5 Hyperlipidemia, unspecified; I10 Essential (primary) hypertension; M10.9 Gout, unspecified; M54.30 Sciatica, unspecified side; F41.9 Anxiety disorder, unspecified; T45.1X5A Adverse effect of antineoplastic and immunosuppressive drugs, initial encounter; D72.829 Elevated white blood cell count, unspecified; X58.XXXA Exposure to other specified factors, initial encounter; Z66 Do not resuscitate; T45.515A Adverse effect of anticoagulants, initial encounter; D72.819 Decreased white blood cell count, unspecified; E11.9 Type 2 diabetes mellitus without complications; E83.41 Hypermagnesemia; R26.9 Unspecified abnormalities of gait and mobility; N20.0 Calculus of kidney; N40.0 Benign prostatic hyperplasia without lower urinary tract symptoms; Z20.822 Contact with and (suspected) exposure to COVID-19; Z79.01 Long term (current) use of anticoagulants; Z79.899 Other long term (current) drug therapy; Z87.891 Personal history of nicotine dependence; Z85.51 Personal history of malignant neoplasm of bladder; Z98.890 Other specified postprocedural states; Z68.20 Body mass index [BMI] 20.0-20.9, adult
CPT/HCPCS: 36415; 74176; 80048; 80053; 81001; 83605; 83735; 85025; 85610; 85730; 86850; 86900; 86901; 87040; 87086; 87635; 96361; 96374; 99285